=== PATIENT | female | born 1985 | race African-American/Black ===

== ENCOUNTER 2020-04-27 14:25 | Outpatient (REF) | payer OTHER, SELFPAY ==
--- NOTE | 2020-04-27 | US_ITS ---
EXAMINATION: OBSTETRICAL ULTRASOUND, FIRST TRIMESTER HISTORY: 35-year-old with secondary menorrhea Viability LMP: Unknown COMPARISON: None TECHNIQUE: Real time transabdominal imaging with color and M-mode Doppler. FINDINGS: A single, live IUP CRL of 9.5 mm c/w 7.0wks is noted. Heart Rate: 142 beats per minute. Retroverted uterus Both maternal ovaries are seen and appear normal. GESTATIONAL AGE: 1. GA from LMP: N/A wks 2. GA from AUA: 7.0 wks ESTIMATED DATE OF DELIVERY: 1. IFRAH from LMP: N/A 2. IFRAH from AUA: 12/14/2020 US/US OB <= 14 weeks fetus IMPRESSION: 1. Single live IUP 2. CRL consistent with 7.0 weeks. Best IFRAH 12/14/2020 3. Normal ovaries Follow-up in approximately 5 weeks for NT evaluation (not scheduled). Thank you very much for this referral.
== END 2020-04-27 14:26 | disposition home or self-care (01) ==
LOC: HO.US 14:25
PROVIDERS: PCP Nurse Practitioner Family; Visit Provider Family Medicine
DX: O20.9 Hemorrhage in early pregnancy, unspecified (principal); Z3A.14 14 weeks gestation of pregnancy
CPT/HCPCS: 76801

== ENCOUNTER 2021-03-31 11:14 | Emergency (ER) | payer OTHER, SELFPAY ==
--- NOTE | ~2021-03-31 | XR_ITS ---
EXAMINATION: XR CHEST CLINICAL INFORMATION: Back and chest pain. COMPARISON: 01/25/2019 portable chest. TECHNIQUE: 2 views of the chest were obtained. FINDINGS: No significant abnormality is noted involving the heart, lungs, mediastinum, bony thorax or soft tissues. XR/XR chest 2V IMPRESSION: No acute cardiopulmonary process.
--- NOTE | ~2021-03-31 | XR_ITS ---
EXAMINATION: XR LUMBOSACRAL SPINE CLINICAL INFORMATION: Low back pain. COMPARISON: None TECHNIQUE: Three views of the lumbosacral spine. FINDINGS: The vertebral bodies and posterior elements are normal. The disc spaces are preserved and the vertebral alignment is normal. The paraspinal soft tissues are normal. XR/XR lumbar spine 2-3V IMPRESSION: Unremarkable lumbar spine.
[2021-03-31 11:26] VITALS: BP 100/57; PULSE 83; RESP 18; TEMP 36.5; O2SAT 98; BMI 24.3
--- NOTE | 2021-03-31 11:30 | ECG_ITS ---
Test Reason : CHEST PAIN Blood Pressure : / mmHG Vent. Rate : 063 BPM Atrial Rate : 063 BPM P-R Int : 158 ms QRS Dur : 076 ms QT Int : 366 ms P-R-T Axes : 073 059 051 degrees QTc Int : 374 ms Normal sinus rhythm Normal ECG Heart rate has increased Referred By: Malika Marie Electronically Signed By:CHANDNI GREENE MD
--- NOTE | 2021-03-31 11:39 | ED.CHESTPAIN ---
HPI - Chest Pain General Chief Complaint: Back Pain/Injury Stated Complaint: back pain Time Seen by Provider: 03/31/21 11:30 Source: patient Mode of arrival: ambulatory Limitations: no limitations History of Present Illness MD complaint: chest pain (since early this AM feels heavy hurts to move and move her arms, low back pain for 1 month - hx of scoliosis) Onset (ago): month(s) (1 month of low back pain, chest pain since early this AM) Timing of current episode: constant Prior episodes: No Onset: during rest Pain location: substernal Pain radiation: none Severity: moderate Quality: aching and heaviness Relieving factors: nothing Exacerbating factors: palpation and movement Context: other (hx of scoliosis, no recent illnesses, travel, procedures or OCPs) Associated symptoms: dyspnea (hurts to take a deep breath) Treatment prior to arrival: none Related Data Previous Rx's Medication Instructions Recorded cyclobenzaprine 10 mg tablet 10 mg PO TID PRN #14 tab 03/31/21 ibuprofen 600 mg tablet 600 mg PO Q6H PRN #30 tab 03/31/21 lidocaine 4 % topical patch 1 patch TOPICAL DAILY PRN #10 ea 03/31/21 Allergies Allergy/AdvReac Type Severity Reaction Status Date / Time SOAP POWDER Allergy Unknown HIVES Uncoded 02/09/20 15:41 Review of Systems Review of Systems: Constitutional : No Weight loss, No Fever, No Chills, ENT/Mouth : No Hearing loss, No Ear Pain, No Nasal Congestion, No Sinus Pain, No Hoarseness, No sore throat, No Rhinorrhea, No Swallowing Difficulty Cardiovascular : pos Chest Pain, No SOB Respiratory : No Cough, No Dyspnea Gastrointestinal : No Nausea, No Vomiting, No Diarrhea, No abdominal Pain, No Hematochezia, No Melena Genitourinary : No Dysuria, No Urinary Frequency, No Hematuria, No Urinary Incontinence, Musculoskeletal : positive back pain Skin : No Skin Lesions, No rash Neuro : No Weakness, No Numbness, No Paresthesias, no loss of bowel or bladder incontinence, no saddle anesthesia All other systems reviewed and are negative [facility] Past Medical History Attestation statement: The following information was validated with the patient. Medical History No known health problems Scoliosis Social History Social History (Updated 03/31/21 @ 11:42 by Malika Marie DO) Patient Tobacco Use Status: Current someday Tobacco user Advance Directives: No Physical Exam Vital Signs: Vital Signs: Last Vital Signs Temp 97.7 F 03/31/21 11:26 Pulse 83 03/31/21 11:26 Resp 18 03/31/21 11:26 BP 100/57 L 03/31/21 11:26 Pulse Ox 98 03/31/21 11:26 Body Mass Index 24.3 Appearance: Alert. Oriented X3. No acute distress. Eyes: Pupils equal, round and reactive to light. ENT: Pharynx normal. Neck: Normal inspection. Neck supple. CVS: Normal heart rate and rhythm. Pulses normal. Chest: ttp along costochondral border Respiratory: No respiratory distress. Breath sounds normal. Abdomen: Soft and nontender. Back: ttp along lower lumbar area no midline ttp or step offs Skin: Skin warm and dry. Normal skin color. Normal skin turgor. Extremities: No lower extremity edema. No calf ttp Neuro: Oriented X 3. No motor deficit. No sensory deficit. 5/5 strength, 2+ patella reflexes Course Course Course Narrative: negative workup MDM - Chest Pain MDM Narrative Medical decision making narrative: 36 yo female with hx of scoliosis reports low back pain x 1 month - no AC therapy, no IVDA< no b/b incontinence no saddle anesthesia - suspect scoliosis. Also reports chest pain that seems MSK in nature no sig ACS risk factors PERC negative, distal pulses intact appears comfortable doubt dissection - will obtain CXR, EKG, troponin x 1 - pain for the last few hours Lab Data Result diagrams: 03/31/21 12:17 03/31/21 12:17 Labs: Lab Results 03/31/21 03/31/21 03/31/21 Range/Units 12:17 12:17 12:17 WBC 5.2 (4.8-10.8) X10*3/uL RBC 4.11 L (4.20-5.50) X10*6/uL Hgb 11.3 L (12.0-16.0) g/dl Hct 34.6 L (37.0-47.0) % MCV 84.2 (80.0-98.0) fL MCH 27.5 (27.0-33.0) pg MCHC 32.7 (31.0-35.0) g/dl RDW 13.1 (11.0-16.0) % Plt Count 232 (160-400) X10*3/uL MPV 8.6 L (9.4-12.3) fL Immature Gran % (Auto) 0.2 (0.0-0.4) % Neut % (Auto) 56.6 (45-73) % Lymph % (Auto) 32.6 (20-40) % [place] % (Auto) 8.7 (2-11) % Eos % (Auto) 1.7 (0-4) % Baso % (Auto) 0.2 (0-2) % Lymph # (Auto) 1.7 (1.2-4.9) X10*3/uL [place] # (Auto) 0.5 (0.1-1.2) X10*3/uL Eos # (Auto) 0.1 (0.0-0.4) X10*3/uL Baso # (Auto) 0.0 (0.0-0.2) X10*3/uL Abs Immat Gran (auto) 0.01 (0.00-0.03) X10*3/uL Absolute Neuts (auto) 2.9 (2.0-8.3) x10*3/uL Absolute Nucleated RBC 0.000 (0.0-0.012) X10*3/uL Nucleated RBC % (auto) 0.0 (0.0-0.2) /100WBC Sodium 138 (135-145) mmol/L Potassium 4.1 (3.3-5.1) mmol/L Chloride 108 (96-108) mmol/L Carbon Dioxide 24 (22-29) mmol/L Anion Gap 10 L (12-20) BUN 13 (9-16) mg/dL Creatinine 0.84 (0.5-1.4) mg/dL Estim Creat Clear Calc 91.7 Estimated GFR > 60 Random Glucose 91 (60-115) mg/dL Calcium 9.1 (8.4-10.2) mg/dL Troponin I High Sens < 3.5 (<3.5-17.0) ng/L COVID-19 ([place]) (Negative) COVID-19 Clin Com 03/31/21 Range/Units 12:17 WBC (4.8-10.8) X10*3/uL RBC (4.20-5.50) X10*6/uL Hgb (12.0-16.0) g/dl Hct (37.0-47.0) % MCV (80.0-98.0) fL MCH (27.0-33.0) pg MCHC (31.0-35.0) g/dl RDW (11.0-16.0) % Plt Count (160-400) X10*3/uL MPV (9.4-12.3) fL Immature Gran % (Auto) (0.0-0.4) % Neut % (Auto) (45-73) % Lymph % (Auto) (20-40) % [place] % (Auto) (2-11) % Eos % (Auto) (0-4) % Baso % (Auto) (0-2) % Lymph # (Auto) (1.2-4.9) X10*3/uL [place] # (Auto) (0.1-1.2) X10*3/uL Eos # (Auto) (0.0-0.4) X10*3/uL Baso # (Auto) (0.0-0.2) X10*3/uL Abs Immat Gran (auto) (0.00-0.03) X10*3/uL Absolute Neuts (auto) (2.0-8.3) x10*3/uL Absolute Nucleated RBC (0.0-0.012) X10*3/uL Nucleated RBC % (auto) (0.0-0.2) /100WBC Sodium (135-145) mmol/L Potassium (3.3-5.1) mmol/L Chloride (96-108) mmol/L Carbon Dioxide (22-29) mmol/L Anion Gap (12-20) BUN (9-16) mg/dL Creatinine (0.5-1.4) mg/dL Estim Creat Clear Calc Estimated GFR Random Glucose (60-115) mg/dL Calcium (8.4-10.2) mg/dL Troponin I High Sens (<3.5-17.0) ng/L COVID-19 ([place]) Negative (Negative) COVID-19 Clin Com See Note ECG Data ECG #1: Attestation: I personally reviewed and interpreted this ECG as follows: ECG interpretation date: 03/31/21 ECG interpretation time: 12:03 Interpretation: Rate: 63 Rhythm: NSR [place]: normal Normal P waves. Normal LUIS ALBERTO. Normal QRS complex. ST T wave : normal no [place]HE[place] qTC: normal prior studies: no acute ischemia The study has been interpreted contemporaneously by me. . Discharge Plan Discharge Clinical Impression: Lumbar back pain, Chest wall pain Patient Disposition: Home, Self-Care Instructions: Acute Low Back Pain (ED), Chest Wall Pain (ED) Additional Instructions: return to ED for any worsening symptoms or concerns NEGATIVE FOR COVID XRAYS NEGATIVE Prescriptions: New cyclobenzaprine 10 mg tablet 10 mg PO TID PRN (Reason: muscle spasm) Qty: 14 RF: 0 lidocaine 4 % adhesive patch,medicated 1 patch topical DAILY PRN (Reason: pain) Qty: 10 RF: 0 ibuprofen 600 mg tablet 600 mg PO Q6H PRN (Reason: pain) Qty: 30 RF: 0 Referrals: Mali Su NP [Primary Care Provider] - 1 week (for physical therapy)
[2021-03-31 12:23] LABS: MANUAL DIFF FLAG NO
[2021-03-31 12:25] LABS: Basophils Percent Auto 0.2 % (0-2); Eosinophils Absolute Auto 0.1 X10*3/uL (0.0-0.4); Eosinophils Percent Auto 1.7 % (0-4); Hematocrit 34.6 % (37.0-47.0); Hemoglobin 11.3 g/dl (12.0-16.0); Imm Gran Abs Auto 0.01 X10*3/uL (0.00-0.03); Imm Gran Pct Auto 0.2 % (0.0-0.4); Lymphocytes Absolute Auto 1.7 X10*3/uL (1.2-4.9); Lymphocytes Percent Auto 32.6 % (20-40); Mean Corpuscular HGB Conc 32.7 g/dl (31.0-35.0); Mean Corpuscular Hemoglobin 27.5 pg (27.0-33.0); Mean Corpuscular Volume 84.2 fL (80.0-98.0); Mean Platelet Volume 8.6 fL (9.4-12.3); Monocytes Absolute Auto 0.5 X10*3/uL (0.1-1.2); Monocytes Percent Auto 8.7 % (2-11); Neutrophils Absolute Auto 2.9 x10*3/uL (2.0-8.3); Neutrophils Percent Auto 56.6 % (45-73); Platelet Count 232 X10*3/uL (160-400); Red Blood Count 4.11 X10*6/uL (4.20-5.50); Red Cell Distribution Width 13.1 % (11.0-16.0); White Blood Count 5.2 X10*3/uL (4.8-10.8)
[2021-03-31 12:38] LABS: Anion Gap 10 (12-20); Blood Urea Nitrogen 13 mg/dL (9-16); Calcium 9.1 mg/dL (8.4-10.2); Carbon Dioxide 24 mmol/L (22-29); Chloride 108 mmol/L (96-108); Creatinine Clr Calc Pharmacy 91.7; Estimated Glomerular Filt Rate > 60; Glucose Random 91 mg/dL (60-115); Potassium 4.1 mmol/L (3.3-5.1); Sodium 138 mmol/L (135-145)
[2021-03-31 12:42] LABS: COVID-19 Test Negative (Negative)
[2021-03-31 12:46] LABS: Troponin-I High Sensitivity < 3.5 ng/L (<3.5-17.0)
== END 2021-03-31 13:17 | disposition home or self-care (01) ==
PROVIDERS: Emergency Provider Emergency Medicine; PCP Nurse Practitioner Family
DX: M54.50 Low back pain, unspecified (principal); R07.89 Other chest pain; M41.9 Scoliosis, unspecified; Z20.822 Contact with and (suspected) exposure to COVID-19
CPT/HCPCS: 36415; 71046; 72100; 80048; 84484; 85025; 87635; 93005; 99283; 99284

== ENCOUNTER 2021-06-09 17:17 | Emergency (ER) | payer OTHER, SELFPAY ==
[2021-06-09 18:10] VITALS: BP 136/77; PULSE 96; RESP 16; O2SAT 100; BMI 24.1
[2021-06-09 18:26] LABS: Appearance Urine HAZY; Color Urine YELLOW; Glucose Urine UA NEG (NEG); Leukocyte Esterase Urine 2+ (NEG); Nitrite Urine NEG (NEG); UACC Culture Trigger YES; Urine Blood NEG (NEG); Urine Ketones NEG (NEG); Urine Protein 1+ MG/DL (NEG-TRACE)
[2021-06-09 18:28] LABS: UPreg QC Valid YES; Urine Pregnancy POSITIVE (NEGATIVE)
[2021-06-09 18:35] LABS: Amorphous Sediment Urine 1+ /LPF; Bacteria Urine 1+ /LPF; Mucus Urine 1+ /LPF; RBC Urine 0-2 /HPF (0); Squamous Epithelial Cell Urine 2+ /LPF
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
[2021-06-09] MEDS: Nitrofurantoin Monohyd/M-Cryst 100 MG CAPSULE PO (22:21)
[2021-06-09 22:39] LABS: COVID-19 Test Negative (Negative)
[2021-06-09 22:52] LABS: HCG Quantitative 861 mIU/mL
[2021-06-09] MEDS: Acetaminophen 325 MG TABLET 650 MG PO (23:41)
== END 2021-06-09 23:48 | disposition home or self-care (01) ==
PROVIDERS: Emergency Provider Internal Medicine; PCP Nurse Practitioner Family
DX: O23.41 Unspecified infection of urinary tract in pregnancy, first trimester (principal); Z3A.01 Less than 8 weeks gestation of pregnancy; Z20.822 Contact with and (suspected) exposure to COVID-19; Z79.899 Other long term (current) drug therapy
CPT/HCPCS: 36415; 81001; 81025; 84702; 87086; 87635; 99284

== ENCOUNTER 2021-06-21 13:58 | Outpatient (REF) | payer OTHER, SELFPAY ==
--- NOTE | ~2021-06-21 | US_ITS ---
EXAMINATION: OBSTETRICAL ULTRASOUND, FIRST TRIMESTER HISTORY: 36-year-old at the 6.2 weeks of gestation Encounter for uncertain dates LMP: 05/08/2021 COMPARISON: None TECHNIQUE: Real time transabdominal imaging with color and M-mode Doppler. FINDINGS: A single, live IUP CRL of 4.6 mm c/w 6.2wks is noted. Heart Rate: 119 beats per minute. Both maternal ovaries are seen and appear normal. GESTATIONAL AGE: 1. GA from LMP: 6.2 wks 2. GA from AUA: 6.2 wks ESTIMATED DATE OF DELIVERY: 1. IFRAH from LMP: 02/12/2022 2. IFRAH from AUA: 02/12/2022 US/US OB <= 14 weeks fetus IMPRESSION: 1. A single live IUP 2. Size equals dates 3. Normal ovaries Thank you very much for this referral.
== END 2021-06-21 13:59 | disposition home or self-care (01) ==
LOC: HO.US 13:58
PROVIDERS: Visit Provider Advanced Practice Midwife
DX: Z34.91 Encounter for supervision of normal pregnancy, unspecified, first trimester (principal); Z3A.01 Less than 8 weeks gestation of pregnancy
CPT/HCPCS: 76801

== ENCOUNTER 2021-07-01 13:29 | Emergency (ER) | payer OTHER, SELFPAY ==
[2021-07-01 13:57] VITALS: BP 107/62; PULSE 90; RESP 16; TEMP 37.2; O2SAT 100; BMI 22.8
--- NOTE | 2021-07-01 14:26 | ED_ITS ---
HPI - Nausea/Vomiting/Diarrhea General Chief complaint: Nausea/Vomiting/Diarrhea Stated complaint: 8 wks preg - dehydration Time Seen by Provider: 07/01/21 14:20 Source: patient Mode of arrival: ambulatory Limitations: no limitations History of Present Illness HPI Narrative: D = US had hyperemesis with last on B6 and doxylamine but vomiting it up not taking zofran that was Rx at this time, feels very dehydrated. MD elicited complaint: nausea and vomiting Pertinent past history: other (hx of vomiting with her ) Onset (ago): week(s) Description of vomiting: food contents and watery Associated nausea: Yes Associated abdominal pain: No Severity: moderate Exacerbating factors: eating Relieving factors: none Context: other (hx of hyperemesis ) Associated symptoms: loss of appetite, malaise, nausea/vomiting and decreased urine output (has strong odor, no vaginal bleeding) Related Data Previous Rx's Medication Instructions Recorded cyclobenzaprine 10 mg tablet 10 mg PO TID PRN #14 tab 03/31/21 ibuprofen 600 mg tablet 600 mg PO Q6H PRN #30 tab 03/31/21 lidocaine 4 % topical patch 1 patch TOPICAL DAILY PRN #10 ea 03/31/21 nitrofurantoin 100 mg PO BID #20 cap 06/09/21 monohydrate/macrocrystals 100 mg capsule (Macrobid) promethazine 25 mg rectal 25 mg NE Q6H PRN #12 ea 07/01/21 suppository Allergies Allergy/AdvReac Type Severity Reaction Status Date / Time SOAP POWDER Allergy Unknown HIVES Uncoded 07/01/21 13:57 Review of Systems [place] 4l Review of Systems: Verdana 4d Verdana 4d Constitutional : No Weight loss, No Fever, No Chills ENT/Mouth : No sore throat, No Rhinorrhea Eyes: No Swelling, No Redness Cardiovascular : No Chest Pain, No SOB, NoEdema Respiratory : No Cough, No Sputum, No Wheezing Gastrointestinal :: Positive Nausea, Positive Vomiting, no Diarrhea, no abdominal Pain, No Hematochezia, No Melena Genitourinary : No Dysuria, No Urinary Frequency, No Hematuria, No Urgency , no vaginal bleeding Musculoskeletal : No joint pain, No Myalgias, No Joint Swelling Skin : No Skin Lesions, No rash Neuro : pos Weakness, No Numbness, No Dizziness, No Headache Psych : No Anxiety/Panic, No Depression Heme/Lymph: No Bruising, No Lymphadenopathy Endocrine : No Polyuria, No Polydipsia All other systems reviewed and are negative. Gastrointestinal: Gastrointestinal: Reports nausea PMFSH Past Medical History Attestation statement: The following information was validated with the patient. Medical History No known health problems Scoliosis Social History Social History Alcohol intake: former Patient Tobacco Use Status: Former Tobacco user Smoked in Last 30 Days: Yes Use of substances other than those prescribed or required for medical reasons: No Advance Directives: No Advance Directives Information Provided: No Patient : Yes Physical Exam Verdana 4l Vital Signs: Verdana 4d Verdana 4d Vital Signs: Verdana 4d Verdana 4Bd Last Vital Signs Verdana 4d [employer] New 4d [employer]or New 4d Temp 98.9 F 07/01/21 13:57 [employer] New 4d Pulse 90 07/01/21 13:57 [employer] New 4d Resp 16 07/01/21 13:57 BP 107/62 07/01/21 13:57 Pulse Ox 100 07/01/21 13:57 BMI result Body Mass Index 22.8 Appearance: Alert. Oriented X3. No acute distress. Eyes: Pupils equal, round and reactive to light. ENT: Pharynx mildlly dry MM Neck: Normal inspection. Neck supple. CVS: Normal heart rate and rhythm. Pulses normal. Respiratory: No respiratory distress. Breath sounds normal. Abdomen: Soft and non-tender. Skin: Skin warm and dry. Normal skin color. Normal skin turgor. Extremities: No lower extremity edema. No calf ttp Neuro: Oriented X 3. No motor deficit. No sensory deficit. Course Course Course Narrative: signed out to Dr. Peña pending UA and PO challenge MDM - Nausea/Vomiting/Diarrhea MDM Narrative Medical decision making narrative: 36 yo female 8 weeks D = to US here with c/o vomitig not responding to her medications but was Rx zofran did not try it yet. At this time will obtain labs, UA, IVF x 2L, reglan/benadryl. She is not endorsing abdominal pain or vaginal bleeding. Has OB follow up. Lab Data Result diagrams: 07/01/21 14:47 07/01/21 14:47 Labs: Lab Results 07/01/21 07/01/21 07/01/21 Range/Units 14:47 14:47 14:47 WBC 7.5 (4.8-10.8) X10*3/uL RBC 4.27 (4.20-5.50) X10*6/uL Hgb 11.8 L (12.0-16.0) g/dl Hct 35.5 L (37.0-47.0) % MCV 83.1 (80.0-98.0) fL MCH 27.6 (27.0-33.0) pg MCHC 33.2 (31.0-35.0) g/dl RDW 13.5 (11.0-16.0) % Plt Count 220 (160-400) X10*3/uL MPV 8.9 L (9.4-12.3) fL Immature Gran % (Auto) 0.3 (0.0-0.4) % Neut % (Auto) 67.0 (45-73) % Lymph % (Auto) 24.2 (20-40) % [place] % (Auto) 7.2 (2-11) % Eos % (Auto) 1.2 (0-4) % Baso % (Auto) 0.1 (0-2) % Lymph # (Auto) 1.8 (1.2-4.9) X10*3/uL [place] # (Auto) 0.5 (0.1-1.2) X10*3/uL Eos # (Auto) 0.1 (0.0-0.4) X10*3/uL Baso # (Auto) 0.0 (0.0-0.2) X10*3/uL Abs Immat Gran (auto) 0.02 (0.00-0.03) X10*3/uL Absolute Neuts (auto) 5.0 (2.0-8.3) x10*3/uL Absolute Nucleated RBC 0.000 (0.0-0.012) X10*3/uL Nucleated RBC % (auto) 0.0 (0.0-0.2) /100WBC Sodium 135 (135-145) mmol/L Potassium 4.1 (3.3-5.1) mmol/L Chloride 104 (96-108) mmol/L Carbon Dioxide 24 (22-29) mmol/L Anion Gap 11 L (12-20) BUN 9 (9-16) mg/dL Creatinine 0.79 (0.5-1.4) mg/dL Estim Creat Clear Calc 101.2 Estimated GFR > 60 Random Glucose 95 (60-115) mg/dL Calcium 9.9 D (8.4-10.2) mg/dL Magnesium 1.8 (1.6-2.6) mg/dL Total Bilirubin 0.5 (0.0-1.0) mg/dL Direct Bilirubin < 0.2 (0.0-0.5) mg/dL AST 23 (5-31) U/L ALT 21 (0-31) U/L Alkaline Phosphatase 50 (39-117) U/L Total Protein 7.3 (6.5-8.0) g/dL Albumin 4.4 (3.5-5.0) g/dL Lipase 11 (8-78) U/L Beta HCG, Quant 112746 mIU/mL COVID-19 ([place]) Negative (Negative) COVID-19 Clin Com See Note Discharge Plan Discharge Clinical Impression: Hyperemesis Instructions: Hyperemesis Gravidarum (ED) Additional Instructions: return to ED for any worsening symptoms or concerns you have zofran as well for nausea and vomiting please follow up with your OBGYN Prescriptions: New promethazine 25 mg suppository 25 mg NE Q6H PRN (Reason: nausea and vomiting) Qty: 12 0RF No Action cyclobenzaprine 10 mg tablet 10 mg PO TID PRN (Reason: muscle spasm) Qty: 14 0RF lidocaine 4 % adhesive patch,medicated 1 patch topical DAILY PRN (Reason: pain) Qty: 10 0RF Rx Instructions: may leave on for up to 12 hrs ibuprofen 600 mg tablet 600 mg PO Q6H PRN (Reason: pain) Qty: 30 0RF nitrofurantoin monohyd/m-cryst [Macrobid] 100 mg capsule 100 mg PO BID Qty: 20 0RF Rx Instructions: must administer with a meal/food Stand Alone Forms: Work/School Release
[2021-07-01 14:51] LABS: MANUAL DIFF FLAG NO
[2021-07-01] MEDS: 0.9 % Sodium Chloride 1,000 ML 999 ML IVCONT ×2 (14:53→16:13)
[2021-07-01] MEDS: Metoclopramide HCl 10 MG/2 ML VIAL IVPUSH (14:54)
[2021-07-01] MEDS: diphenhydrAMINE HCL 50 MG/ML VIAL 25 MG IVPUSH (14:54)
[2021-07-01 14:56] LABS: Basophils Percent Auto 0.1 % (0-2); Eosinophils Absolute Auto 0.1 X10*3/uL (0.0-0.4); Eosinophils Percent Auto 1.2 % (0-4); Hematocrit 35.5 % (37.0-47.0); Hemoglobin 11.8 g/dl (12.0-16.0); Imm Gran Abs Auto 0.02 X10*3/uL (0.00-0.03); Imm Gran Pct Auto 0.3 % (0.0-0.4); Lymphocytes Absolute Auto 1.8 X10*3/uL (1.2-4.9); Lymphocytes Percent Auto 24.2 % (20-40); Mean Corpuscular HGB Conc 33.2 g/dl (31.0-35.0); Mean Corpuscular Hemoglobin 27.6 pg (27.0-33.0); Mean Corpuscular Volume 83.1 fL (80.0-98.0); Mean Platelet Volume 8.9 fL (9.4-12.3); Monocytes Absolute Auto 0.5 X10*3/uL (0.1-1.2); Monocytes Percent Auto 7.2 % (2-11); Platelet Count 220 X10*3/uL (160-400); Red Blood Count 4.27 X10*6/uL (4.20-5.50); Red Cell Distribution Width 13.5 % (11.0-16.0); White Blood Count 7.5 X10*3/uL (4.8-10.8)
[2021-07-01 15:17] LABS: Alanine Aminotransferase 21 U/L (0-31); Albumin Level 4.4 g/dL (3.5-5.0); Alkaline Phosphatase 50 U/L (39-117); Anion Gap 11 (12-20); Aspartate Amino Transferase 23 U/L (5-31); Bilirubin Direct < 0.2 mg/dL (0.0-0.5); Bilirubin Total 0.5 mg/dL (0.0-1.0); Blood Urea Nitrogen 9 mg/dL (9-16); COVID-19 Test Negative (Negative); Calcium 9.9 mg/dL (8.4-10.2); Carbon Dioxide 24 mmol/L (22-29); Chloride 104 mmol/L (96-108); Creatinine Clr Calc Pharmacy 101.2; Estimated Glomerular Filt Rate > 60; Glucose Random 95 mg/dL (60-115); IDNOW Serial# 9DD0AD1C; Lipase 11 U/L (8-78); Magnesium 1.8 mg/dL (1.6-2.6); Potassium 4.1 mmol/L (3.3-5.1); Sodium 135 mmol/L (135-145); Total Protein 7.3 g/dL (6.5-8.0)
--- NOTE | 2021-07-01 16:14 | PC.NURSE ---
pt reports feeling better, no vomiting since pt arrived to the ed, no nausea at this time
[2021-07-01 16:28] LABS: Appearance Urine CLEAR; Color Urine YELLOW; Glucose Urine UA NEG (NEG); Leukocyte Esterase Urine NEG (NEG); Nitrite Urine NEG (NEG); Specific Gravity - Urine 1.025 (1.005-1.025); Urine Blood NEG (NEG); Urine Ketones NEG (NEG); Urine Protein TRACE MG/DL (NEG-TRACE)
[2021-07-01 17:31] VITALS: BP 95/59; PULSE 69; RESP 16; TEMP 37.1; O2SAT 100
== END 2021-07-01 17:41 | disposition home or self-care (01) ==
PROVIDERS: Emergency Medicine; Emergency Provider Internal Medicine
DX: O21.0 Mild hyperemesis gravidarum (principal); Z3A.08 8 weeks gestation of pregnancy; Z20.822 Contact with and (suspected) exposure to COVID-19
CPT/HCPCS: 80048; 80076; 81003; 83690; 83735; 84702; 85025; 87635; 96361; 96374; 96375; 99284; J1200; J2765

== ENCOUNTER → 2021-07-08 13:58 | Outpatient (BNVA) | payer OTHER, SELFPAY | PROVIDERS: Visit Provider Advanced Practice Midwife | DX: O09.529 Supervision of elderly multigravida, unspecified trimester (principal); O99.341 Other mental disorders complicating pregnancy, first trimester; F41.9 Anxiety disorder, unspecified; F32.A Depression, unspecified; Z3A.08 8 weeks gestation of pregnancy | CPT/HCPCS: 99212 ==

== ENCOUNTER 2021-07-12 13:29 | Outpatient (REF) | payer OTHER, SELFPAY ==
[2021-07-13 04:27] LABS: CT PCR NOT DETECTED (Not Detect.); NG PCR NOT DETECTED (Not Detect.)
[2021-07-13 09:32] LABS: BV Int Neg Control Negative (Negative); BV Int Pos Control Positive (Positive)
[2021-07-17 14:57] LABS: HPV mRNA E6/E7 rflx Not Detected (Not Detected)
== END 2021-07-12 13:30 | disposition home or self-care (01) ==
LOC: HO.LAB 13:29
PROVIDERS: Visit Provider Advanced Practice Midwife
DX: O09.521 Supervision of elderly multigravida, first trimester (principal); O26.891 Other specified pregnancy related conditions, first trimester; N89.8 Other specified noninflammatory disorders of vagina; F41.9 Anxiety disorder, unspecified; F32.A Depression, unspecified; Z11.51 Encounter for screening for human papillomavirus (HPV); Z3A.09 9 weeks gestation of pregnancy
CPT/HCPCS: 87480; 87491; 87510; 87591; 87624; 87660; 88142; 99212

== ENCOUNTER 2021-07-21 12:57 | Emergency (ER) | payer OTHER, SELFPAY ==
--- NOTE | ~2021-07-21 | US_ITS ---
EXAMINATION: US OBSTETRICAL ULTRASOUND CLINICAL INFORMATION: Left lower quadrant pain. 10 weeks gestation. COMPARISON: Ultrasound OB 06/13/2021 LMP: 05/08/2021. Gestational age by maternal dates is 10 weeks 4 days. Estimated date of delivery by maternal dates is 02/12/2022. TECHNIQUE: Routine transabdominal imaging of pelvis is performed. FINDINGS: There is a single intrauterine gestational sac with visible yolk sac, embryo/fetus, and cardiac activity. There is no significant subchorionic hemorrhage or hematoma. HR: 160 beats per minute. CRL (crown rump length): 4.08 cm (11 weeks and 8 days +/- 4 days). IFRAH (estimated date of delivery): 02/12/2022 +/- 4 days. MATERNAL ADNEXA: The right maternal ovary appears unremarkable The left maternal ovary appears unremarkable There is no significant maternal adnexal mass. No maternal pelvic ascites. US/US OB <= 14 weeks fetus IMPRESSION: 1. Single intrauterine gestation with ultrasound gestational age of 11 weeks and 8 days +/- 4 days. 2. Estimated date of delivery is 02/12/2022 +/- 4 days. 3. No maternal adnexal mass or pelvic ascites.
[2021-07-21 13:22] VITALS: BP 103/53; PULSE 74; RESP 18; TEMP 36.6; O2SAT 99; BMI 24.1
--- NOTE | 2021-07-21 14:01 | ED_ITS ---
HPI - Nausea/Vomiting/Diarrhea General Chief complaint: Nausea/Vomiting/Diarrhea Stated complaint: 10 wks preg, dehydrated,abd pain Time Seen by Provider: 07/21/21 13:37 Source: patient History of Present Illness HPI Narrative: 36-year-old female at 10 weeks gestation presenting to the ED complaining of lower abdominal discomfort, nausea, vomiting, inability to tolerate p.o. x4 days, generalized fatigue/weakness and dizziness. Admits to similar symptoms in the past. Reports she feels dehydrated. Denies fever, chills, CP/SOB, diarrhea, vaginal bleeding, vaginal discharge, dysuria/hematuria MD elicited complaint: nausea, vomiting and abdominal pain Onset (ago): day(s) Related Data Home Medications Medication Instructions Recorded Confirmed prenat.vits,lorelei,[id number] 1 tab PO DAILY 07/12/21 07/21/21 doxylamine succinate 25 mg tablet 1 tab PO BEDTIME 07/21/21 07/21/21 (Nighttime Sleep-Aid (doxylamine)) metronidazole 0.75 % vaginal gel 1 appful VAGINAL BEDTIME 07/21/21 07/21/21 Previous Rx's Medication Instructions Recorded ondansetron 4 mg disintegrating 4 mg PO Q6-8H PRN #20 tab 07/01/21 tablet promethazine 25 mg rectal 25 mg DC Q6H PRN #12 ea 07/01/21 suppository pyridoxine (vitamin B6) 25 mg 25 mg PO tid PRN 30 Days #90 tab 07/08/21 tablet (Vitamin B-6) metoclopramide HCl 10 mg tablet 10 mg PO Q6H PRN #10 tab 07/21/21 (Reglan) Allergies Allergy/AdvReac Type Severity Reaction Status Date / Time SOAP POWDER Allergy Unknown HIVES Uncoded 07/12/21 13:56 Review of Systems Review of Systems: Constitutional: No Fever, No Chills, + Fatigue, No Malaise ENT/Mouth: No Ear Pain, No Hoarseness, No sore throat, No Rhinorrhea, No Swallowing Difficulty Eyes: No Eye Pain, No Swelling, No Redness Cardiovascular: No Chest Pain, No SOB, No Edema, No Palpitations Respiratory: No Cough, No Sputum, No Dyspnea Gastrointestinal: + Nausea, + Vomiting, No Diarrhea, No Constipation, + Abdominal pain Genitourinary: No irregular bleeding, No vaginal bleeding or discharge, No Dysuria, No Urinary Frequency, No Hematuria, No Urgency, No Flank Pain, No Uri nary Flow Changes Musculoskeletal: No joint pain, No Myalgias, No Joint Swelling Skin: No Skin Lesions, No rash Neuro: + Weakness, No Numbness, No Loss of Consciousness, + Dizziness, No Headache Yes all other systems are reviewed and are negative FOR[facility], [facility] Past Medical History Attestation statement: The following information was validated with the patient. Medical History No known health problems Scoliosis Family History Family History Father Diabetes mellitus treated with insulin Mother Arthritis Social History Social History Household Members: Children Housing: Apartment Are you a primary career consultant to a significant other at home: No Do you presently have visiting nurse or other home services: No Alcohol intake: former Patient Tobacco Use Status: Former Tobacco user Trauma History: h/o brother being killed Agree to transfusion: Yes Advance Directives: No Advance Directives Information Provided: No Patient : Yes service: No Current occupational status: unemployed Current occupational exposures/hazards: No Cognitive needs: No Hearing needs: No Vision needs: No Physical Exam Vital Signs: Vital Signs: Last Vital Signs Temp 97.9 F 07/21/21 13:22 Pulse 73 07/21/21 14:16 Resp 16 07/21/21 14:16 BP 100/63 07/21/21 14:16 Pulse Ox 100 07/21/21 14:16 BMI result Body Mass Index 24.1 Const: General: cooperative, healthy appearing, no acute distress, alert, awake and Physically active Orientation/consciousness: patient oriented x3 Limitations: no limitations HENMT: Head: Yes normal to inspection and Yes atraumatic Ears: hearing grossly normal bilaterally General nose exam: Normal external nose present Face and sinus: Yes normal facial exam Eyes: General: appearance normal, both eyes and all related structures EOM: EOMs intact bilaterally Neck: Neck: Yes normal visual inspection and Yes no meningeal signs Resp: Effort & Inspection: normal respiratory effort and no respiratory distress Auscultation: clear to auscultation bilaterally, no rales, no rhonchi and no wheezes Cardio: Rate: regular rate Heart sounds: S1 normal heart sound present and S2 normal heart sound present GI: Inspection: Yes normal to inspection Palpation (GI): Soft to palpation, Tenderness to palpation present (GI) in the LLQ and suprapubicly, no guarding and not rigid : General: Yes no CVA tenderness Back/Spine/Pelvis: Back: no CVA tenderness Skin: Rashes: no rashes Wounds: no wounds Neuro: General: patient oriented x3, gait normal, tone normal, moves all extremities and no meningeal signs Gait exam (Neuro): Normal gait present Extrem: General: Yes normal to inspection Course Course Course Narrative: -1524--no leukocytosis. H&H stable. Labs otherwise unremarkable. UA with 15 ketones/not infected US OB <= 14 weeks fetus IMPRESSION: 1. Single intrauterine gestation with ultrasound gestational age of? 11 weeks and 8 days +/- 4 days. 2. Estimated date of delivery is 02/12/2022 +/- 4 days. 3. No maternal adnexal mass or pelvic ascites. -beta quant 254,622 >consistent with ultrasound -results discussed with patient. Reports symptomatic improvement in the ED. tolerated p.o. juice, yvan lor, and crackers without nausea or vomiting MDM - Nausea/Vomiting/Diarrhea MDM Narrative Medical decision making narrative: 36-year-old female at 10 weeks gestation presenting to the ED complaining of lower abdominal discomfort, nausea, vomiting, inability to tolerate p.o. x4 days, generalized fatigue/weakness and dizziness. On exam vital signs stable, BP always on lower side, NAD/nontoxic, abdomen soft with suprapubic/lower and LLQ tenderness, no rebound or guarding, no CVAT. Concern for hyperemesis and dehydration vs abdominal pain from retching. Lower concern for diverticulitis. Rule out UTI and metabolic abnormalities. Plan: Labs, UA, OB US, IVF, IV Benadryl/Reglan, vitamin B6, re-evaluate Medical Records Attestation: I reviewed the patient's medical records. Lab Data Attestation: I reviewed the patient's lab results. Result diagrams: 07/21/21 14:04 07/21/21 14:04 Labs: Lab Results 07/21/21 07/21/21 07/21/21 Range/Units 14:04 14:04 14:04 WBC 7.5 (4.8-10.8) X10*3/uL RBC 4.18 L (4.20-5.50) X10*6/uL Hgb 11.5 L (12.0-16.0) g/dl Hct 34.4 L (37.0-47.0) % MCV 82.3 (80.0-98.0) fL MCH 27.5 (27.0-33.0) pg MCHC 33.4 (31.0-35.0) g/dl RDW 13.7 (11.0-16.0) % Plt Count 249 (160-400) X10*3/uL MPV 8.8 L (9.4-12.3) fL Immature Gran % (Auto) 0.3 (0.0-0.4) % Neut % (Auto) 73.7 H (45-73) % Lymph % (Auto) 19.6 L (20-40) % [place] % (Auto) 5.4 (2-11) % Eos % (Auto) 0.7 (0-4) % Baso % (Auto) 0.3 (0-2) % Lymph # (Auto) 1.5 (1.2-4.9) X10*3/uL [place] # (Auto) 0.4 (0.1-1.2) X10*3/uL Eos # (Auto) 0.1 (0.0-0.4) X10*3/uL Baso # (Auto) 0.0 (0.0-0.2) X10*3/uL Abs Immat Gran (auto) 0.02 (0.00-0.03) X10*3/uL Absolute Neuts (auto) 5.6 (2.0-8.3) x10*3/uL Absolute Nucleated RBC 0.000 (0.0-0.012) X10*3/uL Nucleated RBC % (auto) 0.0 (0.0-0.2) /100WBC Sodium 134 L (135-145) mmol/L Potassium 4.5 (3.3-5.1) mmol/L Chloride 104 (96-108) mmol/L Carbon Dioxide 22 (22-29) mmol/L Anion Gap 13 (12-20) BUN 12 (9-16) mg/dL Creatinine 0.76 (0.5-1.4) mg/dL Estim Creat Clear Calc 101.4 Estimated GFR > 60 Random Glucose 92 (60-115) mg/dL Calcium 9.7 (8.4-10.2) mg/dL Magnesium 1.9 (1.6-2.6) mg/dL Total Bilirubin 0.4 (0.0-1.0) mg/dL Direct Bilirubin < 0.2 (0.0-0.5) mg/dL AST 27 (5-31) U/L ALT 19 (0-31) U/L Alkaline Phosphatase 44 (39-117) U/L Total Protein 7.2 (6.5-8.0) g/dL Albumin 4.0 (3.5-5.0) g/dL Lipase 14 (8-78) U/L Beta HCG, Quant 742008 mIU/mL Urine Color YELLOW Urine Appearance HAZY Urine pH 6.0 (5.0-8.0) Ur Specific [place] >= 1.030 H (1.005-1.025) Urine Protein TRACE (NEG-TRACE) MG/DL Urine Glucose (UA) NEG (NEG) MG/DL Urine Ketones 15 (NEG) MG/DL Urine Blood NEG (NEG) Urine Nitrite NEG (NEG) Ur Leukocyte Esterase NEG (NEG) Discharge Plan Discharge Clinical Impression: Hyperemesis gravidarum Patient Disposition: Home, Self-Care Instructions: Hyperemesis Gravidarum (ED) Additional Instructions: Your blood work was reassuring Your urine did have ketones which is signs of dehydration. It is very important that he stay hydrated at home, drink plenty of fluids. Continue taking previously prescribed medications. If Zofran is not working for you stop taking Zofran, try Reglan as an antinausea medication Please follow-up with her OBGYN. If you are unable to eat or drink, develops fever, persistent abdominal pain, inability to eat or drink please return to the ED Prescriptions: New metoclopramide HCl [Reglan] 10 mg tablet 10 mg PO Q6H PRN (Reason: nausea and vomiting) Qty: 10 0RF No Action promethazine 25 mg suppository 25 mg DC Q6H PRN (Reason: nausea and vomiting) Qty: 12 0RF ondansetron 4 mg tablet,disintegrating 4 mg PO Q6-8H PRN (Reason: nausea and vomiting) Qty: 20 0RF metronidazole 0.75 % gel 1 appful vaginal BEDTIME 0RF Nighttime Sleep-Aid (doxylamn) 25 mg tablet 1 tab PO BEDTIME 0RF pyridoxine (vitamin B6) [Vitamin B-6] 25 mg tablet 25 mg PO tid PRN (Reason: nausea) 30 Days Qty: 90 3RF Rx Instructions: may take every 6 - 8 hours for nausea prenat.vits,lorelei,[id number] Tablet 1 tab PO DAILY 0RF Referrals: Noah Aguilar MD [Physician] - 2 days
[2021-07-21 14:10] LABS: MANUAL DIFF FLAG NO
[2021-07-21] MEDS: diphenhydrAMINE HCL 50 MG/ML VIAL 25 MG IVPUSH (14:10)
[2021-07-21 14:11] LABS: Basophils Percent Auto 0.3 % (0-2); Eosinophils Absolute Auto 0.1 X10*3/uL (0.0-0.4); Eosinophils Percent Auto 0.7 % (0-4); Hematocrit 34.4 % (37.0-47.0); Hemoglobin 11.5 g/dl (12.0-16.0); Imm Gran Abs Auto 0.02 X10*3/uL (0.00-0.03); Imm Gran Pct Auto 0.3 % (0.0-0.4); Lymphocytes Absolute Auto 1.5 X10*3/uL (1.2-4.9); Lymphocytes Percent Auto 19.6 % (20-40); Mean Corpuscular HGB Conc 33.4 g/dl (31.0-35.0); Mean Corpuscular Hemoglobin 27.5 pg (27.0-33.0); Mean Corpuscular Volume 82.3 fL (80.0-98.0); Mean Platelet Volume 8.8 fL (9.4-12.3); Monocytes Absolute Auto 0.4 X10*3/uL (0.1-1.2); Monocytes Percent Auto 5.4 % (2-11); Neutrophils Absolute Auto 5.6 x10*3/uL (2.0-8.3); Neutrophils Percent Auto 73.7 % (45-73); Platelet Count 249 X10*3/uL (160-400); Red Blood Count 4.18 X10*6/uL (4.20-5.50); Red Cell Distribution Width 13.7 % (11.0-16.0); White Blood Count 7.5 X10*3/uL (4.8-10.8)
[2021-07-21 14:12] LABS: Appearance Urine HAZY; Color Urine YELLOW; Glucose Urine UA NEG (NEG); Leukocyte Esterase Urine NEG (NEG); Nitrite Urine NEG (NEG); Specific Gravity - Urine >= 1.030 (1.005-1.025); Urine Blood NEG (NEG); Urine Ketones 15 MG/DL (NEG); Urine Protein TRACE MG/DL (NEG-TRACE)
[2021-07-21] MEDS: Metoclopramide HCl 10 MG/2 ML VIAL IVPUSH (14:12)
[2021-07-21] MEDS: 0.9 % Sodium Chloride 1,000 ML 999 ML IV ×2 (14:14→15:46)
[2021-07-21 14:16] VITALS: BP 100/63; PULSE 73; RESP 16; O2SAT 100
[2021-07-21 14:49] LABS: Alanine Aminotransferase 19 U/L (0-31); Alkaline Phosphatase 44 U/L (39-117); Anion Gap 13 (12-20); Aspartate Amino Transferase 27 U/L (5-31); Bilirubin Direct < 0.2 mg/dL (0.0-0.5); Bilirubin Total 0.4 mg/dL (0.0-1.0); Blood Urea Nitrogen 12 mg/dL (9-16); Calcium 9.7 mg/dL (8.4-10.2); Carbon Dioxide 22 mmol/L (22-29); Chloride 104 mmol/L (96-108); Creatinine Clr Calc Pharmacy 101.4; Estimated Glomerular Filt Rate > 60; Glucose Random 92 mg/dL (60-115); Lipase 14 U/L (8-78); Magnesium 1.9 mg/dL (1.6-2.6); Potassium 4.5 mmol/L (3.3-5.1); Sodium 134 mmol/L (135-145); Total Protein 7.2 g/dL (6.5-8.0)
[2021-07-21] MEDS: Pyridoxine HCl (Vitamin B6) 50 MG TABLET 25 MG PO (15:46)
== END 2021-07-21 17:25 | disposition home or self-care (01) ==
PROVIDERS: Physician Assistant; Emergency Provider Emergency Medicine Emergency Medical Services
DX: O26.91 Pregnancy related conditions, unspecified, first trimester (principal); R11.2 Nausea with vomiting, unspecified; Z3A.10 10 weeks gestation of pregnancy; Z79.899 Other long term (current) drug therapy
CPT/HCPCS: 36415; 76801; 80048; 80076; 81003; 83690; 83735; 84702; 85025; 96360; 96374; 96376; 99283; J1200; J2765

== ENCOUNTER 2021-08-02 14:00 | Outpatient (REF) | payer OTHER, SELFPAY ==
--- NOTE | ~2021-08-02 | US_ITS ---
EXAMINATION: OBSTETRICAL ULTRASOUND, FIRST TRIMESTER HISTORY: 36-year-old at 12.2 weeks of gestation AMA at delivery NT screening COMPARISON: 07/21/2021 TECHNIQUE: Real time transabdominal imaging with color and M-mode Doppler. FINDINGS: A single, live IUP CRL of 64.2 mm c/w 12.6wks is noted. Heart Rate: 169 beats per minute. Normal yolk sac seen. NT was 1.1.mm. NB Present The embryo appears sonographically wnl for this GA. Both maternal ovaries are seen and appear normal. GESTATIONAL AGE: 1. Established GA: 12.2 wks 2. GA from AUA: 12.6 wks ESTIMATED DATE OF DELIVERY: 1. Established IFRAH: 02/12/2022 2. IFRAH from AUA: 02/08/2022 US/US OB 1T nuc measure IMPRESSION: 1. A single live IUP 2. Size equals dates 3. NT of 1.1 mm MFM Consultation: I reviewed the ultrasound findings along with significance of NT measurement. The NT of less than 3mm is generally reassuring. However, the sensitivity for T21 detection is only 60%. I reviewed the availability of serum aneuploidy screening which includes cell-free DNA and placental protein based tests. I discussed the sensitivity, false-positive rate, and other limitations associated with each test. I also reviewed the availability of invasive diagnostic tests that are associated small but definite risk of miscarriage. We also reviewed the differences between screening tests and diagnostic tests. After our discussion, she opted for the First trimester screening that is based on cell-free DNA or non-invasive testing (NIPT). The result will be faxed to your office in approximately 7 days. A follow up at 18 weeks for survey has been scheduled. Thank you very much for this referral. Total time 30 minutes. The time spent was devoted to counseling the patient about the disease and diagnosis, coordinating care including reviewing her records, pertinent lab data and studies, as well as discussing diagnostic evaluation and workup, plan therapeutic interventions and future disposition of care. This includes any additional research needed to obtain further information in formulating the plan of care of this patient. This note was generated with a voice recognition program. Please excuse any errors which may have been overlooked during my review of this note. Sometimes these errors may affect the content or meaning of a given sentence.
== END 2021-08-02 14:01 | disposition home or self-care (01) ==
LOC: HO.US 14:00
PROVIDERS: Visit Provider Advanced Practice Midwife
DX: Z34.91 Encounter for supervision of normal pregnancy, unspecified, first trimester (principal); Z3A.12 12 weeks gestation of pregnancy
CPT/HCPCS: 76813

== ENCOUNTER → 2021-08-20 11:46 | Outpatient (BNVA) | payer OTHER, SELFPAY | PROVIDERS: Visit Provider Advanced Practice Midwife | DX: O09.522 Supervision of elderly multigravida, second trimester (principal); Z36.3 Encounter for antenatal screening for malformations; O21.9 Vomiting of pregnancy, unspecified; Z3A.14 14 weeks gestation of pregnancy | CPT/HCPCS: 81003; 99212 ==

== ENCOUNTER 2021-09-15 12:58 | Emergency (ER) | payer OTHER, SELFPAY ==
--- NOTE | ~2021-09-15 | XR_ITS ---
EXAMINATION: XR CHEST CLINICAL INFORMATION: Cough, shortness of breath for 5 days, . COMPARISON: Chest radiograph dated from 03/31/2021. TECHNIQUE: AP view of the chest was obtained. FINDINGS: No significant abnormality is noted involving the heart, lungs, mediastinum, bony thorax or soft tissues. XR/XR chest 1V IMPRESSION: No acute cardiopulmonary findings.
[2021-09-15 13:13] VITALS: BP 114/68; PULSE 107; RESP 19; TEMP 37.2; O2SAT 99; BMI 23.6
[2021-09-15 13:35] LABS: MANUAL DIFF FLAG NO
[2021-09-15 13:36] LABS: Basophils Percent Auto 0.2 % (0-2); Eosinophils Percent Auto 0.3 % (0-4); Hemoglobin 9.5 g/dl (12.0-16.0); Imm Gran Abs Auto 0.04 X10*3/uL (0.00-0.03); Imm Gran Pct Auto 0.6 % (0.0-0.4); Lymphocytes Absolute Auto 0.7 X10*3/uL (1.2-4.9); Lymphocytes Percent Auto 11.3 % (20-40); Mean Corpuscular HGB Conc 33.9 g/dl (31.0-35.0); Mean Corpuscular Hemoglobin 28.9 pg (27.0-33.0); Mean Corpuscular Volume 85.1 fL (80.0-98.0); Monocytes Absolute Auto 0.6 X10*3/uL (0.1-1.2); Monocytes Percent Auto 9.4 % (2-11); Neutrophils Absolute Auto 4.9 x10*3/uL (2.0-8.3); Neutrophils Percent Auto 78.2 % (45-73); Platelet Count 191 X10*3/uL (160-400); Red Blood Count 3.29 X10*6/uL (4.20-5.50); Red Cell Distribution Width 15.2 % (11.0-16.0); White Blood Count 6.3 X10*3/uL (4.8-10.8)
[2021-09-15 13:49] LABS: COVID-19 Test Positive (Negative)
[2021-09-15 14:04] LABS: IDNOW Serial# 08D9AD1C; Influenza A Negative (Negative); Influenza B2 Negative (Negative)
[2021-09-15 14:07] LABS: Anion Gap 12 (12-20); Blood Urea Nitrogen 7 mg/dL (9-16); Calcium 8.8 mg/dL (8.4-10.2); Carbon Dioxide 21 mmol/L (22-29); Chloride 105 mmol/L (96-108); Creatinine Clr Calc Pharmacy 111.7; Estimated Glomerular Filt Rate > 60; Glucose Random 77 mg/dL (60-115); Potassium 4.2 mmol/L (3.3-5.1); Sodium 134 mmol/L (135-145)
[2021-09-15 16:21] VITALS: BP 105/63; PULSE 95; RESP 16; TEMP 37.3; O2SAT 100
--- NOTE | 2021-09-15 16:28 | PC.NURSE ---
pt a&ox3, vss, cafe lead applied - NSR. pt c/o nausea/vomiting, chest pain and SOB - pt speaking in full sentences, no increased respiratory effort noted. provider in room.
--- NOTE | 2021-09-15 16:54 | ED.URI ---
HPI - URI/Sore Throat General Chief Complaint: Nausea/Vomiting/Diarrhea Stated Complaint: Cough/Vomiting/Dizzy Time Seen by Provider: 09/15/21 16:16 Source: patient Mode of arrival: ambulatory Limitations: no limitations History of Present Illness HPI Narrative: [age] year old female who is 18 weeks , , due date 02/12/2022, presents for 5 days as of flu-like symptoms. Patient has had cough, weakness, fatigue, nausea vomiting, sore throat, headache No vaginal bleeding or vaginal discharge, no pelvic pain or abdominal pain. 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 Patient sees an mobile practice lead in [place].. patient has had a lot of nausea with this . Related Data Home Medications Medication Instructions Recorded Confirmed prenat.vits,lorelei,[id number] 1 tab PO DAILY 07/12/21 08/20/21 Previous Rx's Medication Instructions Recorded albuterol sulfate 90 mcg/actuation 2 puff INHALATION Q4-6H PRN #6.7 g 09/15/21 aerosol inhaler doxylamine 10 mg-pyridoxine (vit 1 tab PO DAILY #12 tab MDD 4 tabs 09/15/21 B6) 10 mg tablet,delayed release (Diclegis) Allergies Allergy/AdvReac Type Severity Reaction Status Date / Time SOAP POWDER Allergy Unknown HIVES Uncoded 08/20/21 11:47 Review of Systems Constitutional: Constitutional: Reports body ache(s), Reports chills, Reports fatigue, Denies fever(s), Reports headache(s), Reports malaise and Reports weakness Eyes: Eyes: Denies diplopia ENT: Denies vertigo, Denies dizziness, Denies otalgia, Reports headache(s), Reports nasal congestion, Reports nasal discharge, Reports post nasal drip and Reports sore throat Cardiovascular: Cardiovascular: Denies chest pain, Denies syncope, Denies leg edema, Denies lightheadedness, Denies Loss of Consciousness, Denies palpitations and Denies dyspnea Respiratory: Respiratory: Denies chest congestion, Reports cough and Denies dyspnea Gastrointestinal: Gastrointestinal: Denies abdominal pain, Denies hematochezia, Denies constipation, Denies diarrhea, Reports nausea and Reports vomiting Genitourinary: Genitourinary: Denies abnormal vaginal bleeding, Denies dysuria, Denies pelvic pain, Denies flank pain and Denies vaginal discharge Musculoskeletal: Musculoskeletal: Reports myalgias Neurologic: Denies confusion, Denies vertigo, Denies dizziness, Denies syncope, Reports headache(s) and Reports weakness Psychiatric: Psychiatric: Denies anxiety, Denies confusion and Denies depression Endocrine: Endocrine: Reports fatigue and Denies palpitations [facility] Past Medical History Medical History No known health problems Scoliosis Family History Family History Father Diabetes mellitus treated with insulin Mother Arthritis Social History Social History Household Members: Children Housing: Apartment Are you a primary day care aide to a significant other at home: No Do you presently have visiting nurse or other home services: No Alcohol intake: never Patient Tobacco Use Status: Former Tobacco user Use of substances other than those prescribed or required for medical reasons: No Trauma History: h/o brother being killed Agree to transfusion: Yes Advance Directives: No Advance Directives Information Provided: No Patient : Yes service: No Current occupational status: unemployed Current occupational exposures/hazards: No Cognitive needs: No Hearing needs: No Vision needs: No Physical Exam Vital Signs: Vital Signs: Last Vital Signs Temp 99.1 F 09/15/21 16:21 Pulse 100 09/15/21 17:28 Resp 17 09/15/21 17:28 BP 104/54 L 09/15/21 17:28 Pulse Ox 100 09/15/21 17:28 BMI result Body Mass Index 23.6 Const: General: alert, awake and ill appearing acutely; No confusion Nutritional Appearance: well nourished Orientation/consciousness: patient oriented x3 and No confusion Limitations: no limitations HEENT: Head: Yes normal to inspection, Yes normocephalic and Yes atraumatic Ears: hearing grossly normal bilaterally and external ears normal General nose exam: Normal external nose present Face and sinus: Yes normal facial exam and Yes sinuses nontender Mouth: moist mucous membranes Throat: Yes posterior oropharynx abnormal (Erythema) and Yes postnasal drainage Eyes: Conjunctivae: conjunctival abnormal (Diffuse conjunctival injection bilaterally) Pupils: Equal, round and reactive pupils present EOM: EOMs intact bilaterally Neck: Neck: Yes full ROM, Yes no lymphadenopathy and Yes supple Resp: Effort & Inspection: normal respiratory effort and able to speak in complete sentences Auscultation: clear to auscultation bilaterally, no crackles, no rales, no rhonchi and no wheezes Cardio: Rate: regular rate Rhythm: regular rhythm Heart sounds: S1 normal heart sound present and S2 normal heart sound present GI: Inspection: Yes normal to inspection Palpation (GI): Soft to palpation, nontender, no guarding and not rigid Percussion: Yes normal to percussion Auscultation: normal bowel sounds : General: Yes no CVA tenderness Back/Spine/Pelvis: Back: no CVA tenderness Skin: General skin exam: no rashes or lesions noted Neuro: General: patient oriented x3 and No confusion Cranial nerves: Yes Equal, round and reactive pupils present Extrem: General: Yes normal to inspection and Yes full ROM Psych: Appearance: grossly normal Affect: normal affect Attitude: cooperative Thought process: Normal thought process present Course Course Course Narrative: 36-year-old female who is 18 weeks , , presents for 5 days of upper respiratory symptoms. Patient tests COVID positive. She has no leukocytosis, she is mildly anemic with an H&H of 9.5 in 28. Two months ago her H&H was 11.5 in 34. Patient tells me she stopped taking her iron supplements because she is so nauseous when she takes them. Patient's hCG is 54,663. Patient is not vaccinated for COVID heart tones were obtained, 164, within normal range. No vaginal bleeding or discharge, no pelvic pain or cramping. Tylenol, fluids, Zofran, CXR [place] text with Dr. Aguilar if patient candidate for monoclonal antibodies, he suggests she does follow-up with the MAB treatment. I filled out the form for Morse, the racing secretary and handicapper fax the form, I gave a copy to the patient. Awaiting results of urine and chest x-ray. Reevaluation(s) Reevaluation #1: Urine is negative for infection, shows high specific gravity, dehydration. Chest x-ray is negative. Patient feeling better after fluids, Zofran, albuterol inhaler. We discussed methods were treating nausea in . I prescribed a 4 day course of Diclegis. Also counseled yvan tea. Return precautions of chest pain, shortness of breath, worsening fever, cough, or any other new or concerning symptoms, return to emergency room. MDM - URI/Sore Throat Lab Data Result diagrams: 09/15/21 13:29 09/15/21 13:29 Labs: Lab Results 09/15/21 09/15/21 09/15/21 Range/Units 13:29 13:29 13:29 WBC 6.3 (4.8-10.8) X10*3/uL RBC 3.29 L D (4.20-5.50) X10*6/uL Hgb 9.5 L (12.0-16.0) g/dl Hct 28.0 L (37.0-47.0) % MCV 85.1 (80.0-98.0) fL MCH 28.9 (27.0-33.0) pg MCHC 33.9 (31.0-35.0) g/dl RDW 15.2 (11.0-16.0) % Plt Count 191 (160-400) X10*3/uL MPV 9.0 L (9.4-12.3) fL Immature Gran % (Auto) 0.6 H (0.0-0.4) % Neut % (Auto) 78.2 H (45-73) % Lymph % (Auto) 11.3 L (20-40) % Heard % (Auto) 9.4 (2-11) % Eos % (Auto) 0.3 (0-4) % Baso % (Auto) 0.2 (0-2) % Lymph # (Auto) 0.7 L (1.2-4.9) X10*3/uL Heard # (Auto) 0.6 (0.1-1.2) X10*3/uL Eos # (Auto) 0.0 (0.0-0.4) X10*3/uL Baso # (Auto) 0.0 (0.0-0.2) X10*3/uL Abs Immat Gran (auto) 0.04 H (0.00-0.03) X10*3/uL Absolute Neuts (auto) 4.9 (2.0-8.3) x10*3/uL Absolute Nucleated RBC 0.000 (0.0-0.012) X10*3/uL Nucleated RBC % (auto) 0.0 (0.0-0.2) /100WBC Sodium 134 L (135-145) mmol/L Potassium 4.2 (3.3-5.1) mmol/L Chloride 105 (96-108) mmol/L Carbon Dioxide 21 L (22-29) mmol/L Anion Gap 12 (12-20) BUN 7 L (9-16) mg/dL Creatinine 0.69 (0.5-1.4) mg/dL Estim Creat Clear Calc 111.7 Estimated GFR > 60 Random Glucose 77 (60-115) mg/dL Calcium 8.8 D (8.4-10.2) mg/dL Beta HCG, Quant mIU/mL Urine Color Urine Appearance Urine pH (5.0-8.0) Ur Specific [place] (1.005-1.025) Urine Protein (NEG-TRACE) MG/DL Urine Glucose (UA) (NEG) MG/DL Urine Ketones (NEG) MG/DL Urine Blood (NEG) Urine Nitrite (NEG) Ur Leukocyte Esterase (NEG) COVID-19 ([place]) (Negative) COVID-19 Clin Com Influenza Type A (TORIE) Negative (Negative) Influenza Type B ([facility]) Negative (Negative) Influenza A & B Note See Note 09/15/21 09/15/21 09/15/21 Range/Units 13:29 13:29 17:38 WBC (4.8-10.8) X10*3/uL RBC (4.20-5.50) X10*6/uL Hgb (12.0-16.0) g/dl Hct (37.0-47.0) % MCV (80.0-98.0) fL MCH (27.0-33.0) pg MCHC (31.0-35.0) g/dl RDW (11.0-16.0) % Plt Count (160-400) X10*3/uL MPV (9.4-12.3) fL Immature Gran % (Auto) (0.0-0.4) % Neut % (Auto) (45-73) % Lymph % (Auto) (20-40) % Heard % (Auto) (2-11) % Eos % (Auto) (0-4) % Baso % (Auto) (0-2) % Lymph # (Auto) (1.2-4.9) X10*3/uL Heard # (Auto) (0.1-1.2) X10*3/uL Eos # (Auto) (0.0-0.4) X10*3/uL Baso # (Auto) (0.0-0.2) X10*3/uL Abs Immat Gran (auto) (0.00-0.03) X10*3/uL Absolute Neuts (auto) (2.0-8.3) x10*3/uL Absolute Nucleated RBC (0.0-0.012) X10*3/uL Nucleated RBC % (auto) (0.0-0.2) /100WBC Sodium (135-145) mmol/L Potassium (3.3-5.1) mmol/L Chloride (96-108) mmol/L Carbon Dioxide (22-29) mmol/L Anion Gap (12-20) BUN (9-16) mg/dL Creatinine (0.5-1.4) mg/dL Estim Creat Clear Calc Estimated GFR Random Glucose (60-115) mg/dL Calcium (8.4-10.2) mg/dL Beta HCG, Quant 31123 mIU/mL Urine Color YELLOW Urine Appearance CLEAR Urine pH 6.5 (5.0-8.0) Ur Specific [place] >= 1.030 H (1.005-1.025) Urine Protein TRACE (NEG-TRACE) MG/DL Urine Glucose (UA) NEG (NEG) MG/DL Urine Ketones >=80 (NEG) MG/DL Urine Blood NEG (NEG) Urine Nitrite NEG (NEG) Ur Leukocyte Esterase NEG (NEG) COVID-19 ([place]) Positive A (Negative) COVID-19 Clin Com See Note Influenza Type A ([facility]IE) (Negative) Influenza Type B ([facility]) (Negative) Influenza A & B Note Discharge Plan Discharge Clinical Impression: COVID-19 affecting in second trimester, Nausea without vomiting Patient Disposition: Home, Self-Care Instructions: COVID-19 (Coronavirus Disease 2019) (ED) Additional Instructions: I have prescribed Diclegis just to your pharmacy. This is a pill that works well for nausea in . I have only prescribed a 4 day course, if it works for you, please ask your OBGYN to prescribe more. Yvan tea is also useful for nausea in . Please buy a pulse oximeter and take your oxygen saturation every day. Your oxygen saturation should not go below 90%. If it does, please return to emergency room. Please return to emergency room if you have chest pain or shortness of breath. Please take Tylenol and drink plenty of fluids. Please follow-up with [employer], a private monoclonal antibody company, for monoclonal antibody treatment. We have faxed a referral form to them. Contact info is [email or web address] They should reach out to you. Please use your albuterol inhaler, 2 puffs every 4 hours while you are awake. This will help with your cough. Prescriptions: New doxylamine-pyridoxine (vit B6) [Diclegis] 10-10 mg tablet,delayed release (DR/EC) 1 tab PO DAILY MDD 4 tabs Qty: 12 0RF Rx Instructions: Two tablets at bedtime on day 1 and 2; if symptoms persist, take 1 tablet in morning and 2 tablets at bedtime on day 3; if symptoms persist, may increase to 1 tablet in morning, 1 tablet mid-afternoon, and 2 tablets at bedtime on day 4 (maximum: doxylamine 40 mg/pyridoxine 40 mg (4 tablets) per day) albuterol sulfate 90 mcg/actuation HFA aerosol inhaler 2 puff inhalation Q4-6H PRN (Reason: shortness of breath or wheezing) Qty: 6.7 0RF No Action prenat.vits,lorelei,[id number] Tablet 1 tab PO DAILY 0RF
[2021-09-15] MEDS: 0.9 % Sodium Chloride 1,000 ML 999 ML IV (17:24)
[2021-09-15] MEDS: Acetaminophen 325 MG TABLET 650 MG PO (17:24)
[2021-09-15] MEDS: ondansetron HCL 4 MG/2 ML VIAL IVPUSH (17:24)
[2021-09-15 17:28] VITALS: BP 104/54; PULSE 100; RESP 17; O2SAT 100
[2021-09-15 17:43] LABS: Appearance Urine CLEAR; Color Urine YELLOW; Glucose Urine UA NEG (NEG); Leukocyte Esterase Urine NEG (NEG); Nitrite Urine NEG (NEG); PH 6.5 (5.0-8.0); Specific Gravity - Urine >= 1.030 (1.005-1.025); Urine Blood NEG (NEG); Urine Ketones >=80 MG/DL (NEG); Urine Protein TRACE MG/DL (NEG-TRACE)
[2021-09-15 18:09] VITALS: PULSE 108; RESP 16; O2SAT 100
[2021-09-15] MEDS: Albuterol Sulfate 90 MCG 8 GM INHALER 2 PUFF INHALE (18:09)
== END 2021-09-15 19:40 | disposition home or self-care (01) ==
PROVIDERS: Emergency Provider Emergency Medicine; PCP Nurse Practitioner Family
DX: O98.512 Other viral diseases complicating pregnancy, second trimester (principal); Z3A.15 15 weeks gestation of pregnancy; U07.1 COVID-19; R05.9 Cough, unspecified; R06.02 Shortness of breath; Z79.899 Other long term (current) drug therapy; Z87.891 Personal history of nicotine dependence
CPT/HCPCS: 36415; 71045; 80048; 81003; 84702; 85025; 87502; 87635; 94640; 96361; 96374; 99284; J2405

== ENCOUNTER 2021-09-27 12:33 | Outpatient (REF) | payer OTHER, SELFPAY ==
--- NOTE | ~2021-09-27 | US_ITS ---
EXAMINATION: US OBSTETRICAL CLINICAL INFORMATION: 36-year-old at 20.2 weeks of gestation Screening for anomaly COMPARISON: 09/15/2021 TECHNIQUE: Real-time transabdominal ultrasound was performed using C1-5 megahertz transducer. FINDINGS: A single, active, fetus is seen in transverse presentation. The placenta is posterior without previa, and the amniotic fluid volume is wnl. MEASUREMENTS: 1. Biparietal Diameter: 4.6 cm; 20.0 wks 2. Occipital Frontal Diameter: 6.5 cm 3. Head Circumference: 17.9 cm; 20.3 wks 4. Abdominal Circumference: 14.1 cm; 20.1 wks 5. Femur Length: 3.3 cm; 20.2 wks 6. Humerus Length: 3.2 cm; 20.5 wks 7. Tibia Length: 2.8 cm; 20.1 wks 8. Ulna Length: 2.9 cm; 20.6 wks 9. Lateral ventricle: 0.56 cm 10. Cerebellum: 2.0 cm; 20.4 wks 11. Cisterna Magna: 0.5 cm 12. Nuchal Fold: 4.5 mm 13. Heart Rate: 152 beats per minute Rt ovary: normal Lt ovary: normal Cervical length 4.6 cm on T/A. GESTATIONAL AGE: 1. Established GA: 20.2 wks 2. GA from [facility]: 20.2 wks ESTIMATED DATE OF DELIVERY: 1. Established IFRAH: 02/12/2022 2. IFRAH from [facility]: 02/12/2022 ANATOMY: The visualized anatomy includes but not limited to: 1. Cranium: Normal 2. Intracranial anatomy: cavum septum pellucidi, lateral ventricles, choroid plexus, cerebellum, posterior fossa, third and fourth ventricles. 3. face: orbits, lip/palate, profile, nasal bone 4. Heart: four-chamber view of the heart, ventricular septum, foramen ovale, pulmonary vein, left and right outflow tracts, three-vessel view, 3 vessel trachea view, aortic and ductal arches, situs.. 5. Diaphragm: Normal 6. Abdominal wall: Normal 7. Cord Insertion: Normal 8. Spine: Cervical, thoracic, lumbar, sacral. 9. Stomach: Normal size and shape 10. Right Kidney: Normal 11. Left Kidney: Normal 12. 3 vessel cord: Normal 13. Upper extremity: Open hands, fifth digit. 14. Lower extremity: Tibia, fibula, bilateral feet. 15. Bladder: Normal 16. Genitalia: Male, patient aware US/US OB /maternal detail IMPRESSION: 1. Single, living, intrauterine with appropriate biometry. 2. Normal survey DISCUSSION: I reviewed today's ultrasound findings. We discussed the limitations of ultrasound in diagnosing aneuploidy and other congenital abnormalities. I reviewed the differences between screening test and diagnostic test. Amniocentesis was discussed and declined. She was informed that the baseline incidence of congenital abnormalities is approximately 3-5%. Not all these conditions are diagnosable in utero. RECOMMENDATIONS: 1. PRN Thank you for allowing me to participate in her care. Total time 30 minutes. The time spent was devoted to counseling the patient about the disease and diagnosis, coordinating care including reviewing her records, pertinent lab data and studies, as well as discussing diagnostic evaluation and workup, plan therapeutic interventions and future disposition of care. This includes any additional research needed to obtain further information in formulating the plan of care of this patient. This note was generated with a voice recognition program. Please excuse any errors which may have been overlooked during my review of this note. Sometimes these errors may affect the content or meaning of a given sentence.
== END 2021-09-27 12:34 | disposition home or self-care (01) ==
LOC: HO.US 12:33
PROVIDERS: Visit Provider Advanced Practice Midwife
DX: O09.522 Supervision of elderly multigravida, second trimester (principal); Z36.3 Encounter for antenatal screening for malformations; Z3A.20 20 weeks gestation of pregnancy
CPT/HCPCS: 76811

== ENCOUNTER 2021-10-16 12:26 | Outpatient (REF) | payer OTHER, SELFPAY | END 2021-10-16 12:27 | disposition home or self-care (01) | LOC: HO.MDS 12:26 | PROVIDERS: PCP Nurse Practitioner Family; Visit Provider Internal Medicine Medical Oncology | DX: O99.019 Anemia complicating pregnancy, unspecified trimester (principal); D50.9 Iron deficiency anemia, unspecified; O09.519 Supervision of elderly primigravida, unspecified trimester; Z3A.00 Weeks of gestation of pregnancy not specified | CPT/HCPCS: 96365; J1756 ==

== ENCOUNTER 2021-10-25 10:21 | Outpatient (REF) | payer OTHER, SELFPAY | END 2021-10-25 10:22 | disposition home or self-care (01) | LOC: HO.MDS 10:21 | PROVIDERS: PCP Nurse Practitioner Family; Visit Provider Internal Medicine Medical Oncology | DX: O99.019 Anemia complicating pregnancy, unspecified trimester (principal); Z3A.00 Weeks of gestation of pregnancy not specified | CPT/HCPCS: 96365; J1756 ==

== ENCOUNTER 2021-10-31 13:03 | Outpatient (REF) | payer OTHER, SELFPAY | END 2021-10-31 13:04 | disposition home or self-care (01) | LOC: HO.MDS 13:03 | PROVIDERS: PCP Nurse Practitioner Family; Visit Provider Internal Medicine Medical Oncology | DX: O99.019 Anemia complicating pregnancy, unspecified trimester (principal); D50.9 Iron deficiency anemia, unspecified; Z3A.00 Weeks of gestation of pregnancy not specified | CPT/HCPCS: 96365; J1756 ==

== ENCOUNTER 2021-11-05 11:10 | Outpatient (REF) | payer OTHER, SELFPAY ==
[2021-11-05 12:10] LABS: MANUAL DIFF FLAG NO
[2021-11-05 12:12] LABS: Basophils Percent Auto 0.1 % (0-2); Eosinophils Absolute Auto 0.1 X10*3/uL (0.0-0.4); Eosinophils Percent Auto 0.6 % (0-4); Hematocrit 27.7 % (37.0-47.0); Hemoglobin 9.2 g/dl (12.0-16.0); Imm Gran Abs Auto 0.08 X10*3/uL (0.00-0.03); Lymphocytes Absolute Auto 1.3 X10*3/uL (1.2-4.9); Lymphocytes Percent Auto 16.9 % (20-40); Mean Corpuscular HGB Conc 33.2 g/dl (31.0-35.0); Mean Corpuscular Hemoglobin 30.9 pg (27.0-33.0); Mean Platelet Volume 8.7 fL (9.4-12.3); Monocytes Absolute Auto 0.4 X10*3/uL (0.1-1.2); Monocytes Percent Auto 5.1 % (2-11); Neutrophils Percent Auto 76.3 % (45-73); Platelet Count 187 X10*3/uL (160-400); Red Blood Count 2.98 X10*6/uL (4.20-5.50); Red Cell Distribution Width 14.5 % (11.0-16.0); White Blood Count 7.8 X10*3/uL (4.8-10.8)
== END 2021-11-05 11:11 | disposition home or self-care (01) ==
LOC: HO.MDS 11:10
PROVIDERS: PCP Nurse Practitioner Family; Visit Provider Internal Medicine Medical Oncology
DX: O99.019 Anemia complicating pregnancy, unspecified trimester (principal); D50.9 Iron deficiency anemia, unspecified; O21.0 Mild hyperemesis gravidarum; Z3A.00 Weeks of gestation of pregnancy not specified
CPT/HCPCS: 36415; 85025; 96365; J1756

== ENCOUNTER 2021-11-14 11:17 | Outpatient (REF) | payer OTHER, SELFPAY | END 2021-11-14 11:18 | disposition home or self-care (01) | LOC: HO.MDS 11:17 | PROVIDERS: PCP Nurse Practitioner Family; Visit Provider Internal Medicine Medical Oncology | DX: O99.019 Anemia complicating pregnancy, unspecified trimester (principal); D50.9 Iron deficiency anemia, unspecified; Z3A.00 Weeks of gestation of pregnancy not specified | CPT/HCPCS: 96365; J1756 ==

== ENCOUNTER 2021-11-22 13:23 | Outpatient (REF) | payer OTHER, SELFPAY | END 2021-11-22 13:24 | disposition home or self-care (01) | LOC: HO.MDS 13:23 | PROVIDERS: Visit Provider Internal Medicine Medical Oncology | DX: O99.019 Anemia complicating pregnancy, unspecified trimester (principal); D50.9 Iron deficiency anemia, unspecified; O21.0 Mild hyperemesis gravidarum; Z3A.00 Weeks of gestation of pregnancy not specified | CPT/HCPCS: 96365; J1756 ==

== ENCOUNTER 2021-11-28 12:15 | Outpatient (REF) | payer OTHER, SELFPAY | END 2021-11-28 12:16 | disposition home or self-care (01) | LOC: HO.MDS 12:15 | PROVIDERS: Visit Provider Internal Medicine Medical Oncology | DX: O99.019 Anemia complicating pregnancy, unspecified trimester (principal); D50.9 Iron deficiency anemia, unspecified; Z3A.00 Weeks of gestation of pregnancy not specified | CPT/HCPCS: 96365; J1756 ==

== ENCOUNTER 2021-12-05 13:31 | Outpatient (REF) | payer OTHER, SELFPAY | END 2021-12-05 13:32 | disposition home or self-care (01) | LOC: HO.MDS 13:31 | PROVIDERS: Visit Provider Internal Medicine Medical Oncology | DX: O99.019 Anemia complicating pregnancy, unspecified trimester (principal); D50.9 Iron deficiency anemia, unspecified | CPT/HCPCS: 96365; J1756 ==

== ENCOUNTER 2022-01-21 15:59 | Emergency (ER) | payer OTHER, SELFPAY ==
[2022-01-21 16:02] VITALS: BP 100/50; PULSE 79; RESP 18; TEMP 36.6; O2SAT 98; BMI 28.1
[2022-01-21 16:20] LABS: Appearance Urine Clear; Color Urine Yellow; Glucose Urine UA Negative (Negative); Leukocyte Esterase Urine Negative (Negative); Nitrite Urine Negative (Negative); Specific Gravity - Urine <= 1.005 (1.005-1.025); Urine Blood Negative (Negative); Urine Ketones Negative (Negative); Urine Protein Negative (Neg-Trace)
--- NOTE | 2022-01-21 16:59 | ED_ITS ---
HPI - Female Genitourinary General Chief complaint: Urogenital-Female Stated complaint: severe pelvic pain Time Seen by Provider: 01/21/22 16:17 Source: patient Mode of arrival: ambulatory Limitations: no limitations History of Present Illness HPI Narrative: Patient comes to the emergency room complaining of inguinal pain. Patient is at 36 weeks of gestational age +6 days, she is a Patient states that for the last 3 days, she has had a continues pain in the left inguinal area. The pain is worse whenever she puts weight on her left leg and starts walking Patient states that she has been taking aspirin to avoid developing blood clots, since patient was diagnosed with COVID-19 in her 2nd trimester. Patient states that she has been complaining of thick whitish discharge for several days, states that she called her OBGYN/glue size machine operator and she was informed that this is normal discharge. Patient denies any fluid leakage, no blood or spotting Related Data Home Medications Medication Instructions Recorded Confirmed prenat.vits,lorelei,[id number] 1 tab PO DAILY 07/12/21 01/17/22 aspirin 81 mg capsule 81 mg PO DAILY 10/03/21 01/17/22 fluticasone propionate 50 50 spray intranasal DAILY 10/03/21 01/17/22 mcg/actuation nasal spray,suspension (Flonase Allergy Relief) ferrous sulfate 325 mg (65 mg 1 tab PO Q OTHER DAY 01/17/22 01/17/22 iron) tablet Previous Rx's Medication Instructions Recorded albuterol sulfate 90 mcg/actuation 2 puff inhalation Q4-6H PRN 09/15/21 aerosol inhaler shortness of breath or wheezing #6.7 grams doxylamine 10 mg-pyridoxine (vit 1 tab PO DAILY #12 tabs 09/15/21 B6) 10 mg tablet,delayed release (Diclegis) Allergies Allergy/AdvReac Type Severity Reaction Status Date / Time SOAP POWDER Allergy Unknown HIVES Uncoded 01/17/22 09:33 Review of Systems Review of Systems: Constitutional : No Weight loss, No Fever, No Chills, No Night Sweats, No Fatigue, No Malaise ENT/Mouth : No Hearing loss, No Ear Pain, No Nasal Congestion, No Sinus Pain, No Hoarseness, No sore throat, No Rhinorrhea, No Swallowing Difficulty Eyes: No Eye Pain, No Swelling, No Redness, No Foreign Body, No Discharge, No Vision Changes Cardiovascular : No Chest Pain, No SOB, No Dyspnea on Exertion, No Orthopnea, No Edema, No Palpitations Respiratory : No Cough, No Sputum, No Wheezing, No Smoke Exposure, No Dyspnea Gastrointestinal : No Nausea, No Vomiting, No Diarrhea, No Constipation, No abdominal Pain, No Hematochezia, No Melena Genitourinary : Complaining of thick vaginal whitish discharge and left inguinal pain with walking. No Dysuria, No Urinary Frequency, No Hematuria, No Urinary Incontinence, No Urgency, No Flank Pain, No Urinary Flow Changes, No Hesitancy Musculoskeletal : No joint pain, No Myalgias, No Joint Swelling Skin : No Skin Lesions, No rash Neuro : No Weakness, No Numbness, No Paresthesias, No Loss of Consciousness, No Dizziness, No Headache Psych : No Anxiety/Panic, No Depression, No SI/HI/AH/VH, No Social Issues, Heme/Lymph: No Bruising, No Bleeding,No Lymphadenopathy Endocrine : No Polyuria, No Polydipsia, No Temperature Intolerance [facility] Past Medical History Medical History Anxiety Chronic shortness of breath Difficulty sleeping Dyspnea on exertion Eczema Hepatitis A immune Hepatitis B immune Hyperlipidemia IBS (irritable bowel syndrome) Pleuritic chest pain Rosacea Scoliosis Weakness Family History Family History Father Diabetes mellitus treated with insulin Mother Arthritis Social History Social History Household Members: Children Housing: Apartment Are you a primary manager intensive care unit to a significant other at home: No Do you presently have visiting nurse or other home services: No Alcohol intake: never Patient Tobacco Use Status: Former Tobacco user Trauma History: h/o brother being killed Agree to transfusion: Yes Advance Directives: No Advance Directives Information Provided: No service: No Current occupational status: unemployed Current occupational exposures/hazards: No Cognitive needs: No Hearing needs: No Vision needs: No Physical Exam Vital Signs: Vital Signs: Last Vital Signs Temp 98 F 01/21/22 16:02 Pulse 79 01/21/22 16:02 Resp 18 01/21/22 16:02 BP 100/50 L 01/21/22 16:02 Pulse Ox 98 01/21/22 16:02 O2 Del Method 01/21/22 16:02 BMI result Body Mass Index 28.1 Const: Other: Appearance: Alert. Oriented X3. No acute distress. Eyes: Pupils equal, round and reactive to light. ENT: Pharynx normal. Neck: Normal inspection. Neck supple. No lymph nodes noted. No crepitus CVS: Normal heart rate and rhythm. Pulses normal. Normal S1 and S2 Respiratory: No respiratory distress. Breath sounds normal. No Wheezing. No rales Abdomen: Soft and nontender. No rigidity. No distention. heart rate on ultrasound is between 120 and 130, good movement. : Thick and copious whitish discharge, unable to visualize the cervix, it is posterior. On digital exam, seems that the patient may be approximately 2 cm dilated Skin: Skin warm and dry. Normal skin color. Normal skin turgor. Extremities: No lower extremity edema. No Lacerations. No Rash Neuro: Oriented X 3. No motor deficit. No sensory deficit. Moving all extremities. No slurred speech. CN 2 through 12 grossly intact Psych: calm, cooperative, normal affect Course Course Course Narrative: COVID test pending. I discussed the physical exam with Dr. Aguilar, who recommends to have the patient transferred for NST, since the inguinal pain may be early contractions. Patient agrees with plan. I discussed the patient with senior resident Dr. Graf from [facility], the patient has been accepted to [facility], attending physician is Dr. Garcia MDM - Female Genitourinary Lab Data Labs: Lab Results 01/21/22 01/21/22 Range/Units 16:12 17:03 Urine Color Yellow Urine Appearance Clear Urine pH 7.0 (5.0-9.0) Ur Specific [place] <= 1.005 (1.005-1.025) Urine Protein Negative (Neg-Trace) mg/dL Urine Glucose (UA) Negative (Negative) mg/dL Urine Ketones Negative (Negative) mg/dL Urine Blood Negative (Negative) Urine Nitrite Negative (Negative) Ur Leukocyte Esterase Negative (Negative) COVID-19 ([place]) Negative (Negative) COVID-19 Clin Com See Note Discharge Plan Discharge Clinical Impression: Irregular uterine contractions Patient Disposition: [facility] Transfer Details: [facility] Prescriptions: No Action doxylamine-pyridoxine (vit B6) [Diclegis] 10-10 mg tablet,delayed release (DR/EC) 1 tab PO DAILY MDD 4 tabs Qty: 12 0RF Rx Instructions: Two tablets at bedtime on day 1 and 2; if symptoms persist, take 1 tablet in morning and 2 tablets at bedtime on day 3; if symptoms persist, may increase to 1 tablet in morning, 1 tablet mid-afternoon, and 2 tablets at bedtime on day 4 (maximum: doxylamine 40 mg/pyridoxine 40 mg (4 tablets) per day) albuterol sulfate 90 mcg/actuation HFA aerosol inhaler 2 puff inhalation Q4-6H PRN (Reason: shortness of breath or wheezing) Qty: 6.7 0RF fluticasone propionate [Flonase Allergy Relief] 50 mcg/actuation spray,suspension 50 spray intranasal DAILY aspirin 81 mg Capsule 81 mg PO DAILY ferrous sulfate 325 mg (65 mg iron) tablet 1 tab PO Q OTHER DAY prenat.vits,lorelei,[id number] Tablet 1 tab PO DAILY
[2022-01-21 17:21] LABS: COVID-19 Test Negative (Negative); IDNOW Serial# 16C4AD1C
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
--- NOTE | 2022-01-21 17:53 | PC.NURSE ---
Provider spoke with me about reaching out to [facility] to transfer pt for OB services. [facility] was reached at [phone] information was given. Awaiting call back. Call back from [facility] was at [phone] Meng and pt will be going to [facility]. [facility] was called at [phone] and they told me BLS truck within 30mins.
[2022-01-21 18:24] VITALS: BP 107/62; PULSE 78; RESP 16; O2SAT 98
== END 2022-01-21 19:54 | disposition short-term general hospital (02) ==
PROVIDERS: Emergency Provider Emergency Medicine
DX: O47.03 False labor before 37 completed weeks of gestation, third trimester (principal); O26.893 Other specified pregnancy related conditions, third trimester; R10.30 Lower abdominal pain, unspecified; Z3A.36 36 weeks gestation of pregnancy; O09.523 Supervision of elderly multigravida, third trimester; Z20.822 Contact with and (suspected) exposure to COVID-19
CPT/HCPCS: 81003; 87635; 99285

== ENCOUNTER 2022-01-31 12:03 | Outpatient (REF) | payer OTHER, SELFPAY | END 2022-01-31 12:04 | disposition home or self-care (01) | LOC: HO.MDS 12:03 | PROVIDERS: Visit Provider Internal Medicine Medical Oncology | DX: O99.019 Anemia complicating pregnancy, unspecified trimester (principal); O09.529 Supervision of elderly multigravida, unspecified trimester; O21.0 Mild hyperemesis gravidarum; Z3A.00 Weeks of gestation of pregnancy not specified | CPT/HCPCS: 96365; J1756 ==

== ENCOUNTER 2022-02-04 10:42 | Outpatient (REF) | payer OTHER, SELFPAY | END 2022-02-04 10:43 | disposition home or self-care (01) | LOC: HO.MDS 10:42 | PROVIDERS: Visit Provider Internal Medicine Medical Oncology | DX: O99.019 Anemia complicating pregnancy, unspecified trimester (principal); D50.9 Iron deficiency anemia, unspecified; O09.519 Supervision of elderly primigravida, unspecified trimester; O21.0 Mild hyperemesis gravidarum; Z3A.00 Weeks of gestation of pregnancy not specified | CPT/HCPCS: 96365; J1756 ==

== ENCOUNTER 2022-02-11 10:41 | Outpatient (REF) | payer OTHER, SELFPAY | END 2022-02-11 10:42 | disposition home or self-care (01) | LOC: HO.MDS 10:41 | PROVIDERS: Visit Provider Internal Medicine Medical Oncology | DX: O99.013 Anemia complicating pregnancy, third trimester (principal); D50.9 Iron deficiency anemia, unspecified; O21.0 Mild hyperemesis gravidarum; Z3A.00 Weeks of gestation of pregnancy not specified | CPT/HCPCS: 96365; J1756 ==

== ENCOUNTER 2022-02-21 14:06 | Outpatient (REF) | payer OTHER, SELFPAY | END 2022-02-21 14:07 | disposition home or self-care (01) | LOC: HO.MDS 14:06 | PROVIDERS: Visit Provider Internal Medicine Medical Oncology | DX: D50.9 Iron deficiency anemia, unspecified (principal) | CPT/HCPCS: 96365; J1756 ==

== ENCOUNTER 2022-02-28 14:31 | Outpatient (REF) | payer OTHER, SELFPAY ==
[2022-02-28 14:59] LABS: MANUAL DIFF FLAG NO
[2022-02-28 15:09] LABS: Basophils Percent Auto 0.4 % (0-2); Eosinophils Absolute Auto 0.2 X10*3/uL (0.0-0.4); Eosinophils Percent Auto 3.3 % (0-4); Hematocrit 32.9 % (37.0-47.0); Imm Gran Abs Auto 0.02 X10*3/uL (0.00-0.03); Imm Gran Pct Auto 0.4 % (0.0-0.4); Lymphocytes Absolute Auto 1.9 X10*3/uL (1.2-4.9); Lymphocytes Percent Auto 36.1 % (20-40); Mean Corpuscular HGB Conc 33.4 g/dl (31.0-35.0); Mean Corpuscular Hemoglobin 30.2 pg (27.0-33.0); Mean Corpuscular Volume 90.4 fL (80.0-98.0); Mean Platelet Volume 8.7 fL (9.4-12.3); Monocytes Absolute Auto 0.3 X10*3/uL (0.1-1.2); Monocytes Percent Auto 4.9 % (2-11); Neutrophils Absolute Auto 2.8 x10*3/uL (2.0-8.3); Neutrophils Percent Auto 54.9 % (45-73); Platelet Count 327 X10*3/uL (160-400); Red Blood Count 3.64 X10*6/uL (4.20-5.50); Red Cell Distribution Width 13.1 % (11.0-16.0); White Blood Count 5.2 X10*3/uL (4.8-10.8)
== END 2022-02-28 14:32 | disposition home or self-care (01) ==
LOC: HO.MDS 14:31
PROVIDERS: Visit Provider Internal Medicine Medical Oncology
DX: D50.9 Iron deficiency anemia, unspecified (principal)
CPT/HCPCS: 36415; 85025; 96365; J1756

== ENCOUNTER 2022-03-24 13:36 | Outpatient (REF) | payer OTHER, SELFPAY | END 2022-03-24 13:37 | disposition home or self-care (01) | LOC: HO.MDS 13:36 | PROVIDERS: Visit Provider Internal Medicine Medical Oncology | DX: D50.9 Iron deficiency anemia, unspecified (principal) | CPT/HCPCS: 96374; J1756 ==

== ENCOUNTER 2022-03-31 11:40 | Outpatient (REF) | payer OTHER, SELFPAY | END 2022-03-31 11:41 | disposition home or self-care (01) | LOC: HO.MDS 11:40 | PROVIDERS: Visit Provider Internal Medicine Medical Oncology | DX: D50.9 Iron deficiency anemia, unspecified (principal) | CPT/HCPCS: 96365; J1756 ==

== ENCOUNTER 2022-04-09 09:05 | Outpatient (REF) | payer OTHER, SELFPAY | END 2022-04-09 09:06 | disposition home or self-care (01) | LOC: HO.MDS 09:05 | PROVIDERS: Visit Provider Internal Medicine Medical Oncology | DX: D50.9 Iron deficiency anemia, unspecified (principal) | CPT/HCPCS: 96365; J1756 ==

== ENCOUNTER 2022-04-16 11:18 | Outpatient (REF) | payer OTHER, SELFPAY | END 2022-04-16 11:19 | disposition home or self-care (01) | LOC: HO.MDS 11:18 | PROVIDERS: Visit Provider Internal Medicine Medical Oncology | DX: D50.9 Iron deficiency anemia, unspecified (principal) | CPT/HCPCS: 96365; J1756 ==

== ENCOUNTER 2022-04-24 12:24 | Outpatient (REF) | payer OTHER, SELFPAY | END 2022-04-24 12:25 | disposition home or self-care (01) | LOC: HO.MDS 12:24 | PROVIDERS: Visit Provider Internal Medicine Medical Oncology | DX: D50.9 Iron deficiency anemia, unspecified (principal) | CPT/HCPCS: 96365; J1756 ==

== ENCOUNTER 2022-05-01 10:53 | Outpatient (REF) | payer OTHER, SELFPAY | END 2022-05-01 10:54 | disposition home or self-care (01) | LOC: HO.MDS 10:53 | PROVIDERS: Visit Provider Internal Medicine Medical Oncology | DX: D50.9 Iron deficiency anemia, unspecified (principal) | CPT/HCPCS: 96365; J1756 ==

== ENCOUNTER 2023-06-05 16:09 | Outpatient (REF) | payer OTHER, SELFPAY | END 2023-06-05 16:10 | disposition home or self-care (01) | LOC: HO.HHCLNP 16:09 | PROVIDERS: Visit Provider Internal Medicine | DX: N92.1 Excessive and frequent menstruation with irregular cycle (principal); J02.9 Acute pharyngitis, unspecified; Z20.2 Contact with and (suspected) exposure to infections with a predominantly sexual mode of transmission | CPT/HCPCS: 36415; 81513; 87070 ==

== ENCOUNTER 2023-06-17 12:35 | Outpatient (REF) | payer OTHER, SELFPAY ==
--- NOTE | ~2023-06-17 | XR_ITS ---
EXAMINATION: XR LUMBOSACRAL SPINE CLINICAL INFORMATION: Chronic low back pain radiating to right leg with numbness COMPARISON: Lumbar spine x-ray on 03/31/2021 TECHNIQUE: Three views of the lumbosacral spine. FINDINGS: The visualized lumbar vertebrae are intact with normal alignment. Intervertebral disc spaces are normal. Sacrum and coccyx are intact with normal alignment. XR/XR lumbar spine 2-3V IMPRESSION: 1. Unchanged Normal lumbosacral spine x-ray. 2. No fracture or dislocation of lumbar spine is seen.
== END 2023-06-17 12:36 | disposition home or self-care (01) ==
LOC: HO.HHCX 12:35
PROVIDERS: Visit Provider Internal Medicine Geriatric Medicine
DX: M54.41 Lumbago with sciatica, right side (principal); G89.29 Other chronic pain
CPT/HCPCS: 72100

== ENCOUNTER 2023-07-09 12:27 | Outpatient (REF) | payer OTHER, SELFPAY ==
[2023-07-09 13:06] LABS: MANUAL DIFF FLAG NO
[2023-07-09 13:32] LABS: Basophils Percent Auto 0.4 % (0-2); Eosinophils Absolute Auto 0.1 X10*3/uL (0.0-0.4); Eosinophils Percent Auto 2.3 % (0-4); Hematocrit 40.8 % (37.0-47.0); Hemoglobin 13.4 g/dl (12.0-16.0); Imm Gran Abs Auto 0.01 X10*3/uL (0.00-0.03); Imm Gran Pct Auto 0.2 % (0.0-0.4); Lymphocytes Percent Auto 38.3 % (20-40); Mean Corpuscular HGB Conc 32.8 g/dl (31.0-35.0); Mean Corpuscular Hemoglobin 29.2 pg (27.0-33.0); Mean Corpuscular Volume 88.9 fL (80.0-98.0); Mean Platelet Volume 9.1 fL (9.4-12.3); Monocytes Absolute Auto 0.3 X10*3/uL (0.1-1.2); Neutrophils Absolute Auto 2.8 x10*3/uL (2.0-8.3); Neutrophils Percent Auto 52.8 % (45-73); Platelet Count 255 X10*3/uL (160-400); Red Blood Count 4.59 X10*6/uL (4.20-5.50); Red Cell Distribution Width 12.5 % (11.0-16.0); White Blood Count 5.3 X10*3/uL (4.8-10.8)
== END 2023-07-09 12:28 | disposition home or self-care (01) ==
LOC: HO.HHCL 12:27
PROVIDERS: Visit Provider Internal Medicine
DX: N92.1 Excessive and frequent menstruation with irregular cycle (principal)
CPT/HCPCS: 36415; 84443; 85025

== ENCOUNTER 2023-07-09 16:48 | Outpatient (REF) | payer OTHER, SELFPAY ==
[2023-07-14 04:24] LABS: HPV mRNA E6/E7 rflx Not Detected (Not Detected)
== END 2023-07-09 16:49 | disposition home or self-care (01) ==
LOC: HO.HHCLNP 16:48
PROVIDERS: Visit Provider Advanced Practice Midwife
DX: Z12.4 Encounter for screening for malignant neoplasm of cervix (principal); Z11.51 Encounter for screening for human papillomavirus (HPV); N93.9 Abnormal uterine and vaginal bleeding, unspecified
CPT/HCPCS: 87624; 88142

== ENCOUNTER 2023-07-15 13:00 | Outpatient (RCR) | payer OTHER, SELFPAY | END 2023-07-28 14:38 | disposition home or self-care (01) | LOC: HO.PT 13:00 | PROVIDERS: PCP General Practice; Visit Provider Internal Medicine Geriatric Medicine | DX: M54.41 Lumbago with sciatica, right side (principal); G89.29 Other chronic pain | CPT/HCPCS: 97110; 97140; 97162 ==

== ENCOUNTER 2023-07-22 14:17 | Outpatient (REF) | payer OTHER, SELFPAY ==
--- NOTE | 2023-07-22 14:19 | EMG_ITS ---
Chief complaint: Chronic midline lower back pain, right-sided sciatica, right arm numbness Reason for referral: Evaluate for radiculopathy, Carpal Tunnel Syndrome Referred by: Dr. Cortés Procedure done: Right upper extremity/right lower extremity NCS/EMG Precautions and/or limitations: None The limb temperature was monitored continuously and remained between 32-36 degrees C during the performance of the NCS. Nerve Conduction Studies Anti Sensory Summary Table ?Stim Site NR Onset (ms) Norm Onset (ms) Peak (ms) Norm Peak (ms) O-P Amp (?V) Norm O-P Amp Site1 Site2 Delta-0 (ms) Dist (cm) Jackson (m/s) Norm Jackson (m/s) Right Median Anti Sensory (2nd Digit) Wrist ? 2.1 2.8 <3.6 55.9 >10 Wrist 2nd Digit 2.1 14.0 67 Right Sural Anti Sensory (Lat Mall) Calf ? 2.5 3.3 <4.0 25.9 >5.0 Calf Lat Mall 2.5 14.0 56 Right Ulnar Anti Sensory (5th Digit) Wrist ? 2.0 2.7 <3.7 47.8 >15.0 Wrist 5th Digit 2.0 14.0 70 Motor Summary Table ?Stim Site NR Onset (ms) Norm Onset (ms) O-P Amp (mV) Norm O-P Amp iAmp (mV) Amp (1st) (%) Site1 Site2 Delta-0 (ms) Dist (cm) Jackson (m/s) Norm Jackson (m/s) Right Median Motor (Abd Poll Brev) Wrist ? 3.4 <3.9 12.6 >4.5 15.1 100.0 Elbow Wrist 4.1 25.0 61 >45 Elbow ? 7.5 12.5 15.2 99.2 Right Peroneal Motor (Ext Dig Brev) Ankle ? 3.9 <4.0 10.2 >2.5 12.6 100.0 Ankle Ext Dig Brev 3.9 0.0 B Fib ? 11.0 9.0 10.6 88.2 B Fib Ankle 7.1 36.0 51 >40 Poplt ? 11.9 8.9 10.5 87.3 Poplt B Fib 0.9 5.0 56 >40 Right Tibial Motor (Abd Horn Brev) Ankle ? 4.2 <5 5.9 >2.5 7.9 100.0 Ankle Abd Horn Brev 4.2 0.0 Knee ? 12.7 6.9 8.2 116.9 Knee Ankle 8.5 42.0 49 >40 Right Ulnar Motor (Abd Dig Minimi) Wrist ? 2.5 <3.0 7.4 >5 9.1 100.0 B Elbow Wrist 3.7 22.0 59 >45 B Elbow ? 6.2 7.3 8.8 98.6 A Elbow B Elbow 1.5 10.0 67 >45 A Elbow ? 7.7 7.0 8.8 94.6 Comparison Summary Table ?Stim Site NR Peak (ms) Norm Peak (ms) P-T Amp (?V) Site1 Site2 Delta-P (ms) Norm Delta (ms) Right Median/Radial Dig I Comparison (Digit 1 - 10cm) Median ? 2.4 <2.9 87.2 Median Radial 0.0 Radial ? 2.4 <2.8 27.2 EMG ?Side Muscle Nerve Root Ins Act Fibs Psw Amp Dur Poly Recrt Int Pat Comment Right 1stDorInt Ulnar C8-T1 Nml Nml Nml Nml Nml 0 Nml Complete Right FlexCarRad Median C6-7 Nml Nml Nml Nml Nml 0 Nml Complete Right Biceps Musculocut C5-6 Nml Nml Nml Nml Nml 0 Nml Complete Right Triceps Radial C6-7-8 Nml Nml Nml Nml Nml 0 Nml Complete Right Deltoid Axillary C5-6 Nml Nml Nml Nml Nml 0 Nml Complete Right AbdHallucis MedPlantar S1-2 Nml Nml Nml Nml Nml 0 Nml Complete Right AntTibialis Dp Br Peron L4-5 Nml Nml Nml Nml Nml 0 Nml Complete Right PostTibialis Tibial L5, S1 Nml Nml Nml Nml Nml 0 Nml Complete Right MedGastroc Tibial S1-2 Nml Nml Nml Nml Nml 0 Nml Complete Right VastusMed Femoral L2-4 Nml Nml Nml Nml Nml 0 Nml Complete FINDINGS: All motor and sensory nerves tested showed normal latencies, amplitudes and conduction velocities. Concentric needle EMG was performed in selected muscles of the right upper extremity and lower extremity. Study did not reveal signs of electric abnormalities as shown in the table below. IMPRESSION: 1. This is a normal study. 2. There is no electrodiagnostic evidence for median neuropathy, ulnar neuropathy, brachial plexopathy, or cervical radiculopathy. 3. There is no electrodiagnostic evidence for peroneal neuropathy, tibial neuropathy, lumbosacral plexopathy, lumbar radiculopathy, or distal neuropathy. Thank you for your kind referral. Rachna Potter MD, ANGY Board Certified, [place] Board of Physical Medicine and Rehabilitation (ABPMR) Board Certified, [place] Board of Electrodiagnostic Medicine (ABEM) CODIN [id number] x 2 MTDD
== END 2023-07-22 14:18 | disposition home or self-care (01) ==
LOC: HO.NEURO 14:17
PROVIDERS: PCP General Practice; Visit Provider Internal Medicine Geriatric Medicine
DX: R20.0 Anesthesia of skin (principal); M54.41 Lumbago with sciatica, right side; G89.29 Other chronic pain
CPT/HCPCS: 95886; 95910

== ENCOUNTER → 2023-07-22 14:19 | Outpatient (BNV) | payer OTHER, SELFPAY | PROVIDERS: PCP General Practice; Visit Provider Physical Medicine & Rehabilitation | DX: M79.601 Pain in right arm (principal); R20.0 Anesthesia of skin; M54.31 Sciatica, right side | CPT/HCPCS: 95886; 95910 ==

== ENCOUNTER 2023-08-10 16:13 | Outpatient (REF) | payer OTHER, SELFPAY ==
[2023-08-10 18:39] LABS: CT PCR NOT DETECTED (Not Detect.); NG PCR NOT DETECTED (Not Detect.)
[2023-08-11 12:39] LABS: BV Int Neg Control Negative (Negative); BV Int Pos Control Positive (Positive)
== END 2023-08-10 16:14 | disposition home or self-care (01) ==
LOC: HO.HHCLNP 16:13
PROVIDERS: Visit Provider General Practice
DX: N89.8 Other specified noninflammatory disorders of vagina (principal)
CPT/HCPCS: 0353U; 87480; 87510; 87660

== ENCOUNTER 2023-09-10 15:08 | Outpatient (REF) | payer OTHER, SELFPAY ==
[2023-09-10 18:15] LABS: HCG Quantitative < 2 mIU/mL
== END 2023-09-10 15:09 | disposition home or self-care (01) ==
LOC: HO.HHCL 15:08
PROVIDERS: Visit Provider Emergency Medicine
DX: Z13.89 Encounter for screening for other disorder (principal)
CPT/HCPCS: 36415; 84702

== ENCOUNTER 2023-09-10 17:44 | Outpatient (REF) | payer OTHER, SELFPAY ==
[2023-09-11 05:13] LABS: CT PCR NOT DETECTED (Not Detect.); NG PCR NOT DETECTED (Not Detect.)
[2023-09-11 12:21] LABS: BV Int Neg Control Negative (Negative); BV Int Pos Control Positive (Positive)
== END 2023-09-10 17:45 | disposition home or self-care (01) ==
LOC: HO.HHCLNP 17:44
PROVIDERS: Visit Provider Emergency Medicine
DX: N93.9 Abnormal uterine and vaginal bleeding, unspecified (principal); Z20.2 Contact with and (suspected) exposure to infections with a predominantly sexual mode of transmission
CPT/HCPCS: 0353U; 36415; 84702; 87480; 87510; 87660

== ENCOUNTER 2023-09-18 11:44 | Outpatient (REF) | payer OTHER, SELFPAY ==
[2023-09-18 13:24] LABS: MANUAL DIFF FLAG NO
[2023-09-18 13:44] LABS: Basophils Percent Auto 0.4 % (0-2); Eosinophils Absolute Auto 0.2 X10*3/uL (0.0-0.4); Eosinophils Percent Auto 2.8 % (0-4); Hematocrit 35.9 % (37.0-47.0); Hemoglobin 12.1 g/dl (12.0-16.0); Imm Gran Abs Auto 0.01 X10*3/uL (0.00-0.03); Imm Gran Pct Auto 0.2 % (0.0-0.4); Lymphocytes Absolute Auto 2.2 X10*3/uL (1.2-4.9); Lymphocytes Percent Auto 40.1 % (20-40); Mean Corpuscular HGB Conc 33.7 g/dl (31.0-35.0); Mean Corpuscular Hemoglobin 29.2 pg (27.0-33.0); Mean Corpuscular Volume 86.5 fL (80.0-98.0); Monocytes Absolute Auto 0.3 X10*3/uL (0.1-1.2); Monocytes Percent Auto 5.9 % (2-11); Neutrophils Absolute Auto 2.8 x10*3/uL (2.0-8.3); Neutrophils Percent Auto 50.6 % (45-73); Platelet Count 294 X10*3/uL (160-400); Red Blood Count 4.15 X10*6/uL (4.20-5.50); Red Cell Distribution Width 12.5 % (11.0-16.0); White Blood Count 5.4 X10*3/uL (4.8-10.8)
[2023-09-18 14:12] LABS: Anion Gap 11 (12-20); Blood Urea Nitrogen 10 mg/dL (9-16); C Reactive Protein < 0.10 mg/dL (< or = 0.50); Calcium 9.4 mg/dL (8.4-10.2); Carbon Dioxide 23 mmol/L (22-29); Chloride 110 mmol/L (96-108); Estimated Glomerular Filt Rate > 60; Glucose Random 93 mg/dL (60-115); Sodium 140 mmol/L (135-145)
[2023-09-18 14:25] LABS: Erythrocyte Sedimentation Rate 16 MM/HR (0-20)
== END 2023-09-18 11:45 | disposition home or self-care (01) ==
LOC: HO.HHCL 11:44
PROVIDERS: Visit Provider Internal Medicine
DX: R21 Rash and other nonspecific skin eruption (principal)
CPT/HCPCS: 36415; 80048; 85025; 85652; 86140

== ENCOUNTER 2023-09-28 16:42 | Outpatient (REF) | payer OTHER, SELFPAY ==
[2023-10-02 15:33] LABS: Anti Nuclear Antibody Screen NEGATIVE (NEGATIVE)
== END 2023-09-28 16:43 | disposition home or self-care (01) ==
LOC: HO.HHCL 16:42
PROVIDERS: Visit Provider General Practice
DX: L71.9 Rosacea, unspecified (principal)
CPT/HCPCS: 36415; 86038

== ENCOUNTER 2023-09-29 13:44 | Outpatient (REF) | payer OTHER, SELFPAY ==
--- NOTE | ~2023-09-29 | US_ITS ---
EXAMINATION: US PELVIS CLINICAL INFORMATION: Abnormal uterine bleeding COMPARISON: None available. TECHNIQUE: Ultrasound of the pelvis is performed using both transabdominal and transvaginal transducers along with Doppler. Transvaginal imaging is performed due to inadequate visualization transabdominally. FINDINGS: Uterus: The uterus is anteverted and measures 9.9 x 5.3 x 6.4 cm. The double wall endometrial thickness is 0.3 mm. At the fundal aspect of the endometrial canal is a focal thickening measuring 1.2 x 0.4 x 0.4 cm. The uterus is smooth in contour and has normal myometrial echogenicity. No visible fibroid. Adnexa: Both ovaries are visualized. There is normal color flow to the adnexa. There is no ovarian torsion. There is no pelvic ascites or fluid collection. Right ovary measures 3.5 x 2.0 x 1.5 cm. Left ovary measures 3.7 x 2.5 x 1.8 cm. US/US pelvic and transvaginal IMPRESSION: At the fundal aspect of the endometrial canal is a focal thickening measuring 1.2 x 0.4 x 0.4 cm. This may reflect a polyp. Recommend further evaluation with sonohysterogram.
== END 2023-09-29 13:45 | disposition home or self-care (01) ==
LOC: HO.US 13:44
PROVIDERS: PCP General Practice; Visit Provider Advanced Practice Midwife
DX: N93.9 Abnormal uterine and vaginal bleeding, unspecified (principal)
CPT/HCPCS: 76830; 76856

== ENCOUNTER 2023-10-13 15:10 | Outpatient (AMB) | payer OTHER, SELFPAY ==
[2023-10-13 15:29] VITALS: BP 116/70; BMI 25.1
--- NOTE | 2023-10-13 15:29 | A.OFFVIS_ITS ---
Vital Signs 10/13/23 15:29 Height 5 ft 7 in Weight 160 lb BMI 25.1 BP 116/70 Intake Visit Reasons: AUB/referral Intake Note: has been bleeding non stop for 3 months Residential Therapist Required: No Information Interpreted: non-clinical & clinical Transportation Maintenance Specialist: Transportation Maintenance Specialist Present (Romuloyn) Allergies SOAP POWDER Allergy (Unknown, Uncoded 10/13/23 15:31) HIVES Is last menstrual period known: No Post menopausal: No HPI Comments Details: Patient is here today referred from the [facility]. She was a year and a half ago and received Depo-Provera . She continued to have breakthrough bleeding on resolved and was given a Nexplanon device in May of this year which she used for several months and had it removed she thinks the proximally in early July, same day was restarted with Depo-Provera. Review of her labs slight anemia TSH is normal an ultrasound findings indicate a possible endometrial polyp. 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 She is interested in having a tubal ligation if she is required to have surgery to remove the possible polyp. She reports several things were attempted to stop the bleeding during the use of Depo and Nexplanon. No records currently on hand from the [facility] during the visit today. She also reports some external irritation on the right side following treatment of bacterial vaginosis, possibly after intimacy, related to dryness. She has been using pads externally is unclear what is causing the source of itching. [facility] Medical History Hepatitis B immune Hepatitis A immune Hyperlipidemia Rosacea Difficulty sleeping Anxiety Chronic shortness of breath Weakness Dyspnea on exertion Pleuritic chest pain Eczema IBS (irritable bowel syndrome) Scoliosis Family History Father Diabetes mellitus treated with insulin Mother Arthritis Social History (Updated 10/13/23 @ 15:34 by BECK Goodwin) Household Members: Children Housing: Apartment Are you a primary healthcare science specialist to a significant other at home: No Do you presently have visiting nurse or other home services: No Alcohol intake: current Alcohol intake frequency: holidays/special occasions only Patient Tobacco Use Status: Current everyday Tobacco user Tobacco use type: Cigarette Cigarettes Per Day: 3 Trauma History: h/o brother being killed Agree to transfusion: Yes service: No Current occupational status: unemployed Current occupational exposures/hazards: No Cognitive needs: No Hearing needs: No Vision needs: No Female Reproductive History Menstrual Age of Menarche: 18 Duration of menses: other control method: progesterone injection Total pregnancies: 3 Full term: 2 Number of Living Children: 2 Date of last pap smear: 07/10/23 (negative) History of abnormal pap smear: Yes (2008 [facility]) Review of Systems Const All systems reviewed & are unremarkable except as noted in HPI and below Physical Exam Vital Signs: Last Vital Signs BP 116/70 10/13/23 15:29 BMI result Body Mass Index 25.1 Const General: cooperative, healthy appearing and no acute distress Orientation/consciousness: patient oriented x3 GI Inspection: Yes normal to inspection Palpation (GI): Soft to palpation and Other GI palpation findings present (Nontender) Rectal Exam - Female: visual inspection normal General: Yes bladder normal to palpation External Female Exam: normal appearance of the urethra Speculum Exam - Vagina: normal appearance of the vagina, normal palpation, normal vaginal discharge and vaginal bleeding (Small amount brown) Speculum Exam - Cervix: normal appearance of the cervix and normal palpation Bimanual exam- vagina & uterus: normal bimanual exam, normal palpation, uterine size normal, bladder normal to palpation, normal palpation, uterine shape normal, non-tender and other (RV) Bimanual Exam- Adnexa, other: normal adnexae OB/external & speculum: vaginal bleeding (Small amount brown) Neuro General: patient oriented x3 Results AMB Test Urine AMB Test Urine Negative Last Edit by BECK Goodwin on 10/13/23 16:09 Results Reviewed Results Reviewed: [address] [address] Ultrasound Report Signed Patient: Andreina Leblanc MR#: [id number] : 1985 Acct:[id number] Age/Sex: 38 / F ADM Date: 09/29/23 Loc: HO.US Attending Dr: Valeria Guthrie CNM Ordering Physician: VALERIA GUTHRIE CNM Date of Service: 09/29/23 Procedure(s): US pelvic and transvaginal Accession Number(s): [id number] cc: Carlee Scott; VALERIA GUTHRIE CNM~ EXAMINATION: US PELVIS CLINICAL INFORMATION: Abnormal uterine bleeding COMPARISON: None available. TECHNIQUE: Ultrasound of the pelvis is performed using both transabdominal and transvaginal transducers along with Doppler. Transvaginal imaging is performed due to inadequate visualization transabdominally. FINDINGS: Uterus: The uterus is anteverted and measures 9.9 x 5.3 x 6.4 cm. The double wall endometrial thickness is 0.3 mm. At the fundal aspect of the endometrial canal is a focal thickening measuring 1.2 x 0.4 x 0.4 cm. The uterus is smooth in contour and has normal myometrial echogenicity. No visible fibroid. Adnexa: Both ovaries are visualized. There is normal color flow to the adnexa. There is no ovarian torsion. There is no pelvic ascites or fluid collection. Right ovary measures 3.5 x 2.0 x 1.5 cm. Left ovary measures 3.7 x 2.5 x 1.8 cm. US/US pelvic and transvaginal IMPRESSION: At the fundal aspect of the endometrial canal is a focal thickening measuring 1.2 x 0.4 x 0.4 cm. This may reflect a polyp. Recommend further evaluation with sonohysterogram. Dictated By: Elizabeth Byers MD Signed By: <Electronically signed by Elizabeth Byers MD in OV> 09/29/23 1907 DD/ 1405 Assessment & Plan Assessment & Plan (1) Abnormal uterine bleeding (AUB): Code(s): N93.9 - Abnormal uterine and vaginal bleeding, unspecified (2) Breakthrough bleeding on Depo-Provera: Code(s): N92.1 - Excessive and frequent menstruation with irregular cycle (3) Endometrial polyp: Code(s): N84.0 - Polyp of corpus uteri Plan Discussed: Findings of ultrasound indicating possible endometrial polyp, recommended hysteroscopy consult for removal. Plan check CBC today. Encouraged her to hydrate well. If there is any heavy or prolonged bleeding to report to the emergency room. test was negative. BV swab sent due to present external itching. No obvious findings for itching today may be related to pad use, tight clothing, some minor irritation of own known etiology, suggested trying switching her sandra pads she different brand, if there is any changes if she develops any redness, sores, swelling or increased discomfort to return to the office for sooner assessment. Abstain from intimacy if irritating. Appointment to be made for consult with Dr. Aguilar for hysteroscopy and possible tubal ligation. Informed patient due to her insurance there is a waiver of time that she needs to wait once consent forms are signed, to speak with the doctor at her visit for her concerns. All of her questions and concerns were addressed to the best of my ability and shared decision making. She is agreeable to the plan of care. This note is constructed using voice recognition software. While every effort has been made to ensure accuracy, store administrator errors may have been included. Orders: Orders Complete Blood Count no Diff Today N93.9 - Abnormal uterine and vaginal bleeding, unspecified AMB HCG Urine Test Today N93.9 - Abnormal uterine and vaginal bleeding, unspecified Bacterial Vaginosis Panel Today N93.9 - Abnormal uterine and vaginal bleeding, unspecified Coding Level of Care Code Est Pt Level 3 (19314) Diagnoses Abnormal uterine bleeding (AUB) N93.9 Breakthrough bleeding on Depo-Provera N92.1 Endometrial polyp N84.0
== END 2023-10-13 16:10 | disposition home or self-care (01) ==
PROVIDERS: PCP General Practice; Visit Provider Advanced Practice Midwife
DX: N93.9 Abnormal uterine and vaginal bleeding, unspecified (principal); N92.1 Excessive and frequent menstruation with irregular cycle; N84.0 Polyp of corpus uteri
CPT/HCPCS: 99213

== ENCOUNTER 2023-10-13 15:10 | Outpatient (REF) | payer OTHER, SELFPAY ==
[2023-10-13 16:38] LABS: Hematocrit 36.5 % (37.0-47.0); Hemoglobin 12.1 g/dl (12.0-16.0); Mean Corpuscular HGB Conc 33.2 g/dl (31.0-35.0); Mean Corpuscular Hemoglobin 28.7 pg (27.0-33.0); Mean Corpuscular Volume 86.5 fL (80.0-98.0); Mean Platelet Volume 8.8 fL (9.4-12.3); Platelet Count 256 X10*3/uL (160-400); Red Blood Count 4.22 X10*6/uL (4.20-5.50); White Blood Count 10.6 X10*3/uL (4.8-10.8)
[2023-10-14 17:44] LABS: Bacterial Vaginosis PCR NEGATIVE (Negative); Candida Group PCR NOT DETECTED (Not Detect); Candida glab krusei PCR NOT DETECTED (Not Detect); Trichomonas vaginalis PCR NOT DETECTED (Not Detect)
== END 2023-10-13 15:11 | disposition home or self-care (01) ==
LOC: HO.LAB 15:10
PROVIDERS: PCP General Practice; Visit Provider Advanced Practice Midwife
DX: N93.9 Abnormal uterine and vaginal bleeding, unspecified (principal); N92.1 Excessive and frequent menstruation with irregular cycle; N84.0 Polyp of corpus uteri; Z20.2 Contact with and (suspected) exposure to infections with a predominantly sexual mode of transmission
CPT/HCPCS: 0352U; 36415; 81025; 85027; 99212

== ENCOUNTER 2023-10-13 16:08 | Outpatient (REF) | payer OTHER, SELFPAY | END 2023-10-13 16:09 | disposition home or self-care (01) | LOC: HO.LNP 16:08 | PROVIDERS: Visit Provider Advanced Practice Midwife | DX: Z13.89 Encounter for screening for other disorder (principal) ==

== ENCOUNTER 2023-12-01 11:57 | Outpatient (AMB) | payer OTHER, SELFPAY ==
--- NOTE | 2023-12-01 12:04 | MHC.OFFVIS ---
Vital Signs 12/01/23 12:05 12/01/23 12:25 Height 5 ft 7 in 5 ft 7 in Weight 158 lb 11.725 oz 158 lb BMI 24.9 24.7 Intake Visit Reasons: consult Hysteroscopy and tubal ligation School Office Assistant: School Office Assistant Present Allergies SOAP POWDER Allergy (Unknown, Uncoded 12/01/23 12:24) HIVES Is last menstrual period known: Yes Last menstrual period: 03/22/20 Post menopausal: No Patient : No Do you need a note to return to daycare/school/sports/work: Yes (for surgery on thursday) HPI Comments Details: Presenting referred from Oralia Clarke CNM regarding abnormal endometrium by ultrasound which was done in 10/15 and showed the following: IMPRESSION: At the fundal aspect of the endometrial canal is a focal thickening measuring 1.2 x 0.4 x 0.4 cm. This may reflect a polyp. Recommend further evaluation with sonohysterogram. [facility] Medical History Hepatitis B immune Hepatitis A immune Hyperlipidemia Rosacea Difficulty sleeping Anxiety Chronic shortness of breath Weakness Dyspnea on exertion Pleuritic chest pain Eczema IBS (irritable bowel syndrome) Scoliosis Family History Father Diabetes mellitus treated with insulin Mother Arthritis Social History Household Members: Children Both parents involved: No Caregiver staying overnight: No Housing: Apartment Are you a primary foster care worker to a significant other at home: No Do you presently have visiting nurse or other home services: No 75 years or older and lives alone: No Alcohol intake: current Alcohol intake frequency: holidays/special occasions only Patient Tobacco Use Status: Current everyday Tobacco user Tobacco use type: Cigarette Cigarettes Per Day: 3 Trauma History: h/o brother being killed Agree to transfusion: Yes service: No Current occupational status: unemployed Current occupational exposures/hazards: No Cognitive needs: No Hearing needs: No Vision needs: No Female Reproductive History Menstrual Age of Menarche: 18 Date of last menstrual period: 03/22/20 Total pregnancies: 2 Full term: 2 Review of Systems Card Reports as per HPI and Reports no additional complaints Resp Reports as per HPI and Reports no additional complaints GI Reports as per HPI and Reports no additional complaints Reports as per HPI Physical Exam Vital Signs: BMI result Body Mass Index 24.7 Const General: cooperative, healthy appearing and comfortable Resp Effort & Inspection: normal respiratory effort Auscultation: clear to auscultation bilaterally Percussion: percussion normal Cardio Palpation: normal PMI Rate: regular rate Rhythm: regular rhythm Heart sounds: no murmurs and no rubs Peripheral pulses: Peripheral pulses 2+ throughout GI Inspection: Yes normal to inspection Palpation (GI): Soft to palpation, nontender, no guarding, not rigid and No hepatosplenomegaly present Percussion: Yes normal to percussion Auscultation: normal bowel sounds Rectal Exam - Female: deferred Assessment & Plan Assessment & Plan (1) Endometrial polyp: Code(s): N84.0 - Polyp of corpus uteri Category: Medical Plan: Discussed with the patient the finding on ultrasound showing a possible endometrial polyp , recommended hysteroscopy D&C possible polypectomy/myomectomy. Discussed with the patient the procedure , all benefits and risks including but not limited to inability to complete the procedure , insufficient endometrial tissue for a complete evaluation of the endometrial cavity , bleeding, infection, possible need for blood transfusion with all its risk ( HIV,syphilis, Hepatitis, anaphylaxis shock, others..), injury to bladder, rectum, possible need for laparoscopy/laparotomy or hysterectomy. The patient verbalized understanding and signed the consent. Instructions given the patient to stay NPO after midnight the day prior to the procedure and to take only the specific medication (s) discussed the morning of the surgical procedure and to schedule a 2 week postoperative appointment Coding Level of Care Code Est Pt Level 3 (12760) Diagnoses Endometrial polyp N84.0
[2023-12-01 12:05] VITALS: BMI 24.9
[2023-12-01 12:25] VITALS: BMI 24.7
== END 2023-12-01 13:14 | disposition home or self-care (01) ==
PROVIDERS: PCP General Practice; Visit Provider Obstetrics & Gynecology
DX: N84.0 Polyp of corpus uteri (principal)
CPT/HCPCS: 99213

== ENCOUNTER → 2023-12-01 11:57 | Outpatient (BNVA) | payer OTHER, SELFPAY | PROVIDERS: PCP General Practice; Visit Provider Obstetrics & Gynecology | DX: N84.0 Polyp of corpus uteri (principal) | CPT/HCPCS: 99212 ==

== ENCOUNTER 2023-12-18 10:02 | Day surgery (SDC) | payer OTHER, SELFPAY ==
[2023-12-16 14:18] VITALS: BMI 24.7
[2023-12-18] VITALS (7 sets, daily range): BP systolic 102–113; BP diastolic 64–70; PULSE 52–73; RESP 15–18; TEMP 36.4–36.7; O2SAT 100; BMI 25.7
[2023-12-18 10:37] LABS: UPreg QC Valid YES; Urine Pregnancy NEGATIVE (NEGATIVE)
[2023-12-18] MEDS: Lactated Ringers 1,000 ML 50 ML IVCONT (10:40)
--- NOTE | 2023-12-18 11:30 | MHC.SHP ---
Pre-Procedural Eval Section A - 24 Hr Update-Section A only Date of Service: 12/18/23 The patient is an INPATIENT: No Changes since office visit: No Cold of Flu in the past 2 weeks, No New Medical Problems, No Changes in Medication and No Patient answered all questions The patient has been examined within 24 hours of the surgical procedure. The History & Physical has been completed within 30 days and I have reviewed it.: Yes Section B - Complete if H&P > 30 days Chief Complaint: Polyp of corpus uteri Allergies: Allergies Allergy/AdvReac Type Severity Reaction Status Date / Time SOAP POWDER Allergy Unknown HIVES Uncoded 12/01/23 12:24 Plan Diagnosis/Plan: Unchanged I have reviewed the history and physical and performed a pertinent physical examination on my patient. No changes have occurred unless specified. Time Spent With Patient Time: Total time managing care of this patient today ____ minutes.
--- NOTE | 2023-12-18 11:35 | HO.ANESPROP2 ---
Documented by User: Montse Schuler NP 12/16/23 13:40 HPI - Anesthesia Eval Consult details Narrative: 38yo F for D&C Hysteroscopy,possible myomectomy,possible polypectomy PMFSH Active Problems Active Problems: All Active Problems Endometrial polyp (Acute) (Acute) Anxiety and depression (Acute) AMA (advanced maternal age) multigravida 35+ (Acute) Problematic vaginal discharge (Acute) Potential exposure to STD (Acute) Cervical cancer screening (Acute) Supervision of normal in second trimester (Acute) Encounter for screening for malformation using ultrasound (Acute) Nausea and vomiting in (Acute) COVID-19 affecting in second trimester (Acute) Normochromic anemia (Acute) Past Medical History Medical History (Updated 12/18/23 @ 10:21 by Bridgett Grimes, RN) Depression Anemia Low blood pressure Hepatitis B immune Hepatitis A immune Hyperlipidemia Rosacea Difficulty sleeping Anxiety Chronic shortness of breath Weakness Dyspnea on exertion Pleuritic chest pain Eczema IBS (irritable bowel syndrome) Scoliosis Family History Family History Father Diabetes mellitus treated with insulin Mother Arthritis Surgical History Surgical History (Updated 12/18/23 @ 10:16 by Bridgett Grimes RN) Hx of tooth extraction Social History Social History Household Members: Children Housing: Apartment Are you a primary plant care worker to a significant other at home: No Do you presently have visiting nurse or other home services: No Alcohol intake: current Alcohol intake frequency: holidays/special occasions only Patient Tobacco Use Status: Current everyday Tobacco user Tobacco use type: Cigarette Cigarettes Per Day: 2 Use of substances other than those prescribed or required for medical reasons: No Trauma History: h/o brother being killed Agree to transfusion: Yes Are you DNR?: No Advance Directives: No Advance Directives Information Provided: Yes service: No Current occupational status: unemployed Current occupational exposures/hazards: No Cognitive needs: No Hearing needs: No Vision needs: No Meds Allergies Allergy/AdvReac Type Severity Reaction Status Date / Time SOAP POWDER Allergy Unknown HIVES Uncoded 12/01/23 12:24 Home Medications ?Medication ?Instructions ?Recorded ?Confirmed ?Last Taken ?Type medroxyprogesterone 150 mg/mL 150 mg IM [id number] 10/13/23 12/18/23 Unknown History intramuscular suspension (Depo-Provera) Assessment and Plan Assessment Anesthesia Assessment: Chart Reviewed Documented by User: Bridgett Duarte DO 12/18/23 11:43 [facility] Past Medical History Medical History (Updated 12/18/23 @ 10:21 by Bridgett Grimes, RN) Depression Anemia Low blood pressure Hepatitis B immune Hepatitis A immune Hyperlipidemia Rosacea Difficulty sleeping Anxiety Chronic shortness of breath Weakness Dyspnea on exertion Pleuritic chest pain Eczema IBS (irritable bowel syndrome) Scoliosis Family History Family History Father Diabetes mellitus treated with insulin Mother Arthritis Family history of problems with anesthesia: No Surgical History Surgical History (Updated 12/18/23 @ 10:16 by Bridgett Grimes RN) Hx of tooth extraction History of Problems with Anesthesia: No Social History Social History Household Members: Children Housing: Apartment Are you a primary plant care worker to a significant other at home: No Do you presently have visiting nurse or other home services: No Alcohol intake: current Alcohol intake frequency: holidays/special occasions only Patient Tobacco Use Status: Current everyday Tobacco user Tobacco use type: Cigarette Cigarettes Per Day: 2 Use of substances other than those prescribed or required for medical reasons: No Trauma History: h/o brother being killed Agree to transfusion: Yes Are you DNR?: No Advance Directives: No Advance Directives Information Provided: Yes service: No Current occupational status: unemployed Current occupational exposures/hazards: No Cognitive needs: No Hearing needs: No Vision needs: No Meds Allergies Allergy/AdvReac Type Severity Reaction Status Date / Time SOAP POWDER Allergy Unknown HIVES Uncoded 12/01/23 12:24 Home Medications ?Medication ?Instructions ?Recorded ?Confirmed ?Last Taken ?Type medroxyprogesterone 150 mg/mL 150 mg IM [id number] 10/13/23 12/18/23 Unknown History intramuscular suspension (Depo-Provera) Exam Exam Date and Time: December 18, 2023 1135 Height,Weight and Vital Signs: Height 5 ft 7 in Weight 74.389 kg Vital Signs Temperature 97.5 F 12/18/23 10:22 Pulse Rate 68 12/18/23 10:22 Respiratory Rate 15 12/18/23 10:22 Blood Pressure 106/70 12/18/23 10:22 Pulse Oximetry 100 12/18/23 10:22 Oxygen Delivery Method Room Air 12/18/23 10:22 Temperature 97.5 F 12/18/23 10:22 Pulse Rate 68 12/18/23 10:22 Respiratory Rate 15 12/18/23 10:22 Blood Pressure 106/70 12/18/23 10:22 Pulse Oximetry 100 12/18/23 10:22 Oxygen Delivery Method Room Air 12/18/23 10:22 Airway Mallampati Class: I TM Dist: >3cm Neck ROM: Full Loose/Missing/Broken Teeth: Yes (patient reports a few broken molars) Heart: S1S2 Lungs: CTAB Assessment and Plan Assessment Anesthesia Assessment: Anesthesia Plan Discussed and Chart Reviewed Final Anesthetic Review Family History of Problems with Anesthesia: No History of Problems with Anesthesia: No NPO: Yes ASA Class: II Final Preanesthetic Review: No Changes in Pt Med Stat, Meds/Allgs Chart Reviewed, Consent Obtained/Reviewed and Anes Risks/Benef Reviewed Patient Risk: Low Procedure Risk: Low Anesthetic Plan Anesthetic Plan: GA and Agree w/ Assess. and Plan Disposition: Standard PACU
--- NOTE | 2023-12-18 12:41 | P.OP_ITS ---
Operative Note Operative Note Date of Service: 12/18/23 Narrative: Preop Diagnosis: Abnormal uterine bleeding, abnormal endometrium by ultrasound Operation: Diagnostic Hysteroscopy, Dilataion & Curettage Post Op Diagnosis: Normal endometrial and endocervical cavity, no evidence of pathology QBL: Minimal Anesthesia: GLMA Surgeon: Noah Aguilar MD Slitter Processed Film: None Complication: None Pathology: Endometrial Scrapings Procedure: The patient was put in the dorsal lithotomy position, scrubbed, and draped in the usual manner. A sterile speculum was inserted in the patient's vagina. The anterior lip of the cervix was grasped with a single tooth tenaculum. The cervix was dilated up to 5 mm, then the scope was inserted in the patient's uterus. Inspection revealed normal endocervical & endometrial cavity with no evidence of pathology. The scope was taken out of the uterine cavity , then sharp curetting was carried on with no complications. At the end of the procedure, all instruments were taken out of the patient uterine and vaginal cavity. The single tooth tenaculum was removed and homeostasis was assured using pressure. The patient tolerated the procedure well and was transferred to the PACU in a stable condition.
--- NOTE | 2023-12-18 12:41 | PM.OP ---
Brief Operative Note Date of Service: 12/18/23 Pre-op diagnosis: Abnormal uterine bleeding, abnormal endometrium by ultrasound Post-op diagnosis: same Procedure: Hysteroscopy D&C Surgeon: Noah Aguilar MD Anesthesia: GLMA Was an Research Attorney used for this Procedure?: No Estimated blood loss (mL): 0 Pathology: other (Endometrial Scrapping. ) Condition: stable Disposition: PACU
[2023-12-18] MEDS: Acetaminophen 325 MG TABLET 650 MG PO (13:13)
== END 2023-12-18 13:52 | disposition home or self-care (01) ==
PROVIDERS: PCP General Practice; Visit Provider Obstetrics & Gynecology
PROC: 0UDB8ZZ Extraction of Endometrium, Via Natural or Artificial Opening Endoscopic (ICD-10-PCS; CPT 58558; principal; 2023-12-18 12:30)
DX: N93.9 Abnormal uterine and vaginal bleeding, unspecified (principal); R53.1 Weakness; R07.81 Pleurodynia; R06.09 Other forms of dyspnea; M41.9 Scoliosis, unspecified; L30.9 Dermatitis, unspecified; F17.210 Nicotine dependence, cigarettes, uncomplicated; Z79.899 Other long term (current) drug therapy
CPT/HCPCS: 58558; 81025; 88305; J1100; J1885; J2250; J2405; J2704; J3010

== ENCOUNTER → 2023-12-18 10:02 | Outpatient (BNV) | payer OTHER, SELFPAY | PROVIDERS: PCP General Practice; Visit Provider Obstetrics & Gynecology | DX: N84.0 Polyp of corpus uteri (principal) | CPT/HCPCS: 58558 ==

== ENCOUNTER 2023-12-31 15:48 | Outpatient (REF) | payer OTHER, SELFPAY ==
[2024-01-01 14:47] LABS: Bacterial Vaginosis PCR POSITIVE (Negative); Candida Group PCR NOT DETECTED (Not Detect); Candida glab krusei PCR NOT DETECTED (Not Detect); Trichomonas vaginalis PCR NOT DETECTED (Not Detect)
[2024-01-01 15:10] LABS: CT PCR NOT DETECTED (Not Detect.); NG PCR NOT DETECTED (Not Detect.)
== END 2023-12-31 15:49 | disposition home or self-care (01) ==
LOC: HO.LNP 15:48
PROVIDERS: PCP General Practice; Visit Provider Obstetrics & Gynecology
DX: N76.0 Acute vaginitis (principal); B96.89 Other specified bacterial agents as the cause of diseases classified elsewhere; N84.0 Polyp of corpus uteri; N93.9 Abnormal uterine and vaginal bleeding, unspecified
CPT/HCPCS: 0352U; 87491; 87591; 99212

== ENCOUNTER 2023-12-31 15:48 | Outpatient (AMB) | payer OTHER, SELFPAY ==
--- NOTE | 2023-12-31 15:49 | A.OFFVIS_ITS ---
Vital Signs 12/31/23 15:53 Height 5 ft 7 in Weight 158 lb BMI 24.7 Intake Visit Reasons: post op Allergies SOAP POWDER Allergy (Unknown, Uncoded 12/01/23 12:24) HIVES HPI Comments Details: The patient is presenting post hysteroscopy D&C complaining of vaginal discharge associated with foul odor no itching, no feverishness chills or abdominal pain. The pathology showed the following: Endometrium, curettage: - Inactive endometrium with patchy breakdown; no atypia or hyperplasia identified. - Few fragments of endocervical tissue within normal limits PFSH Medical History Depression Anemia Low blood pressure Hepatitis B immune Hepatitis A immune Hyperlipidemia Rosacea Difficulty sleeping Anxiety Chronic shortness of breath Weakness Dyspnea on exertion Pleuritic chest pain Eczema IBS (irritable bowel syndrome) Scoliosis Surgical History Hx of tooth extraction Family History Father Diabetes mellitus treated with insulin Mother Arthritis Social History Household Members: Children Both parents involved: No Caregiver staying overnight: No Housing: Apartment Are you a primary geriatric care manager to a significant other at home: No Do you presently have visiting nurse or other home services: No 75 years or older and lives alone: No Alcohol intake: current Alcohol intake frequency: holidays/special occasions only Patient Tobacco Use Status: Current everyday Tobacco user Tobacco use type: Cigarette Cigarettes Per Day: 2 Trauma History: h/o brother being killed Agree to transfusion: Yes service: No Current occupational status: unemployed Current occupational exposures/hazards: No Cognitive needs: No Hearing needs: No Vision needs: No Female Reproductive History Menstrual Age of Menarche: 18 Review of Systems Const All systems reviewed & are unremarkable except as noted in HPI and below Reports as per HPI and Reports no additional complaints GI Reports no additional complaints Reports no additional complaints Physical Exam Vital Signs: BMI result Body Mass Index 24.7 General: Yes no CVA tenderness External Female Exam: normal external appearance and normal appearance of the urethra Speculum Exam - Vagina: normal appearance of the vagina, normal palpation, no lesions and no masses Speculum Exam - Cervix: normal appearance of the cervix, normal palpation, no lesions, no masses and nontender Bimanual exam- vagina & uterus: normal bimanual exam, normal palpation, uterine size normal, normal palpation, uterine shape normal, No Cervical tenderness present and non-tender Bimanual Exam- Adnexa, other: normal adnexae Back/Spine/Pelvis Back: no CVA tenderness Assessment & Plan Assessment & Plan (1) Endometrial polyp: Code(s): N84.0 - Polyp of corpus uteri Category: Medical Plan: Discussed with the patient the intraoperative findings showing normal endometrial cavity with no evidence of endometrial polyp and the results the pathology, the patient was reassured. All questions answered, the patient verbalized understanding (2) Abnormal uterine bleeding (AUB): Comment: On Depo-Provera Code(s): N93.9 - Abnormal uterine and vaginal bleeding, unspecified Category: Medical Plan: Discussed with the patient the results of the work up done and options of treatment including staying on with Depo-Provera switching to BCP's, Mirena IUD. All pros, cons, risks and benefits if each option was discussed with the patient and the patient decided to stay on Depo-Provera and if the bleeding persists will switch to a different type of control. Instructions given the patient to call [facility] for her next scheduled Depo-Provera. All questions answered the patient verbalized understanding. (3) Bacterial vaginal infection: Code(s): N76.0 - Acute vaginitis; B96.89 - Other specified bacterial agents as the cause of diseases classified elsewhere Category: Medical Plan: GC and chlamydia cultures with BV panel taken. Will treat with Flagyl 500 mg p.o. b.i.d. x 7 days, Instructions given to the patient to refrain from sexual activity or to use condoms consistently and correctly during the BV treatment regimen, not to douch, it might increase the risk for relapse, and to call if symptoms persist or recur. Medications: New metronidazole 500 mg PO BID 7 days 14 tabs 0RF Coding Level of Care Code Est Pt Level 3 (40791) Diagnoses Endometrial polyp N84.0 Abnormal uterine bleeding (AUB) N93.9 Bacterial vaginal infection N76.0; B96.89
[2023-12-31 15:53] VITALS: BMI 24.7
== END 2023-12-31 16:36 | disposition home or self-care (01) ==
PROVIDERS: PCP General Practice; Visit Provider Obstetrics & Gynecology
DX: N84.0 Polyp of corpus uteri (principal); N93.9 Abnormal uterine and vaginal bleeding, unspecified; N76.0 Acute vaginitis; B96.89 Other specified bacterial agents as the cause of diseases classified elsewhere
CPT/HCPCS: 99213

== ENCOUNTER 2024-03-18 16:24 | Outpatient (REF) | payer OTHER, SELFPAY | END 2024-03-18 16:25 | disposition home or self-care (01) | LOC: HO.HHCLNP 16:24 | PROVIDERS: Visit Provider General Practice | DX: Z13.89 Encounter for screening for other disorder (principal) ==

== ENCOUNTER 2024-07-01 17:13 | Emergency (ER) | payer OTHER, SELFPAY ==
--- OUTSIDE RECORDS SUMMARY | 2024-07-01 17:32 | XMS_ITS | Encounter Summary ---
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 I have cm martínez 08/10/[address] you li ve. Do you have problems with any of the following? None of the above 08/10/2023 Food Insecurity Answer Date Recorded Within the past 12 months, y ou worried that your food would run out before you got money to buy more: Never True 06/30/2024 Within the past 12 months,th e food you bought just didn't last and you didn't have enough money to get more: Never True 10/2024 Transportation Answer Date Recorded In the past 12 months, has l ack of transportation kept you from medical appts, meetings, work or from getting things needed for daily living? No 08/10/2023 Utilities Answer Date Recorded In the past 12 months, has t he electric, gas, oil or water company threatened to shut off services in your home? No 06/30/2024 Depression Answer Date Recorded Patient Health Questionnaire-2 Score 0 03/18/2024 Internet Access Answer Date Recorded Internet Access Q1 Yes 06/30/2024 Internet Access Q2 I cannot afford it 06/30/2024 Comments No Sex and Gender Information Value Date Recorded Sex Assigned at Female 03/24/2022 10:14 AM EDT Legal Sex Female 10:14 AM EDT Gender Identity Female 03/24/2022 10:14 AM EDT Sexual Orientation Straight 03/24/2022 10 :14 AM EDT documented as of this encounter Plan of Treatment Upcoming Encounters Date Type Department Care Team (Late st Contact Info) Description 07/07/2024 1:00 PM EST Office Visit [facility] [address] [place] [address] Valeria Ruff CNM [address] [place] [address] 09/20/2024 1:00 PM EDT Clinical Support [facility] [address] [place] [phone] documented as of this encounter Visit Diagnoses 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
--- OUTSIDE RECORDS SUMMARY | 2024-07-01 17:32 | XMS_ITS | Encounter Summary ---
Author Organization [employer] Address [address] [facility] [address] [place] [address] Care Team Providers Care Elocution Teacher Name Role Phone Carlee Scott MD Primary Care Provider [phone] Encounter Details Date Type Department Care Team (Late st Contact Info) Description 08/11/2023 Orders Only [facility] [address] [place], [place] [phone] Carlee Scott MD [address] [place], [place] [phone] Social History Tobacco Use Types Packs/Day Years Used Date Smoking Tobacco: Some Days Cigarettes Smokeless Tobacco: Never Comments:Smokes 3-4 cigarett es a day started 5 months ago Alcohol Use Standard Drinks/Week Comments Not Currently 0 (1 standard drink = 0.6 oz pur e alcohol) Depression Answer Date Recorded Patient Health Questionnaire-9 Score 22 07/09/2023 Patient Health Questionnaire-9 Score 22 07/09/2023 Last PHQ-9: Questionnaire Data Not on file 0 07/09/2023 Housing Stability Answer Date Recorded What is your housing situation today? I have cm martínez 08/10/[address] you li ve. Do you have problems with any of the following? None of the above 08/10/2023 Food Insecurity Answer Date Recorded Within the past 12 months, y ou worried that your food would run out before you got money to buy more: Often true 08/13/2023 Within the past 12 months,th e food you bought just didn't last and you didn't have enough money to get more: Often true Transportation Answer Date Recorded In the past 12 months, has l ack of transportation kept you from medical appts, meetings, work or from getting things needed for daily living? No 08/10/2023 Utilities Answer Date Recorded In the past 12 months, has t he electric, gas, oil or water company threatened to shut off services in your home? I am not sure 08/13/2023 Depression Answer Date Recorded Patient Health Questionnaire-2 Score 6 07/09/2023 Comments No Sex and Gender Information Value [...] Description 07/07/2024 1:00 PM EST Office Visit [facility] [address] [place] [address] Valeria Ruff CNM [address] [place] [address] 09/20/2024 1:00 PM EDT Clinical Support [facility] [address] [place] [address] documented as of this encounter Visit Diagnoses Not on filedocumented in this encounter Additional Health Concerns Assessment Noted Time PHQ-9 Depression Total Score: 22 024 12:37 PM EST documented as of this encounter Care Teams Elocution Teacher Relationship Specialty Start Date End Date Carlee Scott MD [address] [place] [address] PCP - General Family Medicine 01/20/22 documented as of this encounter
--- OUTSIDE RECORDS SUMMARY | 2024-07-01 17:32 | XMS_ITS | Encounter Summary ---
Author Organization [employer] Address [address] [facility] [address] [place] [address] Care Team Providers Care Abrasive Grinder Name Role Phone Carlee Scott MD Primary Care Provider [phone] Reason for Visit * Reason Comments Pre-visit Planning SDOH negative, Tobac co screening negative. Encounter Details Date Type Department Care Team ([facility] st Contact Info) Description 06/30/2024 Patient Outreach [facility] [address] [place], [place] [phone] Carlee Scott MD [address] [place] [address] Pre-visit Planning (SDOH negative, Tobacco screening negative. ) Social History Tobacco Use Types Packs/Day Years [...] AM EDT documented as of this encounter Progress Notes * Sara Armstrong - 06/30/2024 3:37 PM EST CC Sara Barrientos placed successful outbound call to patient for pre-visit planning. Patient name and confirmed. Patient confirms appt date and time, and has transportation arrangements. Biggest concern for appointment at this time is no concerns. Appropriate screenings completed in anticipation ofappointment. documented in this encounter Plan of Treatment Upcoming Encounters Date Type Department Care Team (Late st Contact Info) Description 07/07/2024 1:00 PM EST Office Visit [facility] [address] [place] [address] Valeria Ruff CNM [address] [place], [place] [phone] 09/20/2024 1:00 PM EDT Clinical Support [facility] [address] [place] [address] documented as of this encounter Visit Diagnoses Not on filedocumented in this encounter Additional Health Concerns Assessment Noted Time PHQ-9 Depression Total Score: 0 03/18/20 24 10:02 AM EDT documented as of this encounter Care Teams Abrasive Grinder Relationship Specialty Start Date End Date Carlee Scott MD [address] [place] [address] PCP - General Family Medicine 01/20/22 documented as of this encounter
--- OUTSIDE RECORDS SUMMARY | 2024-07-01 17:32 | XMS_ITS | Encounter Summary ---
Author Organization [employer] Address [address] [facility] [address] [place] [address] Care Team Providers Care Funeral Arranger Name Role Phone Carlee Scott MD Primary Care Provider [phone] Reason for Visit * Reason Onset Date Comments Nurse Triage 05/14/2023 Encounter Details Date Type Department Care Team ([facility] st Contact Info) Description 05/14/2023 Telephone [facility] [address] [place], [place] [phone] Carlee Scott MD [address] [place], [place] [phone] Nurse Triage Social History Tobacco Use Types Packs/Day Years Used Date Smoking Tobacco: Every Day Cigarettes Smokeless Tobacco: Never Comments:Smokes 3-4 cigarett [...] Access Answer Date Recorded Internet Access Q1 No 03/04/2024 Internet Access Q2 I cannot afford it 03/04/2024 Comments Unknown Sex and Gender Information Value Date Recorded Sex Assigned at Female 03/24/2022 10:14 AM EDT Legal Sex Female 10:14 AM EDT Gender Identity Female 03/24/2022 10:14 AM EDT Sexual Orientation Straight 03/24/2022 10 :14 AM EDT documented as of this encounter Miscellaneous Notes * Telephone Encounter - Maria Elena Beaver RN - 05/14/2023 3:41 PM EST Triage call to ALESHA Garcia for insurance exams. Pt was seen by Radha and is reported to show signs of anemia with fatigue, weakness, and heavy periods. Requesting to have Pt seen by PCP. Unable to triage Pt phone message reports Pt is not available. Protocol Used: No Protocol Available (Adult) Protocol-Based Disposition: Discuss with PCP and Callback by Nurse Today Video visit not offered Positive Triage Question: * Nursing judgment * All higher-acuity triage questions were negative Care Advice Discussed: * Reasons To Call Back - New symptoms develop - You become worse * Telephone Encounter - Sunny Fraser - 05/14/2023 3:30 PM EST Symptom: Weakness Outcome: Schedule an urgent appointment (within 1 hour) or talk to a nurse or provider soon Reason: Getting worse The caller accepted this outcome Please contact at [phone] documented in this encounter Plan of Treatment Upcoming Encounters Date Type Department Care Team (Late st Contact Info) Description 07/07/2024 1:00 PM EST Office Visit [facility] [address] [place], [place] [phone] Valeria Ruff CNM [address] [place] [address] 09/20/2024 1:00 PM EDT Clinical Support [facility] [address] [place] [address] documented as of this encounter Visit Diagnoses Not on filedocumented in this encounter Additional Health Concerns Assessment Noted Time PHQ-9 Depression Total Score: 16 023 9:32 AM EST documented as of this encounter Care Teams Funeral Arranger Relationship Specialty Start Date End Date Carlee Scott MD [address] [place] [address] PCP - General Family Medicine 01/20/22 documented as of this encounter
--- OUTSIDE RECORDS SUMMARY | 2024-07-01 17:32 | XMS_ITS | Clinical Summary ---
Author Organization [facility] Address [address] [place] [address] Care Team Providers Care Potline Monitor Name Role Phone Dana Mattson RN Primary Care Provider [phone] Surgical History Surgery Date Site/Laterality Comments OTHER SURGICAL HISTORY PROCEDURE: DENIES PREVIOUS SURGERY OTHER SURGICAL HISTORY PROCEDURE: MS INCISION & DRAINAGE PILONIDAL CYST SIMPLE; COMMENT: on tailbone @19yo WISDOM TOOTH EXTRACTION PROCEDURE: HISTORICAL WISDOM TEETH EXTRACTION; COMMENT: all 4 removed Medical History Medical History Date Comments Anxiety state DX:Anxiety state Bacterial vaginosis 02/26/2016 DX:Bacterial vaginosis Yeast infection 02/26/2016 DX:Yeast infecti on History of depression 2014 DX:History of depression History of anemia 01/23/2015 DX:History of anemia; COMMENT: H & H 10.5 31.0 HSV-2 infection DX:HSV-2 infecti on Anemia in 11/20/2021 DX:Anemia in 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 DX:HSV-2 (herpes simplex vir us 2) infection; COMMENT: Patient reports she was told she had +HSV2 in lab work, never had a cold sore and never had a genital outbreak ; [facility] labs in [facility] History of blood transfusion DX: History of blood transfusion; COMMENT: age 19 Family History Medical History Relation Name Comments No Known Problems Brother 1 Other: homicide; shot Brother 2 No Known Problems Brother 3 Diabetes Father Other: hx of drug use Father Other: left leg amputated; unsure as to cause Father Other: weeks after slip and fall Maternal Grandfa ther Other: of natural causes Maternal Grandmot her Arthritis Mother No Known Problems Sister 1 No Known Problems Sister 2 Breast cancer Neg Hx Colon cancer Neg Hx Ovarian cancer Neg Hx Prostate cancer Neg Hx Relation Name Status Comments Brother 1 Alive Brother 2 Brother 3 Alive Father Alive Maternal Grandfather Maternal Grandmother Mother Alive Paternal Grandfather Paternal Grandmother Sister 1 Alive Sister 2 Alive Social History Tobacco Use Types Packs/Day Years Used Date Smoking Tobacco: Every Day Smokeless Tobacco: Never Alcohol Use Standard Drinks/Week Comments Not Currently 5 (1 standard drink = 0.6 oz pur e alcohol) Sex and Gender Information Value Date Recorded Sex Assigned at Not on file Gender Identity Not on file Sexual Orientation Not on file Obstetrics History Last Filed Vital Signs Vital Sign Reading Time Taken Comments Blood Pressure 100/71 12/30/2022 10:21 AM EDT Pulse 80 12/30/2022 10:21 AM EDT Temperature - - Respiratory Rate - - Oxygen Saturation - - Inhaled Oxygen Concentration - - Weight 73.4 kg (161 lb 12.8 oz) 023 10:21 AM EDT Height 170.2 cm (5' 7 ) 09/29/2022 10:3 5 AM EDT Body Mass Index 25.34 09/29/2022 10:35 AM EDT Plan of Treatment Health Maintenance Due Date Last Done Comments Pneumococcal Vaccine: Pediatrics (0 to 5 Years) and At-Risk Patients (6 to 64 Years) (1 of 2 - PCV) 1993 Hepatitis B Vaccines (1 of 3 - 19+ 3-dose series) 2006 Depression Screening 04/27/2022 HIV Screening 04/27/2022 Hepatitis C Screening 04/27/2022 Social Influencers of Health Screening 04/27/2022 COVID-19 Vaccine ( - 2023-2 5 season) 2024 Influenza Vaccine (#1) 2024 Cervical Cancer Screening: P ap Smear 08/01/2024 08/01/2021, 01/27/2018, 01/27/2018 DTaP,Tdap,and Td Vaccines (3 - Td or Tdap) 11/21/2031 11/20/2021, 03/06/2015 HIB Vaccines Aged Out No longer eligi ble based on patient's age to complete this topic HPV Vaccines Aged Out No longer eligi ble based on patient's age to complete this topic Hepatitis A Vaccines Aged Out No long er eligible based on patient's age to complete this topic IPV Vaccines Aged Out No longer eligi ble based on patient's age to complete this topic MMR Vaccines Aged Out No longer eligi ble based on patient's age to complete this topic Meningococcal ACWY Vaccine Aged Out N o longer eligible based on patient's age to complete this topic RSV Immunization Patients Under 20 months Aged Out No longer eligible b ased on patient's age to complete this topic Varicella Vaccines Aged Out No longer eligible based on patient's age to complete this topic Procedures Procedure Name Priority Date/Time Associated Diagnosis Comments PAP SMEAR Routine 08/01/2021 from Last 3 Months or Most Recently Relevant to Health Maintenance Results * Pap smear (08/01/2021) 08/01/2021 Narrative HISTORICAL TESTING LAB RESULTING AGENCY - 08/14/2021 7:26 AM EDT [id number] THINPREP PAP, IMAGED: NEGATIVE FOR SQUAMOUS INTRAEITHELIAL LESION AND MALIGNANCY. NOTE: THE PAP TEST IS A SCREENING TEST WITH AN INHERENT FALSE NEGATIVE RATE. AUTOMATED PRESCREENING OF ALL LIQUID BASED SPECIMENS IS PERFORMED BY THE THINPREP IMAGING SYSTEM UNLESS OTHERWISE STATED. DEACON BIRD(ASCP) (CASE ELECTRONICALLY SIGNED 08 13 2021) RESULT OF APTIMA HIGH RISK HPV ASSAY: HIGH RISK HPV: ??NEGATIVE (SEROTYPES 16,18,31,33,35,39,45,51,52,56,58,59,66,68) COMPLETED ON 2021-08-06 ADEQUACY: SATISFACTORY ENDOCERVICAL/TRANSFORMATION ZONE COMPONENT PRESENT. SOURCE: THINPREP PAP HPV ANY DX: ??REFLEX 16 AND 18, CERVICAL, IMAGED CLINICAL INFORMATION: HPV ANY DIAGNOSIS. HORMONES, PAP HX NEGATIVE, POS HPV, LMP 05/08/2021, [Z12.4] Alicia Ryan CNM LAB CYTOLOGY ORDERAB LES HISTORICAL TESTING LAB RESULTING AGENCY from Last 3 Months or Most Recently Relevant to Health Maintenance Care Teams Potline Monitor Relationship Specialty Start Date End Date Dana Mattson RN [address] [place] [phone] PCP - General 10/16/22
--- OUTSIDE RECORDS SUMMARY | 2024-07-01 17:32 | XMS_ITS | Encounter Summary ---
Author Organization [employer] Address [address] [facility] [address] [place] [address] Care Team Providers Care Crimper Operator Name Role Phone Carlee Scott MD Primary Care Provider [phone] Encounter Details Date Type Department Care Team (Late st Contact Info) Description 09/11/2023 Orders Only [facility] [address] [place], [place] [phone] Wai Chen MD [address] [place] [address] Social History Tobacco Use Types Packs/Day Years [...] Description 07/07/2024 1:00 PM EST Office Visit [facility] [address] [place] [address] Valeria Ruff CNM [address] [place] [address] 09/20/2024 1:00 PM EDT Clinical Support [facility] [address] [place] [address] documented as of this encounter Visit Diagnoses Not on filedocumented in this encounter Additional Health Concerns Assessment Noted Time PHQ-9 Depression Total Score: 22 024 12:37 PM EST documented as of this encounter Care Teams Crimper Operator Relationship Specialty Start Date End Date Carlee Scott MD [address] [place] [address] PCP - General Family Medicine 01/20/22 documented as of this encounter
--- OUTSIDE RECORDS SUMMARY | 2024-07-01 17:32 | XMS_ITS | Encounter Summary ---
Author Organization [employer] Address [address] [facility] [address] [place] [address] Care Team Providers Care Arterial Embalmer Name Role Phone Carlee Scott MD Primary Care Provider [phone] Encounter Details Date Type Department Care Team (Latest Contact Info) Description 06/28/2024 Travel Social History Tobacco Use Types Packs/Day Years [...] Q2 I cannot afford it 03/04/2024 Comments No Sex and Gender Information Value [...] Description 07/07/2024 1:00 PM EST Office Visit [facility] [address] [place] [address] Valeria Ruff CNM [address] [place] [address] 09/20/2024 1:00 PM EDT Clinical Support [facility] [address] [place] [address] documented as of this encounter Visit Diagnoses Not on filedocumented in this encounter Additional Health Concerns Assessment Noted Time PHQ-9 Depression Total Score: 0 03/18/20 24 10:02 AM EDT documented as of this encounter Care Teams Arterial Embalmer Relationship Specialty Start Date End Date Carlee Scott MD [address] [place] [address] PCP - General Family Medicine 01/20/22 documented as of this encounter
--- OUTSIDE RECORDS SUMMARY | 2024-07-01 17:32 | XMS_ITS | Clinical Summary ---
Author Organization [employer] Address [address] [place] [address] [address] [place] [address] Care Team Providers Care Submersible Pilot Name Role Phone Carlee Scott MD Primary Care Provider [phone] Allergies Active Allergy Reactions Criticality Noted Date Comments Metronidazole Itching,Swelling 03/10/2018 Medications * This document contains information received from the source organization and may not represent a complete record from that organization. Diclofenac Sodium 1 % gelIndications :Chronic midline low back pain without sciatica Apply 1 Application topically 2 times daily. 150 g 3 4 Active azelaic acid (Azelex) 20 % cream Apply topically 2 times daily. Pt is allergic to metronidazole 50 g 1 4 08/10/19 25 Active hydrOXYzine pamoate (Vistaril) 25 MG capsule Take 1 capsule (25 mg) by mouth if needed at bedtime (sleep). 30 capsule 3 4 Active ibuprofen 400 MG tablet Take 1 tablet (400 mg) by mouth every 6 (six) hours if needed for moderate pain or fever for up to 30 doses. 30 tablet 4 Active metroNIDAZOLE (Metrogel) 0.75 % gelIndications :Rosacea Apply topically 2 times daily. 45 g 2 4 10/16/19 25 Active medroxyPROGEST ERone (Depo-Provera) 150 MG/ML injection Inject 1 mL (150 mg) into the muscle every 3 (three) months. 1 mL 3 4 Active cyclobenzaprin e (Flexeril) 5 MG tablet TAKE 1 TABLET BY MOUTH EVERY DAY AT BEDTIME 30 tablet 4 Active nicotine (Nicoderm CQ) 14 MG/24HR patch APPLY 1 PATCH TOPICALLY TO THE SKIN IN THE MORNING. DO NOT SMOKE WHILE USING PATCH 42 patch 4 Active estrogens, conjugated, (Premarin) 0.625 MG tablet TAKE 1 TABLET BY MOUTH FOR 7 DAYS MAY CONTINUE FOR 14 IF BLEEDING DOSE NOT IMPROVE 14 tablet 4 Active nicotine (Nicoderm CQ) 7 MG/24HR patch APPLY 1 PATCH TOPICALLY TO THE SKIN IN THE MORNING. DO NOT SMOKE WHILE USING PATCH. 14 patch 4 Active gabapentin (Neurontin) 300 MG capsule Take 1 capsule (300 mg) by mouth at bedtime. 90 capsule 3 4 03/18/20 Active Hospital, Clinic, or Other Facility Administered Medication Ordered Dose Route Frequency Start Date End Date Status triamcinolone acetonide (Kenalog-40) injection 40 mgIndications:Keloi d 40 mg INTRA-LESIO N Once 05/06/2024 Active medroxyPROGESTERone (Depo-Provera) injection 150 mgIndications:jail current use of hormonal contraceptive 150 mg IM Every 3 months 06/28/2024 6 Active Active Problems Problem Noted Date Diagnosed Date Other chest pain 03/18/2024 Right arm pain 03/18/2024 Chronic midline low back pain without sciatica 0 08/10/2023 Assessment & Plan (11/13/2023 1:06 PM EDT): Done with PT and chiropracter Will trial capsacin Wash hands after use, may take 2 weeks to see full effect Also order donut pillow to offload pain from sitting and when driiving Severe episode of recurrent major depressive disorder, without psychotic features 07/09/2023 Assessment & Plan (07/09/2023 1:36 PM EST): PROGRESS NOTE: ID: Andreina is a 38 y.o. Black or straight-identified cis- female with previous documented hx of Depression, Anxiety, and Alcohol Use Disorder. MH services including OP Psychotherapy psychopharmacology who presents for Anxiety and Depression. Hx of SI attempt, Hx of alcohol use, has been sober for 6 years Hx of trauma in adulthood and multiple Psychiatric hospitalization. During IBH Consult Andreina presenting with depressed mood, loss of interests/pleasure , changes in sleep difficulty staying asleep , change in appetite or weight reduce appetite, psychomotor agitation, trouble concentrating, fatigue/loss of energy, worthlessness , suicide attempt history, excessive worry/anxiety, difficulty controlling worry, restless/keyed up/On edge, easily fatigued, difficulty concentrating/Mind going blank , irritability, muscle tension, and sleep disturbance difficulty staying asleep , and Grief sxs such as consistent yearning, identity disruption, intense emotional pain, avoiding reminders, loneliness and avoidance of activities that reminded her brother. ; for a period of over 7 years, for all symptoms in the context of unexpected of her twin brother, reported sxs exacerbated upon giving her first child and struggling with brother resemblance in her son. 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 Pt denies having tongue swelling, but reports having nausea, cough, sneezing, wheezing, sore throat after the vaccine. Sx don't seem like an allergy, but pt insisted that she was told about an allergic reaction. Given uncertainty if it was an actual allergy will try to get records and also referred pt to warehouse shipper. Did annual labs today and Tb test--pt will bring form to be completed ---if not seen by warehouse shipper by then would explain in form that pt reported hx of hospitalization w vaccine -annual labs to be done in fasting and repeat anemia labs to f up -Vaccines: Tdap 2011 per pt got another dose during recent in 2021 -advised pt to f up w her PCP to f lab results and f depression Smoking 06/26/2022 Assessment & Plan (10/01/2022 7:22 PM EDT): Smokes 3-4 cigarettes a day started 5 months ago -discussed in length importance to stop smoking due to risk for her and children -pt interested in stop smoking -agreed to be referred today to smoking cessation program -I sent today request to px Assessment & Plan (07/07/2022 12:01 PM EST): Not ready to address this Assessment & Plan (06/26/2022 7:44 AM EST): Increased after of child Not ready to try quitting now Will offer cessation aids at next appt Post depression 06/23/2022 Overview (06/26/2022): Happened with her older child as well Was hospitalized at that point Assessment & Plan (10/01/2022 7:24 PM EDT): Pt w depression hx worsen with last child Denies SI,hallucinations nor goyo -referred today to -seen today in office -plan by to refer to psychopharmacology clinic -advised pt to continue sertraline but to increase sertraline to 100 mg daily from 50 mg -alarm signs and symptoms discussed in case needs to go to ED or call 911 Assessment & Plan (07/07/2022 12:01 PM EST): Tolerating Zoloft 50mg nightly Will titrate quickly, increase to 100mg at night No SI/HI/psychosis, if she starts to see these symptoms to ask for help in clinic or CRISIS/ER Had BE with N prior to leaving appointment two weeks ago, has not heard from them again Encouraged to call them again Has CRISIS number, ER followup with me in 3-4 weeks by phone Assessment & Plan (06/26/2022 7:41 AM EST): Start Zoloft 50mg nightly No SI/HI/psychosis Had BE with [facility] prior to leaving Has CRISIS number, ER followup with me in 4-6 weeks Severe anxiety 04/26/2022 Asthenia 04/26/2022 Difficulty sleeping 04/26/2022 Rosacea 08/25/2021 Hyperlipidemia 08/27/2020 Eczema 05/21/2015 Irritable bowel syndrome 05/21/2015 Resolved Problems Problem Noted Date Diagnosed Date Resolved Date Immune to hepatitis A 08/27/20202022 Hepatitis B immune 08/27/2020 3 Encounters Date Type Department Care Team Description 06/30/[address] [facility] [address] [place] [address] Carlee Scott MD Pre-visit Planning (SDOH negative, Tobacco screening negative. ) 06/28/2024 1:00 PM EST Clinical Support [address] [address] Amanda Mendez RN Encounter for surveillance of injectable contraceptive 06/28/2024 Orders Only [address] [address] Carlee Scott MD jail current use of hormonal contraceptive (Primary Dx) 06/28/2024 Travel 05/17/2024 Travel 05/06/2024 2:45 PM EST Office Visit [address] [address] Lucrecia Wong MD Keloid (Primary Dx) 05/06/2024 Travel 04/18/[address] [address] Carlee Scott MD 04/07/2024 2:00 PM EST Clinical Support [address] [address] Bridget Simeon, KIANA Encounter for surveillance of injectable contraceptive 04/07/2024 Travel from Last 3 Months Immunizations Name Administration Dates Next Due DTP 07/30/1989, 8,1987,06/01/18 88,1987 HPV, Bivalent 10/09/2009,04/03/2009 Hep A, Adult 06/17/2018,02/21/2013 Hep B, adult 02/21/2013, 1,10/28/2000,03/25/20 00 Hib (HbOC) 07/23/1989 IPV 05/25/1991, 8,1987,02/22/19 87 Influenza, Split (incl. dariela fied surface antigen) 02/21/2013,03/30/2012 MMR 03/25/2000,07/23/1989 Tdap 11/20/2021,03/06/2015,10/02/2011 Family History Medical History Relation Name Comments No Known Problems Father No Known Problems Mother Relation Name Status Comments Father Mother Social History Tobacco Use Types Packs/Day Years Used Date Smoking Tobacco: Some Days Cigarettes Smokeless Tobacco: Never Tobacco Cessation:Ready to Q uit: Not Asked; Counseling Given: Not Answered Comments:Smokes 3-4 cigarettes a day started 5 months ago Alcohol [...] Orientation Straight 03/24/2022 10 :14 AM EDT Last Filed Vital Signs Vital Sign Reading Time Taken Comments Blood Pressure 110/80 05/06/2024 3:10 PM EST Pulse 92 05/06/2024 3:10 PM EST Temperature 36.5 ??C (97.7 ??F) 05/06/2024 3:10 PM ES T Respiratory Rate 16 05/06/2024 3:10 PM EST Oxygen Saturation 99% 12/23/2023 2:17 PM EDT Inhaled Oxygen Concentration - - Weight 78.3 kg (172 lb 9.6 oz) 05/06/2024 3:10 P M EST Height 170.2 cm (5' 7 ) 05/06/2024 3:10 PM EST Body Mass Index 27.03 05/06/2024 3:10 PM EST Plan of Treatment Upcoming Encounters Date Type Department Care Team (Late st Contact Info) Description 07/07/2024 1:00 PM EST Office Visit [facility] [address] [place] [address] Monika Guthrie CNM [address] [place] [address] 09/20/2024 1:00 PM EDT Clinical Support [facility] [address] [place] [phone] Health Maintenance Due Date Last Done Comments Alcohol/Substance Use Screening 1999 Pneumococcal Vaccine: Pediatrics (0 to 5 Years) and At-Risk Patients (6 to 49) Years) (1 of 2 - PCV) 2006 HPV Vaccines (3 - 3-dose series) 01/01/2010 10/09/2009, 04/03/2009 COVID-19 Vaccine ( season) 2024 Influenza Vaccine (#1) 2024 02/21/2013, 2011 Depression Screening 03/18/2025 03/18/2024, 03/18/20 24 Tobacco Screening 03/18/2025 03/18/2024 Family Planning (PISQ) 04/07/2025 04/07/2024 SDOH Screening 06/30/2025 06/30/2024 Lipid Panel 10/03/2027 10/02/2022, 0305/2020, 04/25/2020 Cervical Cancer Screening 07/09/2028 HPV/Cotest 07/09/2028 07/09/2023, 06/25, 09/05/2020, Additional history exists Pap Smear 07/09/2028 07/09/2023, 09/05/2020 DTaP/Tdap/Td Vaccines (8 - Td or Tdap) 11/21/2031 11/20/2021, 03/06/2015, 10/02/2011, Additional history exists Zoster Vaccines (1 of 2) 2037 RSV Patients and Patients Aged 60 years or older (1 - 1-dose 75+ series) 2062 HIB Vaccines Completed 07/23/1989 IPV Vaccines Completed 05/25/1991, 090 05/1987, 1987, Additional history exists Hepatitis B Vaccines Completed 02/21/2013, 05/03/2001, 10/28/2000, Additional history exists Hepatitis A Vaccines Aged Out 06/17/2018, 02/22/20 13 No longer eligible based on patient's age to complete this topic HIV Screening Completed 10/02/2022 Hepatitis C Screening Completed 10/02/2022, 021 Meningococcal Vaccine Aged Out No juan pablo eunice eligible based on patient's age to complete this topic RSV under 20 months Aged Out No longe r eligible based on patient's age to complete this topic Rotavirus Vaccines Aged Out No longer eligible based on patient's age to complete this topic Procedures Procedure Name Priority Date/Time Associated Diagnosis Comments POCT , URINE Routine 06/28/2024 1:10 PM EST Encounter for surveillance of injectable contraceptive POCT , URINE Routine 04/07/2024 2:00 PM EST Encounter for surveillance of injectable contraceptive HPV MRNA E6/E7 REFLEX TO HPV 16, 18/45 Routine 07/09/2023 12:07 PM EST PAP SMEAR Routine 07/09/2023 12:07 PM EST Cervical high risk human papillomavirus (HPV) DNA test positive Abnormal uterine bleeding (AUB) HEPATITIS C AB W/REFL TO HCV RNA, QN, PCR Routine 10/02/2022 8:44 AM EDT Health care maintenance HIV 1/2 ANTIGEN/ANTIBODY, FOURTH GENERATION W/RFL Routine 10/02/2022 8:44 AM EDT Health care maintenance LIPID PANEL, STANDARD Routine 10/02/2022 8:44 AM EDT Health care maintenance from Last 3 Months or Most Recently Relevant to Health Maintenance Results * POCT Urine (06/28/2024 1:10 PM EST) Only the most recent of2 resultswithin the time period is included. Preg Test, Ur Negative Negative, Indeterminate, None Detected, Invalid, Specimen unsatisfactory for evaluation, Weakly Positive Urine 06/28/2024 1:10 PM EST Carlee Scott MD POINT OF CARE TEST ENTER/EDIT ORDERABLES Final Result * HPV mRNA E6/E7 w/Reflex to HPV Genotypes 16, 18/45 (07/09/2023 12:07 PM EST) HPV nRNA E6/E7 Not Detected Not Detected [facility] Comment:Methodology: Transcr iption-Mediated AmplificationThis assay detects E6/E7 viral messenger RNA (mRNA) from 14high-risk HPV types (16,18,31,33,35,39,45,51,52,56,58,59,66,68).Cervical sources are required for HPV testing.If a vaginal source from a patient who has had atotal hysterectomy with removal of cervix wassubmitted, please contact the testing laboratoryfor alternative testing options.For additional information, please refer tohttp://education.GeckoLife/faq/UOV391x8(This link if provided for information/educational purposes only.)THIS TEST WAS PERFORMED AT:[facility] [place] [phone] CARRENO MD HPV mRNA E6/E7 [facility] HPV 16 [facility] HPV 18/45 RNA [facility] 07/09/2023 12:0 7 PM EST 07/10/2023 11:00 AM EST Monika Guthrie CNM LAB CYTOLOGY ORDERABLES F inal Result Performing Organization Address City/State/[facility] Co de Phone Number [facility] [address] [place] [phone] * Pap Smear (07/09/2023 12:07 PM EST) Swab Cervix uteri structure / Unknown 07/09/2023 12:07 PM EST 07/10/2023 11:00 AM EST Narrative [facility] - 07/28/2023 2:33 PM EST ----- ------- Name: Andreina Leblanc ? Age/Sex: 38/F ? : 1985 Unit#: [id number] ?? Attend Dr: MONIKA GUTHRIE CNM ?Re07/09/23 ?Status: DEP REF ? Location: [facility] ? Disch: ? ----- ------- SPEC : [id number] ? RECD: 07/10/23-1099 ? STATUS: ??SOUT ? REQ NUM: [id number] ? ALYSSA: 07/09/23-1207 ? SUBM DR: MONIKA GUTHRIE CNM ? ENTERED: ??07/10/23114 ?SP TYPE: Pap Smr ?OTHR DR: ? ORDERED: ??Pap Smear ? Interpretation ?? Satisfactory for evaluation. ?? No endocervical cells seen. ?? Abundant blood. ?? Negative for intraepithelial lesion or malignancy. ?HPV mRNA E6/E7: ?NOT DETECTED ? This assay detects E6/E7 viral messenger RNA (mRNA) from 14 high-risk HPV types (16, 18, ?? 31, 33, 35, 39, 45, 51, 52, 56, 58, 59, 66, 68) ?? HPV testing performed by [facility], [place], [place]. ??See reference laboratory ?? portion of the EMR for entire report. ?Clinical Information LMP: 07/06/23 Previous PAP test: Unknown date, HPV+ Other history: Implantable control ? Material Received ?? ThinPrep-Cervical ----- ------- Signed (signature on file) DEACON Barone (ASCP) 07/28/23 1433 ? ----- ------- ? END OF REPORT ? us Monika Guthrie [facility] CYTOLOGY ORDERABLES F inal Result [facility] [address] [place] [address] [phone] * Hepatitis C Antibody with Reflex to HCV, RNA, Quantitative, Real-Time PCR (10/02/2022 8:44 AM EDT) Hepatitis C Antibody NON-REACT KEATON NON-REACT KEATON [facility]oupt Index 0.12 <1.00 [facility] Comment: HCV antibody was non-reactive. There is no laboratory evidence of HCV infection. In most cases, no further action is required. However, if recent HCV exposure is suspected, a test for HCV RNA (test code 52376) is suggested. For additional information please refer to http://Host Committee.GeckoLife/faq/HZI50h2 (This link is being provided for informational/ educational purposes only.) Blood Venous blood specimen / Unknown 10/02/2022 8:44 AM EDT 10/02/2022 8:44 AM EDT Narrative [facility] - 10/07/2022 3:11 PM EDT FASTING:YES FASTING: YES Laure Medina MD LAB BLOOD ORDERAB LES Final Result [facility] [address], [place] [address] [facility] [address] [place] [phone] * HIV-1/2 Antigen and Antibodies, Fourth Generation, with Reflexes (10/02/2022 8:44 AM EDT) [facility] HIV Antigen/Antibody, 4th Generation NON-REAC TIVE NON-REAC TIVE [facility] Comment: HIV-1 antigen and HIV-1/HIV-2 antibodies were not detected. There is no laboratory evidence of HIV infection. PLEASE NOTE: This information has been disclosed to you from records whose confidentiality may be protected by state law. ??If your state requires such protection, then the state law prohibits you from making any further disclosure of the information without the specific written consent of the person to whom it pertains, or as otherwise permitted by law. A general authorization for the release of medical or other information is NOT sufficient for this purpose. ?? For additional information please refer to http://Host Committee.GeckoLife/faq/HGP651 (This link is being provided for informational/ educational purposes only.) The performance of this assay has not been clinically validated in patients less than 2 years old. Blood Venous blood specimen / Unknown 10/02/2022 8:44 AM EDT 10/02/2022 8:44 AM EDT Narrative [facility] - 10/07/2022 3:11 PM EDT FASTING:YES FASTING: YES Laure Medina MD LAB BLOOD ORDERAB LES Final Result [facility] [address], [place] [address] [facility] [place] [facility] [address] [place] [phone] * (ABNORMAL) Lipid Panel, Standard (10/02/2022 8:44 AM EDT) Cholesterol, Total 200(H) <200 mg/dL [facility] HDL Cholesterol 44(L) > OR = 50 mg/dL [facility] [place] [facility] Triglycerides 105 <150 mg/dL [facility] [place] [facility] LDL Cholesterol 135(H) mg/dL (calc) [facility] [place] [facility] Comment: Reference range: <100 Desirable range <100 mg/dL for primary prevention; ?? <70 mg/dL for patients with CHD or diabetic patients with > or = 2 CHD risk factors. LDL-C is now calculated using the Kelby-Tania calculation, which is a validated novel method providing better accuracy than the Friedewald equation in the estimation of LDL-C. Kelby SS et al. ISMAEL. 2013;310(19): 5831-5644 (http://education.Fitsistant.[employer]/faq/DTH454) Chol/HDLC Ratio 4.5 <5.0 (calc) [facility] Non-HDL Cholesterol 156(H) <130 mg/dL (calc) [facility] Comment: For patients with diabetes plus 1 major ASCVD risk factor, treating to a non-HDL-C goal of <100 mg/dL (LDL-C of <70 mg/dL) is considered a therapeutic option. Blood Venous blood specimen / Unknown 10/02/2022 8:44 AM EDT 10/02/2022 8:44 AM EDT Narrative [facility] - 10/07/2022 3:11 PM EDT FASTING:YES FASTING: YES Laure Medina MD LAB BLOOD ORDERAB LES Final Result [facility] [address], [place] [address] [facility] [place] [facility] [address] [place] [phone] from Last 3 Months or Most Recently Relevant to Health Maintenance Insurance [facility] Care Teams Submersible Pilot Relationship Specialty Start Date End Date Carlee Scott MD [address] [place] [address] PCP - General Family Medicine 01/20/22
--- OUTSIDE RECORDS SUMMARY | 2024-07-01 17:32 | XMS_ITS | Encounter Summary ---
Author Organization [employer] Address [address] [facility] [address] [place] [address] Care Team Providers Care Trapeze Performer Name Role Phone Carlee Scott MD Primary Care Provider [phone] Encounter Details Date Type Department Care Team (Late st Contact Info) Description 06/10/2023 Orders Only [facility] [address] [place], [place] [phone] Laure Canada MD [address] [place], [place] [phone] Social History Tobacco Use Types Packs/Day Years Used Date Smoking Tobacco: Every Day Cigarettes Smokeless Tobacco: Never Comments:Smokes 3-4 cigarett es a day started 5 months ago Alcohol Use Standard Drinks/Week Comments Not Currently 0 (1 standard drink = 0.6 oz pur e alcohol) Depression Answer Date Recorded Patient Health Questionnaire-9 Score 16 07/07/2022 Housing Stability Answer Date Recorded What is your housing situation today? I have cm martínez 03/20/[address] you li ve. Do you have problems with any of the following? None of the above 03/20/2023 Food Insecurity Answer Date Recorded Within the past 12 months, y ou worried that your food would run out before you got money to buy more: Never True 03/20/2023 Within the past 12 months,th e food you bought just didn't last and you didn't have enough money to get more: Never True Transportation Answer Date Recorded In the past 12 months, has l ack of transportation kept you from medical appts, meetings, work or from getting things needed for daily living? Yes, it has kept me from medical appointments or getting medications. 03/02/2023 Utilities Answer Date Recorded In the past 12 months, has t he electric, gas, oil or water company threatened to shut off services in your home? No 03/20/2023 Depression Answer Date Recorded Patient Health Questionnaire-2 Score 6 07/07/2022 Comments Unknown Sex and Gender Information Value [...] Description 07/07/2024 1:00 PM EST Office Visit [facility] [address] [place] [address] Valeria Ruff CNM [address] [place] [address] 09/20/2024 1:00 PM EDT Clinical Support [facility] [address] [place] [phone] documented as of this encounter Visit Diagnoses Not on filedocumented in this encounter Additional Health Concerns Assessment Noted Time PHQ-9 Depression Total Score: 16 023 9:32 AM EST documented as of this encounter Care Teams Trapeze Performer Relationship Specialty Start Date End Date Carlee Scott MD [address] [place] [address] PCP - General Family Medicine 01/20/22 documented as of this encounter
--- OUTSIDE RECORDS SUMMARY | 2024-07-01 17:32 | XMS_ITS | Encounter Summary ---
Author Organization [employer] Address [address] [facility] 7[address] [place] [address] Care Team Providers Care Blood Bank Specialist Name Role Phone Carlee Scott MD Primary Care Provider [phone] Reason for Visit * Reason Comments Injectable Contraception Management Encounter Details Date Type Department Care Team (Latest Contact Info) Description 06/28/2024 1:00 PM EST Clinical Support [facility] [address] [place], [place] [phone] Amanda Mendez RN Encounter for surveillance of injectable contraceptive Social History Tobacco Use Types Packs/Day Years [...] as of this encounter Progress Notes * Amanda Mendez, RN - 06/28/2024 1:00 PM EST Subjective: Andreina Leblanc is a 39 y.o. female who presents for nurse visit to receive scheduled Depo-Provera injection. Patient denies any side effects from previous injections. Hx of irregular menstrual cycles for several years. She is followed by Val[facility] BLOOD, as well as [facility] MOTOR TRANSPORT INSPECTOR. Allergies confirmed - metronidazole. Smoking 2-3 cigarettes daily. Objective: HCG negative today. CT/ NG negative 12/31/2023. Depo-Provera 150 mg/mL administered IM into left deltoid muscle. Patient tolerated well. Lab Results Component Value Date PREGTESTUR Negative 06/28/2024 Lab Results Component Value Date [id number] NON-REACTIVE 10/02/2022 HEPCAB NON-REACTIVE 10/02/2022 CTPCR NOT DETECTED 12/31/2023 NGPCR NOT DETECTED 12/31/2023 Assessment: Contraceptive Management Plan: Patient would like to continue with Depo-Provera as method of contraception. Reinforced that Depo-Provera does not prevent transmission of STIs. Reinforced barrier methods/ condoms. Appointment booked for next injection 09/20/2024 at 1:00PM. Next window 09/13/2024 - 09/27/2024. Patient verbalizes understanding and agreement with plan of care at this time. Future Appointments Date Time Provider Department Center 07/07/2024 1:00 PM Valeria Ruff CNM [facility] 09/20/2024 1:[address] [facility] RED TEAM NURSE MEDICINE [facility] Amanda Mendez RN documented in this encounter Plan of Treatment Upcoming Encounters Date Type Department Care Team (Late st Contact Info) Description 07/07/2024 1:00 PM EST Office Visit [facility] [address] [place] [address] Valeria Ruff CNM [address] [place] [address] 09/20/2024 1:00 PM EDT Clinical Support [facility] [address] [place] [address] documented as of this encounter Procedures Procedure Name Priority Date/Time Associated Diagnosis Comments POCT , URINE Routine 06/28/2024 1:10 PM EST Encounter for surveillance of injectable contraceptive documented in this encounter Results * POCT Urine (06/28/2024 1:10 PM EST) Preg Test, Ur Negative Negative, Indeterminate, None Detected, Invalid, Specimen unsatisfactory for evaluation, Weakly Positive Urine 06/28/2024 1:10 PM EST Carlee Scott MD POINT OF CARE TEST ENTER/EDIT ORDERABLES Final Result documented in this encounter Visit Diagnoses Diagnosis Encounter for surveillance of injectable contraceptive documented in this encounter Administered Medications Active Administered Medications - up to 3 most recent administrations Medication Order MAR Action Action Date Dose Rate Site medroxyPROGESTERone (Depo-Provera) injection 150 mg 150 mg, Intramuscular, Every 3 months, First dose on Thu06/28/24 at 1400, For 4 dosesIndications:longterm current use of hormonal contraceptive Given 06/28/2024 2:00 PM EST 150 mg Left Deltoid documented in this encounter Additional Health Concerns Assessment Noted Time PHQ-9 Depression Total Score: 0 03/18/20 24 10:02 AM EDT documented as of this encounter Care Teams Blood Bank Specialist Relationship Specialty Start Date End Date Carlee Scott MD [address] [place] [address] PCP - General Family Medicine 01/20/22 documented as of this encounter
== END 2024-07-01 17:45 | disposition left against medical advice (07) ==
PROVIDERS: Emergency Provider Emergency Medicine Emergency Medical Services; PCP General Practice
DX: R11.2 Nausea with vomiting, unspecified (principal)

== ENCOUNTER 2024-07-04 09:35 | Outpatient (AMB) | payer OTHER, SELFPAY ==
--- NOTE | 2024-07-04 09:38 | MHC.OFFVIS ---
Vital Signs 07/04/24 09:39 Height 5 ft 7 in Weight 171 lb 15.369 oz BMI 26.9 BP 94/60 Blood Pressure Location Lt brachial Position Sitting Pulse 61 Intake Visit Reasons: BOX REPAIRER/ Carlee Casas/ chest pain Analysis Reporting Developer Required: No Accompanied by: Self / Same As Patient Allergies SOAP POWDER Allergy (Unknown, Uncoded 12/01/23 12:24) HIVES Medication List - Last Reconciled 07/04/24 by Chao Florez MD albuterol sulfate 90 mcg/actuation 2 puffs inhalation Q4-6H PRN medroxyprogesterone (Depo-Provera) 150 mg IM [id number] HPI Comments Details: Andreina is here for consultation regarding chest pains. She states that she gets pain in the center of the chest but according to PCP notes, happens on the right side. With regard to the provoking factors, nonexertional. On many occasions, she has noticed during lying down/nighttime. She also feels some shortness of breath intermittently. She also smoker for long time, till a few weeks back. Otherwise, no known cardiac issues including prior coronary disease or myocardial infarction or cardiomyopathy. [facility] Medical History (Updated 07/04/24 @ 09:57 by Chao Florez MD) Depression Anemia Low blood pressure Hepatitis B immune Hepatitis A immune Hyperlipidemia Rosacea Difficulty sleeping Anxiety Chronic shortness of breath Weakness Dyspnea on exertion Pleuritic chest pain Eczema IBS (irritable bowel syndrome) Scoliosis Surgical History (Updated 07/04/24 @ 09:44 by Kierra Whittington CMA) Status post cervical polyp removal Hx of tooth extraction Family History Father Diabetes mellitus treated with insulin Mother Arthritis Social History (Updated 07/04/24 @ 09:45 by Kierra Whittington CMA) Household Members: Children Both parents involved: No Caregiver staying overnight: No Housing: Apartment Are you a primary child daycare worker to a significant other at home: No Do you presently have visiting nurse or other home services: No 75 years or older and lives alone: No Alcohol intake: current Alcohol intake frequency: holidays/special occasions only Patient Tobacco Use Status: Former Tobacco user Tobacco use type: Cigarette Cigarettes Per Day: 2 Trauma History: h/o brother being killed Agree to transfusion: Yes service: No Current occupational status: unemployed Current occupational exposures/hazards: No Cognitive needs: No Hearing needs: No Vision needs: No Female Reproductive History Menstrual Age of Menarche: 18 Review of Systems Const Denies chills, Denies daytime sleepiness, Denies fatigue, Denies fever(s), Denies poor appetite, Denies snoring, Denies stops breathing during sleep, Denies weakness, Denies weight gain and Denies weight loss Eyes Denies loss of vision ENT Denies dizziness and Denies hearing loss Card Reports chest pain, Denies irregular heart rhythm, Denies claudication, Denies leg edema, Denies lightheadedness, Denies palpitations, Denies dyspnea on exertion and Denies orthopnea Resp Denies cough, Denies excessive phlegm production, Denies dyspnea on exertion, Denies snoring and Denies wheezing GI Denies abdominal pain, Denies hematochezia, Denies change in bowel habits, Denies nausea and Denies vomiting Denies urinary frequency and Denies dysuria Musc Denies arthralgias, Denies muscle weakness, Denies numbness and Denies other Skin/Breast Denies nail changes and Denies rash Neuro Denies Abnormal speech present, Denies dizziness, Denies loss of vision, Denies memory loss, Denies numbness and Denies weakness Psych Denies depression and Denies memory loss Endo Denies fatigue and Denies palpitations Gunner/Lymph Denies easy bruising Aller/Immun Denies wheezing Physical Exam Vital Signs: Last Vital Signs Pulse 61 07/04/24 09:39 BP 94/60 07/04/24 09:39 BMI result Body Mass Index 26.9 Const General: comfortable and no acute distress Orientation/consciousness: patient oriented x3 HEENT Other: Unremarkable Head: Yes normal to inspection Neck Neck: Yes normal visual inspection Chest Chest palpation & inspection: normal inspection of the chest Resp Auscultation: clear to auscultation bilaterally Cardio Palpation: normal PMI Heart sounds: S1 normal heart sound present, S2 normal heart sound present, no gallops, no murmurs and no rubs GI Palpation (GI): Soft to palpation Back/Spine/Pelvis Other: unremarkable Skin General skin exam: no rashes or lesions noted Neuro General: patient oriented x3 Speech: No Abnormal speech present Extrem General: Yes normal to inspection Psych Mental Status: mental status grossly normal Office Procedures EKG Details: EKG with underlying sinus rhythm at 61/Min; no significant ST-T changes and otherwise unremarkable[place] [address]-[id number], Complete Assessment & Plan Assessment & Plan (1) Precordial chest pain: Code(s): R07.2 - Precordial pain Category: Medical (2) Shortness of breath: Code(s): R06.02 - Shortness of breath Category: Medical (3) Smoker: Code(s): F17.200 - Nicotine dependence, unspecified, uncomplicated Category: Social Hx Plan Atypical chest pain in a chronic smoker. We can start with an echocardiogram/stress test and based on the findings, plan further care. Discussed with the patient and she agrees. Orders: Orders CA stress test Today R07.2 - Precordial pain CA echo transthoracic complete Today R06.02 - Shortness of breath Coding Level of Care Code New Pt Level 4 (38513) Diagnoses Precordial chest pain R07.2 Shortness of breath R06.02 Smoker F17.200 CPT Codes EKG - CPT: 17588-[id number], Complete ([id number])
[2024-07-04 09:39] VITALS: BP 94/60; PULSE 61; BMI 26.9
== END 2024-07-04 10:02 | disposition home or self-care (01) ==
PROVIDERS: PCP General Practice; Visit Provider Internal Medicine
DX: R07.2 Precordial pain (principal); R06.02 Shortness of breath; F17.200 Nicotine dependence, unspecified, uncomplicated
CPT/HCPCS: 93010; 99204

== ENCOUNTER → 2024-07-04 09:35 | Outpatient (BNVA) | payer OTHER, SELFPAY | PROVIDERS: PCP General Practice; Visit Provider Internal Medicine | DX: R07.2 Precordial pain (principal); R06.02 Shortness of breath; F17.210 Nicotine dependence, cigarettes, uncomplicated | CPT/HCPCS: 93005; 99202 ==

== ENCOUNTER → 2024-07-28 09:05 | Outpatient (REF) | payer OTHER, SELFPAY ==
--- NOTE | 2024-07-28 09:09 | CA_ITS ---
Acquisition Time: 2024-07-28 11:04:59 Total Exercise Time: 00:08:20 Test Indications: Dyspnea CP Medications: ALBUTEROL INHALER Protocol: EDWIN Max HR: 157 BPM 85% of Pred: 183 BPM Max BP: 144/62 mmHG Max Work Load: 10.1 METS Exercise Stress Test with exercise 8 mins 20 secs of Edwin Protocol, achieving 85% MPHR, with reports of mild SOB and leg discomfort, no chest discomfort, without any arrythmias, with normotensive response to exercise. Without any EKG changes meeting criteria for ischemia. Pt's breathing returned to baseline. Test reviewed with Dr. Lira. Referred By: Chao Florez Electronically Signed By: Idris Calvo
--- NOTE | 2024-07-28 09:09 | CA_ITS ---
Transthoracic Echocardiogram Patient (Last, First, Middle): Andreina Leblanc N Gender: Female Date of : 1985 Age: 39 Procedure Date: 07/28/2024 Procedure Type: Transthoracic Echocardiogram Location: OP Height: 170.18 cm Weight: 77.57 kg BSA: 1.89 m2 Heart Rate: bpm BP: 94 / 60 mmHg Rules Examiner: LEON Referring MD: Chao Florez MD Forestry Aid Technician: Elvis Lira MD Symptoms: R06.02 - Shortness of breath Study Quality: Adequate ECG Rhythm: Sinus Conclusions: - Essentially normal study Findings Left Ventricle Normal left ventricular size, thickness, and systolic function. The visually estimated ejection fraction is between 55-60%. Spectral Doppler is indicative of a normal filling pattern. Peak GLS is -20.1%, within normal limits. Right Ventricle Normal right ventricular cavity size and systolic function. Atria Both atria are normal in size. There is no evidence of interatrial shunt. Aortic Valve Normal aortic valve structure and function. There is no aortic valve stenosis. There is no aortic valve regurgitation. Mitral Valve Normal mitral valve structure and function. There is trace mitral valve regurgitation. There is no mitral valve stenosis. Pulmonic Valve The pulmonic valve is likely normal. Tricuspid Valve Normal tricuspid valve structure. There is trace tricuspid valve regurgitation. The right ventricular systolic pressure is normal. The right ventricular systolic pressure is 22 mmHg. Normal right atrial pressure. There is no evidence of pulmonary hypertension. Great Vessels All visible segments of the aorta are normal in size. The visualized portions of the pulmonary artery and branches are normal. Venous The inferior vena cava is normal in size and collapses greater than 50% with inspiration. Pericardium/Pleural There is no evidence of pericardial effusion. Prior Study Comparison No prior study available for comparison. Measurements 2D Linear Measurements IVSd: 0.60 0.6-0.9/0.6-1.0 cm LVIDd: 5.42 3.9-5.3/4.2-5.9 cm LVIDd Index: 2.87 2.4-3.2/2.2-3.1 cm/m2 LVIDs: 3.82 2.0-3.6 cm LVPWd: 0.66 0.7-1.1 cm LA Diam: 3.20 2.7-3.8/3.0-4.0 cm LAIDs Index: 1.69 1.5-2.3 cm/m2 LV Mass: 144.41 67-162/88-224 g LV Mass Index: 76.41 43-95/49-115 g/m2 LVOT Diam: 2.00 3.0+(-)1.3 cm Mitral Valve MV Pk E: 0.62 MV PK A: 0.39 MV Decel Time: 236.00 E/A: 1.60 E'Lateral: 14.00 E'Medial: 10.20 E/E' Med: 6.00 E/E' Lat: 4.40 PHT: 69.00 MVA PHT: 3.19 Decel Camas: 2.62 Aortic Valve AoV Pk Jackson: 1.19 AoV Mn Jackson: 0.84 AoV VTI: 0.27 AoV Pk Grad: 6.00 Aov Mn Grad: 3.00 JEAN CLAUDE Cont.VTI: 2.05 LVOT LVOT Pk Jackson: 0.91 LVOT Mn Jackson: 0.59 LVOT VTI: 0.18 LVOT Pk Grad: 3.00 LVOT Mn Grad: 2.00 LVOT Diam: 2.00 LVOT Area: 3.14 Diastolic Function MV Pk E: 0.62 MV Pk A: 0.39 E/A: 1.60 E'Medial: 10.20 E/E' Med: 6.00 E' Laterial: 14.00 E/E' Lat: 4.40 Right Ventricle TAPSE (mm): 20.70 TVS' Jackson: 12.30 Tricuspid Valve TR Pk Jackson: 1.89 TR Pk Grad: 14.00 RA Press: 8.00 RVSP: 22.00 Great Vessels Aorta Sinus of Valsalva: 2.63 2.0-3.5 cm Ao Asc: 2.50 2.1-3.4 cm Ao Arch: 2.40 Updated in Other Vendor System with Status of Final Elvis Lira MD electronically signed on 07/29/2024 3:22:29 PM with status of Final
--- OUTSIDE RECORDS SUMMARY | 2024-07-28 10:03 | XMS_ITS | Clinical Summary ---
Author Organization [employer] [facility] Address [address] [place] [address] Care Team Providers Care Patron Attendant Name Role Phone Dana Mattson RN Primary Care Provider [phone] Surgical History Surgery Date Site/Laterality Comments OTHER SURGICAL HISTORY PROCEDURE: DENIES PREVIOUS SURGERY OTHER SURGICAL HISTORY PROCEDURE: OK INCISION & DRAINAGE PILONIDAL CYST SIMPLE; COMMENT: [...] a genital outbreak ; no labs in [facility] for review History of blood transfusion DX: [...] drink = 0.6 oz pur e alcohol) Comments Unknown Sex and Gender Information Value Date Recorded Sex Assigned at Not on file Legal Sex Female 9:29 AM EST Gender Identity Not on file Sexual Orientation [...] Health Maintenance Due Date Last Done Comments Hepatitis B Vaccines (1 of 3 - 19+ 3-dose series) 2006 Pneumococcal Vaccine: Pediatrics (0 to 5 Years) and At-Risk Patients (6 to 64 Years) (1 of 2 - PCV) 2006 Depression Screening 04/27/2022 HIV Screening 04/27/2022 Hepatitis C Screening 04/27/2022 Social Influencers of Health Screening 04/27/2022 COVID-19 Vaccine (1 - 2023-2 5 season) 2024 Influenza Vaccine [...] patient's age to complete this topic Meningococcal B Vacine Aged Out No lo nger eligible based on patient's age to complete [...] RESULTING AGENCY - 08/14/2021 7:26 AM EDT [id number] THINPREP PAP, IMAGED: NEGATIVE FOR SQUAMOUS INTRAEITHELIAL [...] 05/08/2021, [Z12.4] Alicia Ryan CNM LAB CYTOLOGY ORDERABLES Final Result HISTORICAL TESTING LAB RESULTING AGENCY from Last 3 Months or Most Recently Relevant to Health Maintenance Care Teams Patron Attendant Relationship Specialty Start Date End Date Dana Mattson RN [address] [place] [id number] PCP - General 10/16/22
== END ==
LOC: HO.CARD 09:05
PROVIDERS: PCP General Practice; Visit Provider Internal Medicine
DX: R06.02 Shortness of breath (principal); R07.2 Precordial pain
CPT/HCPCS: 93017; 93306

== ENCOUNTER → 2024-07-28 09:09 | Outpatient (BNV) | payer OTHER, SELFPAY | PROVIDERS: PCP General Practice | DX: R06.02 Shortness of breath (principal) | CPT/HCPCS: 93016; 93018; 93320; 93325; 93350; 93356 ==

== ENCOUNTER 2024-08-30 12:39 | Outpatient (AMB) | payer OTHER, SELFPAY ==
[2024-08-30 12:46] VITALS: BP 90/60; PULSE 90; BMI 27.7
--- NOTE | 2024-08-30 12:46 | A.OFFVIS_ITS ---
Vital Signs 08/30/24 12:46 Height 5 ft 7 in Weight 176 lb 12.972 oz BMI 27.7 BP 90/60 Blood Pressure Location Lt brachial Position Sitting Pulse 90 Pulse Source Pulse Oximeter Intake Visit Reasons: f/up-testing echo/stress test Senior Program Analyst Required: No Accompanied by: Child Allergies SOAP POWDER Allergy (Unknown, Uncoded 12/01/23 12:24) HIVES Medication List - Last Reconciled 08/30/24 by Idris Calvo NP albuterol sulfate 90 mcg/actuation 2 puffs inhalation Q4-6H PRN medroxyprogesterone (Depo-Provera) 150 mg IM [id number] HPI Comments Details: This is a 39-year-old female patient presenting for a follow-up visit. Patient has a history of childhood asthma, anemia, and was previously evaluated for chest pain and shortness of breath in this office. The patient underwent an echocardiogram and stress test both of which were unremarkable. Today, the patient reports ongoing intermittent chest pain primary localized to the right side. The episodes last for approximately 5 minutes and are often accompanied by shortness of breath sometimes to a point of gasping of air. Occasionally, she experiences dizziness during these episodes though it is not consistent. Patient notes that this happens mostly at rest and has not noticed much with exertion but particularly notices it when sitting to watch television. The patient has a smoking history but has quit in May for which she was commended. She denies any other symptoms such as stress, palpitations, fatigue, orthopnea, PND, leg edema, presyncope, or syncope. Additionally, she mentions a history of severe bleeding issues during menstruation back in 2021 which led to anemia and was being followed by Hematology. During that time, patient notes that her blood pressures were low and she had some shortness of breath. Patient however denies any signs of bleeding and states that with the Depo-Provera, her menstruation has been regular. [facility] Medical History Depression Anemia Low blood pressure Hepatitis B immune Hepatitis A immune Hyperlipidemia Rosacea Difficulty sleeping Anxiety Chronic shortness of breath Weakness Dyspnea on exertion Pleuritic chest pain Eczema IBS (irritable bowel syndrome) Scoliosis Surgical History Status post cervical polyp removal Hx of tooth extraction Family History Father Diabetes mellitus treated with insulin Mother Arthritis Social History Household Members: Children Both parents involved: No Caregiver staying overnight: No Housing: Apartment Are you a primary housekeeper caregiver to a significant other at home: No Do you presently have visiting nurse or other home services: No 75 years or older and lives alone: No Alcohol intake: current Alcohol intake frequency: holidays/special occasions only Patient Tobacco Use Status: Former Tobacco user Tobacco use type: Cigarette Cigarettes Per Day: 2 Trauma History: h/o brother being killed Agree to transfusion: Yes service: No Current occupational status: unemployed Current occupational exposures/hazards: No Cognitive needs: No Hearing needs: No Vision needs: No Female Reproductive History Menstrual Age of Menarche: 18 Review of Systems Const Denies chills, Denies fatigue, Denies fever(s), Denies weight gain and Denies weight loss ENT Denies dizziness Card Reports chest pain, Denies leg edema, Denies lightheadedness, Denies palpitations, Reports dyspnea, Denies dyspnea on exertion, Denies orthopnea and Denies other Resp Denies cough, Reports dyspnea and Denies dyspnea on exertion GI Denies hematochezia and Denies change in stool character Musc Denies abnormal gait, Denies muscle weakness, Denies numbness, Denies radiating pain into limb and Denies tingling Neuro Denies abnormal gait, Denies dizziness, Denies numbness and Denies tingling Endo Denies fatigue and Denies palpitations Physical Exam Vital Signs: Last Vital Signs Pulse 90 08/30/24 12:46 BP 90/60 08/30/24 12:46 BMI result Body Mass Index 27.7 Const General: cooperative, healthy appearing, comfortable and no acute distress Orientation/consciousness: patient oriented x3 HEENT Head: Yes normal to inspection Neck Neck: Yes normal visual inspection, Yes trachea midline and Yes supple Chest Chest palpation & inspection: normal inspection of the chest Resp Effort & Inspection: normal respiratory effort Auscultation: clear to auscultation bilaterally, no crackles, no rales, no rhonchi and no wheezes Cardio Jugular venous distension: no JVD Palpation: normal PMI Rate: regular rate Rhythm: regular rhythm Heart sounds: S1 normal heart sound present, S2 normal heart sound present, no click, no gallops, no murmurs and no rubs Peripheral pulses: Peripheral pulses 2+ throughout GI Inspection: Yes normal to inspection Palpation (GI): Soft to palpation Auscultation: normal bowel sounds Skin General skin exam: no rashes or lesions noted Neuro General: patient oriented x3 Extrem General: Yes normal to inspection, No no pedal edema and No calf tenderness Psych Appearance: grossly normal Mental Status: mental status grossly normal Speech and movement: Normal speech and movement present Assessment & Plan Assessment & Plan (1) Precordial chest pain: Code(s): R07.2 - Precordial pain Category: Medical (2) Shortness of breath: Code(s): R06.02 - Shortness of breath Category: Medical Plan 07/28/2024-patient underwent stress test achieving 85% MPHR with exercise of 8 minutes 20 seconds with no EKG changes. 07/28/2024-patient's echo study was also normal with an EF between 55-60%. Patient continues to experience symptoms of chest pain, shortness of breath, occasional dizziness. She also reports a history of high cholesterol though no recent lipid panel has been performed. To further evaluate her symptoms, we wi ll proceed with a coronary CTA to assess for any coronary artery disease contributing to her symptoms. We will also get a lipid panel. Due to her childhood asthma and history of smoking, we will obtain an updated pulmonary function test to investigate potential pulmonary causes for her shortness of breath. To assess for any underlying anemia, as she has experienced similar symptoms in the past associated with anemia, we will some labs. Patient's blood pressure remains on the lower side. Advised increasing fluid intake and adding extra salt to her diet to help with this. We will follow-up in 3 months' time after the completion of test. In the interim, patient will call the office with any concerns or change in symptoms. This note was generated using voice recognition software. While every effort has been made to ensure accuracy and proper video clerk, there may be occasional errors that could affect the content or meaning of the described symptoms. Orders: Orders Lipid Panel Today R06.02 - Shortness of breath, R07.2 - Precordial pain Complete Blood Count Auto Diff Today R06.02 - Shortness of breath B Type Natriuretic Peptide Today R06.02 - Shortness of breath CT Cardiac Coronary Angio Today R06.02 - Shortness of breath, R07.2 - Precordial pain PFT pulmonary function test Today R06.02 - Shortness of breath Coding Level of Care Code Est Pt Level 4 (51450) Complex EM visit Add On G2211 Diagnoses Precordial chest pain R07.2 Shortness of breath R06.02 Time Spent (min) 34 Comment Time spent in reviewing the chart, test results, assessment, counseling and documentation.
--- OUTSIDE RECORDS SUMMARY | 2024-08-30 15:14 | XMS_ITS | Encounter Summary ---
Author Organization [employer] Address [address] [place] [address] Care Team Providers Care Process Project Engineer Name Role Phone Carlee Scott MD Primary Care Provider [phone] Encounter Details Date Type Department Care Team (Late st Contact Info) Description 06/28/2024 Orders Only [facility] [address] [place], [place] [phone] Carlee Scott MD [address] [place], [place] [phone] retirement current use of hormonal contraceptive (Primary Dx) [...] Care Team (Late st Contact Info) Description 09/20/2024 1:00 PM EDT Clinical Support [facility] [address] [place] [address] documented as of this encounter 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
--- OUTSIDE RECORDS SUMMARY | 2024-08-30 15:14 | XMS_ITS | Encounter Summary ---
Author Organization [employer] Address [address] [facility] 7t [place] [address] Care Team Providers Care Supervisor Telephone Clerks Name Role Phone Carlee Scott MD Primary Care Provider [phone] Encounter Details Date Type Department Care Team (Late st Contact Info) Description 08/11/2023 Orders Only [facility] [address] [place], [place] [phone] Carlee Scott MD [address] [place], [place] [phone] Social History Tobacco Use Types Packs/Day Years [...] Description 09/20/2024 1:00 PM EDT Clinical Support [facility] [address] [place] [address] documented as of this encounter Visit Diagnoses Not on filedocumented in this encounter Additional Health Concerns Assessment Noted Time PHQ-9 Depression Total Score: 22 024 12:37 PM EST documented as of this encounter Care Teams Supervisor Telephone Clerks Relationship Specialty Start Date End Date Carlee Scott MD [address] [place] [address] PCP - General Family Medicine 01/20/22 documented as of this encounter
--- OUTSIDE RECORDS SUMMARY | 2024-08-30 15:14 | XMS_ITS | Clinical Summary ---
Author Organization [employer] [facility] Address [address] [place] [address] Care Team Providers Care Lever Operator Name Role Phone Dana Mattson RN Primary Care Provider [phone] Surgical History Surgery Date Site/Laterality Comments OTHER SURGICAL HISTORY PROCEDURE: DENIES PREVIOUS SURGERY OTHER SURGICAL HISTORY PROCEDURE: [place] INCISION & DRAINAGE PILONIDAL CYST SIMPLE; COMMENT: [...] a genital outbreak ; no labs in [facility] for review History of blood [...] age to complete this topic Meningococcal B Vaccine Aged Out No l onger eligible based on patient's age to complete [...] RESULTING AGENCY - 08/14/2021 7:26 AM EDT [id number] THINPREP PAP, IMAGED: NEGATIVE FOR SQUAMOUS INTRAEITHELIAL [...] Recently Relevant to Health Maintenance Care Teams Lever Operator Relationship Specialty Start Date End Date Dana Mattson RN [address] [place] [phone] PCP - General 10/16/22
--- OUTSIDE RECORDS SUMMARY | 2024-08-30 15:14 | XMS_ITS | Encounter Summary ---
Author Organization [employer] Address [address] [facility] 7t [place] [address] Care Team Providers Care Water Pollution Control Inspector Name Role Phone Carlee Scott MD Primary Care Provider [phone] Encounter Details Date Type Department Care Team (Late st Contact Info) Description 09/11/2023 Orders Only [facility] [address] [place], [place] [phone] Wai Chen MD [address] [place] [address] Social History Tobacco Use Types Packs/Day Years [...] Description 09/20/2024 1:00 PM EDT Clinical Support [facility] [address] [place] [address] documented as of this encounter Visit Diagnoses Not on filedocumented in this encounter Additional Health Concerns Assessment Noted Time PHQ-9 Depression Total Score: 22 024 12:37 PM EST documented as of this encounter Care Teams Water Pollution Control Inspector Relationship Specialty Start Date End Date Carlee Scott MD [address] [place] [address] PCP - General Family Medicine 01/20/22 documented as of this encounter
--- OUTSIDE RECORDS SUMMARY | 2024-08-30 15:14 | XMS_ITS | Encounter Summary ---
Author Organization [employer] Address [address] [facility] 7t [place] [address] Care Team Providers Care Sales Team Member Name Role Phone Carlee Scott MD Primary Care Provider [phone] Encounter Details Date Type Department Care Team (Late st Contact Info) Description 06/10/2023 Orders Only [facility] [address] [place], [place] [phone] Laure Canada MD [address] [place], [place] [phone] Social History Tobacco Use Types Packs/Day Years [...] Description 09/20/2024 1:00 PM EDT Clinical Support [facility] [address] [place] [address] documented as of this encounter Visit Diagnoses Not on filedocumented in this encounter Additional Health Concerns Assessment Noted Time PHQ-9 Depression Total Score: 16 023 9:32 AM EST documented as of this encounter Care Teams Sales Team Member Relationship Specialty Start Date End Date Carlee Scott MD [address] [place] [address] PCP - General Family Medicine 01/20/22 documented as of this encounter
--- OUTSIDE RECORDS SUMMARY | 2024-08-30 15:14 | XMS_ITS | Clinical Summary ---
Author Organization [employer] Address [address] [place] [address] 7t [place] [address] Care Team Providers Care Laundry Housekeeping Aide Name Role Phone Carlee Scott MD Primary Care Provider [phone] Allergies Active Allergy Reactions Criticality Noted Date Comments Metronidazole Itching,Swelling 03/10/2018 Medications * This document contains information received from the source organization and may not represent a complete record from that organization. Diclofenac Sodium 1 % gelIndications :Chronic midline low back pain without sciatica Apply 1 Application topically 2 times daily. 150 g 3 4 Active hydrOXYzine pamoate (Vistaril) 25 MG capsule [...] 2 times daily. 45 g 2 4 025 Active medroxyPROGEST ERone (Depo-Provera) 150 MG/ML injection [...] mouth at bedtime. 90 capsule 3 4 025 Active azelaic acid (Azelex) 20 % cream Apply topically 2 times daily. Pt is allergic to metronidazole 50 g 1 4 025 Hospital, Clinic, or Other Facility Administered Medication Ordered Dose Route Frequency Start Date End Date Status triamcinolone acetonide (Kenalog-40) injection 40 mgIndications:Keloi d 40 mg INTRA-LESIO N Once 05/06/2024 Active medroxyPROGESTERone (Depo-Provera) injection 150 mgIndications:senior living current use of hormonal contraceptive 150 mg [...] intervention , [facility], and Patient to reach out to [facility] as needed Prolonged grief disorder 07/09/[address] 06/17/2023 Sore throat 06/05/2023 Metrorrhagia 06/05/2023 Health care maintenance 10/01/2022 Assessment & Plan (10/01/2022 7:56 PM EDT): -Pap smear : per pt done less than 1 year w her ULTRASOUND COORDINATOR told to have +HPV -requested already [place] to get records -Pt didn't bring form for work today but showed it to me on phone ---requesting a letter from PCP to excuse why pt is not getting Covid-19 vaccine -states she got 1 dose last year and went to the hospital w mx symptoms -states it was at [facility] x it (will try to get [...] get records and also referred pt to mammography supervisor. Did annual labs today and Tb test--pt will bring form to be completed ---if not seen by mammography supervisor by then would explain in form that [...] Encounters Date Type Department Care Team Description 07/05/2024 Telephone [facility] [address] [place] [phone] Bridget Simeon, KIANA NTTS 06/30/2024 Patient Outreach [facility] [address] [place] [address] Carlee Scott MD Pre-visit Planning (SDOH negative, Tobacco screening negative. ) 06/28/2024 1:00 PM EST Clinical Support [facility] [address] [place] [phone] Amanda Mendez RN Encounter for surveillance of injectable contraceptive 06/28/2024 Orders Only [facility] [address] [place] [phone] Carlee Scott MD superintendent marine oil [employer] current use of hormonal contraceptive (Primary Dx) 06/28/2024 Travel from Last 3 Months Immunizations Name [...] Description 09/20/2024 1:00 PM EDT Clinical Support [facility] [address] [place] [phone] Health Maintenance Due Date Last Done Comments [...] Screening 06/30/2025 06/30/2024 Lipid Panel 10/03/2027 10/02/2022, 03/05/2020, 04/25/2020 Cervical Cancer Screening 07/09/2028 HPV/Cotest 07/09/2028 07/09/2023, 06/25, 09/05/2020, Additional history exists Pap Smear 07/09/2028 07/09/2023, 09/05/2020 DTaP/Tdap/Td Vaccines (8 - Td or Tdap) 11/21/2031 11/20/2021, 03/06/2015, 10/02/2011, Additional history exists Zoster Vaccines (1 of 2) 2037 RSV Patients and Patients Aged 60 years or older (1 - 1-dose 75+ series) 2062 HIB Vaccines Completed 07/23/1989 IPV Vaccines Completed 05/25/1991, 05/1987, 1987, Additional history exists Hepatitis B [...] Genotypes 16, 18/45 (07/09/2023 12:07 PM EST) Pathologist [facility] HPV nRNA E6/E7 Not Detected Not Detected [facility] Comment:Methodology: Transcr iption-Mediated AmplificationThis assay detects E6/E7 viral messenger RNA (mRNA) from 14high-risk HPV types (16,18,31,33,35,39,45,51,52,56,58,59,66,68).Cervical sources are required for HPV testing.If a vaginal source from a patient who has had atotal hysterectomy with removal of cervix wassubmitted, please contact the testing laboratoryfor alternative testing options.For additional information, please refer tohttp://education.[employer]/faq/XGL698y0(This link if provided for information/educational purposes only.)THIS TEST WAS PERFORMED AT:[facility] [place] [phone] CARRENO MD HPV mRNA E6/E7 [facility] HPV 16 RNA [facility] HPV 18/45 RNA [facility] 07/09/2023 12:0 7 PM EST 07/10/2023 11:00 AM EST [facility] CYTOLOGY ORDERABLES F inal Result [facility] [address] [place] [phone] * Pap Smear (07/09/2023 12:07 PM EST) Swab Cervix uteri structure / Unknown 07/09/2023 12:07 PM EST 07/10/2023 11:00 AM EST Narrative [facility] - 07/28/2023 2:33 PM EST ----- ------- Name: Andreina Leblanc ? Age/Sex: 38/F ? : 1985 Unit#: [id number] ?? Attend Dr: MONIKA GUTHRIE CNM ?Re07/09/23 ?Status: DEP REF ? Location: HO.HHCLNP ? Disch: ? ----- ------- SPEC : [id number] ? RECD: 07/10/23-1100 ? STATUS: ??SOUT ? REQ NUM: [id number] ? ALYSSA: 07/09/23-1207 ? SUBM DR: MONIKA GUTHRIE CNM ? ENTERED: ??07/10/23-1149 ?SP TYPE: Pap Smr ?OTHR : ? ORDERED: ??Pap Smear ? Interpretation ?? [...] 66, 68) ?? HPV testing performed by [facility], [place], [place]. ??See reference laboratory ?? portion of the EMR for entire report. ?Clinical Information LMP: 07/06/23 Previous PAP test: Unknown date, HPV+ Other history: Implantable control ? Material Received ?? ThinPrep-Cervical ----- ------- Signed (signature on file) DEACON Barone (ASCP) 07/28/23 1433 ? ----- ------- ? END OF REPORT ? us Monika [facility] CYTOLOGY ORDERABLES F inal Result Performing Organization Address [facility] [place] [facility]/[employer] Co de Phone Number [facility] [address] [place] [phone] * Hepatitis C Antibody with Reflex to HCV, RNA, Quantitative, Real-Time PCR (10/02/2022 8:44 AM EDT) Hepatitis C Antibody NON-REACT KEATON NON-REACT KEATON [facility] Index 0.12 <1.00 [facility] Comment: HCV antibody was non-reactive. There is no laboratory evidence of HCV infection. In most cases, no further action is required. However, if recent HCV exposure is suspected, a test for HCV RNA (test code 54921) is suggested. For additional information please refer to http://education.[employer]/faq/RXE35s7 (This link is being provided for informational/ educational purposes only.) Blood Venous blood specimen / Unknown 10/02/2022 8:44 AM EDT 10/02/2022 8:44 AM EDT Narrative [facility] - 10/07/2022 3:11 PM EDT FASTING:YES FASTING: YES us Laure Medina MD LAB BLOOD ORDERAB LES Final Result Performing Organization Address [facility] [place] [facility]/ZIP Co de Phone Number [address], [place] [address] [facility] [address] [place] [address] * HIV-1/2 Antigen and Antibodies, Fourth Generation, with Reflexes (10/02/2022 8:44 AM EDT) Pathologist [facility] HIV Antigen/Antibody, 4th Generation NON-REAC TIVE NON-REAC TIVE [facility] Comment: HIV-1 antigen and HIV-1/HIV-2 antibodies were [...] ?? For additional information please refer to http://education.[employer]/faq/YZH606 (This link is being provided for informational/ educational purposes only.) The performance of this assay has not been clinically validated in patients less than 2 years old. Blood Venous blood specimen / Unknown 10/02/2022 8:44 AM EDT 10/02/2022 8:44 AM EDT Narrative [facility] - 10/07/2022 3:11 PM EDT FASTING:YES FASTING: YES Laure Medina MD LAB BLOOD ORDERAB LES Final Result [facility] [address], [place] [address] [facility] [address] [place] [phone] * (ABNORMAL) Lipid Panel, Standard (10/02/2022 8:44 AM EDT) [facility] Cholesterol, Total 200(H) <200 mg/dL [facility] HDL Cholesterol 44(L) > OR = 50 mg/dL [employer] Triglycerides 105 <150 mg/dL [facility] LDL Cholesterol 135(H) mg/dL (calc) [facility] Comment: Reference range: <100 Desirable range <100 mg/dL for primary prevention; ?? <70 mg/dL for patients with CHD or diabetic patients with > or = 2 CHD risk factors. LDL-C is now calculated using the Nikhil calculation, which is a validated novel method providing better accuracy than the Friedewald equation in the estimation of LDL-C. Kelby SS et al. ISMAEL. 2013;310(19): 3171-5907 (http://education.[employer]/faq/XXV006) Chol/HDLC Ratio 4.5 <5.0 (calc) [employer] Non-HDL Cholesterol 156(H) <130 mg/dL (calc) [facility] Comment: For patients with diabetes plus 1 major ASCVD risk factor, treating to a non-HDL-C goal of <100 mg/dL (LDL-C of <70 mg/dL) is considered a therapeutic option. Blood Venous blood specimen / Unknown 10/02/2022 8:44 AM EDT 10/02/2022 8:44 AM EDT Narrative [facility] - 10/07/2022 3:11 PM EDT FASTING:YES FASTING: YES us Laure Medina MD LAB BLOOD ORDERAB LES Final Result [facility] [address], [place] [address] [facility] [address] [place] [address] from Last 3 Months or Most Recently Relevant to Health Maintenance Insurance [facility] Care Teams Laundry Housekeeping Aide Relationship Specialty Start Date End Date Carlee Scott MD [address] [place] [phone] PCP - General Family Medicine 01/20/22
== END 2024-08-30 14:01 | disposition home or self-care (01) ==
PROVIDERS: PCP General Practice
DX: R07.2 Precordial pain (principal); R06.02 Shortness of breath
CPT/HCPCS: 99214; G2211

== ENCOUNTER → 2024-08-30 12:39 | Outpatient (BNVA) | payer OTHER, SELFPAY | PROVIDERS: PCP General Practice | DX: R07.2 Precordial pain (principal); R06.02 Shortness of breath | CPT/HCPCS: 99212 ==

== ENCOUNTER 2024-09-01 11:13 | Outpatient (REF) | payer OTHER, SELFPAY ==
[2024-09-01 11:23] LABS: MANUAL DIFF FLAG NO
[2024-09-01 11:39] LABS: Basophils Percent Auto 0.3 % (0-2); Eosinophils Absolute Auto 0.2 X10*3/uL (0.0-0.4); Eosinophils Percent Auto 2.9 % (0-4); Hematocrit 38.5 % (37.0-47.0); Hemoglobin 13.1 g/dl (12.0-16.0); Imm Gran Abs Auto 0.03 X10*3/uL (0.00-0.03); Imm Gran Pct Auto 0.5 % (0.0-0.4); Lymphocytes Absolute Auto 2.2 X10*3/uL (1.2-4.9); Lymphocytes Percent Auto 36.2 % (20-40); Mean Corpuscular Hemoglobin 28.4 pg (27.0-33.0); Mean Corpuscular Volume 83.5 fL (80.0-98.0); Mean Platelet Volume 8.5 fL (9.4-12.3); Monocytes Absolute Auto 0.4 X10*3/uL (0.1-1.2); Monocytes Percent Auto 6.4 % (2-11); Neutrophils Absolute Auto 3.3 x10*3/uL (2.0-8.3); Neutrophils Percent Auto 53.7 % (45-73); Platelet Count 271 X10*3/uL (160-400); Red Blood Count 4.61 X10*6/uL (4.20-5.50); Red Cell Distribution Width 13.2 % (11.0-16.0); White Blood Count 6.1 X10*3/uL (4.8-10.8)
[2024-09-01 12:09] LABS: Cholesterol 245 mg/dL (<200); HDL Cholesterol 45 mg/dL (>40); LDL Cholesterol Calculated 178 mg/dL (<100); Triglycerides 111 mg/dL (<150)
[2024-09-01 12:15] LABS: B Type Natriuretic Peptide < 10 pg/mL (<100)
--- OUTSIDE RECORDS SUMMARY | 2024-09-01 13:37 | XMS_ITS | Clinical Summary ---
Author Organization [employer] [facility] Address [address] [place] [address] Care Team Providers Care Trackwalker Name Role Phone Dana Mattson RN Primary Care Provider [phone] Surgical History Surgery Date Site/Laterality Comments OTHER SURGICAL HISTORY PROCEDURE: DENIES PREVIOUS SURGERY OTHER SURGICAL HISTORY PROCEDURE: [place] INCISION & DRAINAGE PILONIDAL CYST SIMPLE; COMMENT: [...] a genital outbreak ; no labs in [facility] for review History of blood [...] Vaccine (1 - 2023-2 5 season) 2024 Cervical Cancer Screening: P ap Smear 08/01/2024 08/01/2021, 01/27/2018, 01/27/2018 Influenza Vaccine (Season Ended) 2025 DTaP,Tdap,and Td Vaccines (3 - Td or [...] RESULTING AGENCY - 08/14/2021 7:26 AM EDT [id number] THINPREP PAP, IMAGED: NEGATIVE FOR SQUAMOUS INTRAEITHELIAL [...] Recently Relevant to Health Maintenance Care Teams Trackwalker Relationship Specialty Start Date End Date Dana Mattson RN [address] [place] [phone] PCP - General 10/16/22
--- OUTSIDE RECORDS SUMMARY | 2024-09-01 13:37 | XMS_ITS | Encounter Summary ---
Author Organization [employer] Address [address] [facility] 7t [place] [address] Care Team Providers Care Medical Imaging Technologist Name Role Phone Carlee Scott MD Primary Care Provider [phone] Encounter Details Date Type Department Care Team (Late st Contact Info) Description 09/01/2024 Orders Only GENERIC EXTERNAL DATA DEPARTMENT Provider, Generic External Data Social History Tobacco Use Types Packs/Day Years [...] t he electric, gas, oil or water [employer] threatened to shut off services in your [...] Care Team (Late st Contact Info) Description 09/02/2024 11:30 AM EDT Office Visit [facility] [address] [place] [phone] Carlee Scott MD [address] [place] [address] 09/20/2024 1:00 PM EDT Clinical Support [facility] [address] [place] [phone] documented as of this encounter Procedures Procedure Name Priority Date/Time Associated Diagnosis Comments CBC WITH AUTO DIFFERENTIAL Routine 09/01/2024 11:22 AM EDT B TYPE NATRIURETIC PEPTIDE (BNP) Routine 09/01/2024 11:22 AM EDT LIPID PANEL, STANDARD Routine 09/01/2024 11:22 AM EDT documented in this encounter Results * B Type Natriuretic Peptide (BNP) (09/01/2024 11:22 AM EDT) B Type Natriuretic Peptide <10 <100 pg/mL [facility] 09/01/2024 11:2 2 AM EDT 09/01/2024 11:22 AM EDT us Generic External Data Provider LAB BLOOD ORDERAB LES Final Result [facility] [address] [place] [phone] [phone] * (ABNORMAL) Lipid Panel, Standard (09/01/2024 11:22 AM EDT) Triglycerides 111 <150 mg/dL [facility] Comment:Desirable Triglyceri de: less than 150 mg/dLBorderline High Triglyceride 150-199 mg/dLHigh Triglyceride: 200-499 mg/dLVery High Triglyceride: greater than or equal to 5OO mg/dL Cholesterol 245(H) <200 mg/dL [facility] Comment:Desirable Cholestero l: less than 200 mg/dLBorderline High Cholesterol: 200-239 mg/dLHigh Cholesterol: greater than 239 mg/dL LDL Cholesterol Calculated 178(H) <100 mg/dL [facility] Comment:Desirable LDL: less than 100 mg/dLNear Optimal/Above Optimal LDL: 110- 129 mg/dLBorderline High LDL: 130-159 mg/dLHigh LDL: 160-189 mg/dLVery High LDL: greater than or equal to 190 mg/dL HDL Cholesterol 45 >40 mg/dL [facility] Comment:Desirable HDL: great er than 40 mg/dL Note: This HDL assay may give artificially low results in patients with liver disease. 09/01/2024 11:2 2 AM EDT 09/01/2024 11:22 AM EDT us Generic External Data Provider LAB BLOOD ORDERAB LES Final Result [facility] [address] [place] [phone] * (ABNORMAL) CBC auto differential (09/01/2024 11:22 AM EDT) White Blood Count 6.1 4.8 - 10.8 X10*3/uL [facility] Red Blood Count 4.61 4.20 - 5.50 X10*6/uL [facility] Hemoglobin 13.1 12.0 - 16.0 g/dl [facility] Hematocrit 38.5 37.0 - 47.0 % [facility] Mean Corpuscular Volume 83.5 80.0 - 98.0 fL [facility] Mean Corpuscular Hemoglobin 28.4 27.0 - 33.0 pg [facility] Mean Corpuscular HGB Conc 34.0 31.0 - 35.0 g/dl [facility] Red Cell Distribution Width 13.2 11.0 - 16.0 % [facility] Platelet Count 271 160 - 400 X10*3/uL [facility] Mean Platelet Volume 8.5(L) 9.4 - 12.3 fL [facility] Neutrophils Percent Auto 53.7 45 - 73 % [facility] Imm Gran Pct Auto 0.5(H) 0.0 - 0.4 % [facility] Lymphocytes Percent Auto 36.2 20 - 40 % [facility] Monocytes Percent Auto 6.4 2 - 11 % [facility] Eosinophils Percent Auto 2.9 0 - 4 % [facility] Basophils Percent Auto 0.3 0 - 2 % [facility] NRBC Pct Auto 0.0 0.0 - 0.2 /100WBC [facility] Neutrophils Absolute Auto 3.3 2.0 - 8.3 x10*3/uL [facility] Imm Gran Abs Auto 0.03 0.00 - 0.03 X10*3/uL [facility] Lymphocytes Absolute Auto 2.2 1.2 - 4.9 X10*3/uL [facility] Monocytes Absolute Auto 0.4 0.1 - 1.2 X10*3/uL [facility] Eosinophils Absolute Auto 0.2 0.0 - 0.4 X10*3/uL [facility] Basophils Absolute Auto 0.0 0.0 - 0.2 X10*3/uL [facility] NRBC Abs Auto 0.000 0.0 - 0.012 X10*3/uL [facility] 09/01/2024 11:2 2 AM EDT 09/01/2024 11:22 AM EDT us Generic External Data Provider LAB BLOOD ORDERAB LES Final Result [facility] [address] [place] [phone] documented in this encounter Visit Diagnoses Not on filedocumented in this encounter Additional Health Concerns Assessment Noted Time PHQ-9 Depression Total Score: 0 03/18/20 24 10:02 AM EDT documented as of this encounter Care Teams Medical Imaging Technologist Relationship Specialty Start Date End Date Carlee Scott MD [address] [place] [phone] PCP - General Family Medicine 01/20/22 documented as of this encounter
--- OUTSIDE RECORDS SUMMARY | 2024-09-01 13:37 | XMS_ITS | Encounter Summary ---
Author Organization [employer] Address [address] [facility] 7t [place] [address] Care Team Providers Care Parking Lot Spotter Name Role Phone Carlee Scott MD Primary Care Provider [phone] Reason for Visit * Reason Onset Date Comments Nurse Triage 08/31/2024 Encounter Details Date Type Department Care Team ([facility] st Contact Info) Description 08/31/2024 Telephone [facility] [address] [place], [place] [phone] Carlee Scott MD [address] [place], [place] [phone] Nurse Triage Social History Tobacco Use Types [...] encounter Miscellaneous Notes * Telephone Encounter - Luz Maria Stevens RN - 08/31/2024 11:26 AM EDT called pt to triage, spoke to pt. pt states persistent sob, and right sided chest pain for a while now, requesting appt with PCP. looking in the chart, pt seen by Cardiology yesterday for same and will be followed. pt denies worsening or new concerns. notes from Cardiology are already scanned into the chart for review. all previous testing has been negative for anything acute. pt reports episodesof sob that disrupt her activities. given appt with PCP Thursday at 11:30 for exam. pt understands and agrees with plan. insurance verified. Protocol Used: Breathing Difficulty (Adult) Protocol-Based Disposition: See in Office or Video Visit within 2 Weeks Video visit offer not recorded Positive Triage Question: * Mild longstanding difficulty breathing (e.g., minimal/no SOB at rest, SOB with walking, pulse < 100) and same as normal * All higher-acuity triage questions were negative Care Advice Discussed: * General Care Advice for Breathing Difficulty * Fever Medicines * Reasons To Call Back - You become worse * Telephone Encounter - Ai Cevallos - 08/31/2024 10:18 AM EDT Symptom: Breathing Trouble Outcome: Schedule an urgent appointment (within 1 hour) or talk to a nurse or provider soon Reason: Caller denied all higher acuity questions The caller accepted this outcome. [phone] documented in this encounter Plan of Treatment Upcoming Encounters Date Type Department Care Team (Late st Contact Info) Description 09/02/2024 11:30 AM EDT Office Visit [facility] [address] [place] [phone] Carlee Scott MD [address] [place] [phone] 09/20/2024 1:00 PM EDT Clinical Support [address] [phone] documented as of this encounter Visit Diagnoses Not on filedocumented in this encounter Additional Health Concerns Assessment Noted Time PHQ-9 Depression Total Score: 0 03/18/20 24 10:02 AM EDT documented as of this encounter Care Teams Parking Lot Spotter Relationship Specialty Start Date End Date Carlee Scott MD [address] [place] [phone] PCP - General Family Medicine 01/20/22 documented as of this encounter
--- OUTSIDE RECORDS SUMMARY | 2024-09-01 13:37 | XMS_ITS | Clinical Summary ---
Author Organization [employer] Address [address] [place] [address] 7t [place] [address] Care Team Providers Care Historiography Professor Name Role Phone Carlee Scott MD Primary Care Provider [phone] Allergies Active Allergy Reactions Criticality Noted Date [...] Once 05/06/2024 Active medroxyPROGESTERone (Depo-Provera) injection 150 mgIndications:residential current use of hormonal contraceptive 150 mg [...] intervention , 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 Did annual labs today and Tb test--pt will bring form to be completed ---if not seen by owner spa director by then would explain in form that [...] Encounters Date Type Department Care Team Description 09/01/2024 Orders Only GENERIC EXTERNAL DATA DEPARTMENT Provider, Generic External Data 08/31/[address] [address] Carlee Scott MD Nurse Triage 07/05/[address] [address] Bridget Simeon, KIANA NTTS 06/30/2024 Patient Outreach [facility] [address] [place], [place] [phone] Carlee Scott MD Pre-visit Planning (SDOH negative, Tobacco screening negative. ) 06/28/2024 1:00 PM EST Clinical Support [address] [address] Amanda Mendez RN Encounter for surveillance of injectable contraceptive 06/28/2024 Orders Only [address] [address] Carlee Scott MD residential current use of hormonal contraceptive (Primary Dx) [...] Description 09/02/2024 11:30 AM EDT Office Visit [address] [address] Carlee Scott MD [address] [place] [address] 09/20/2024 1:00 PM EDT Clinical Support [address] [address] Health Maintenance Due Date Last Done Comments Alcohol/Substance Use Screening 1999 Pneumococcal Vaccine: Pediatrics (0 to 5 Years) and At-Risk Patients (6 to 49) Years) (1 of 2 - PCV) 2006 HPV Vaccines (3 - 3-dose series) 01/01/2010 10/09/2009, 04/03/2009 COVID-19 Vaccine ( - season) 2024 Influenza Vaccine (#1) 2024 02/21/2013, 2011 Depression Screening 03/18/2025 03/18/2024, 03/18/20 24 Tobacco Screening 03/18/2025 03/18/2024 Family Planning (PISQ) 04/07/2025 04/07/2024 SDOH Screening 06/30/2025 06/30/2024 Cervical Cancer Screening 07/09/2028 HPV/Cotest 07/09/2028 07/09/2023, 06/25, 09/05/2020, Additional history exists Pap Smear 07/09/2028 07/09/2023, 09/05/2020 Lipid Panel 09/01/2029 09/01/2024, 09/22, 08/22/2020, Additional history exists DTaP/Tdap/Td Vaccines (8 - Td or Tdap) [...] Procedure Name Priority Date/Time Associated Diagnosis Comments B TYPE NATRIURETIC PEPTIDE (BNP) Routine 09/01/2024 11:22 AM EDT LIPID PANEL, STANDARD Routine 09/01/2024 11:22 AM EDT CBC WITH AUTO DIFFERENTIAL Routine 09/01/2024 11:22 AM EDT POCT , URINE Routine 06/28/2024 1:10 PM [...] Recently Relevant to Health Maintenance Results * (ABNORMAL) CBC auto differential (09/01/2024 11:22 AM EDT) White Blood Count 6.1 4.8 - 10.8 X10*3/uL [facility] Red Blood Count 4.61 4.20 - 5.50 X10*6/uL [facility] Hemoglobin 13.1 12.0 - 16.0 g/dl [facility] Hematocrit 38.5 37.0 - 47.0 % [facility] Mean Corpuscular Volume 83.5 80.0 - 98.0 fL [facility] Mean Corpuscular Hemoglobin 28.4 27.0 - 33.0 pg [facility] Mean Corpuscular HGB Conc 34.0 31.0 - 35.0 g/dl [facility] Red Cell Distribution Width 13.2 11.0 - 16.0 % [facility] Platelet Count 271 160 - 400 X10*3/uL [facility] Mean Platelet Volume 8.5(L) 9.4 - 12.3 fL [facility] Neutrophils Percent Auto 53.7 45 - 73 % [facility] Imm Gran Pct Auto 0.5(H) 0.0 - 0.4 % [facility] Lymphocytes Percent Auto 36.2 20 - 40 % [facility] Monocytes Percent Auto 6.4 2 - 11 % [facility] Eosinophils Percent Auto 2.9 0 - 4 % [facility] Basophils Percent Auto 0.3 0 - 2 % [facility] NRBC Pct Auto 0.0 0.0 - 0.2 /100WBC [facility] Neutrophils Absolute Auto 3.3 2.0 - 8.3 x10*3/uL [facility] Imm Gran Abs Auto 0.03 0.00 - 0.03 X10*3/uL [facility] Lymphocytes Absolute Auto 2.2 1.2 - 4.9 X10*3/uL [facility] Monocytes Absolute Auto 0.4 0.1 - 1.2 X10*3/uL [facility] Eosinophils Absolute Auto 0.2 0.0 - 0.4 X10*3/uL [facility] Basophils Absolute Auto 0.0 0.0 - 0.2 X10*3/uL [facility] NRBC Abs Auto 0.000 0.0 - 0.012 X10*3/uL [facility] 09/01/2024 11:2 2 AM EDT 09/01/2024 11:22 AM EDT us Generic External Data Provider LAB BLOOD ORDERAB LES Final Result Performing Organization Address [facility]/ZIP Co de Phone Number [facility] [address] [place] [phone] * B Type Natriuretic Peptide (BNP) (09/01/2024 11:22 AM EDT) B Type Natriuretic Peptide <10 <100 pg/mL [facility] 09/01/2024 11:2 2 AM EDT 09/01/2024 11:22 AM EDT Generic External Data Provider LAB BLOOD ORDERAB LES Final Result [facility] [address] [place] [phone] [phone] * (ABNORMAL) Lipid Panel, Standard (09/01/2024 11:22 AM EDT) Triglycerides 111 <150 mg/dL [facility] Comment:Desirable Triglyceri de: less than 150 mg/dLBorderline High Triglyceride 150-199 mg/dLHigh Triglyceride: 200-499 mg/dLVery High Triglyceride: greater than or equal to 5OO mg/dL Cholesterol 245(H) <200 mg/dL [facility] Comment:Desirable Cholestero l: less than 200 mg/dLBorderline High Cholesterol: 200-239 mg/dLHigh Cholesterol: greater than 239 mg/dL LDL Cholesterol Calculated 178(H) <100 mg/dL [facility] Comment:Desirable LDL: less than 100 mg/dLNear Optimal/Above Optimal LDL: 110- 129 mg/dLBorderline High LDL: 130-159 mg/dLHigh LDL: 160-189 mg/dLVery High LDL: greater than or equal to 190 mg/dL HDL Cholesterol 45 >40 mg/dL [facility] Comment:Desirable HDL: great er than 40 mg/dL Note: This HDL assay may give artificially low results in patients with liver disease. 09/01/2024 11:2 2 AM EDT 09/01/2024 11:22 AM EDT us Generic External Data Provider LAB BLOOD ORDERAB LES Final Result Performing Organization Address [facility] Co de Phone Number [facility] [address] [place] [address] [phone] * POCT Urine (06/28/2024 1:10 PM EST) Preg Test, Ur Negative Negative, Indeterminate, None Detected, Invalid, Specimen unsatisfactory for evaluation, Weakly Positive Urine 06/28/2024 1:10 PM EST Carlee Scott MD POINT OF CARE TEST ENTER/EDIT ORDERABLES Final Result * HPV mRNA E6/E7 w/Reflex to HPV Genotypes 16, 18/45 (07/09/2023 12:07 PM EST) HPV nRNA E6/E7 Not Detected Not Detected [facility] Comment:Methodology: Transcr iption-Mediated AmplificationThis assay detects E6/E7 viral messenger RNA (mRNA) from 14high-risk HPV types (16,18,31,33,35,39,45,51,52,56,58,59,66,68).Cervical sources are required for HPV testing.If a vaginal source from a patient who has had atotal hysterectomy with removal of cervix wassubmitted, please contact the testing laboratoryfor alternative testing options.For additional information, please refer tohttp://education.[employer]/faq/ZMS770b2(This link if provided for information/educational purposes only.)THIS TEST WAS PERFORMED AT:[facility] [place] [phone] CARRENO MD HPV mRNA E6/E7 [facility] HPV 16 RNA [facility] HPV 18/45 RNA [facility] 07/09/2023 12:0 7 PM EST 07/10/2023 11:00 AM EST us Monika Guthrie [facility] CYTOLOGY ORDERABLES F inal Result [facility] [address] [place] [phone] * Pap Smear (07/09/2023 12:07 PM EST) Swab Cervix uteri structure / Unknown 07/09/2023 12:07 PM EST 07/10/2023 11:00 AM EST Narrative [facility] - 07/28/2023 2:33 PM EST ----- ------- Name: Andreina Leblanc ? Age/Sex: 38/F ? : 1985 Unit#: [id number] ?? Attend Dr: MONIKA GUTHRIE CNM ?Re07/09/23 ?Status: DEP REF ? [facility] ? Disch: ? ----- ------- SPEC : [id number] ? RECD: 07/10/23-1099 ? STATUS: ??SOUT ? REQ NUM: [id number] ? ALYSSA: 07/09/23-1207 ? SUBM DR: MONIKA GUTHRIE CNM ? ENTERED: ??07/10/23114 ?SP TYPE: Pap Smr ?OTHR : ? [...] 66, 68) ?? HPV testing performed by [facility], [place], [place]. ??See reference laboratory ?? portion of the EMR for entire report. ?Clinical Information LMP: 07/06/23 Previous PAP test: Unknown date, HPV+ Other history: Implantable control ? Material Received ?? ThinPrep-Cervical ----- ------- Signed (signature on file) DEACON Barone (ASCP) 07/28/23 1433 ? ----- ------- ? END OF REPORT ? Monika Guthrie CN LAB CYTOLOGY ORDERABLES F inal Result Performing Organization Address City/[facility]/ZIP Co de Phone Number [facility] [address] [place] [address] [phone] * Hepatitis C Antibody with Reflex to HCV, RNA, Quantitative, Real-Time PCR (10/02/2022 8:44 AM EDT) Pathologist [facility] Hepatitis C Antibody NON-REACT KEATON NON-REACT KEATON [facility] [place] [employer] Index 0.12 <1.00 [facility] [employer] Comment: HCV antibody was non-reactive. There is no laboratory evidence of HCV infection. In most cases, no further action is required. However, if recent HCV exposure is suspected, a test for HCV RNA (test code 63734) is suggested. For additional information please refer to http://education.[employer]/faq/QEA71f7 (This link is being provided for informational/ educational purposes only.) Blood Venous blood specimen / Unknown 10/02/2022 8:44 AM EDT 10/02/2022 8:44 AM EDT Narrative [facility] - 10/07/2022 3:11 PM EDT FASTING:YES FASTING: YES us Laure Medina MD LAB BLOOD ORDERAB LES Final Result Performing Organization Address City/[facility] Co de Phone Number [facility] [address], [place] [phone] [facility] [address] [place] [phone] * HIV-1/2 Antigen and Antibodies, Fourth Generation, with Reflexes (10/02/2022 8:44 AM EDT) [facility] HIV Antigen/Antibody, 4th Generation NON-REAC TIVE NON-REAC TIVE [facility] [employer] [facility] Comment: HIV-1 antigen and HIV-1/HIV-2 antibodies were [...] ?? For additional information please refer to http://education.[employer]/faq/MMY258 (This link is being provided for informational/ educational purposes only.) The performance of this assay has not been clinically validated in patients less than 2 years old. Blood Venous blood specimen / Unknown 10/02/2022 8:44 AM EDT 10/02/2022 8:44 AM EDT Narrative [facility] - 10/07/2022 3:11 PM EDT FASTING:YES FASTING: YES Laure Medina MD LAB BLOOD ORDERAB LES Final Result [facility] [address], [place] [address] [facility] [address] [place] [phone] from Last 3 Months or Most Recently Relevant to Health Maintenance Insurance [facility] * Guarantor: Andreina Leblanc Account Type Relation to Patient Date of Phone Billing Address Personal/Family Self [address] Care Teams Historiography Professor Relationship Specialty Start Date End Date Carlee Scott MD [address] [place] [phone] PCP - General Family Medicine 01/20/22
--- OUTSIDE RECORDS SUMMARY | 2024-09-01 13:37 | XMS_ITS | Encounter Summary ---
Author Organization [employer] Address [address] [facility] 7t [place] [address] Care Team Providers Care Disbursing Officer Name Role Phone Carlee Scott MD Primary Care Provider [phone] Encounter Details Date Type Department Care Team (Late st Contact Info) Description 08/11/2023 Orders Only [facility] [address] [place], [place] [phone] Carlee Scott MD [address] [place], [place] [phone] Social History Tobacco Use Types Packs/Day Years [...] Description 09/02/2024 11:30 AM EDT Office Visit [facility] [address] [place] [phone] Carlee Scott MD [address] [place] [phone] 09/20/2024 1:00 PM EDT Clinical Support [address] [address] documented as of this encounter Visit Diagnoses Not on filedocumented in this encounter Additional Health Concerns Assessment Noted Time PHQ-9 Depression Total Score: 22 024 12:37 PM EST documented as of this encounter Care Teams Disbursing Officer Relationship Specialty Start Date End Date Carlee Scott MD [address] [place] [phone] PCP - General Family Medicine 01/20/22 documented as of this encounter
--- OUTSIDE RECORDS SUMMARY | 2024-09-01 13:37 | XMS_ITS | Encounter Summary ---
Author Organization [employer] Address [address] [facility] 7t [place] [address] Care Team Providers Care Bracelet Maker Novelty Name Role Phone Carlee Scott MD Primary Care Provider [phone] Encounter Details Date Type Department Care Team (Late st Contact Info) Description 06/10/2023 Orders Only [facility] [address] [place], [place] [phone] Laure Canada MD [address] [place], [place] [phone] Social History Tobacco Use Types Packs/Day Years [...] Description 09/02/2024 11:30 AM EDT Office Visit [address] [address] Carlee Scott MD [address] [place] [address] 09/20/2024 1:00 PM EDT Clinical Support [address] [address] documented as of this encounter Visit Diagnoses Not on filedocumented in this encounter Additional Health Concerns Assessment Noted Time PHQ-9 Depression Total Score: 16 023 9:32 AM EST documented as of this encounter Care Teams Bracelet Maker Novelty Relationship Specialty Start Date End Date Carlee Scott MD [address] [place] [phone] PCP - General Family Medicine 01/20/22 documented as of this encounter
--- OUTSIDE RECORDS SUMMARY | 2024-09-01 13:37 | XMS_ITS | Encounter Summary ---
Author Organization [employer] Address [address] [facility] 7t [place] [address] Care Team Providers Care Backend Developer Name Role Phone Carlee Scott MD Primary Care Provider [phone] Encounter Details Date Type Department Care Team (Late st Contact Info) Description 09/11/2023 Orders Only [facility] [address] [place], [place] [phone] Wai Chen MD [address] [place] [address] Social History Tobacco Use Types Packs/Day Years [...] Description 09/02/2024 11:30 AM EDT Office Visit [address] [address] Carlee Scott MD [address] [place] [address] 09/20/2024 1:00 PM EDT Clinical Support [address] [address] documented as of this encounter Visit Diagnoses Not on filedocumented in this encounter Additional Health Concerns Assessment Noted Time PHQ-9 Depression Total Score: 22 024 12:37 PM EST documented as of this encounter Care Teams Backend Developer Relationship Specialty Start Date End Date Carlee Scott MD [address] [place] [phone] PCP - General Family Medicine 01/20/22 documented as of this encounter
--- OUTSIDE RECORDS SUMMARY | 2024-09-01 13:37 | XMS_ITS | Encounter Summary ---
Author Organization [employer] Address [address] [facility] 7t [place] [address] Care Team Providers Care Outside Sales Account Executive Name Role Phone Carlee Scott MD Primary Care Provider Encounter Details Date Type Department Care Team (Late st Contact Info) Description 06/28/2024 Orders Only [facility] [address] [place], [place] [phone] Carlee Scott MD [address] [place], [place] [phone] [facility] current use of hormonal contraceptive (Primary Dx) [...] Description 09/02/2024 11:30 AM EDT Office Visit [address] [address] Carlee Scott MD [address] [place] [address] 09/20/2024 1:00 PM EDT Clinical Support [address] [address] documented as of this encounter 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
== END 2024-09-01 11:14 | disposition home or self-care (01) ==
LOC: HO.LAB 11:13
PROVIDERS: PCP General Practice
DX: R06.02 Shortness of breath (principal); R07.2 Precordial pain
CPT/HCPCS: 36415; 80061; 83880; 85025

== ENCOUNTER 2024-10-10 16:01 | Emergency (ER) | payer OTHER, SELFPAY ==
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
[2024-10-10 16:09] VITALS: BP 132/82; PULSE 84; O2SAT 99
[2024-10-10 16:17] VITALS: BP 125/81; PULSE 77; RESP 16; TEMP 37.1; O2SAT 100; BMI 27.4
--- OUTSIDE RECORDS SUMMARY | 2024-10-10 17:02 | XMS_ITS | Clinical Summary ---
Author Organization [employer] Address [address] [facility] 7t [place] [address] Care Team Providers Care Identity Management Developer Name Role Phone Carlee Scott MD Primary Care Provider Allergies Active Allergy Reactions Criticality Noted Date Comments Metronidazole Itching,Swelling 03/10/2018 Medications * This document contains information received from the source organization and may not represent a complete record from that organization. metroNIDAZOLE (Metrogel) 0.75 % gelIndications: Rosacea Apply topically 2 times daily. 45 g 2 4 10/16/19 25 Active medroxyPROGESTE Jose (Depo-Provera) 150 MG/ML injection Inject 1 mL (150 mg) into the muscle every 3 (three) months. 1 mL 3 4 Active cyclobenzaprine (Flexeril) 5 MG tablet TAKE 1 TABLET [...] at bedtime. 90 capsule 3 4 03/18/20 25 Active naproxen (Naprosyn) 375 MG tablet Take 1 tablet (375 mg) by mouth with breakfast and with evening meal. 60 tablet 5 09/03/19 Active busPIRone (Buspar) 10 MG tablet Take 1 tablet (10 mg) by mouth 2 times daily. Up o twice a day if needed 60 tablet 09/03/19 Active guaiFENesin (Mucinex) 600 MG 12 hr tablet Take 2 tablets (1,200 mg) by mouth 2 times daily. Do not crush, chew, or split. 40 tablet 5 09/03/19 26 Active atorvastatin (Lipitor) 10 MG tablet Active amoxicillin-cla vulanate (Augmentin) 875-125 MG tablet Take 1 tablet by mouth 2 times daily for 7 days. 14 tablet 5 10/04/19 25 ibuprofen 800 MG tablet Take 1 tablet (800 mg) by mouth every 8 (eight) hours if needed for mild pain for up to 10 days. 15 tablet 5 10/07/19 25 acetaminophen (Tylenol 8 Hour) 650 MG ER tablet Take 1 tablet (650 mg) by mouth every 8 (eight) hours if needed for moderate pain for up to 10 days. Do not crush, chew, or split. 15 tablet 5 10/07/19 25 Hospital, Clinic, or Other Facility Administered Medication Ordered Dose Route Frequency Start Date End Date Status triamcinolone acetonide (Kenalog-40) injection 40 mgIndications:Keloi d 40 mg INTRA-LESIO N Once 05/06/2024 Active medroxyPROGESTERone (Depo-Provera) injection 150 mgIndications:intermediate current use of hormonal contraceptive 150 mg IM Every 3 months 06/28/2024 6 Active Active Problems Problem Noted Date Diagnosed Date Other chest pain 03/18/2024 Assessment & Plan (09/04/2024 5:36 PM EDT): She is undergoing risk stratification by cardiology, thus far stress test and Echo are normal. Started on Atorvastatin 10mg for LDL > 130. Right arm pain 03/18/2024 Chronic midline low [...] intervention , [facility], and Patient to reach out to [facility] as needed Prolonged grief disorder 07/09/2023 Sore throat 06/05/2023 Metrorrhagia 06/05/2023 Health care maintenance 10/01/2022 Assessment & Plan (10/01/2022 7:56 PM EDT): -Pap smear : per pt done less than 1 year w her [employer] told to have +HPV -requested already [place] to get records -Pt didn't bring form for work today but showed it to me on phone ---requesting a letter from PCP to excuse why pt is not getting Covid-19 vaccine -states she got 1 dose last year and went to the hospital w mx symptoms -states it was at [facility] x it (will try to get records -already requested to [place]). Pt denies having tongue swelling, but reports having nausea, cough, sneezing, wheezing, sore throat after the vaccine. Sx don't seem like an allergy, but pt insisted that she was told about an allergic reaction. Given uncertainty if it was an actual allergy will try to get records and also referred pt to machine hand. Did annual labs today and Tb test--pt will bring form to be completed ---if not seen by machine hand by then would explain in form that [...] me in 4-6 weeks Severe anxiety 04/26/2022 Assessment & Plan (09/04/2024 5:36 PM EDT): Add Buspar for anxiety Asthenia 04/26/2022 Difficulty sleeping 04/26/2022 Rosacea 08/25/2021 Hyperlipidemia 08/27/2020 Eczema 05/21/2015 Irritable bowel syndrome 05/21/2015 Resolved Problems Problem Noted Date Diagnosed Date Resolved Date Nexplanon in place 06/17/2023 5 Immune to hepatitis A 08/27/20202022 Hepatitis B immune 08/27/2020 3 Encounters Date Type Department Care Team Description 09/26/2024 1:00 PM EDT Office Visit [facility] [address] [place] [address] Mabry-Coffey, Radha, DDS Dental caries (Primary Dx); Dental abscess; Acute pulpitis; Supra-eruption of tooth 09/20/2024 1:00 PM EDT Clinical Support [facility] [address] [place] [address] Bridget Simeon, KIANA Encounter for surveillance of injectable contraceptive 09/20/2024 Travel 09/02/2024 11:30 AM EDT Office Visit [facility] [address] [place] [address] Carlee Scott MD Other chest pain (Primary Dx); Severe episode of recurrent major depressive disorder, without psychotic features (CMS/HCC); Dietary counseling; Exercise counseling; Overweight; Severe anxiety 09/02/2024 Travel 09/01/2024 Orders Only GENERIC EXTERNAL DATA DEPARTMENT Provider, Generic External Data 08/31/[address] [facility] [address] [place] [phone] Carlee Scott MD Nurse Triage from Last 3 Months Immunizations Immunization Administration Dates Next Due DTP 07/30/1989, 8,1987,1987,1987 HPV, Bivalent 10/09/2009,04/03/2009 Hep A, Adult 06/17/2018,02/21/2013 Hep B, adult 02/21/2013, 1,10/28/2000,1999 Hib (HbOC) 07/23/1989 IPV 05/25/1991, 8,1987,1986 Influenza, Split (incl. dariela fied surface antigen) 02/21/2013,03/30/2012 MMR 03/25/2000,07/23/1989 Tdap 11/20/2021,03/06/2015,10/02/2011 Family History Medical History Relation Name Comments No Known Problems Father No Known Problems Mother Relation Name Status Comments Father Mother Social History Tobacco Use Types Packs/Day Years Used Date Smoking Tobacco: Former Cigarettes Passive Smoke Exposure: Past Smokeless Tobacco: Never Tobacco Cessation:Counseling Given: Not Answered Comments:Smokes 3-4 cigarettes a [...] I cannot afford it 06/30/2024 Comments No Intention Date Recorded No desire to become (finding) 0 09/20/2024 Sex and Gender Information Value Date Recorded Sex Assigned at Female 03/24/2022 10:14 AM EDT Legal Sex Female 10:14 AM EDT Gender Identity Female 03/24/2022 10:14 AM EDT Sexual Orientation Straight 03/24/2022 10 :14 AM EDT Last Filed Vital Signs Vital Sign Reading Time Taken Comments Blood Pressure 114/68 09/26/2024 1:05 PM EDT Pulse 70 09/26/2024 1:05 PM EDT Temperature 37.6 ??C (99.7 ??F) 09/02/2024 11:42 AM E DT Respiratory Rate 16 09/02/2024 11:42 AM EDT Oxygen Saturation 99% 12/23/2023 2:17 PM EDT Inhaled Oxygen Concentration - - Weight 80.1 kg (176 lb 9.6 oz) 09/02/2024 11:42 AM EDT Height 170.2 cm (5' 7 ) 09/02/2024 11:42 AM EDT Body Mass Index 27.66 09/02/2024 11:42 AM EDT Plan of Treatment Upcoming Encounters Date Type Department Care Team (Late st Contact Info) Description 11/15/2024 9:00 AM EDT Office Visit [facility] [address] [place] [address] Johnny Watkins, DDS [address], [place] [phone] 12/08/2024 10:00 AM EDT Clinical Support [facility] [address] [place], [place] [phone] Health Maintenance Due Date Last Done Comments Dental Oral Exam 1987 Dental Prophylaxis 1987 Dental X-Ray: Full Mouth 1987 Alcohol/Substance Use Screening 1999 HPV Vaccines (3 - 3-dose series) 01/01/2010 10/09/2009, 04/03/2009 COVID-19 Vaccine ( season) 2024 Influenza Vaccine (#1) 2024 02/21/2013, 2011 Depression Screening 03/18/2025 03/18/2024, 03/18/20 24 SDOH Screening 06/30/2025 06/30/2024 Family Planning (PISQ) 09/20/2025 09/20/2024 Tobacco Screening 09/26/2025 09/26/2024 Dental X-Ray: Bitewings 09/27/2025 09/26/2024 Cervical Cancer Screening 07/09/2028 HPV/Cotest 07/09/2028 07/09/2023, [...] Hepatitis C Screening Completed 10/02/2022, 021 Meningococcal B Vaccine Aged Out No l onger eligible based on patient's age to complete this topic Meningococcal Vaccine Aged Out No juan pablo eunice eligible based on patient's age to complete this topic Pneumococcal Vaccine: Pediatrics (0 to 5 Years) and At-Risk Patients (6 to 49) Years) Aged Out No longer eligible based on patient's age to complete this topic RSV under 20 months Aged Out No longe r eligible based on patient's age to complete this topic Rotavirus Vaccines Aged Out No longer eligible based on patient's age to complete this topic Procedures Procedure Name Priority Date/Time Associated Diagnosis Comments CASE PRESENTATION, DETAILED AND EXTENSIVE TREATMENT PLANNING Routine 09/26/2024 1:00 PM EDT Dental caries Dental abscess Acute pulpitis 14 PALLIATIVE (EMERGENCY) TREATMENT OF DENTAL PAIN - MINOR PROCEDURE Routine 09/26/2024 1:00 PM EDT Dental caries Dental abscess Acute pulpitis BITEWING - SINGLE RADIOGRAPHIC IMAGE Routine 09/26/2024 1:00 PM EDT Dental caries Dental abscess Acute pulpitis 14 INTRAORAL - PERIAPICAL FIRST RADIOGRAPHIC IMAGE Routine 09/26/2024 1:00 PM EDT Dental caries Dental abscess Acute pulpitis 14 LO AMALGAM FILLING Routine 09/26/2024 12:00 AM EDT 19 EXTRACTION Routine 09/26/2024 12:00 AM EDT POCT , URINE Routine 09/20/2024 2:10 PM EDT Encounter for surveillance of injectable contraceptive B TYPE NATRIURETIC PEPTIDE (BNP) Routine 09/01/2024 11:22 AM EDT LIPID PANEL, STANDARD Routine 09/01/2024 11:22 AM EDT CBC WITH AUTO DIFFERENTIAL Routine 09/01/2024 11:22 AM EDT HPV MRNA E6/E7 REFLEX TO HPV 16, [...] to Health Maintenance Results * POCT Urine (09/20/2024 2:10 PM EDT) Preg Test, Ur Negative Negative, Indeterminate, None Detected, Invalid, Specimen unsatisfactory for evaluation, Weakly Positive QC Media Lot # [id number] Lot# Expiration Date [id number] Urine 09/20/2024 2:10 PM EDT Carlee Scott MD POINT OF CARE TEST ENTER/EDIT ORDERABLES Final Result * (ABNORMAL) CBC auto differential (09/01/2024 11:22 AM EDT) White Blood Count 6.1 4.8 - 10.8 X10*3/uL [facility] Red Blood Count 4.61 4.20 - 5.50 X10*6/uL [facility] Hemoglobin 13.1 12.0 - 16.0 g/dl [facility] Hematocrit 38.5 37.0 - 47.0 % [facility] Mean Corpuscular Volume 83.5 80.0 - 98.0 fL [facility] Mean Corpuscular Hemoglobin 28.4 27.0 - 33.0 pg [facility] Mean Corpuscular HGB Conc 34.0 31.0 - 35.0 g/dl [facility] Red Cell Distribution Width 13.2 11.0 - 16.0 % [facility] Platelet Count 271 160 - 400 X10*3/uL [facility] Mean Platelet Volume 8.5(L) 9.4 - 12.3 fL [facility] Neutrophils Percent Auto 53.7 45 - 73 % [facility] Imm Gran Pct Auto 0.5(H) 0.0 - 0.4 % [facility] Lymphocytes Percent Auto 36.2 20 - 40 % [facility] Monocytes Percent Auto 6.4 2 - 11 % [facility] Eosinophils Percent Auto 2.9 0 - 4 % [facility] Basophils Percent Auto 0.3 0 - 2 % [facility] NRBC Pct Auto 0.0 0.0 - 0.2 /100WBC [facility] Neutrophils Absolute Auto 3.3 2.0 - 8.3 x10*3/uL [facility] Imm Gran Abs Auto 0.03 0.00 - 0.03 X10*3/uL [facility] Lymphocytes Absolute Auto 2.2 1.2 - 4.9 X10*3/uL [facility] Monocytes Absolute Auto 0.4 0.1 - 1.2 X10*3/uL [facility] Eosinophils Absolute Auto 0.2 0.0 - 0.4 X10*3/uL [facility] Basophils Absolute Auto 0.0 0.0 - 0.2 X10*3/uL [facility] NRBC Abs Auto 0.000 0.0 - 0.012 X10*3/uL [facility] 09/01/2024 11:2 2 AM EDT 09/01/2024 11:22 AM EDT us Generic External Data Provider LAB BLOOD ORDERAB LES Final Result [facility] [address] [place] [phone] * B Type Natriuretic Peptide (BNP) (09/01/2024 11:22 AM EDT) B Type Natriuretic Peptide <10 <100 pg/mL [facility] 09/01/2024 11:2 2 AM EDT 09/01/2024 11:22 AM EDT Generic External Data Provider LAB BLOOD ORDERAB LES Final Result Performing Organization Address [facility]/ZIP Co de Phone Number [facility] [address] [place] [phone] * (ABNORMAL) Lipid Panel, Standard (09/01/2024 11:22 AM EDT) Triglycerides 111 <150 mg/dL [facility] Comment:Desirable Triglyceri de: less than 150 mg/dLBorderline High Triglyceride 150-199 mg/dLHigh Triglyceride: 200-499 mg/dLVery High Triglyceride: greater than or equal to 5OO mg/dL Cholesterol 245(H) <200 mg/dL [facility] Comment:Desirable Cholestero l: less than 200 mg/dLBorderline High Cholesterol: 200-239 mg/dLHigh Cholesterol: greater than 239 mg/dL LDL Cholesterol Calculated 178(H) <100 mg/dL [facility] Comment:Desirable LDL: less than 100 mg/dLNear Optimal/Above Optimal LDL: 110- 129 mg/dLBorderline High LDL: 130-159 mg/dLHigh LDL: 160-189 mg/dLVery High LDL: greater than or equal to 190 mg/dL HDL Cholesterol 45 >40 mg/dL [facility] Comment:Desirable HDL: great er than 40 mg/dL Note: This HDL assay may give artificially low results in patients with liver disease. 09/01/2024 11:2 2 AM EDT 09/01/2024 11:22 AM EDT us Generic External Data Provider LAB BLOOD ORDERAB LES Final Result Performing Organization Address [facility]/ZIP Co de Phone Number [facility] [address] [place] [phone] * HPV mRNA E6/E7 w/Reflex to HPV Genotypes 16, 18/45 (07/09/2023 12:07 PM EST) HPV nRNA E6/E7 Not Detected Not Detected [facility] Comment:Methodology: Transcr iption-Mediated AmplificationThis assay detects E6/E7 viral messenger RNA (mRNA) from 14high-risk HPV types (16,18,31,33,35,39,45,51,52,56,58,59,66,68).Cervical sources are required for HPV testing.If a vaginal source from a patient who has had atotal hysterectomy with removal of cervix wassubmitted, please contact the testing laboratoryfor alternative testing options.For additional information, please refer tohttp://education.Invieo/faq/BKS585e6(This link if provided for information/educational purposes only.)THIS TEST WAS PERFORMED AT:[facility] [place] [phone] CARRENO MD HPV mRNA E6/E7 [facility] HPV 16 RNA [facility] HPV 18/45 RNA [facility] 07/09/2023 12:0 7 PM EST 07/10/2023 11:00 AM EST Monika Guthrie [facility] LAB CYTOLOGY ORDERABLES F inal Result [facility] [address] [place] [phone] * Pap Smear (07/09/2023 12:07 PM EST) Swab Cervix uteri structure / Unknown 07/09/2023 12:07 PM EST 07/10/2023 11:00 AM EST Narrative [facility] - 07/28/2023 2:33 PM EST ----- ------- Name: Andreina Leblanc ? Age/Sex: 38/F ? : 1985 Unit#: [id number] ?? Attend Dr: MONIKA GUTHRIE CNM ?Re07/09/23 ?Status: DEP REF ? Location: HO.HHCLNP ? Disch: ? ----- ------- SPEC : [id number] ? RECD: 07/10/23-1099 ? STATUS: ??SOUT ? REQ NUM: [id number] ? ALYSSA: 07/09/23-1207 ? SUBM DR: MONIKA GUTHRIE CNM ? ENTERED: ??07/10/231149 ?SP TYPE: Pap Smr ?OTHR : ? [...] 66, 68) ?? HPV testing performed by [facility], [place], [place]. ??See reference laboratory ?? portion of the EMR for entire report. ?Clinical Information LMP: 07/06/23 Previous PAP test: Unknown date, HPV+ Other history: Implantable control ? Material Received ?? ThinPrep-Cervical ----- ------- Signed (signature on file) DEACON Barone (ASCP) 07/28/23 2073 ? ----- ------- ? END OF REPORT ? Monika Guthrie CN LAB CYTOLOGY ORDERABLES F inal Result [facility] [address] [place], [place] [phone] * Hepatitis C Antibody with Reflex to HCV, RNA, Quantitative, Real-Time PCR (10/02/2022 8:44 AM EDT) Hepatitis C Antibody NON-REACT KEATON NON-REACT KEATON [facility] [place] [employer] Index 0.12 <1.00 [facility] [place] [employer] Comment: HCV antibody was non-reactive. There is no laboratory evidence of HCV infection. In most cases, no further action is required. However, if recent HCV exposure is suspected, a test for HCV RNA (test code 59916) is suggested. For additional information please refer to http://BrightFunnel.Invieo/faq/LOY70n0 (This link is being provided for informational/ educational purposes only.) Blood Venous blood specimen / Unknown 10/02/2022 8:44 AM EDT 10/02/2022 8:44 AM EDT Narrative [facility] - 10/07/2022 3:11 PM EDT FASTING:YES FASTING: YES Result [facility] Laure Medina MD LAB BLOOD ORDERAB LES Final Result [facility] [address], [place] [phone] [facility] [place] [employer] [address] [place] [phone] * HIV-1/2 Antigen and Antibodies, Fourth Generation, with Reflexes (10/02/2022 8:44 AM EDT) HIV Antigen/Antibody, 4th Generation NON-REAC TIVE NON-REAC TIVE [facility] [place] [employer] Comment: HIV-1 antigen and HIV-1/HIV-2 antibodies [...] ?? For additional information please refer to http://education.Filter Squad.SensibleSelf/faq/OUI867 (This link is being provided for informational/ educational purposes only.) The performance of this assay has not been clinically validated in patients less than 2 years old. Blood Venous blood specimen / Unknown 10/02/2022 8:44 AM EDT 10/02/2022 8:44 AM EDT Narrative [facility] - 10/07/2022 3:11 PM EDT FASTING:YES FASTING: YES Laure Medina MD LAB BLOOD ORDERAB LES Final Result [facility] [address], [place] [address] [facility] [address] [place] [phone] from Last 3 Months or Most Recently Relevant to Health Maintenance Insurance [facility] ONE CARE < 65 [place] [id number] DENTAL [facility] Care Teams Identity Management Developer Relationship Specialty Start Date End Date Carlee Scott MD [address] [place] [phone] PCP - General Family Medicine 01/20/22
--- OUTSIDE RECORDS SUMMARY | 2024-10-10 17:02 | XMS_ITS | Encounter Summary ---
Author Organization [employer] Address [address] [facility] 7t [place] [address] Care Team Providers Care Mens Locker Room Attendant Name Role Phone Carlee Scott MD Primary Care Provider [phone] Encounter Details Date Type Department Care Team ([facility] st Contact Info) Description 08/11/2023 Orders Only [facility] [address] [place], [place] [phone] Carlee Scott MD [address] [place], [place] [phone] Social History Tobacco Use Types Packs/Day Years [...] Description 11/15/2024 9:00 AM EDT Office Visit [facility]ULT [facility] [address] [place] [address] Johnny Watkins DDS [address] [place] [address] 12/08/2024 10:00 AM EDT Clinical Support [facility] [address] [place] [address] documented as of this encounter Visit Diagnoses Not on filedocumented in this encounter Additional Health Concerns Assessment Noted Time PHQ-9 Depression Total Score: 22 024 12:37 PM EST documented as of this encounter Care Teams Mens Locker Room Attendant Relationship Specialty Start Date End Date Carlee Scott MD [address] [place] [address] PCP - General Family Medicine 01/20/22 documented as of this encounter
--- OUTSIDE RECORDS SUMMARY | 2024-10-10 17:02 | XMS_ITS | Encounter Summary ---
Author Organization [employer] Address [address] [facility] 7t [place] [address] Care Team Providers Care Property Clerk Name Role Phone Carlee Scott MD Primary Care Provider [phone] Encounter Details Date Type Department Care Team ([facility] st Contact Info) Description 09/11/2023 Orders Only [facility] [address] [place] [address] Wai Chen MD [address] [place], [place] [phone] Social History Tobacco Use Types Packs/Day Years [...] Description 11/15/2024 9:00 AM EDT Office Visit [facility]ULT [facility] [address] [place] [address] Johnny Watkins DDS [address] [place] [address] 12/08/2024 10:00 AM EDT Clinical Support [facility] [address] [place] [address] documented as of this encounter Visit Diagnoses Not on filedocumented in this encounter Additional Health Concerns Assessment Noted Time PHQ-9 Depression Total Score: 22 024 12:37 PM EST documented as of this encounter Care Teams Property Clerk Relationship Specialty Start Date End Date Carlee Scott MD [address] [place] [address] PCP - General Family Medicine 01/20/22 documented as of this encounter
--- OUTSIDE RECORDS SUMMARY | 2024-10-10 17:02 | XMS_ITS | Encounter Summary ---
Author Organization [employer] Address [address] [facility] 7t [place] [address] Care Team Providers Care Communication Specialist Name Role Phone Carlee Scott MD Primary Care Provider Encounter Details Date Type Department Care Team (Late st Contact Info) Description 06/28/[address] 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 [address] [place] [address] Johnny Watkins DDS [address] [place] [address] 12/08/2024 10:00 AM EDT Clinical Support 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
--- OUTSIDE RECORDS SUMMARY | 2024-10-10 17:02 | XMS_ITS | Clinical Summary ---
Author Organization [facility] Address [address] [place] [address] Care Team Providers Care Brine Room Laborer Name Role Phone Dana Mattson RN Primary Care Provider Surgical History Surgery Date Site/Laterality Comments OTHER SURGICAL HISTORY PROCEDURE: DENIES PREVIOUS SURGERY OTHER SURGICAL HISTORY PROCEDURE: NC INCISION & DRAINAGE PILONIDAL CYST SIMPLE; COMMENT: [...] a genital outbreak ; no labs in [facility] for review History of blood transfusion [...] RESULTING AGENCY - 08/14/2021 7:26 AM EDT [id number] THINPREP PAP, IMAGED: NEGATIVE FOR SQUAMOUS INTRAEITHELIAL [...] Recently Relevant to Health Maintenance Care Teams Brine Room Laborer Relationship Specialty Start Date End Date Dana Mattson RN [address] [place] [phone] PCP - General 10/16/22
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
[2024-10-10] MEDS: Cyclobenzaprine HCl 10 MG TABLET PO (18:03)
[2024-10-10] MEDS: Acetaminophen 325 MG TABLET 650 MG PO (18:03)
--- NOTE | 2024-10-10 19:01 | PC.NURSE ---
pt to ct at this time
--- NOTE | 2024-10-10 19:08 | PC.NURSE ---
pt ambulatory to bathroom with steady gait, pending ct scans at this time
[2024-10-10 19:24] VITALS: BP 118/69; PULSE 80; RESP 18; TEMP 37.2; O2SAT 99
[2024-10-10 20:14] VITALS: BP 118/69; PULSE 80; RESP 18; TEMP 37.2; O2SAT 99
== END 2024-10-10 20:14 | disposition home or self-care (01) ==
PROVIDERS: Emergency Provider Emergency Medicine
DX: S13.4XXA Sprain of ligaments of cervical spine, initial encounter (principal); S46.912A Strain of unspecified muscle, fascia and tendon at shoulder and upper arm level, left arm, initial encounter; S20.212A Contusion of left front wall of thorax, initial encounter; M54.2 Cervicalgia; M25.512 Pain in left shoulder; X58.XXXA Exposure to other specified factors, initial encounter; V53.5XXA Driver of pick-up truck or van injured in collision with car, pick-up truck or van in traffic accident, initial encounter; Y93.9 Activity, unspecified; Y92.410 Unspecified street and highway as the place of occurrence of the external cause; Y99.8 Other external cause status; Z79.899 Other long term (current) drug therapy; Z87.891 Personal history of nicotine dependence
CPT/HCPCS: 71101; 72125; 73030; 99283; 99284

== ENCOUNTER → 2024-10-10 16:54 | Outpatient (BNV) | payer OTHER, SELFPAY | PROVIDERS: Emergency Provider Emergency Medicine; Visit Provider Radiology Diagnostic Radiology | DX: M54.2 Cervicalgia (principal); R07.81 Pleurodynia; M25.512 Pain in left shoulder; V89.2XXA Person injured in unspecified motor-vehicle accident, traffic, initial encounter | CPT/HCPCS: 71101; 72125; 73030 ==

== ENCOUNTER 2024-10-11 16:29 | Outpatient (REF) | payer OTHER, SELFPAY ==
--- OUTSIDE RECORDS SUMMARY | 2024-10-11 16:47 | XMS_ITS | Encounter Summary ---
Author Organization [employer] Address [address] [facility] [address] [place] [address] Care Team Providers Care Relocation Coordinator Name Role Phone Carlee Scott MD Primary Care Provider [phone] Encounter Details Date Type Department Care Team ([facility] st Contact Info) Description 10/11/2024 1:15 PM EDT Office Visit [facility] MEDICINE [address], [place] [phone] Iris Martines MD [address] [place], [place] [phone] Vaginal discharge (Primary Dx); Dysuria Social History Tobacco Use Types Packs/Day Years Used Date Smoking Tobacco: Former Cigarettes Passive Smoke Exposure: Past Smokeless Tobacco: Never Comments:Smokes 3-4 cigarett es [...] AM EDT documented as of this encounter Last Filed Vital Signs Vital Sign Reading Time Taken Comments Blood Pressure 114/71 10/11/2024 1:29 PM EDT Pulse 101 10/11/2024 1:29 PM EDT Temperature 36.3 ??C (97.3 ??F) 10/11/2024 1:29 PM ED T Respiratory Rate 18 10/11/2024 1:29 PM EDT Oxygen Saturation 99% 10/11/2024 1:29 PM EDT Inhaled Oxygen Concentration - - Weight 80.6 kg (177 lb 9.6 oz) 10/11/2024 1:29 P M EDT Height 170.2 cm (5' 7 ) 10/11/2024 1:29 PM EDT Body Mass Index 27.82 10/11/2024 1:29 PM EDT documented in this encounter Plan of Treatment Upcoming Encounters Date Type Department Care Team (Late st Contact Info) Description 11/15/2024 9:00 AM EDT Office Visit [facility] ADULT DENTAL [address] [place] [address] Johnny Watkins DDS [address] [place] [address] 12/08/2024 10:00 AM EDT Clinical Support [facility] MED[facility]INE [address] [place] [address] Scheduled Orders Name Type Priority Associated Diagnoses Orde r Schedule Culture, Urine, Routine Microbiology Routine Dysuria Expected: 10/11/2024 (Approximate), Expires: 10/11/2025 Bacterial Vaginosis Panel Microbiology Routine Vaginal discharge Ordered: 10/11/2024 documented as of this encounter Procedures Procedure Name Priority Date/Time Associated Diagnosis Comments POCT URINALYSIS DIPSTICK Routine 10/11/2024 2:18 PM EDT Dysuria documented in this encounter Results * POCT Urinalysis (10/11/2024 2:18 PM EDT) Glucose, UA Negative Bilirubin, UA Negative Ketones, UA Negative Spec Grav, UA 1.025 Blood, UA Comment:Trace pH, UA 6.0 Protein, UA Comment:30mg Urobilinogen, UA 0.2 Leukocytes, UA Comment:Small Nitrite, UA Negative Negative, None Detected Appearance, UA dark yellow QC Media Lot # [id number] Lot# Expiration Date Urine 10/11/2024 2:18 PM EDT Iris Martines MD POINT OF CARE TEST ENTER/EDIT OR DERABLES Final Result documented in this encounter Visit Diagnoses Diagnosis Vaginal discharge- Primary Leukorrhea, not specified as infective Dysuria documented in this encounter Additional Health Concerns Assessment Noted Time PHQ-9 Depression Total Score: 0 03/18/20 24 10:02 AM EDT documented as of this encounter Care Teams Relocation Coordinator Relationship Specialty Start Date End Date Carlee Scott MD [address] [place] [id number] PCP - General Family Medicine 01/20/22 documented as of this encounter
--- OUTSIDE RECORDS SUMMARY | 2024-10-11 16:47 | XMS_ITS | Encounter Summary ---
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 (Primary Dx) [...] Description 11/15/2024 9:00 AM EDT Office Visit [facility] ADULT DENTAL [address] [place] [address] Johnny Watkins DDS [address] [place] [address] 12/08/2024 10:00 AM EDT Clinical Support [facility] MEDICINE [address] [place] [address] documented as of this encounter Visit Diagnoses Diagnosis 

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
--- OUTSIDE RECORDS SUMMARY | 2024-10-11 16:47 | XMS_ITS | Clinical Summary ---
Author Organization [employer] Address [address] [facility] 7t [place] [address] Care Team Providers Care Yard Inspector Name Role Phone Carlee Scott MD Primary Care Provider [phone] Allergies Active Allergy Reactions Criticality Noted Date [...] with evening meal. 60 tablet 5 09/03/19 26 Active busPIRone (Buspar) 10 MG tablet Take 1 tablet (10 mg) by mouth 2 times daily. Up o twice a day if needed 60 tablet 09/03/19 26 Active guaiFENesin (Mucinex) 600 MG 12 hr tablet Take 2 tablets (1,200 mg) by mouth 2 times daily. Do not crush, chew, or split. 40 tablet 5 09/03/19 26 Active atorvastatin (Lipitor) 10 MG tablet 5 Active fluconazole (Diflucan) 150 MG tablet Take 1 tablet (150 mg) by mouth 1 (one) time per week for 14 days. 2 tablet 5 10/26/19 25 Active amoxicillin-cla vulanate (Augmentin) 875-125 MG tablet [...] of Depression, Anxiety, and Alcohol Use Disorder. 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 Pt denies having tongue swelling, but reports having nausea, cough, sneezing, wheezing, sore throat after the vaccine. Sx don't seem like an allergy, but pt insisted that she was told about an allergic reaction. Given uncertainty if it was an actual allergy will try to get records and also referred pt to enterprise project manager. Did annual labs today and Tb test--pt will bring form to be completed ---if not seen by enterprise project manager by then would explain in form that [...] in clinic or CRISIS/ER Had BE with [facility] prior to leaving appointment two weeks ago, [...] Encounters Date Type Department Care Team Description 10/11/2024 1:15 PM EDT Office Visit [address] [address] Iris Martines MD Vaginal discharge (Primary Dx); Dysuria 10/11/2024 Travel 10/11/[address] [address] Carlee Scott MD Nurse Triage 09/26/2024 1:00 PM EDT Office Visit [facility] [address] [place] [phone] Radha Arias, DDS Dental caries (Primary Dx); Dental abscess; Acute pulpitis; Supra-eruption of tooth 09/20/2024 1:00 PM EDT Clinical Support [address] [address] Bridget Simeon, KIANA Encounter for surveillance of injectable contraceptive 09/20/2024 Travel 09/02/2024 11:30 AM EDT Office Visit [address] [address] Carlee Scott MD Other chest pain (Primary Dx); Severe episode of recurrent major depressive disorder, without psychotic features (CMS/HCC); Dietary counseling; Exercise counseling; Overweight; Severe anxiety 09/02/2024 Travel 09/01/2024 Orders Only GENERIC EXTERNAL DATA DEPARTMENT Provider, Generic External Data 08/31/[address] [phone] Carlee Scott MD Nurse Triage from Last [...] Mass Index 27.82 10/11/2024 1:29 PM EDT Plan of Treatment Upcoming Encounters Date Type Department Care Team (Late st Contact Info) Description 11/15/2024 9:00 AM EDT Office Visit [facility] [address] [place], [place] [phone] Johnny Watkins DDS [address] [place], [place] [phone] 12/08/2024 10:00 AM EDT Clinical Support [facility] [address] [place], [place] [phone] Health Maintenance Due Date Last Done Comments Dental Oral Exam 1985 Dental Prophylaxis 1985 Dental X-Ray: Full Mouth 1985 HPV Vaccines (3 - 3-dose series) 01/01/2010 10/09/2009, 04/03/2009 COVID-19 Vaccine ( season) 2024 Influenza Vaccine (#1) 2024 02/21/2013, 2011 Depression Screening 03/18/2025 03/18/2024, 03/18/20 SDOH Screening 06/30/2025 06/30/2024 Disability Screening 09/02/2025 09/02/2024 Family Planning (PISQ) 09/20/2025 09/20/2024 Dental X-Ray: Bitewings 09/27/2025 09/26/2024 Alcohol/Substance Use Screening 10/11/2025 10/11/2024 Tobacco Screening 10/11/2025 10/11/2024 Cervical Cancer Screening 07/09/2028 HPV/Cotest 07/09/2028 07/09/2023, [...] DIPSTICK Routine 10/11/2024 2:18 PM EDT Dysuria CASE PRESENTATION, DETAILED AND EXTENSIVE TREATMENT PLANNING [...] Relevant to Health Maintenance Results * POCT Urinalysis (10/11/2024 2:18 PM EDT) Glucose, UA Negative Bilirubin, UA Negative Ketones, UA Negative Spec Grav, UA 1.025 Blood, UA Comment:Trace pH, UA 6.0 Protein, UA Comment:30mg Urobilinogen, UA 0.2 Leukocytes, UA Comment:Small Nitrite, UA Negative Negative, None Detected Appearance, UA dark yellow QC Media Lot # [id number] Lot# Expiration Date [id number] Urine 10/11/2024 2:18 PM EDT Iris Martines MD POINT OF CARE TEST ENTER/EDIT OR DERABLES Final Result * POCT Urine (09/20/2024 2:10 PM EDT) Preg Test, Ur Negative Negative, Indeterminate, None Detected, Invalid, Specimen unsatisfactory for evaluation, Weakly Positive QC Media Lot # [id number] Lot# Expiration Date [id number] Urine 09/20/2024 2:10 PM EDT Carlee Scott MD POINT OF CARE TEST ENTER/EDIT ORDERABLES Final Result * (ABNORMAL) CBC auto differential (09/01/2024 11:22 AM EDT) White Blood Count 6.1 4.8 - 10.8 X10*3/uL [facility] Red Blood Count 4.61 4.20 - 5.50 X10*6/uL [facility] Hemoglobin 13.1 12.0 - 16.0 g/dl [facility] Hematocrit 38.5 37.0 - 47.0 % [facility] Mean Corpuscular Volume 83.5 80.0 - 98.0 fL [facility] Mean Corpuscular Hemoglobin 28.4 27.0 - 33.0 pg [facility] Mean Corpuscular HGB Conc 34.0 31.0 - 35.0 g/dl [facility] Red Cell Distribution Width 13.2 11.0 - 16.0 % [facility] Platelet Count 271 160 - 400 X10*3/uL [facility] Mean Platelet Volume 8.5(L) 9.4 - 12.3 fL [facility] Neutrophils Percent Auto 53.7 45 - 73 % [facility] Imm Gran Pct Auto 0.5(H) 0.0 - 0.4 % [facility] Lymphocytes Percent Auto 36.2 20 - 40 % [facility] Monocytes Percent Auto 6.4 2 - 11 % [facility] Eosinophils Percent Auto 2.9 0 - 4 % [facility] Basophils Percent Auto 0.3 0 - 2 % [facility] NRBC Pct Auto 0.0 0.0 - 0.2 /100WBC [facility] Neutrophils Absolute Auto 3.3 2.0 - 8.3 x10*3/uL [facility] Imm Gran Abs Auto 0.03 0.00 - 0.03 X10*3/uL [facility] Lymphocytes Absolute Auto 2.2 1.2 - 4.9 X10*3/uL [facility] Monocytes Absolute Auto 0.4 0.1 - 1.2 X10*3/uL [facility] Eosinophils Absolute Auto 0.2 0.0 - 0.4 X10*3/uL [facility] Basophils Absolute Auto 0.0 0.0 - 0.2 X10*3/uL [facility] NRBC Abs Auto 0.000 0.0 - 0.012 X10*3/uL [facility] 09/01/2024 11:2 2 AM EDT 09/01/2024 11:22 AM EDT us Generic External Data Provider LAB BLOOD ORDERAB LES Final Result Performing Organization Address [facility] Co de Phone Number [facility] [address] [place] [phone] * B Type Natriuretic Peptide (BNP) (09/01/2024 11:22 AM EDT) B Type Natriuretic Peptide <10 <100 pg/mL [facility] 09/01/2024 11:2 2 AM EDT 09/01/2024 11:22 AM EDT Generic External Data Provider LAB BLOOD ORDERAB LES Final Result Performing Organization Address [facility] Co de Phone Number [facility] [address] [place] [phone] * (ABNORMAL) Lipid Panel, Standard (09/01/2024 11:22 AM EDT) Triglycerides 111 <150 mg/dL [facility] Comment:Desirable Triglyceri de: less than 150 mg/dLBorderline High Triglyceride 150-199 mg/dLHigh Triglyceride: 200-499 mg/dLVery High Triglyceride: greater than or equal to 5OO mg/dL Cholesterol 245(H) <200 mg/dL [facility] Comment:Desirable Cholestero l: less than 200 mg/dLBorderline High Cholesterol: 200-239 mg/dLHigh Cholesterol: greater than 239 mg/dL LDL Cholesterol Calculated 178(H) <100 mg/dL [facility] Comment:Desirable LDL: less than 100 mg/dLNear Optimal/Above Optimal LDL: 110- 129 mg/dLBorderline High LDL: 130-159 mg/dLHigh LDL: 160-189 mg/dLVery High LDL: greater than or equal to 190 mg/dL HDL Cholesterol 45 >40 mg/dL [facility] Comment:Desirable HDL: great er than 40 mg/dL Note: This HDL assay may give artificially low results in patients with liver disease. 09/01/2024 11:2 2 AM EDT 09/01/2024 11:22 AM EDT us Generic External Data Provider LAB BLOOD ORDERAB LES Final Result [facility] [address] [place] [phone] * HPV mRNA E6/E7 w/Reflex to HPV Genotypes 16, 18/45 (07/09/2023 12:07 PM EST) HPV nRNA E6/E7 Not Detected Not Detected [facility] Comment:Methodology: Transcr iption-Mediated AmplificationThis assay detects E6/E7 viral messenger RNA (mRNA) from 14high-risk HPV types (16,18,31,33,35,39,45,51,52,56,58,59,66,68).Cervical sources are required for HPV testing.If a vaginal source from a patient who has had atotal hysterectomy with removal of cervix wassubmitted, please contact the testing laboratoryfor alternative testing options.For additional information, please refer tohttp://education.[employer]/faq/LHB018d6(This link if provided for information/educational purposes only.)THIS TEST WAS PERFORMED AT:[facility] [place] [phone] CARRENO MD HPV mRNA E6/E7 TNP [facility] HPV 16 RNA TNP [facility] HPV 18/45 RNA [facility] 07/09/2023 12:0 7 PM EST 07/10/2023 11:00 AM EST Monika Guthrie CNM LAB CYTOLOGY ORDERABLES F inal Result [facility] [address] [place] [phone] * Pap Smear (07/09/2023 12:07 PM EST) Swab Cervix uteri structure / Unknown 07/09/2023 12:07 PM EST 07/10/2023 11:00 AM EST Narrative [facility] - 07/28/2023 2:33 PM EST ----- ------- Name: Andreina Leblanc ? Age/Sex: 38/F ? : 1985 Unit#: [id number] ?? Attend Dr: MONIKA GUTHRIE CNM ?Re07/09/23 ?Status: DEP REF ? Location: HO.CLNP ? Disch: ? ----- ------- SPEC : [id number] ? RECD: 07/10/23 ? STATUS: ??SOUT ? REQ NUM: [id number] ? ALYSSA: 07/09/231203 ? SUBM DR: MONIKA GUTHRIE CNM ? ENTERED: ??07/10/231146 ?SP TYPE: Pap Smr ?OTHR DR: ? [...] 66, 68) ?? HPV testing performed by [facility], [place], [place]. ??See reference laboratory ?? portion of the EMR for entire report. ?Clinical Information LMP: 07/06/23 Previous PAP test: Unknown date, HPV+ Other history: Implantable control ? Material Received ?? ThinPrep-Cervical ----- ------- Signed (signature on file) DEACON Barone (ASCP) 07/28/23 2893 ? ----- ------- ? END OF REPORT ? us Monika Guthrie [facility] LAB CYTOLOGY ORDERABLES F inal Result [facility] [address] [place] [phone] * Hepatitis C Antibody with Reflex to HCV, RNA, Quantitative, Real-Time PCR (10/02/2022 8:44 AM EDT) Hepatitis C Antibody NON-REACT KEATON NON-REACT KEATON [facility] Index 0.12 <1.00 [facility] Comment: HCV antibody was non-reactive. There is no laboratory evidence of HCV infection. In most cases, no further action is required. However, if recent HCV exposure is suspected, a test for HCV RNA (test code 94545) is suggested. For additional information please refer to http://HubChilla.[employer]/faq/YMP41q7 (This link is being provided for informational/ educational purposes only.) Blood Venous blood specimen / Unknown 10/02/2022 8:44 AM EDT 10/02/2022 8:44 AM EDT Narrative [facility] - 10/07/2022 3:11 PM EDT FASTING:YES FASTING: YES Laure Medina MD LAB BLOOD ORDERAB LES Final Result [facility] [address], [place] [address] [facility] [address] [place] [phone] * HIV-1/2 Antigen and Antibodies, Fourth Generation, with Reflexes (10/02/2022 8:44 AM EDT) HIV Antigen/Antibody, 4th Generation NON-REAC TIVE NON-REAC TIVE [facility] [place] [facility] Comment: HIV-1 antigen and HIV-1/HIV-2 antibodies were [...] ?? For additional information please refer to http://HubChilla.[employer]/faq/TND053 (This link is being provided for informational/ educational purposes only.) The performance of this assay has not been clinically validated in patients less than 2 years old. Blood Venous blood specimen / Unknown 10/02/2022 8:44 AM EDT 10/02/2022 8:44 AM EDT Narrative [facility] - 10/07/2022 3:11 PM EDT FASTING:YES FASTING: YES Laure Medina MD LAB BLOOD ORDERAB LES Final Result [facility] [address], [place] [address] [facility] [address] [place] [address] from Last 3 Months or Most Recently Relevant to Health Maintenance Insurance [facility] < [facility] Care Teams Yard Inspector Relationship Specialty Start Date End Date Carlee Scott MD [address] [place] [phone] PCP - General Family Medicine 01/20/22
--- OUTSIDE RECORDS SUMMARY | 2024-10-11 16:47 | XMS_ITS | Clinical Summary ---
Author Organization [facility] Address [address] [place] [address] Care Team Providers Care Angle Bender Name Role Phone Dana Mattson RN Primary Care Provider [phone] Surgical History Surgery Date Site/Laterality Comments OTHER SURGICAL HISTORY PROCEDURE: DENIES PREVIOUS SURGERY OTHER SURGICAL HISTORY PROCEDURE: [place] INCISION & DRAINAGE PILONIDAL CYST SIMPLE; COMMENT: [...] ; no labs in [facility] for review History of blood transfusion [...] RESULTING AGENCY - 08/14/2021 7:26 AM EDT [id number] THINPREP PAP, IMAGED: NEGATIVE FOR SQUAMOUS INTRAEITHELIAL [...] Recently Relevant to Health Maintenance Care Teams Angle Bender Relationship Specialty Start Date End Date Dana Mattson RN [address] [place] [phone] PCP - General 10/16/22
--- OUTSIDE RECORDS SUMMARY | 2024-10-11 16:47 | XMS_ITS | Encounter Summary ---
Author Organization [facility] [facility] [employer] Address [address] [facility] 7t [place] [address] Care Team Providers Care Product Safety Lead Name Role Phone Carlee Scott MD Primary Care Provider [phone] Encounter Details Date Type Department Care Team ([facility] st Contact Info) Description 08/11/2023 Orders Only [facility] [address] [place], [place] [phone] Carlee Scott MD [address] [place], [place] [phone] Social History Tobacco Use Types Packs/Day Years [...] Description 11/15/2024 9:00 AM EDT Office Visit [facility] [address] [place] [address] Johnny Watkins DDS [address] [place] [address] 12/08/2024 10:00 AM EDT Clinical Support [facility] [address] [place] [address] documented as of this encounter Visit Diagnoses Not on filedocumented in this encounter Additional Health Concerns Assessment Noted Time PHQ-9 Depression Total Score: 22 024 12:37 PM EST documented as of this encounter Care Teams Product Safety Lead Relationship Specialty Start Date End Date Carlee Scott MD [address] [place] [address] PCP - General Family Medicine 01/20/22 documented as of this encounter
--- OUTSIDE RECORDS SUMMARY | 2024-10-11 16:47 | XMS_ITS | Encounter Summary ---
Author Organization [employer] Address [address] [facility] 7t [place] [address] Care Team Providers Care Heel Wheeler Name Role Phone Carlee Scott MD Primary Care Provider [phone] Encounter Details Date Type Department Care Team ([facility] st Contact Info) Description 09/11/2023 Orders Only [facility] [address] [place], [place] [phone] Wai Chen MD [address] [place], [place] [phone] Social History Tobacco Use Types Packs/Day Years [...] 9:00 AM EDT Office Visit [facility] [address] [place] [address] Johnny Watkins DDS [address] [place] [address] 12/08/2024 10:00 AM EDT Clinical Support [facility] [address] [place] [address] documented as of this encounter Visit Diagnoses Not on filedocumented in this encounter Additional Health Concerns Assessment Noted Time PHQ-9 Depression Total Score: 22 024 12:37 PM EST documented as of this encounter Care Teams Heel Wheeler Relationship Specialty Start Date End Date Carlee Scott MD [address] [place] [address] PCP - General Family Medicine 01/20/22 documented as of this encounter
--- OUTSIDE RECORDS SUMMARY | 2024-10-11 16:47 | XMS_ITS | Encounter Summary ---
Author Organization [employer] Address [address] [facility] 7t [place] [address] Care Team Providers Care Newspaper Library Manager Name Role Phone Carlee Scott MD Primary Care Provider [phone] Encounter Details Date Type Department Care Team (Latest Contact Info) Description 10/11/2024 Travel Social History Tobacco Use Types Packs/Day [...] 9:00 AM EDT Office Visit [facility] [address] [place] [address] Johnny Watkins DDS [address] [place] [address] 12/08/2024 10:00 AM EDT Clinical Support [facility] [address] [place] [address] documented as of this encounter Visit Diagnoses Not on filedocumented in this encounter Additional Health Concerns Assessment Noted Time PHQ-9 Depression Total Score: 0 03/18/20 24 10:02 AM EDT documented as of this encounter Care Teams Newspaper Library Manager Relationship Specialty Start Date End Date Carlee Scott MD [address] [place] [address] PCP - General Family Medicine 01/20/22 documented as of this encounter
--- OUTSIDE RECORDS SUMMARY | 2024-10-11 16:47 | XMS_ITS | Encounter Summary ---
Author Organization [employer] Address 75 [facility] 7t [place] [address] Care Team Providers Care Fixed Wing Aircraft Flight Mechanic Name Role Phone Carlee Scott MD Primary Care Provider [phone] Encounter Details Date Type Department Care Team ([facility] st Contact Info) Description 06/10/2023 Orders Only [facility] [address] [place], [place] [phone] Laure Canada MD [address] [place], [place] [phone] Social History Tobacco Use Types Packs/Day Years [...] is your housing situation today? I have cmnahun martínez 03/20/[address] you [...] Description 11/15/2024 9:00 AM EDT Office Visit [facility] [address] [place] [address] Johnny Watkins DDS [address] [place] [address] 12/08/2024 10:00 AM EDT Clinical Support [facility] [address] [place] [address] documented as of this encounter Visit Diagnoses Not on filedocumented in this encounter Additional Health Concerns Assessment Noted Time PHQ-9 Depression Total Score: 16 023 9:32 AM EST documented as of this encounter Care Teams Fixed Wing Aircraft Flight Mechanic Relationship Specialty Start Date End Date Carlee Scott MD [address] [place] [address] PCP - General Family Medicine 01/20/22 documented as of this encounter
[2024-10-11 17:49] LABS: Bacterial Vaginosis PCR NEGATIVE (Negative); Candida Group PCR NOT DETECTED (Not Detect); Candida glab krusei PCR DETECTED (Not Detect); Trichomonas vaginalis PCR NOT DETECTED (Not Detect)
== END 2024-10-11 16:30 | disposition home or self-care (01) ==
LOC: HO.LNP 16:29
PROVIDERS: Visit Provider Family Medicine
DX: N89.8 Other specified noninflammatory disorders of vagina (principal); R30.0 Dysuria
CPT/HCPCS: 81515; 87086

== ENCOUNTER 2024-10-13 08:57 | Outpatient (REF) | payer OTHER, SELFPAY ==
--- NOTE | 2024-10-13 09:00 | PFT_ITS ---
Flows: FEV1: 126 % of predicted at 3.68 L FVC: 121 % of predicted at 4.29 L FEV1/FVC: 86 % Bronchodilator response: Absent Volumes: Total lung capacity: 93 % of predicted at 5.37 L Residual volume: 77 % of predicted at 1.08 L Slow vital capacity: 98 % of predicted at 4.29 L Expiratory reserve volume: 73 % of predicted at 1.04 L Diffusion capacity: Mildly decreased Impression: No obstructive or restrictive ventilatory defects. No bronchodilator response. Decreased expiratory reserve volume suggests extrathoracic restriction likely secondary to abdominal obesity. Decreased diffusion capacity suggests emphysema. MTDD
--- OUTSIDE RECORDS SUMMARY | 2024-10-13 09:07 | XMS_ITS | Encounter Summary ---
Author Organization [employer] Address 75 [facility] 7t [place] [address] Care Team Providers Care Donations Attendant Name Role Phone Carlee Scott MD Primary Care Provider [phone] Reason for Visit * Reason Onset Date Comments Nurse Triage 10/11/2024 Encounter Details Date Type Department Care Team ([facility] st Contact Info) Description 10/11/2024 Telephone [facility] [address] [place], [place] [phone] Carlee Scott MD 230 [place], [place] [phone] Nurse Triage Social History Tobacco Use Types [...] 9:00 AM EDT Office Visit [facility] [address] [place] [address] Johnny Watkins DDS [address] [place] [address] 12/08/2024 10:00 AM EDT Clinical Support [facility] [address] [place] [address] documented as of this encounter Visit Diagnoses Not on filedocumented in this encounter Additional Health Concerns Assessment Noted Time PHQ-9 Depression Total Score: 0 03/18/20 10:02 AM EDT documented as of this encounter Care Teams Donations Attendant Relationship Specialty Start Date End Date Carlee Scott MD [address] [place] [phone] PCP - General Family Medicine 01/20/22 documented as of this encounter
--- OUTSIDE RECORDS SUMMARY | 2024-10-13 09:08 | XMS_ITS | Clinical Summary ---
Author Organization [facility] [facility] Address [address] [place] [address] Care Team Providers Care Special Makeup Fx Artist Instructor Name Role Phone Dana Mattson RN Primary Care Provider [phone] Surgical History Surgery Date Site/Laterality Comments OTHER SURGICAL HISTORY PROCEDURE: DENIES PREVIOUS SURGERY OTHER SURGICAL HISTORY PROCEDURE: [place] INCISION & DRAINAGE PILONIDAL CYST SIMPLE; COMMENT: [...] ; no labs in [facility] for review History of blood transfusion [...] RESULTING AGENCY - 08/14/2021 7:26 AM EDT [id number] THINPREP PAP, IMAGED: NEGATIVE FOR SQUAMOUS INTRAEITHELIAL [...] Recently Relevant to Health Maintenance Care Teams Special Makeup Fx Artist Instructor Relationship Specialty Start Date End Date Dana Mattson RN [address] [place] [phone] PCP - General 10/16/22
--- OUTSIDE RECORDS SUMMARY | 2024-10-13 09:08 | XMS_ITS | Encounter Summary ---
Author Organization [facility] Address [address] [facility] 7t [place] [address] Care Team Providers Care Telephone Instrument Supervisor Name Role Phone Carlee Scott MD Primary Care Provider [phone] Encounter Details Date Type Department Care Team ([facility] st Contact Info) Description 06/10/2023 Orders Only [facility] [address] [place], [place] [phone] Laure Canada MD [address] [place], [place] [phone] Social History Tobacco Use Types Packs/Day Years [...] Description 11/15/2024 9:00 AM EDT Office Visit [facility] [address] [place] [address] Johnny Watkins DDS [address] [place] [address] 12/08/2024 10:00 AM EDT Clinical Support [facility] [address] [place] [address] documented as of this encounter Visit Diagnoses Not on filedocumented in this encounter Additional Health Concerns Assessment Noted Time PHQ-9 Depression Total Score: 16 023 9:32 AM EST documented as of this encounter Care Teams Telephone Instrument Supervisor Relationship Specialty Start Date End Date Carlee Scott MD [address] [place] [address] PCP - General Family Medicine 01/20/22 documented as of this encounter
--- OUTSIDE RECORDS SUMMARY | 2024-10-13 09:08 | XMS_ITS | Clinical Summary ---
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 Did annual labs today and Tb test--pt will bring form to be completed ---if not seen by oyster picker by then would explain in form that [...] Description 10/11/2024 1:15 PM EDT Office Visit [address] [address] Iris Martines MD Vaginal discharge (Primary Dx); Dysuria 10/11/2024 Travel 10/11/[address] [address] Carlee Scott MD Nurse Triage 09/26/2024 1:00 PM EDT Office Visit [facility] ADULT D[facility] [address] [place] [phone] Radha Arias, DDS Dental caries (Primary Dx); Dental abscess; Acute pulpitis; Supra-eruption of tooth 09/20/2024 1:00 PM EDT Clinical Support [address] [address] Bridget Simeon, KIANA Encounter for surveillance of injectable contraceptive 09/20/2024 Travel 09/02/2024 11:30 AM EDT Office Visit [address] [address] Carlee Scott MD Other chest pain (Primary Dx); Severe episode of recurrent major depressive disorder, without psychotic features (CMS/HCC); Dietary counseling; Exercise counseling; Overweight; Severe anxiety 09/02/2024 Travel 09/01/2024 Orders Only GENERIC EXTERNAL DATA DEPARTMENT Provider, Generic External Data 08/31/[address] [phone] Carlee Scott MD Nurse Triage from Last [...] Description 11/15/2024 9:00 AM EDT Office Visit [facility] ADULT D[facility]AL [address] [place], [place] [phone] Johnny Watkins DDS [address] [place], [place] [phone] 12/08/2024 10:00 AM EDT Clinical Support [facility] MEDICINE [address] [place], [place] [phone] Health Maintenance Due Date Last Done Comments [...] DIPSTICK Routine 10/11/2024 2:18 PM EDT Dysuria CULTURE, URINE, ROUTINE Routine 10/11/2024 12:00 AM EDT Dysuria BACTERIAL VAGINOSIS PANEL Routine 10/11/2024 12:00 AM EDT Vaginal discharge CASE PRESENTATION, DETAILED AND EXTENSIVE TREATMENT PLANNING [...] Media Lot # [id number] Lot# Expiration Date 82 Urine 10/11/2024 2:18 PM EDT Iris Martines MD POINT OF CARE TEST ENTER/EDIT OR DERABLES Final Result * (ABNORMAL) Bacterial Vaginosis Panel (10/11/2024 12:00 AM EDT) TRICHOMONAS VAGINALIS DETECTION BY PCR NOT DETECTED Not Detect [facility] BACTERIAL VAGINOSIS DETECTION BY PCR NEGATIVE Negative [facility] Comment:The BV organism targ ets of the Xpert Xpress MVP test can becommensal in women; Xpert Xpress MVP positive results forbacterial vaginosis should be considered in conjunction withother clinical and patient information to determine thedisease status. Organisms that are not detected by the XpertXpress MVP test have also been reported to be associatedwith BV and aerobic vaginitis.The Xpert Xpress MVP test performance has not been evaluatedin patients under the age of 14. [employer] DETECTION BY PCR NOT DETECTED Not Detect [facility] Rosamaria glab krusei PCR DETECTED(A) Not Detect [facility] Swab Vaginal structure / Unknown 10/11/2024 10/11/2024 Iris Martines MD LAB MICROBIOLOGY - GENERAL ORDER ALHAJI Final Result [facility] [address] [place] [phone] * POCT Urine (09/20/2024 2:10 PM EDT) Preg Test, Ur Negative Negative, Indeterminate, None Detected, Invalid, Specimen unsatisfactory for evaluation, Weakly Positive QC Media Lot # [id number] Lot# Expiration Date [id number] Urine 09/20/2024 2:10 PM EDT Carlee Scott MD POINT OF CARE TEST ENTER/EDIT ORDERABLES Final Result * (ABNORMAL) CBC auto differential (09/01/2024 11:22 AM EDT) White Blood Count 6.1 4.8 - 10.8 X10*3/uL [facility] Red Blood Count 4.61 4.20 - 5.50 X10*6/uL [facility] Hemoglobin 13.1 12.0 - 16.0 g/dl [facility] Hematocrit 38.5 37.0 - 47.0 % [facility] Mean Corpuscular Volume 83.5 80.0 - 98.0 fL [facility] Mean Corpuscular Hemoglobin 28.4 27.0 - 33.0 pg [facility] Mean Corpuscular HGB Conc 34.0 31.0 - 35.0 g/dl [facility] Red Cell Distribution Width 13.2 11.0 - 16.0 % [facility] Platelet Count 271 160 - 400 X10*3/uL [facility] Mean Platelet Volume 8.5(L) 9.4 - 12.3 fL [facility] Neutrophils Percent Auto 53.7 45 - 73 % [facility] Imm Gran Pct Auto 0.5(H) 0.0 - 0.4 % [facility] Lymphocytes Percent Auto 36.2 20 - 40 % [facility] Monocytes Percent Auto 6.4 2 - 11 % [facility] Eosinophils Percent Auto 2.9 0 - 4 % [facility] Basophils Percent Auto 0.3 0 - 2 % [facility] NRBC Pct Auto 0.0 0.0 - 0.2 /100WBC [facility] Neutrophils Absolute Auto 3.3 2.0 - 8.3 x10*3/uL [facility] Imm Gran Abs Auto 0.03 0.00 - 0.03 X10*3/uL [facility] Lymphocytes Absolute Auto 2.2 1.2 - 4.9 X10*3/uL [facility] Monocytes Absolute Auto 0.4 0.1 - 1.2 X10*3/uL [facility] Eosinophils Absolute Auto 0.2 0.0 - 0.4 X10*3/uL [facility] Basophils Absolute Auto 0.0 0.0 - 0.2 X10*3/uL [facility] NRBC Abs Auto 0.000 0.0 - 0.012 X10*3/uL [facility] 09/01/2024 11:2 2 AM EDT 09/01/2024 11:22 AM EDT us Generic External Data Provider LAB BLOOD ORDERAB LES Final Result Performing Organization Address City/[facility]/ZIP Co de Phone Number [facility] [address] [place] [phone] * B Type Natriuretic Peptide (BNP) (09/01/2024 11:22 AM EDT) B Type Natriuretic Peptide <10 <100 pg/mL [facility] 09/01/2024 11:2 2 AM EDT 09/01/2024 11:22 AM EDT Generic External Data Provider LAB BLOOD ORDERAB LES Final Result Performing Organization Address City/[facility]/ZIP Co de Phone Number [facility] [address] [place] [phone] * (ABNORMAL) Lipid Panel, Standard (09/01/2024 11:22 AM EDT) Triglycerides 111 <150 mg/dL [facility] Comment:Desirable Triglyceri de: less than 150 mg/dLBorderline High Triglyceride 150-199 mg/dLHigh Triglyceride: 200-499 mg/dLVery High Triglyceride: greater than or equal to 5OO mg/dL Cholesterol 245(H) <200 mg/dL [facility] Comment:Desirable Cholestero l: less than 200 mg/dLBorderline High Cholesterol: 200-239 mg/dLHigh Cholesterol: greater than 239 mg/dL LDL Cholesterol Calculated 178(H) <100 mg/dL [facility] Comment:Desirable LDL: less than 100 mg/dLNear Optimal/Above Optimal LDL: 110- 129 mg/dLBorderline High LDL: 130-159 mg/dLHigh LDL: 160-189 mg/dLVery High LDL: greater than or equal to 190 mg/dL HDL Cholesterol 45 >40 mg/dL [facility] Comment:Desirable HDL: great er than 40 mg/dL Note: This HDL assay may give artificially low results in patients with liver disease. 09/01/2024 11:2 2 AM EDT 09/01/2024 11:22 AM EDT us Generic External Data Provider LAB BLOOD ORDERAB LES Final Result [facility] [address] [place] [phone] * HPV mRNA E6/E7 w/Reflex to HPV Genotypes 16, 18/45 (07/09/2023 12:07 PM EST) HPV nRNA E6/E7 Not Detected Not Detected [facility] Comment:Methodology: Transcr iption-Mediated AmplificationThis assay detects E6/E7 viral messenger RNA (mRNA) from 14high-risk HPV types (16,18,31,33,35,39,45,51,52,56,58,59,66,68).Cervical sources are required for HPV testing.If a vaginal source from a patient who has had atotal hysterectomy with removal of cervix wassubmitted, please contact the testing laboratoryfor alternative testing options.For additional information, please refer tohttp://education.Planet Daily/faq/SQI977l9(This link if provided for information/educational purposes only.)THIS TEST WAS PERFORMED AT:[facility] [place] [phone] CARRENO MD HPV mRNA E6/E7 TNP [facility] HPV 16 RNA TNP [facility] HPV 18/45 RNA [facility] 07/09/2023 12:0 7 PM EST 07/10/2023 11:00 AM EST us Monika Guthrie CNM LAB CYTOLOGY ORDERABLES F inal Result [facility] [address] [place] [phone] * Pap Smear (07/09/2023 12:07 PM EST) Swab Cervix uteri structure / Unknown 07/09/2023 12:07 PM EST 07/10/2023 11:00 AM EST Narrative [facility] - 07/28/2023 2:33 PM EST ----- ------- Name: Andreina Leblanc ? Age/Sex: 38/F ? : 1985 Unit#: [id number] ?? Attend Dr: MONIKA GUTHRIE CNM ?Re07/09/23 ?Status: DEP REF ? Location: HO.HHCLNP ? Disch: ? ----- ------- SPEC : [id number] ? RECD: 07/10/23-1100 ? STATUS: ??SOUT ? REQ NUM: [id number] ? ALYSSA: 07/09/23-1207 ? SUBM DR: MONIKA GUTHRIE CNM ? ENTERED: ??07/10/23-1149 ?SP TYPE: Pap Smr ?OTHR DR: ? [...] 66, 68) ?? HPV testing performed by [facility], [place], [place]. ??See reference laboratory ?? portion of the EMR for entire report. ?Clinical Information LMP: 07/06/23 Previous PAP test: Unknown date, HPV+ Other history: Implantable control ? Material Received ?? ThinPrep-Cervical ----- ------- Signed (signature on file) DEACON Barone ([facility]) 07/28/23 1433 ? ----- ------- ? END OF REPORT ? Monika Guthrie [facility] LAB CYTOLOGY ORDERABLES F inal Result [facility] [address] [place] [phone] * Hepatitis C Antibody with Reflex to HCV, RNA, Quantitative, Real-Time PCR (10/02/2022 8:44 AM EDT) Hepatitis C Antibody NON-REACT KEATON NON-REACT KEATON [facility] [place] [employer] Index 0.12 <1.00 [facility] [place] [employer] Comment: HCV antibody was non-reactive. There is no laboratory evidence of HCV infection. In most cases, no further action is required. However, if recent HCV exposure is suspected, a test for HCV RNA (test code 58147) is suggested. For additional information please refer to http://education.Planet Daily/faq/NHM35o6 (This link is being provided for informational/ educational purposes only.) Blood Venous blood specimen / Unknown 10/02/2022 8:44 AM EDT 10/02/2022 8:44 AM EDT Narrative [facility] - 10/07/2022 3:11 PM EDT FASTING:YES FASTING: YES Laure Medina MD LAB BLOOD ORDERAB LES Final Result Performing Organization Address City/[facility]/ZIP Co de Phone Number [facility] [address], [facility] [place] [phone] [facility] [place] [facility] [address] [place] [phone] * HIV-1/2 Antigen and Antibodies, Fourth Generation, with Reflexes (10/02/2022 8:44 AM EDT) [facility] HIV Antigen/Antibody, 4th Generation NON-REAC TIVE NON-REAC TIVE [facility] [place] [employer] Comment: HIV-1 antigen and HIV-1/HIV-2 antibodies were [...] ?? For additional information please refer to http://education.[employer]Box/faq/VEK291 (This link is being provided for informational/ educational purposes only.) The performance of this assay has not been clinically validated in patients less than 2 years old. Blood Venous blood specimen / Unknown 10/02/2022 8:44 AM EDT 10/02/2022 8:44 AM EDT Narrative [facility] - 10/07/2022 3:11 PM EDT FASTING:YES FASTING: YES Laure Medina MD LAB BLOOD ORDERAB LES Final Result Performing Organization Address [facility]/ZIP Co de Phone Number [facility] [address], [facility] [place] [phone] [facility] [place] [employer] [employer] [address] [place] [phone] from Last 3 Months or Most Recently Relevant to Health Maintenance Insurance Care Teams Residential Monitor Relationship Specialty Start Date End Date Carlee Scott MD [address] [place] [phone] PCP - General Family Medicine 01/20/22
--- OUTSIDE RECORDS SUMMARY | 2024-10-13 09:08 | XMS_ITS | Encounter Summary ---
Author Organization [employer] Address 75 [facility] 7t [place] [address] Care Team Providers Care Station Master Name Role Phone Carlee Scott MD Primary Care Provider [phone] Encounter Details Date Type Department Care Team ([facility] st Contact Info) Description 08/11/2023 Orders Only [facility] MEDICINE [address] [place], [place] [phone] Carlee Scott MD [address] [place], [place] [phone] Social History Tobacco Use Types Packs/Day Years [...] Description 11/15/2024 9:00 AM EDT Office Visit [facility] ADULT DENTAL [address] [place] [address] Johnny Watkins DDS [address] [place] [address] 12/08/2024 10:00 AM EDT Clinical Support [facility] MEDICINE [address] [place] [address] documented as of this encounter Visit Diagnoses Not on filedocumented in this encounter Additional Health Concerns Assessment Noted Time PHQ-9 Depression Total Score: 22 024 12:37 PM EST documented as of this encounter Care Teams Station Master Relationship Specialty Start Date End Date Carlee Scott MD [address] [place] [address] PCP - General Family Medicine 01/20/22 documented as of this encounter
--- OUTSIDE RECORDS SUMMARY | 2024-10-13 09:08 | XMS_ITS | Encounter Summary ---
Author Organization [employer] Address 75 [facility] 7t [place] [address] Care Team Providers Care Upholstery Sewer Name Role Phone Carlee Scott MD Primary Care Provider [phone] Encounter Details Date Type Department Care Team ([facility] st Contact Info) Description 09/11/2023 Orders Only [facility] [address] [place], [place] [phone] Wai Chen MD [address] [place], [place] [phone] Social History Tobacco Use Types Packs/Day Years Used Date Smoking Tobacco: Some Days Cigarettes Smokeless Tobacco: Never Comments:Smokes 3-4 cigarett es a day started 5 months ago Alcohol Use Standard Drinks/Week Comments Not Currently 0 (1 standard drink = 0.6 oz pur e alcohol) Depression Answer Date Recorded Patient Health Questionnaire-9 Score 07/09/2023 Patient Health Questionnaire-9 Score 22 07/09/2023 [...] Description 11/15/2024 9:00 AM EDT Office Visit [facility] ADULT DENTAL [address] [place] [address] Johnny Watkins DDS [address] [place] [address] 12/08/2024 10:00 AM EDT Clinical Support [facility] MED[facility] [address] [place] [address] documented as of this encounter Visit Diagnoses Not on filedocumented in this encounter Additional Health Concerns Assessment Noted Time PHQ-9 Depression Total Score: 22 024 12:37 PM EST documented as of this encounter Care Teams Upholstery Sewer Relationship Specialty Start Date End Date Carlee Scott MD [address] [place] [address] PCP - General Family Medicine 01/20/22 documented as of this encounter
--- OUTSIDE RECORDS SUMMARY | 2024-10-13 09:08 | XMS_ITS | Encounter Summary ---
Author Organization [employer] Address 75 [facility] 7t [place] [address] Care Team Providers Care Lining Feller Blindstitch Name Role Phone Carlee Scott MD Primary Care Provider Encounter Details Date Type Department Care Team ([facility] st Contact Info) Description 10/11/2024 1:15 PM EDT Office Visit [facility] MEDICINE [address] [place], [place] [phone] Iris Martines MD [address] [place], [place] [phone] Vaginal discharge (Primary Dx); Dysuria Social History [...] Description 11/15/2024 9:00 AM EDT Office Visit [facility] ADULT DENTAL [address] [place] [address] Johnny Watkins DDS [address] [place] [address] 12/08/2024 10:00 AM EDT Clinical Support [facility] MEDICINE [address] [place] [address] Pending Results Name Type Priority Associated Diagnoses Date /Time Culture, Urine, Routine Microbiology Routine Dysuria 10/11/2024 12:00 AM EDT documented as of this encounter Procedures Procedure Name Priority Date/Time Associated Diagnosis Comments POCT URINALYSIS DIPSTICK Routine 10/11/2024 2:18 PM EDT Dysuria BACTERIAL VAGINOSIS PANEL Routine 10/11/2024 12:00 AM EDT Vaginal discharge CULTURE, URINE, ROUTINE Routine 10/11/2024 12:00 AM EDT Dysuria documented in this encounter Results [...] DETECTION BY PCR NOT DETECTED Not Detect [facility] BACTERIAL VAGINOSIS DETECTION BY PCR NEGATIVE Negative [facility] Comment:The BV organism targ ets [...] DETECTION BY PCR NOT DETECTED Not Detect [facility] Rosamaria glab krusei PCR DETECTED(A) Not Detect [facility] Swab Vaginal structure / Unknown 10/11/2024 10/11/2024 us Iris Martines MD LAB MICROBIOLOGY - GENERAL ORDER ALHAJI Final Result [facility] [address] [place] [phone] documented in this encounter Visit Diagnoses Diagnosis Vaginal discharge- Primary Leukorrhea, not specified as infective Dysuria documented in this encounter Additional Health Concerns Assessment Noted Time PHQ-9 Depression Total Score: 0 03/18/20 24 10:02 AM EDT documented as of this encounter Care Teams Lining Feller Blindstitch Relationship Specialty Start Date End Date Carlee Scott MD [address] [place] [phone] PCP - General Family Medicine 01/20/22 documented as of this encounter
--- OUTSIDE RECORDS SUMMARY | 2024-10-13 09:08 | XMS_ITS | Encounter Summary ---
Author Organization [employer] Address 75 [facility] 7t [place] [address] Care Team Providers Care Health Coach Name Role Phone Carlee Scott MD Primary Care Provider [phone] Encounter Details Date Type Department Care Team [...] Description 11/15/2024 9:00 AM EDT Office Visit [facility] ADULT DENTAL [address] [place] [address] Johnny Watkins DDS [address] [place] [address] 12/08/2024 10:00 AM EDT Clinical Support [facility] [address] [place] [address] documented as of this encounter Visit Diagnoses Not on filedocumented in this encounter Additional Health Concerns Assessment Noted Time PHQ-9 Depression Total Score: 0 03/18/20 24 10:02 AM EDT documented as of this encounter Care Teams Health Coach Relationship Specialty Start Date End Date Carlee Scott MD [address] [place] [address] PCP - General Family Medicine 01/20/22 documented as of this encounter
--- OUTSIDE RECORDS SUMMARY | 2024-10-13 09:08 | XMS_ITS | Encounter Summary ---
Author Organization [employer] Address 75 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 (Primary Dx) [...] Description 11/15/2024 9:00 AM EDT Office Visit [facility] ADULT DENTAL [address] [place] [address] Johnny Watkins DDS [address] [place] [address] 12/08/2024 10:00 AM EDT Clinical Support [facility] MEDICINE [address] [place] [address] documented as of this encounter Visit Diagnoses Diagnosis 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
[2024-10-13 09:38] VITALS: PULSE 80; O2SAT 98
== END 2024-10-13 08:58 | disposition home or self-care (01) ==
LOC: HO.RESP 08:57
PROVIDERS: Absent Provider General Practice; PCP General Practice
DX: R06.02 Shortness of breath (principal)
CPT/HCPCS: 94010; 94640; 94727; 94729

== ENCOUNTER → 2024-10-13 09:00 | Outpatient (BNV) | payer OTHER, SELFPAY | PROVIDERS: Absent Provider General Practice; PCP General Practice; Visit Provider Internal Medicine Pulmonary Disease | DX: R06.02 Shortness of breath (principal) | CPT/HCPCS: 94060; 94727; 94729 ==

== ENCOUNTER 2024-10-25 12:18 | Outpatient (REF) | payer OTHER, SELFPAY ==
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
== END 2024-10-25 12:19 | disposition home or self-care (01) ==
LOC: HO.HHCX 12:18
PROVIDERS: Visit Provider General Practice
DX: M54.50 Low back pain, unspecified (principal); G89.29 Other chronic pain
CPT/HCPCS: 72100

== ENCOUNTER → 2024-10-25 12:18 | Outpatient (BNV) | payer OTHER, SELFPAY | PROVIDERS: Visit Provider Radiology Diagnostic Radiology | DX: M54.50 Low back pain, unspecified (principal); V89.2XXA Person injured in unspecified motor-vehicle accident, traffic, initial encounter | CPT/HCPCS: 72100 ==

== ENCOUNTER 2024-12-05 10:29 | Outpatient (AMB) | payer OTHER, SELFPAY ==
--- NOTE | 2024-12-05 10:34 | A.OFFVIS_ITS ---
Vital Signs 12/05/24 10:35 Height 5 ft 7 in Weight 178 lb BMI 27.9 BP 118/60 Blood Pressure Location Lt brachial Position Sitting Respiration 18 Pulse 74 Pulse Source Pulse Oximeter Pulse Oximetry (%) 99 Oxygen Delivery Method Room Air Intake Visit Reasons: Emphysema Lighting Adviser Required: No Allergies SOAP POWDER Allergy (Unknown, Uncoded 10/10/24 16:20) HIVES HPI HPI Emphysema: Details: Andreina is a pleasant 39 year old female, former 10 pack year smoker, recently quit with underlying h/o anemia. She was referred by cardiology for ongoing dyspnea and chest tightness. Thus far cardiac evaluation with echo and stress test have been unremarkable, with plan for cardiac MRI. She also reports prior history of anemia requiring iron infusions however has not had in quite some time recent CBC within normal limits. She denies prior h/o asthma. She has previously been prescribed albuterol MDI which she has used with good effect however recent prescription has and is requesting a refill. Recent PFT revealed no obstructive or restrictive defect with no significant response to bronchodilator, however decreased DLCO 69%, suggestive of emphysema. There was mild emphysema noted on prior cervical CT, denies any further imaging of chest. She also notes ongoing pleuritic discomfort which has been present for months. Prior LAYA negative no personal or family h/o autoimmune conditions. Denies prior personal/family history of PE/DVT and denies any lower leg discomfort. She reports daughter with asthma otherwise no pertinent family history. Denies any occupational exposures. [facility] Medical History Depression Anemia Low blood pressure Hepatitis B immune Hepatitis A immune Hyperlipidemia Rosacea Difficulty sleeping Anxiety Chronic shortness of breath Weakness Dyspnea on exertion Pleuritic chest pain Eczema IBS (irritable bowel syndrome) Scoliosis Surgical History Status post cervical polyp removal Hx of tooth extraction Family History Father Diabetes mellitus treated with insulin Mother Arthritis Social History Household Members: Children Both parents involved: No Caregiver staying overnight: No Housing: Apartment Are you a primary customer care assistant to a significant other at home: No Do you presently have visiting nurse or other home services: No 75 years or older and lives alone: No Alcohol intake: current Alcohol intake frequency: holidays/special occasions only Patient Tobacco Use Status: Former Tobacco user Tobacco use type: Cigarette Cigarettes Per Day: 2 Trauma History: h/o brother being killed Agree to transfusion: Yes service: No Current occupational status: unemployed Current occupational exposures/hazards: No Cognitive needs: No Hearing needs: No Vision needs: No Female Reproductive History Menstrual Age of Menarche: 18 Review of Systems Const Denies chills, Denies excessive sweating, Denies fever(s), Denies headache(s) and Denies night sweats Eyes Denies dry eyes, Denies irritation and Denies itchy eyes ENT Reports Normal hearing present, Denies headache(s), Denies nasal congestion, Denies nasal discharge, Denies post nasal drip and Denies sore throat Card Denies claudication, Denies leg edema, Reports dyspnea on exertion, Denies orthopnea and Denies paroxysmal nocturnal dyspnea Resp Denies chest congestion, Denies cough, Denies hemoptysis, Denies excessive phlegm production, Reports pain on inspiration, Denies pain with cough, Reports dyspnea on exertion, Denies stridor and Denies wheezing Musc Denies myalgias Neuro Reports Normal hearing present and Denies headache(s) Endo Denies excessive sweating Gunner/Lymph Denies lymphadenopathy Aller/Immun Denies itchy eyes, Denies seasonal rhinorrhea and Denies wheezing Physical Exam Vital Signs: Last Vital Signs Pulse 74 12/05/24 10:35 Resp 18 12/05/24 10:35 BP 118/60 12/05/24 10:35 Pulse Ox 99 12/05/24 10:35 Oxygen Delivery Method Room Air 12/05/24 10:35 BMI result Body Mass Index 27.9 Const General: cooperative, healthy appearing, comfortable, no acute distress, well developed and alert Orientation/consciousness: patient oriented x3 Limitations: no limitations HEENT Head: Yes normal to inspection, Yes normocephalic and Yes atraumatic Ears: hearing grossly normal bilaterally and external ears normal Eyes General: appearance normal, both eyes and all related structures Eyelids: Yes eyelids normal Sclerae: sclerae normal EOM: EOMs intact bilaterally Neck Neck: Yes normal visual inspection and Yes no lymphadenopathy Lymphatic: no lymphadenopathy noted Chest Chest palpation & inspection: normal inspection of the chest Resp Effort & Inspection: normal respiratory effort, able to speak in complete sentences, no audible wheezes, no cough, no stridor, not tachypneic, no tripod positioning and no use of accessory muscles Auscultation: clear to auscultation bilaterally Cardio Jugular venous distension: no JVD Rate: regular rate Rhythm: regular rhythm Skin Other: warm, dry General skin exam: no rashes or lesions noted Neuro General: patient oriented x3 Cranial nerves: Yes Normal hearing present Cognition (Neuro): normal cognition Gait exam (Neuro): Normal gait present Extrem General: Yes normal to inspection, Yes capillary refill normal, Yes no clubbing, cyanosis or edema and Yes no pedal edema Psych Appearance: grossly normal and well kempt Speech and movement: Normal speech and movement present and Clear speech present Affect: normal affect Attitude: cooperative Thought process: Normal thought process present Thought content: Normal thought content present Insight: Good insight present (Psych) Judgement: Good judgement present (Psych) Results Reviewed Results Reviewed: [place] [address] XRay Report Signed Patient: Andreina Leblanc MR#: [id number] : 1985 Acct:[id number] Age/Sex: 36 / F ADM Date: 09/15/21 Loc: .ED Attending Dr: Ordering Physician: Magdalena Elizalde Date of Service: 09/15/21 Procedure(s): XR chest 1V Accession Number(s): [id number] cc: Magdalena Elizalde~ EXAMINATION: XR CHEST CLINICAL INFORMATION: Cough, shortness of breath for 5 days, . COMPARISON: Chest radiograph dated from 03/31/2021. TECHNIQUE: AP view of the chest was obtained. FINDINGS: No significant abnormality is noted involving the heart, lungs, mediastinum, bony thorax or soft tissues. XR/XR chest 1V IMPRESSION: No acute cardiopulmonary findings. Dictated By: Colleen Ascencio Signed By: <Electronically signed by Colleen Ascencio in OV> 09/15/211758 DD/ 44 TD/TT: Book Editor: Assessment & Plan Assessment & Plan (1) Shortness of breath: Code(s): R06.02 - Shortness of breath Category: Medical (2) Decreased diffusion capacity: Code(s): R94.2 - Abnormal results of pulmonary function studies Category: Medical (3) Pleuritic chest pain: Code(s): R07.81 - Pleurodynia Category: Medical (4) Personal history of tobacco use: Code(s): Z87.891 - Personal history of nicotine dependence Category: Social Hx Plan Andreina presents for pulmonary evaluation for ongoing dyspnea, chest tightness and pleuritic discomfort. Recent PFT revealed no obstructive or restrictive ventilatory defects. No bronchodilator response. Decreased diffusion capacity, 69%, suggests emphysema , which was minimal on prior cervical CT. Will send for dedicated chest CT to assess for any underlying parenchymal condition contributing to decreased diffusion capacity as well as pleuritic discomfort. Will empirically trial ICS/LABA as patient with known emphysema on imaging. All questions were answered and patient is in agreement of plan. Will follow-up to review results or sooner if needed. Orders: Orders CT chest wo IV con 12/05/24 R07.81 - Pleurodynia, R94.2 - Abnormal results of pulmonary function studies Medications: New albuterol sulfate 90 mcg/actuation 2 puffs inhalation Q4-6H PRN 1 ea 0RF shortness of breath or wheezing fluticasone propion-salmeterol 115-21 mcg/actuation (Advair HFA) 2 puffs inhalation Q12H 12 grams 4RF Coding Level of Care Code New Pt Level 4 (13924) Diagnoses Shortness of breath R06.02 Decreased diffusion capacity R94.2 Pleuritic chest pain R07.81 Personal history of tobacco use Z87.729
[2024-12-05 10:35] VITALS: BP 118/60; PULSE 74; RESP 18; O2SAT 99; BMI 27.9
--- OUTSIDE RECORDS SUMMARY | 2024-12-05 11:18 | XMS_ITS | Encounter Summary ---
Author Organization [employer] Address [address] [place] [address] Care Team Providers Care Director Of Front Office Name Role Phone Carlee Scott MD Primary Care Provider [phone] Encounter Details Date Type Department Care Team ([facility] st Contact Info) Description 06/10/2023 Orders Only [facility] MEDICINE [address] [place], [place] [phone] Laure Canada MD [address] [place], [place] [phone] Social History Tobacco Use Types Packs/Day Years [...] Care Team (Late st Contact Info) Description 12/08/2024 10:00 AM EDT Clinical Support [facility] MEDICINE [address] [place] [address] documented as of this encounter Visit Diagnoses Not on filedocumented in this encounter Additional Health Concerns Assessment Noted Time PHQ-9 Depression Total Score: 16 023 9:32 AM EST documented as of this encounter Care Teams Director Of Front Office Relationship Specialty Start Date End Date Carlee Scott MD [address] [place] [address] PCP - General Family Medicine 01/20/22 documented as of this encounter
--- OUTSIDE RECORDS SUMMARY | 2024-12-05 11:18 | XMS_ITS | Clinical Summary ---
Author Organization [employer] [facility] Address [address] [place] [address] Care Team Providers Care Campground Attendant Name Role Phone Dana Mattson RN Primary Care Provider [phone] Surgical History Surgery Date Site/Laterality Comments OTHER SURGICAL HISTORY PROCEDURE: DENIES PREVIOUS SURGERY OTHER SURGICAL HISTORY PROCEDURE: [place] INCISION & DRAINAGE PILONIDAL CYST SIMPLE; COMMENT: [...] a genital outbreak ; no labs in [facility] for review History of blood transfusion DX: [...] 5 Years) and At-Risk Patients (6 to 49 Years) (1 of 2 - PCV) 2006 Depression Screening 04/27/2022 HIV Screening 04/27/2022 Hepatitis C Screening 04/27/2022 Social Influencers of Health Screening 04/27/2022 COVID-19 Vaccine (1 - 2023-2 5 season) 2024 Cervical Cancer Screening: P ap Smear 08/01/2024 08/01/2021, 01/27/2018, 01/27/2018 Influenza Vaccine (#1) 2025 DTaP,Tdap,and Td Vaccines (3 - Td [...] RESULTING AGENCY - 08/14/2021 7:26 AM EDT [id number] THINPREP PAP, IMAGED: NEGATIVE FOR SQUAMOUS INTRAEITHELIAL LESION AND MALIGNANCY. NOTE: THE PAP TEST IS A SCREENING TEST WITH AN INHERENT FALSE NEGATIVE RATE. AUTOMATED PRESCREENING OF ALL LIQUID BASED SPECIMENS IS PERFORMED BY THE THINPREP IMAGING SYSTEM UNLESS OTHERWISE STATED. DEACON BIRD(ASCP) (CASE ELECTRONICALLY SIGNED 08 13 2021) RESULT OF APTIMA HIGH RISK HPV ASSAY: HIGH RISK HPV: NEGATIVE (SEROTYPES 16,18,31,33,35,39,45,51,52,56,58,59,66,68) COMPLETED ON 2021-08-06 ADEQUACY: SATISFACTORY ENDOCERVICAL/TRANSFORMATION ZONE COMPONENT PRESENT. SOURCE: THINPREP PAP HPV ANY DX: REFLEX 16 AND 18, CERVICAL, IMAGED CLINICAL INFORMATION: HPV ANY DIAGNOSIS. HORMONES, PAP HX NEGATIVE, POS HPV, LMP 05/08/2021, [Z12.4] Alicia Ryan CNM LAB CYTOLOGY ORDERABLES Final Result HISTORICAL TESTING LAB RESULTING AGENCY from Last 3 Months or Most Recently Relevant to Health Maintenance Care Teams Campground Attendant Relationship Specialty Start Date End Date Dana Mattson RN [address] [place] [phone] PCP - General 10/16/22
== END 2024-12-05 10:50 | disposition home or self-care (01) ==
LOC: HO.HPS 10:30
PROVIDERS: PCP General Practice; Visit Provider Nurse Practitioner Family
DX: R06.02 Shortness of breath (principal); R94.2 Abnormal results of pulmonary function studies; R07.81 Pleurodynia; Z87.891 Personal history of nicotine dependence
CPT/HCPCS: 99204

== ENCOUNTER → 2024-12-05 10:29 | Outpatient (BNVA) | payer OTHER, SELFPAY | PROVIDERS: PCP General Practice; Visit Provider Nurse Practitioner Family | DX: R07.81 Pleurodynia (principal); R94.2 Abnormal results of pulmonary function studies; R06.02 Shortness of breath; Z87.891 Personal history of nicotine dependence | CPT/HCPCS: 99202 ==

== ENCOUNTER 2024-12-06 14:18 | Outpatient (AMB) | payer OTHER, SELFPAY ==
--- NOTE | 2024-12-06 14:47 | A.OFFVIS_ITS ---
Vital Signs 12/06/24 14:50 Height 5 ft 7 in Weight 183 lb 6.793 oz BMI 28.7 BP 110/64 Blood Pressure Location Lt brachial Position Sitting Pulse 76 Pulse Source Pulse Oximeter Intake Visit Reasons: 3 mth f/up/PFT/CTA Intake Note: 3 mth f/up Benchroom Shop Optician Required: No Accompanied by: Self / Same As Patient Allergies SOAP POWDER Allergy (Unknown, Uncoded 10/10/24 16:20) HIVES HPI Comments Details: This is a 39-year-old female patient coming in for a follow-up visit. Patient with history of childhood asthma, emphysema, anemia, dyslipidemia, and was previously evaluated in the office for chest pain and shortness of breath. Patient underwent echocardiogram and stress test both of which were unremarkable. Due to her ongoing reports of chest pain and shortness of breath, patient underwent a pulmonary function test and was planned for a coronary CTA which was not completed. Today, patient continues to report the intermittent symptoms and was recently seen by pulmonology for the emphysema where patient is being tried on inhalers. Patient has not picked up the medications yet and therefore can not really tell if this is helping. Patient also believes that she should go back for iron infusions with Hematology as some of these symptoms she believes were similar to when she had them in the past prior to iron infusions. [facility] Medical History Depression Anemia Low blood pressure Hepatitis B immune Hepatitis A immune Hyperlipidemia Rosacea Difficulty sleeping Anxiety Chronic shortness of breath Weakness Dyspnea on exertion Pleuritic chest pain Eczema IBS (irritable bowel syndrome) Scoliosis Surgical History Status post cervical polyp removal Hx of tooth extraction Family History Father Diabetes mellitus treated with insulin Mother Arthritis Social History Household Members: Children Both parents involved: No Caregiver staying overnight: No Housing: Apartment Are you a primary cardiac care nurse to a significant other at home: No Do you presently have visiting nurse or other home services: No 75 years or older and lives alone: No Alcohol intake: current Alcohol intake frequency: holidays/special occasions only Patient Tobacco Use Status: Former Tobacco user Tobacco use type: Cigarette Cigarettes Per Day: 2 Trauma History: h/o brother being killed Agree to transfusion: Yes service: No Current occupational status: unemployed Current occupational exposures/hazards: No Cognitive needs: No Hearing needs: No Vision needs: No Female Reproductive History Menstrual Age of Menarche: 18 Review of Systems Const Denies chills, Denies fatigue, Denies fever(s), Denies frequent falls, Denies weakness, Denies weight gain and Denies weight loss ENT Denies dizziness Card Denies chest pain, Denies leg edema, Denies lightheadedness, Denies palpitations, Denies dyspnea and Denies dyspnea on exertion Resp Denies cough, Denies dyspnea and Denies dyspnea on exertion GI Denies hematochezia Musc Denies abnormal gait, Denies muscle weakness, Denies numbness, Denies radiating pain into limb and Denies tingling Neuro Denies abnormal gait, Denies dizziness, Denies frequent falls, Denies numbness, Denies tingling and Denies weakness Endo Denies fatigue and Denies palpitations Physical Exam Vital Signs: Last Vital Signs Pulse 76 12/06/24 14:50 BP 110/64 12/06/24 14:50 BMI result Body Mass Index 28.7 Const General: cooperative, healthy appearing, comfortable and no acute distress Orientation/consciousness: patient oriented x3 HEENT Head: Yes normal to inspection Neck Neck: Yes normal visual inspection, Yes trachea midline and Yes supple Chest Chest palpation & inspection: normal inspection of the chest Resp Effort & Inspection: normal respiratory effort Auscultation: clear to auscultation bilaterally, no crackles, no rales, no rhonchi and no wheezes Cardio Jugular venous distension: no JVD Palpation: normal PMI Rate: regular rate Rhythm: regular rhythm Heart sounds: S1 normal heart sound present, S2 normal heart sound present, no click, no gallops, no murmurs and no rubs Peripheral pulses: Peripheral pulses 2+ throughout GI Inspection: Yes normal to inspection Palpation (GI): Soft to palpation Auscultation: normal bowel sounds Skin General skin exam: no rashes or lesions noted Neuro General: patient oriented x3 Extrem General: Yes normal to inspection, No no pedal edema and No calf tenderness Psych Appearance: grossly normal Mental Status: mental status grossly normal Speech and movement: Normal speech and movement present Assessment & Plan Assessment & Plan (1) Precordial chest pain: Code(s): R07.2 - Precordial pain Category: Medical (2) Shortness of breath: Code(s): R06.02 - Shortness of breath Category: Medical (3) Hyperlipidemia: Code(s): E78.5 - Hyperlipidemia, unspecified Category: Medical Plan 07/28/2024-patient underwent stress test achieving 85% MPHR with exercise of 8 minutes 20 seconds with no EKG changes. 07/28/2024-patient's echo study was also normal with an EF between 55-60%. Patient underwent a pulmonary function test that showed emphysema and therefore is being trialed on inhalers by pulmonology. Patient has not picked up the medications yet and therefore can not really tell if it is helping. Patient was scheduled for coronary CTA but was never completed as patient states that she never got phone calls from [facility]. Patient will try calling [facility] to schedule the coronary CTA to rule out any ischemic changes. On recent lipid profile, patient had elevated LDL in the 170s and therefore was started on atorvastatin. Continue statin therapy. Ideally, LDL goal closer to 70s. Blood pressure within normal limits. Advised switching out to hematology in regards to her iron infusion. Advised heart healthy diet, regular exercise, adequate hydration, med compliance, and management of vascular risk factors. We will follow-up via phone call once coronary CTA is complete. In the interim, patient will call the office with any concerns or change in symptoms. This note was generated using voice recognition software. While every effort has been made to ensure accuracy and proper credit union manager, there may be occasional errors that could affect the content or meaning of the described symptoms. Coding Level of Care Code Est Pt Level 4 (97603) Complex EM visit Add On G2211 Diagnoses Precordial chest pain R07.2 Shortness of breath R06.02 Hyperlipidemia E78.5 Time Spent (min) 32 Comment Time spent in reviewing the chart, test results, assessment, counseling and documentation.
[2024-12-06 14:50] VITALS: BP 110/64; PULSE 76; BMI 28.7
--- OUTSIDE RECORDS SUMMARY | 2024-12-06 15:33 | XMS_ITS | Clinical Summary ---
Author Organization [employer] [facility] Address [address] [place] [address] Care Team Providers Care Quirk Sander Name Role Phone Dana Mattson RN Primary Care Provider [phone] Surgical History Surgery Date Site/Laterality Comments OTHER SURGICAL HISTORY PROCEDURE: DENIES PREVIOUS SURGERY OTHER SURGICAL HISTORY PROCEDURE: [place] INCISION & DRAINAGE PILONIDAL CYST SIMPLE; COMMENT: [...] a genital outbreak ; no labs in [facility] for review History of blood transfusion [...] RESULTING AGENCY - 08/14/2021 7:26 AM EDT [id number] THINPREP PAP, IMAGED: NEGATIVE FOR SQUAMOUS INTRAEITHELIAL [...] Recently Relevant to Health Maintenance Care Teams Quirk Sander Relationship Specialty Start Date End Date Dana Mattson RN [address] [place] [phone] PCP - General 10/16/22
--- OUTSIDE RECORDS SUMMARY | 2024-12-06 15:33 | XMS_ITS | Encounter Summary ---
Author Organization [employer] Address [address] [facility] [address] [facility] [address] [place] [address] Care Team Providers Care Ticket Puller Name Role Phone Carlee Scott MD Primary Care Provider [phone] Encounter Details Date Type Department Care Team ([facility] st Contact Info) Description 06/10/2023 Orders Only [facility] MEDICINE [address] [place], [place] [phone] Laure Canada MD [address] [place], [place] [phone] Social History Tobacco Use Types Packs/Day Years [...] Description 12/08/2024 10:00 AM EDT Clinical Support [facility] MEDICINE [address] [place] [address] documented as of this encounter Visit Diagnoses Not on filedocumented in this encounter Additional Health Concerns Assessment Noted Time PHQ-9 Depression Total Score: 16 023 9:32 AM EST documented as of this encounter Care Teams Ticket Puller Relationship Specialty Start Date End Date Carlee Scott MD [address] [place] [address] PCP - General Family Medicine 01/20/22 documented as of this encounter
== END 2024-12-06 15:14 | disposition home or self-care (01) ==
LOC: HO.HCS 14:19
PROVIDERS: PCP General Practice
DX: R07.2 Precordial pain (principal); R06.02 Shortness of breath; E78.5 Hyperlipidemia, unspecified
CPT/HCPCS: 99214; G2211

== ENCOUNTER → 2024-12-06 14:18 | Outpatient (BNVA) | payer OTHER, SELFPAY | PROVIDERS: PCP General Practice | DX: R07.2 Precordial pain (principal); R06.02 Shortness of breath; E78.5 Hyperlipidemia, unspecified | CPT/HCPCS: 99212 ==

== ENCOUNTER 2024-12-22 17:49 | Outpatient (REF) | payer OTHER, SELFPAY ==
[2024-12-23 04:32] LABS: Bacterial Vaginosis PCR POSITIVE (Negative); Candida Group PCR NOT DETECTED (Not Detect); Candida glab krusei PCR NOT DETECTED (Not Detect); Trichomonas vaginalis PCR NOT DETECTED (Not Detect)
[2024-12-23 05:03] LABS: CT PCR NOT DETECTED (Not Detect.); NG PCR NOT DETECTED (Not Detect.)
== END 2024-12-22 17:50 | disposition home or self-care (01) ==
LOC: HO.HHCLNP 17:49
PROVIDERS: Visit Provider Advanced Practice Midwife
DX: Z11.3 Encounter for screening for infections with a predominantly sexual mode of transmission (principal); Z11.2 Encounter for screening for other bacterial diseases; Z11.8 Encounter for screening for other infectious and parasitic diseases; N93.9 Abnormal uterine and vaginal bleeding, unspecified
CPT/HCPCS: 81515; 87491; 87591; 87626; 88175

== ENCOUNTER 2025-01-30 11:18 | Outpatient (AMB) | payer OTHER, SELFPAY ==
--- OUTSIDE RECORDS SUMMARY | 2025-01-27 13:30 | XMS_ITS | Encounter Summary ---
Author Organization [employer] Address [address] [facility] 7t [place] [address] Care Team Providers Care Theatrical Performer Name Role Phone Carlee Scott MD Primary Care Provider [phone] Encounter Details Date Type Department Care Team (Late st Contact Info) Description 01/27/2025 1:30 PM EDT Office Visit [facility] MEDICINE [address] [place], [place] [phone] Judy Wong MD 230 [place], [place] [phone] Augie (Primary Dx); Rosacea Social History Tobacco Use Types Packs/Day Years [...] Sign Reading Time Taken Comments Blood Pressure 120/80 01/27/2025 1:34 PM EDT Pulse 89 01/27/2025 1:34 PM EDT Temperature 36 C (96.8 F) 01/27/2025 1:34 PM EDT Respiratory Rate 14 01/27/2025 1:34 PM EDT Oxygen Saturation 100% 01/27/2025 1:34 PM EDT Inhaled Oxygen Concentration - - Weight 82.6 kg (182 lb) 01/27/2025 1:34 PM EDT Height 170.2 cm (5' 7 ) 01/27/2025 1:34 PM EDT Body Mass Index 28.51 01/27/2025 1:34 PM EDT documented in this encounter Progress Notes * Judy Wong MD - 01/27/2025 1:30 PM EDT Subjective Patient ID: Andreina Leblanc is a 40 y.o. female who presents for No chief complaint on file.. HPI 40 yr old womanhere today for keloid on chest. Previously treated with lkenalog shots and improved. Also she has rosacea, no pimples. Review of Systems Constitutional: Negative for diaphoresis, fatigue and fever. HENT: Negative for ear discharge, ear pain, facial swelling and hearing loss. Respiratory: Negative for cough, choking, chest tightness and shortness of breath. Cardiovascular: Negative for chest pain and leg swelling. Gastrointestinal: Negative for abdominal distention, abdominal pain and anal bleeding. Endocrine: Negative for cold intolerance and heat intolerance. Genitourinary: Negative for enuresis, flank pain and frequency. Musculoskeletal: Negative for arthralgias, back pain and gait problem. Skin: Positive for rash. Neurological: Negative for dizziness, facial asymmetry and headaches. Psychiatric/Behavioral: Negative for agitation, behavioral problems and confusion. Objective Physical Exam Constitutional: Appearance: Normal appearance. HENT: Head: Normocephalic and atraumatic. Nose: Nose normal. Eyes: Pupils: Pupils are equal, round, and reactive to light. Pulmonary: Effort: Pulmonary effort is normal. Musculoskeletal: General: Normal range of motion. Cervical back: Normal range of motion. Skin: Comments: Keloid scar on chest Neurological: General: No focal deficit present. Mental Status: She is alert. Assessment/Plan Diagnoses and all orders for this visit: Keloid Consent obtained Alcohol for disinfection Kenalog 40mg/ml injected intralesional total of 0.2 ml Tolerated procedure well If persists after 2 months come back for more tx. Rosacea Type 1 Apply Afrin spray on areas as needed No inflammatory papules. documented in this encounter Miscellaneous Notes * Addendum Note - Judy Wong MD - 01/27/2025 1:30 PM EDTAddended by: JUDY MONGE on: 01/27/2025 02:20 PM Modules accepted: Orders documented in this encounter Plan of Treatment Upcoming Encounters Date Type Department Care Team (Late st Contact Info) Description 02/09/2025 9:00 AM EDT Procedure Visit [facility] MEDICINE [address] [place] [address] Valeria Ruff CNM [address] [place] [address] 03/02/2025 9:30 AM EDT Clinical Support [facility] MEDICINE [address] [place] [address] documented as of this encounter Visit Diagnoses Diagnosis Keloid- Primary Keloid scar Rosacea documented in this encounter Administered Medications Inactive Administered Medications - up to 3 most recent administrations Medication Order MAR Action Action Date Dose Rate Site triamcinolone acetonide (Kenalog-40) injection 40 mg 40 mg, Intra-articular, Once, On Thu01/27/25 at 1430, For 1 doseIndications:Keloid Given 01/27/2025 2:30 PM EDT 40 mg documented in this encounter Additional Health Concerns Assessment Noted Time PHQ-9 Depression Total Score: 0 03/18/20 24 10:02 AM EDT documented as of this encounter Care Teams Theatrical Performer Relationship Specialty Start Date End Date Carlee Scott MD [address] [place] [address] PCP - General Family Medicine 01/20/22 documented as of this encounter
[2025-01-30 11:23] VITALS: BP 100/62; PULSE 72; O2SAT 98; BMI 28.5
--- NOTE | 2025-01-30 11:23 | A.OFFVIS_ITS ---
Vital Signs 01/30/25 11:23 Height 5 ft 7 in Weight 181 lb 14.102 oz BMI 28.5 BP 100/62 Blood Pressure Location Rt brachial Position Sitting Pulse 72 Pulse Source Pulse Oximeter Pulse Oximetry (%) 98 Oxygen Delivery Method Room Air Intake Visit Reasons: Emphysema Allergies SOAP POWDER Allergy (Unknown, Uncoded 01/30/25 11:25) HIVES HPI HPI Emphysema: Details: Andreina is a pleasant 40 year old female, former 10 pack year smoker, recently quit with underlying h/o anemia. She was initially referred by cardiology for ongoing episodes associated with dyspnea and chest tightness/discomfort. Thus far cardiac evaluation with echo and stress test have been unremarkable, with plan for cardiac MRI. She also reports prior history of anemia requiring iron infusions however has not had in quite some time recent CBC within normal limits. She was previously prescribed albuterol MDI which she has used with good effect and at the last visit was started on Advair however did not find any relief with this. Since the last visit she has started using a PRN ant-ianxiety medication which has brought relief of all symptoms. At this time, she denies any symptoms other than a morning cough associated with post nasal drip. FORMERLY [facility], [facility] Medical History Depression Anemia Low blood pressure Hepatitis B immune Hepatitis A immune Hyperlipidemia Rosacea Difficulty sleeping Anxiety Chronic shortness of breath Weakness Dyspnea on exertion Pleuritic chest pain Eczema IBS (irritable bowel syndrome) Scoliosis Surgical History Status post cervical polyp removal Hx of tooth extraction Family History Father Diabetes mellitus treated with insulin Mother Arthritis Social History Household Members: Children Both parents involved: No Caregiver staying overnight: No Housing: Apartment Are you a primary health care social worker to a significant other at home: No Do you presently have visiting nurse or other home services: No 75 years or older and lives alone: No Alcohol intake: current Alcohol intake frequency: holidays/special occasions only Patient Tobacco Use Status: Former Tobacco user Tobacco use type: Cigarette Cigarettes Per Day: 2 Trauma History: h/o brother being killed Agree to transfusion: Yes service: No Current occupational status: unemployed Current occupational exposures/hazards: No Cognitive needs: No Hearing needs: No Vision needs: No Female Reproductive History Menstrual Age of Menarche: 18 Review of Systems Const Denies chills, Denies excessive sweating, Denies fever(s), Denies headache(s) and Denies night sweats Eyes Denies dry eyes, Denies irritation and Denies itchy eyes ENT Reports Normal hearing present, Denies headache(s), Denies nasal congestion, Denies nasal discharge, Denies post nasal drip and Denies sore throat Card Denies chest pain, Denies chest pain at rest, Denies chest pain with activity, Denies claudication, Denies leg edema, Denies dyspnea, Denies dyspnea on exertion, Denies orthopnea and Denies paroxysmal nocturnal dyspnea Resp Denies chest congestion, Denies cough, Denies excessive phlegm production, Denies pain on inspiration, Denies pain with cough, Denies dyspnea, Denies dyspnea on exertion, Denies stridor and Denies wheezing Musc Denies myalgias Neuro Reports Normal hearing present and Denies headache(s) Endo Denies excessive sweating Gunner/Lymph Denies lymphadenopathy Aller/Immun Denies itchy eyes, Denies seasonal rhinorrhea and Denies wheezing Physical Exam Vital Signs: Last Vital Signs Pulse 72 01/30/25 11:23 BP 100/62 01/30/25 11:23 Pulse Ox 98 01/30/25 11:23 Oxygen Delivery Method Room Air 01/30/25 11:23 BMI result Body Mass Index 28.5 Const General: cooperative, healthy appearing, comfortable, no acute distress, well developed and alert Orientation/consciousness: patient oriented x3 Limitations: no limitations HEENT Head: Yes normal to inspection, Yes normocephalic and Yes atraumatic Ears: hearing grossly normal bilaterally and external ears normal Eyes General: appearance normal, both eyes and all related structures Eyelids: Yes eyelids normal Sclerae: sclerae normal EOM: EOMs intact bilaterally Neck Neck: Yes normal visual inspection and Yes no lymphadenopathy Lymphatic: no lymphadenopathy noted Chest Chest palpation & inspection: normal inspection of the chest Resp Effort & Inspection: normal respiratory effort, able to speak in complete sentences, no audible wheezes, no cough, no stridor, not tachypneic, no tripod positioning and no use of accessory muscles Auscultation: clear to auscultation bilaterally Cardio Jugular venous distension: no JVD Rate: regular rate Rhythm: regular rhythm Skin Other: warm, dry General skin exam: no rashes or lesions noted Neuro General: patient oriented x3 Cranial nerves: Yes Normal hearing present Cognition (Neuro): normal cognition Gait exam (Neuro): Normal gait present Extrem General: Yes normal to inspection, Yes capillary refill normal, Yes no clubbing, cyanosis or edema and Yes no pedal edema Psych Appearance: grossly normal and well kempt Speech and movement: Normal speech and movement present and Clear speech present Affect: normal affect Attitude: cooperative Thought process: Normal thought process present Thought content: Normal thought content present Insight: Good insight present (Psych) Judgement: Good judgement present (Psych) Assessment & Plan Assessment & Plan (1) Shortness of breath: Code(s): R06.02 - Shortness of breath Category: Medical (2) Decreased diffusion capacity: Code(s): R94.2 - Abnormal results of pulmonary function studies Category: Medical (3) Personal history of tobacco use: Code(s): Z87.891 - Personal history of nicotine dependence Category: Social Hx Plan At this time Andreina reports resolution of respiratory symptoms with PRN anti- anxiety medications and will be following with PCP for further management. She currently reports morning cough associated with post nasal drip, advised to trial Flonase vs antihistamine. If no changes will follow up to discuss. All questions were answered and patient is in agreement of plan. Will follow-up PRN. Medications: New cetirizine (Zyrtec) 10 mg PO DAILY PRN 30 tabs 3RF allergy symptoms Discontinued fluticasone propion-salmeterol 115-21 mcg/actuation (Advair HFA) Discontinued Reason: Patient Completed Course 2 puffs inhalation Q12H 12 grams 4RF Coding Level of Care Code Est Pt Level 3 (81972) Diagnoses Shortness of breath R06.02 Decreased diffusion capacity R94.2 Personal history of tobacco use Z87.898
--- OUTSIDE RECORDS SUMMARY | 2025-01-30 14:03 | XMS_ITS | Encounter Summary ---
Author Organization [employer] Address [address] [facility] 7t [place] [address] Care Team Providers Care Joint Cutter Name Role Phone Carlee Scott MD Primary Care Provider [phone] Encounter Details Date Type Department Care Team ([facility] st Contact Info) Description 12/22/2024 Orders Only [facility] MEDICINE [address] [place], [place] [phone] Valeria Ruff CN [address] [place], [place] [phone] Social History Tobacco Use Types Packs/Day Years [...] Upcoming Encounters Date Type Department Care Team ([facility] st Contact Info) Description 02/09/2025 9:00 AM EDT Procedure Visit [facility] MEDICINE [address] [place] [address] Valeria Ruff, CN [address] [place] [address] 03/02/2025 9:30 AM EDT Clinical Support [address] [address] documented as of this encounter Procedures Procedure Name Priority Date/Time Associated Diagnosis Comments BACTERIAL VAGINOSIS PANEL Routine 12/22/2024 12:15 PM EDT HPV DNA, LOW/HIGH RISK Routine 12/22/2024 12:12 PM EDT documented in this encounter Results * (ABNORMAL) Bacterial Vaginosis (12/22/2024 12:15 PM EDT) TRICHOMONAS VAGINALIS DETECTION BY PCR NOT DETECTED Not Detect [facility] BACTERIAL VAGINOSIS DETECTION BY PCR POSITIVE(A) Negative [facility] Comment:The BV organism targ ets of [...] DETECTION BY PCR NOT DETECTED Not Detect [facility] Rosamaria glab krusei PCR NOT DETECTED Not Detect [facility] 12/22/2024 12:1 5 PM EDT 12/22/2024 5:50 PM EDT [facility] MICROBIOLOGY - GENERA L ORDERABLES Final Result [facility] [address] [place] [phone] * HPV DNA, Low/High Risk (12/22/2024 12:12 PM EDT) HPV High Risk Negative Negative [facility] HPV Genotype 16 Negative Negative [facility] HPV Genotype 18 Negative Negative [facility] Comment:HPV testing performe d at [facility] (CLIA#[id number]), [address] [place] [address].Testing for HPV was performed using the [employer] JUAN CARLOS 6800system. The presence of HPV in the female genital tract isassociated with a number of diseases, including cervicalcarcinoma. The HPV DNA high risk pool tests for HPV 31, 33,35, 39, 45, 51, 52, 56, 58, 59, 66 and 68. The testing forHPV 16 and 18 genotypes has also been performed. A positiveresult indicates detection of nucleic acid sequences fromone or more subtypes, whereas a negative result indicatessuch sequences were not detected. 12/22/2024 12:1 2 PM EDT 12/23/2024 7:40 AM EDT [facility] BLOOD ORDERABLES Rosio l Result [facility] [address] [place] [address] [phone] documented in this encounter Visit Diagnoses Not on filedocumented in this encounter Additional Health Concerns Assessment Noted Time PHQ-9 Depression Total Score: 0 03/18/20 24 10:02 AM EDT documented as of this encounter Care Teams Joint Cutter Relationship Specialty Start Date End Date Carlee Scott MD [address] [place] [address] PCP - General Family Medicine 01/20/22 documented as of this encounter
--- OUTSIDE RECORDS SUMMARY | 2025-01-30 14:03 | XMS_ITS | Clinical Summary ---
Author Organization [employer] [facility] Address [address] [place] [address] Care Team Providers Care Abrasive Mixer Name Role Phone Dana Mattson RN Primary Care Provider [phone] Surgical History Surgery Date Site/Laterality Comments OTHER SURGICAL HISTORY PROCEDURE: DENIES PREVIOUS SURGERY OTHER SURGICAL HISTORY PROCEDURE: AK INCISION & DRAINAGE PILONIDAL CYST SIMPLE; COMMENT: [...] a genital outbreak ; no labs in [facility] for review History of blood transfusion [...] Years) (1 of 2 - PCV) 2006 HIV Screening 04/27/2022 Hepatitis C Screening 04/27/2022 Social Influencers of Health Screening 04/27/2022 Depression Screening 05/25/2024 Cervical Cancer Screening: P ap Smear 08/01/2024 08/01/2021, 01/27/2018, 01/27/2018 COVID-19 Vaccine (2023-2 5 season) 2025 Influenza Vaccine (#1) 2025 DTaP,Tdap,and Td Vaccines [...] RESULTING AGENCY - 08/14/2021 7:26 AM EDT [id number] THINPREP PAP, IMAGED: NEGATIVE FOR SQUAMOUS INTRAEITHELIAL [...] Recently Relevant to Health Maintenance Care Teams Abrasive Mixer Relationship Specialty Start Date End Date Dana Mattson RN [address] [place] [phone] PCP - General 10/16/22
--- OUTSIDE RECORDS SUMMARY | 2025-01-30 14:03 | XMS_ITS | Encounter Summary ---
Author Organization [email or web address] Address [address] [facility] 7t [place] [address] Care Team Providers Care Contamination Consultant Name Role Phone Carlee Scott MD Primary Care Provider Reason for Visit * Reason Comments Med Change Request Encounter Details Date Type Department Care Team ([facility] Contact Info) Description 12/22/2024 Refill [facility] MEDICINE [address] [place], [place] [phone] Valeria Ruff, CARLOS EDUARDO [address] [place] [address] Social History Tobacco Use Types Packs/Day Years [...] encounter Miscellaneous Notes * Telephone Encounter - Garret Rosenberg MA - 12/23/2024 10:26 AM EDT T/c to pt schedule a fu 01/27/2025 ericka 1:30 pm appt mail. * Telephone Encounter - Valeria Ruff CNM - 12/22/2024 2:20 PM EDT I will send a different rx documented in this encounter Plan of Treatment Upcoming Encounters Date Type Department Care Team (Late st Contact Info) Description 02/09/2025 9:00 AM EDT Procedure Visit [facility] MEDICINE [address] [place] [address] Valeria Ruff CNM [address] [place] [address] 03/02/2025 9:30 AM EDT Clinical Support [facility] MEDICINE [address] [place] [address] documented as of this encounter Visit Diagnoses Not on filedocumented in this encounter Additional Health Concerns Assessment Noted Time PHQ-9 Depression Total Score: 0 03/18/20 24 10:02 AM EDT documented as of this encounter Care Teams Contamination Consultant Relationship Specialty Start Date End Date Carlee Scott MD [address] [place] [address] PCP - General Family Medicine 01/20/22 documented as of this encounter
--- OUTSIDE RECORDS SUMMARY | 2025-01-30 14:03 | XMS_ITS | Encounter Summary ---
Author Organization [employer] Address [address] [facility] 7t [place] [address] Care Team Providers Care Barrel Straightener Name Role Phone Carlee Scott MD Primary Care Provider [phone] Encounter Details Date Type Department Care Team (Latest Contact Info) Description 01/27/2025 Travel Social History Tobacco Use Types Packs/Day [...] Description 02/09/2025 9:00 AM EDT Procedure Visit [facility] MEDICINE [address] [place] [address] Valeria Ruff CNM [address] [place] [address] 03/02/2025 9:30 AM EDT Clinical Support [address] [address] documented as of this encounter Visit Diagnoses Not on filedocumented in this encounter Additional Health Concerns Assessment Noted Time PHQ-9 Depression Total Score: 0 03/18/20 24 10:02 AM EDT documented as of this encounter Care Teams Barrel Straightener Relationship Specialty Start Date End Date Carlee Scott MD [address] [place] [address] PCP - General Family Medicine 01/20/22 documented as of this encounter
--- OUTSIDE RECORDS SUMMARY | 2025-01-30 14:03 | XMS_ITS | Encounter Summary ---
Author Organization [employer] Address [address] [facility] 7t [place] [address] Care Team Providers Care Garbage Pick Up Worker Name Role Phone Carlee Scott MD Primary Care Provider [phone] Encounter Details Date Type Department Care Team (Late st Contact Info) Description 06/28/2024 Orders Only [facility] MEDICINE [address] [place], [place] [phone] Carlee Scott MD 230 [place], [place] [phone] custodial current use of hormonal contraceptive (Primary Dx) [...] Description 02/09/2025 9:00 AM EDT Procedure Visit [facility] MEDICINE [address] [place] [address] Valeria Ruff CNM [address] [place] [address] 03/02/2025 9:30 AM EDT Clinical Support [address] [address] documented as of this encounter Visit Diagnoses Diagnosis rat exterminator current use of hormonal contraceptive- Primary documented in this encounter Additional Health Concerns Assessment Noted Time PHQ-9 Depression Total Score: 0 03/18/20 24 10:02 AM EDT documented as of this encounter Care Teams Garbage Pick Up Worker Relationship Specialty Start Date End Date Carlee Scott MD [address] [place] [address] PCP - General Family Medicine 01/20/22 documented as of this encounter
--- OUTSIDE RECORDS SUMMARY | 2025-01-30 14:03 | XMS_ITS | Encounter Summary ---
Author Organization [employer] Address [address] [facility] 7t [place] [address] Care Team Providers Care Learning Coordinator Name Role Phone Carlee Scott MD Primary Care Provider Encounter Details Date Type Department Care Team ([facility] st Contact Info) Description 08/11/2023 Orders Only [facility] MEDICINE 230 [place], [place] [phone] Carlee Scott MD 230 [place], [place] [phone] Social History Tobacco Use Types Packs/Day Years [...] Description 02/09/2025 9:00 AM EDT Procedure Visit [address] [address] Valeria Ruff CNM [address] [place] [address] 03/02/2025 9:30 AM EDT Clinical Support [address] [address] documented as of this encounter Visit Diagnoses Not on filedocumented in this encounter Additional Health Concerns Assessment Noted Time PHQ-9 Depression Total Score: 22 024 12:37 PM EST documented as of this encounter Care Teams Learning Coordinator Relationship Specialty Start Date End Date Carlee Scott MD [address] [place] [address] PCP - General Family Medicine 01/20/22 documented as of this encounter
--- OUTSIDE RECORDS SUMMARY | 2025-01-30 14:03 | XMS_ITS | Encounter Summary ---
Author Organization [employer] Address [address] [facility] 7t [place] [address] Care Team Providers Care Chief Chemist Name Role Phone Carlee Scott MD Primary Care Provider [phone] Encounter Details Date Type Department Care Team ([facility] st Contact Info) Description 06/10/2023 Orders Only [facility] MEDICINE 230 [place], [place] [phone] Laure Canada MD 230 [place], [place] [phone] Social History Tobacco Use Types Packs/Day Years [...] Description 02/09/2025 9:00 AM EDT Procedure Visit [address] [address] Valeria Ruff CNM [address] [place] [address] 03/02/2025 9:30 AM EDT Clinical Support [address] [address] documented as of this encounter Visit Diagnoses Not on filedocumented in this encounter Additional Health Concerns Assessment Noted Time PHQ-9 Depression Total Score: 16 023 9:32 AM EST documented as of this encounter Care Teams Chief Chemist Relationship Specialty Start Date End Date Carlee Scott MD [address] [place] [address] PCP - General Family Medicine 01/20/22 documented as of this encounter
--- OUTSIDE RECORDS SUMMARY | 2025-01-30 14:03 | XMS_ITS | Encounter Summary ---
Author Organization [employer] Address [address] [facility] 7 [place] [address] Care Team Providers Care Referral Rn Name Role Phone Carlee Scott MD Primary Care Provider [phone] Reason for Visit * Reason Onset Date Comments Appointment Request 12/21/2024 Encounter Details Date Type Department Care Team ([facility] st Contact Info) Description 12/21/2024 Telephone [facility] MEDICINE 230 [place], [place] [phone] Carlee Scott MD 230 [place], [place] [phone] Appointment Request Social History Tobacco Use Types Packs/Day Years [...] encounter Miscellaneous Notes * Telephone Encounter - Christie Stearns - 12/21/2024 9:03 AM EDT Tc from pt requesting an appt with dermatology. No further details giving. Contact pt at [phone] documented in this encounter Plan of Treatment Upcoming Encounters Date Type Department Care Team (Late st Contact Info) Description 02/09/2025 9:00 AM EDT Procedure Visit [address] [address] Valeria Ruff CNM [address] [place] [address] 03/02/2025 9:30 AM EDT Clinical Support [address] [address] documented as of this encounter Visit Diagnoses Not on filedocumented in this encounter Additional Health Concerns Assessment Noted Time PHQ-9 Depression Total Score: 0 03/18/20 24 10:02 AM EDT documented as of this encounter Care Teams Referral Rn Relationship Specialty Start Date End Date Carlee Scott MD [address] [place] [address] PCP - General Family Medicine 01/20/22 documented as of this encounter
--- OUTSIDE RECORDS SUMMARY | 2025-01-30 14:03 | XMS_ITS | Encounter Summary ---
Author Organization [employer] Address [address] [facility] 7t [place] [address] Care Team Providers Care Home Demonstrator Name Role Phone Carlee Scott MD Primary Care Provider Encounter Details Date Type Department Care Team ([facility] st Contact Info) Description 09/11/2023 Orders Only [facility] [address] [place], [place] [phone] Wai Chen MD [address] [place], [place] [phone] Social History Tobacco Use Types Packs/Day Years [...] Description 02/09/2025 9:00 AM EDT Procedure Visit [address] [address] Valeria Ruff CNM [address] [place] [address] 03/02/2025 9:30 AM EDT Clinical Support [address] [address] documented as of this encounter Visit Diagnoses Not on filedocumented in this encounter Additional Health Concerns Assessment Noted Time PHQ-9 Depression Total Score: 22 024 12:37 PM EST documented as of this encounter Care Teams Home Demonstrator Relationship Specialty Start Date End Date Carlee Scott MD [address] [place] [phone] PCP - General Family Medicine 01/20/22 documented as of this encounter
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
--- OUTSIDE RECORDS SUMMARY | 2025-01-30 14:04 | XMS_ITS | Encounter Summary ---
Author Organization [employer] Address [address] [facility] 7t [place] [address] Care Team Providers Care Air Filler Name Role Phone Carlee Scott MD Primary Care Provider [phone] Reason for Visit * Reason Onset Date Comments Nurse Triage 12/21/2024 Encounter Details Date Type Department Care Team ([facility] st Contact Info) Description 12/21/2024 Telephone [facility] [address] [place], [place] [phone] Carlee Scott MD [address] [place], [place] [phone] Nurse Triage Social History Tobacco Use Types [...] Encounter - Maria Elena Beaver RN - 12/21/2024 9:27 AM EDT Triage call Pt received depo injection 12/08/24 and has continued to have vag spotting with 3pads changed per day and now with odor present. Pt reports some cramping also and reports it has been over a month with these symptoms. Pt will become more regular in cycle and then revert back to spotting and crampint. Review of depo side effects but, odor is significant and concerning. ASK apt with JEREMI Ruff 12/22/24 @ 1130am. Pt agrees with disposition and insurance is verified as active prior to booking. Protocol Used: Contraception - Control Shot Symptoms and Questions (Adult) Protocol-Based Disposition: See in Office or Video Visit within 3 Days Video visit not offered Positive Triage Question: * Patient wants to be seen * All higher-acuity triage questions were negative Care Advice Discussed: * Reassurance and Education - Control Shot (Depo-Provera) * Control Shot - FAQs * Control Shot - Benefits * Control Shot - Risks * Control Shot - Side Effects * Reasons To Call Back - You have more questions * Telephone Encounter - Christie Stearns - 12/21/2024 9:02 AM EDT Symptom: Vaginal Bleeding - Not Outcome: Schedule an appointment to be seen within 24 hours Reason: Caller denied all higher acuity questions The caller accepted this outcome. Contact pt at [phone] documented in this encounter Plan of Treatment Upcoming Encounters Date Type Department Care Team ([facility] st Contact Info) Description 02/09/2025 9:00 AM EDT Procedure Visit [address] [address] Valeria Ruff CNM [address] [place] [address] 03/02/2025 9:30 AM EDT Clinical Support [address] [address] documented as of this encounter Visit Diagnoses Not on filedocumented in this encounter Additional Health Concerns Assessment Noted Time PHQ-9 Depression Total Score: 0 03/18/20 24 10:02 AM EDT documented as of this encounter Care Teams Air Filler Relationship Specialty Start Date End Date Carlee Scott MD [address] [place] [phone] PCP - General Family Medicine 01/20/22 documented as of this encounter
== END 2025-01-30 11:37 | disposition home or self-care (01) ==
LOC: HO.HPS 11:19
PROVIDERS: PCP General Practice; Visit Provider Nurse Practitioner Family
DX: R06.02 Shortness of breath (principal); R94.2 Abnormal results of pulmonary function studies; Z87.891 Personal history of nicotine dependence
CPT/HCPCS: 99213

== ENCOUNTER → 2025-01-30 11:18 | Outpatient (BNVA) | payer OTHER, SELFPAY | PROVIDERS: PCP General Practice; Visit Provider Nurse Practitioner Family | DX: R06.02 Shortness of breath (principal); R94.2 Abnormal results of pulmonary function studies; R07.81 Pleurodynia; Z87.891 Personal history of nicotine dependence | CPT/HCPCS: 99212 ==

== ENCOUNTER 2025-02-09 16:11 | Outpatient (REF) | payer OTHER, SELFPAY ==
--- OUTSIDE RECORDS SUMMARY | 2025-02-09 09:00 | XMS_ITS | Encounter Summary ---
Author Organization [employer] Address [address] [place] [address] [address] [place] [address] Care Team Providers Care Salt Machine Operator Name Role Phone Carlee Scott MD Primary Care Provider [phone] Reason for Referral * Imaging (Urgent) - Authorized Specialty Diagnoses / Procedures Referred By Contac t Referred To Contact Radiology Diagnoses Abnormal uterine bleeding (AUB) Procedures Us Pelvis complete Valeria Ruff CNM [address] [place] [address] Phone: tel: fax: [address] Phone: tel: fax: Referral ID Status Reason Start Date Expiration Date V isits Requested Visits Authorized [id number] Authorized 02/09/2025 02/09/2026 1 1 * Imaging (STAT) - Authorized Specialty Diagnoses / Procedures Referred By Contac t Referred To Contact Radiology Diagnoses Abnormal uterine bleeding (AUB) Procedures US Pelvis Transvaginal Valeria Ruff CNM [address] [place] [address] Phone: tel: fax: [address] Phone: tel: fax: Referral ID Status Reason Start Date Expiration Date V isits Requested Visits Authorized [id number] Authorized 02/09/2025 02/09/2026 1 1 Reason for Visit * Reason Comments pelvic Encounter Details Date Type Department Care Team (Latest Contact Info) Description 02/09/2025 9:00 AM EDT Procedure Visit [facility] [place] [facility] MED[facility]INE [address] [place] [address] Valeria Ruff CNM [address] [place] [address] Cervicitis (Primary Dx); Abnormal uterine bleeding (AUB) Social History Tobacco Use Types Packs/Day Years [...] your housing situation today? I have cm mauricio 08/10/[address] you li [...] Recorded No desire to become (finding) 0 02/09/2025 Sex and Gender Information Value Date Recorded Sex Assigned at Female 03/24/2022 10:14 AM EDT Legal Sex Female 10:14 AM EDT Gender Identity Female 03/24/2022 10:14 AM EDT Sexual Orientation Straight 03/24/2022 10 :14 AM EDT documented as of this encounter Last Filed Vital Signs Vital Sign Reading Time Taken Comments Blood Pressure 96/70 02/09/2025 9:25 AM EDT Pulse 85 02/09/2025 9:25 AM EDT Temperature 36.8 C (98.2 F) 02/09/2025 9:25 AM EDT Respiratory Rate 14 02/09/2025 9:25 AM EDT Oxygen Saturation 100% 02/09/2025 9:25 AM EDT Inhaled Oxygen Concentration - - Weight 82.3 kg (181 lb 6.4 oz) 02/09/2025 9:25 A M EDT Height - - Body Mass Index 28.41 01/27/2025 1:34 PM EDT documented in this encounter Progress Notes * Valeria Ruff CNM - 02/09/2025 9:00 AM EDT Subjective Patient ID: Andreina Leblanc is a 40 y.o. female who presents for followup Here for repeat speculum exam to re-evaluate cervical erosion noted at last visit. Notes new onset copious vaginal discharge after sex, as well as odor and irritation. Doesn't seem like typical bacterial vaginosis. Notes some bleeding after sex as well. No change in partner. Pap NIL/HPV neg 11/2024. Gonorrhea/Chlamydia/trichomonas neg, treated for bacterial vaginosis 11/2024. Last Depo 12/08, reviewed window if she would like to continue with injections. Largely amenorrheic recently other than bleeding after sex. Review of Systems Genitourinary: Positive for menstrual problem, pelvic pain, vaginal bleeding and vaginal discharge.Negative for dyspareunia and vaginal pain. Objective BP 96/70 (BP Location: Left arm, Patient Position: Sitting, BP Cuff Size: Adult) Pulse 85 Temp 98.2 ??F (36.8 ??C) (Oral) Resp 14 Wt 181 lb 6.4 oz (82.3 kg) SpO2 100% BMI 28.41 kg/m?? Physical Exam Bridge Instructor present: Bridge Instructor declines. Constitutional: Appearance: Normal appearance. Genitourinary: Labia: Right: No rash, tenderness, lesion or injury. Left: No rash, tenderness, lesion or injury. Vagina: No signs of injury and foreign body. Vaginal discharge and erythema present. No tenderness,bleeding, lesions or prolapsed vaginal moreno. Cervix: Discharge, friability, lesion, erythema and cervical bleeding present. No cervical motion tenderness. Uterus: Normal. Not enlarged and not tender. Adnexa: Right adnexa normal and left adnexa normal. Right: No mass, tenderness or fullness. Left: No mass, tenderness or fullness. Comments: Copious white-yellow discharge, area of erosion on cervix persists. Friable cervix Neurological: Mental Status: She is alert. Psychiatric: Mood and Affect: Mood normal. Behavior: Behavior normal. Assessment/Plan Diagnoses and all orders for this visit: Cervicitis - Chlamydia/N. Gonorrhoeae RNA, TMA, Vagina - Trichomonas RNA (Urine/Vaginal) - POCT fern test, vaginal fluid manually resulted Wet mount not consistent with trichomonas. For doxycyline now. Will send Gonorrhea/Chlamydia/trichomonas and contact with results. Seek care urgently if worsening symptoms. If all testing negative, will order mycoplasma. Abnormal uterine bleeding (AUB) - US Pelvis Transvaginal; Future - Us Pelvis complete; Future Pap NIL/HPV neg 11/2024. STI testing pending from today. Will order ultrasound as per previous visitplan. Other orders - doxycycline (Monodox) 100 MG capsule; One twice a day for 7 days. Take with at least 8 ounces (large glass) of water, do not lie down for 30 minutes after May schedule next Depo at the desk. Let me know if interested in other options. documented in this encounter Plan of Treatment Upcoming Encounters Date Type Department Care Team ([facility] st Contact Info) Description 03/02/2025 9:30 AM EDT Clinical Support [address] [address] Scheduled Orders Name Type Priority Associated Diagnoses Orde r Schedule Chlamydia/N. Gonorrhoeae RNA, TMA, Vagina Microbiology Routine Cervicitis Ordered: 02/09/2025 Trichomonas RNA (Urine/Vaginal) Lab Routine Cervicitis Ordered: 02/09/2025 US Pelvis Transvaginal Imaging STAT Abnormal uterine bleeding (AUB) Expected: 02/09/2025, Expires: 02/09/2026 Us Pelvis complete Imaging Urgent Abnormal uterine bleeding (AUB) Expected: 02/09/2025, Expires: 02/09/2026 documented as of this encounter Procedures Procedure Name Priority Date/Time Associated Diagnosis Comments POCT WET MOUNT/GLEN Routine 02/09/2025 10 :16 AM EDT Cervicitis documented in this encounter Results * POCT fern test, vaginal fluid manually resulted (02/09/2025 10:16 AM EDT) GLEN Prep Positive Comment:pH 5.5, neg whiff, n eg trich, pos wbc, few clue, neg yeast Vaginal Fluid Vaginal structure / Unknown 02/09/2025 10:16 AM EDT Valeria THIBODEAUX POINT OF CARE TEST ENTER/ EDIT ORDERABLES Final Result documented in this encounter Visit Diagnoses Diagnosis Cervicitis- Primary Cervicitis and endocervicitis Abnormal uterine bleeding (AUB) documented in this encounter Additional Health Concerns Assessment Noted Time PHQ-9 Depression Total Score: 0 03/18/20 10:02 AM EDT documented as of this encounter Care Teams Salt Machine Operator Relationship Specialty Start Date End Date Carlee Scott MD [address] [place] [address] PCP - General Family Medicine 01/20/22 documented as of this encounter
--- OUTSIDE RECORDS SUMMARY | 2025-02-09 17:15 | XMS_ITS | Encounter Summary ---
Author Organization [employer] Address [address] [facility] [address] [place] [address] Care Team Providers Care Roving Hand Name Role Phone Carlee Scott MD Primary Care Provider [phone] Reason for Visit * Reason Onset Date Comments chart prep 02/08/2025 Encounter Details Date Type Department Care Team ([facility] st Contact Info) Description 02/08/2025 Telephone [facility] MEDICINE [address] [place], [place] [phone] Valeria Ruff CN [address] [place] [address] chart prep Social History Tobacco Use Types Packs/Day Years [...] encounter Miscellaneous Notes * Telephone Encounter - Amber Raphael MA - 02/08/2025 10:17 AM EDT Chart Prep Labs: done Images: not applicable Referrals: not applicable Vaccines due: Covid, Flu, and HPV Screenings: pap smear Overdue care gaps: PHQ-9 documented in this encounter Plan of Treatment Upcoming Encounters Date Type Department Care Team (Late st Contact Info) Description 03/02/2025 9:30 AM EDT Clinical Support [facility] MEDICINE [address] [place] [address] documented as of this encounter Visit Diagnoses Not on filedocumented in this encounter Additional Health Concerns Assessment Noted Time PHQ-9 Depression Total Score: 0 03/18/20 10:02 AM EDT documented as of this encounter Care Teams Roving Hand Relationship Specialty Start Date End Date Carlee Scott MD [address] [place] [address] PCP - General Family Medicine 01/20/22 documented as of this encounter
--- OUTSIDE RECORDS SUMMARY | 2025-02-09 17:15 | XMS_ITS | Clinical Summary ---
Author Organization [employer] [facility] Address [address] [place] [address] Care Team Providers Care Chief Clinical Dietitian Name Role Phone Dana Mattson RN Primary Care Provider [phone] Surgical History Surgery Date Site/Laterality Comments OTHER SURGICAL HISTORY PROCEDURE: DENIES PREVIOUS SURGERY OTHER SURGICAL HISTORY PROCEDURE: [place] INCISION & DRAINAGE PILONIDAL CYST SIMPLE; COMMENT: [...] a genital outbreak ; no labs in [facility] for review History of blood [...] Smear 08/01/2024 08/01/2021, 01/27/2018, 01/27/2018 COVID-19 Vaccine ( - 2023-2 5 season) 2025 Influenza Vaccine (#1) 2025 DTaP,Tdap,and Td Vaccines (3 - Td or Tdap) 11/21/2031 11/20/2021, 03/06/2015 RSV Immunization Adult Patients (1 - 1-dose 75+ series) 2062 HIB Vaccines Aged Out No longer eligi [...] RESULTING AGENCY - 08/14/2021 7:26 AM EDT [id number] THINPREP PAP, IMAGED: NEGATIVE FOR SQUAMOUS INTRAEITHELIAL [...] Recently Relevant to Health Maintenance Care Teams Chief Clinical Dietitian Relationship Specialty Start Date End Date Dana Mattson RN [address] [place] [phone] PCP - General 10/16/22
--- OUTSIDE RECORDS SUMMARY | 2025-02-09 17:15 | XMS_ITS | Encounter Summary ---
Author Organization [employer] Address [address] [facility] [address]t [place] [address] Care Team Providers Care Tile Classifier Name Role Phone Carlee Scott MD Primary Care Provider [phone] Encounter Details Date Type Department Care Team ([facility] st Contact Info) Description 09/11/2023 Orders Only [facility] [address] [place], [place] [phone] Wai Chen MD [address] [place], [place] [phone] Social History Tobacco Use Types Packs/Day Years [...] Description 03/02/2025 9:30 AM EDT Clinical Support [facility] MEDICINE [address] [place] [address] documented as of this encounter Visit Diagnoses Not on filedocumented in this encounter Additional Health Concerns Assessment Noted Time PHQ-9 Depression Total Score: 22 024 12:37 PM EST documented as of this encounter Care Teams Tile Classifier Relationship Specialty Start Date End Date Carlee Scott MD [address] [place] [address] PCP - General Family Medicine 01/20/22 documented as of this encounter
--- OUTSIDE RECORDS SUMMARY | 2025-02-09 17:15 | XMS_ITS | Encounter Summary ---
Author Organization [employer] Address [address] [facility] 7t [place] [address] Care Team Providers Care Inbound Sales Advisor Name Role Phone Carlee Scott MD Primary Care Provider [phone] Encounter Details Date Type Department Care Team (Late st Contact Info) Description 06/28/2024 Orders Only [facility] MEDICINE [address] [place], [place] [phone] Carlee Scott MD [address] [place], [place] [phone] intermediate card tender current use of hormonal contraceptive (Primary Dx) [...] Description 03/02/2025 9:30 AM EDT Clinical Support [facility] MEDICINE [address] [place] [address] documented as of this encounter Visit Diagnoses Diagnosis intermediate card tender current use of hormonal contraceptive- Primary documented in this encounter Additional Health Concerns Assessment Noted Time PHQ-9 Depression Total Score: 0 03/18/20 24 10:02 AM EDT documented as of this encounter Care Teams Inbound Sales Advisor Relationship Specialty Start Date End Date Carlee Scott MD [address] [place] [address] PCP - General Family Medicine 01/20/22 documented as of this encounter
--- OUTSIDE RECORDS SUMMARY | 2025-02-09 17:15 | XMS_ITS | Encounter Summary ---
Author Organization [employer] Address [address] [facility] 7t [place] [address] Care Team Providers Care Blister Packing Machine Tender Name Role Phone Carlee Scott MD Primary Care Provider Reason for Visit * Reason Comments Med Change Request Encounter Details Date Type Department Care Team ([facility] [address] Contact Info) Description 12/22/2024 Refill [facility] MEDICINE [address] [place], [place] [phone] Valeria Ruff, CARLOS EDUARDO [address] [place] [address] Social History Tobacco Use Types Packs/Day Years [...] Description 03/02/2025 9:30 AM EDT Clinical Support [facility] MEDIC[facility] [address] [place] [address] documented as of this encounter Visit Diagnoses Not on filedocumented in this encounter Additional Health Concerns Assessment Noted Time PHQ-9 Depression Total Score: 0 03/18/20 10:02 AM EDT documented as of this encounter Care Teams Blister Packing Machine Tender Relationship Specialty Start Date End Date Carlee Scott MD [address] [place] [address] PCP - General Family Medicine 01/20/22 documented as of this encounter
--- OUTSIDE RECORDS SUMMARY | 2025-02-09 17:15 | XMS_ITS | Encounter Summary ---
Author Organization [employer] Address [address] [facility] 7t [place] [address] Care Team Providers Care Director Of Field Service Name Role Phone Carlee Scott MD Primary Care Provider [phone] Encounter Details Date Type Department Care Team ([facility] st Contact Info) Description 08/11/2023 Orders Only [facility] MEDICINE [address] [place], [place] [phone] Carlee Scott MD [address] [place], [place] [phone] Social History Tobacco Use Types Packs/Day Years [...] Description 03/02/2025 9:30 AM EDT Clinical Support [facility] MEDICINE [address] [place] [address] documented as of this encounter Visit Diagnoses Not on filedocumented in this encounter Additional Health Concerns Assessment Noted Time PHQ-9 Depression Total Score: 22 024 12:37 PM EST documented as of this encounter Care Teams Director Of Field Service Relationship Specialty Start Date End Date Carlee Scott MD [address] [place] [address] PCP - General Family Medicine 01/20/22 documented as of this encounter
--- OUTSIDE RECORDS SUMMARY | 2025-02-09 17:15 | XMS_ITS | Clinical Summary ---
Author Organization [employer] Address [address] [facility] 7t [place] [address] Care Team Providers Care Dump Grader Name Role Phone Carlee Scott MD Primary Care Provider [phone] Allergies Active Allergy Reactions Criticality Noted Date [...] EVERY DAY 84 tablet 01/13/20 25 Active doxycycline (Monodox) 100 MG capsule One twice a day for 7 days. Take with at least 8 ounces (large glass) of water, do not lie down for 30 minutes after 14 capsule 02/10/20 25 Active levonorgestre l-ethinyl estradiol (Aviane, Alesse, Lessina) 0.1-20 MG-MCG tablet Take 1 tablet by mouth Once per day. 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 150 mg IM Every 3 months 06/28/2024 06/23/19 26 Active triamcinolone acetonide (Kenalog-40) injection 40 mgIndications:Kelo id 40 mg INTRA-LESI ON Once 05/06/2024 01/28/20 25 Discontinued triamcinolone acetonide (Kenalog-40) injection 40 mgIndications:Kelo id 40 mg IX Once 01/27/2025 01/28/20 25 Ended Active Problems Problem Noted Date Diagnosed Date Degenerative disc disease, 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 Other chest pain 03/18/2024 Assessment & Plan [...] intervention , [facility], and Patient to reach out to [facility] as needed Prolonged grief disorder 07/09/2023 Sore throat 06/05/2023 Metrorrhagia 06/05/2023 Health care maintenance 10/01/2022 Assessment & Plan (10/01/2022 7:56 PM EDT): -Pap smear : 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 x it (will try to get [...] get records and also referred pt to preanalytics team lead. Did annual labs today and Tb test--pt will bring form to be completed ---if not seen by preanalytics team lead by then would explain in form that [...] Encounters Date Type Department Care Team Description 02/09/2025 9:00 AM EDT Procedure Visit [facility] [address] [place] [phone] Monika Guthrie CNM Cervicitis (Primary Dx); Abnormal uterine bleeding (AUB) 02/09/2025 Travel 02/08/[address] [address] Monika Guthrie CNM chart prep 01/31/[address] [address] Carlee Scott MD Durable Medical Equipment ([facility]: DME Request) 01/27/2025 1:30 PM EDT Office Visit [address] [address] Lucrecia Wong MD Keloid (Primary Dx); Rosacea 01/27/2025 Travel 01/12/[address] [address] Monika Guthrie CNM 01/03/2025 Results Follow-Up [address] [address] Monika Guthrie CNM Bacterial Vaginosis, HPV DNA, Low/High Risk 12/22/2024 11:30 AM EDT Office Visit [address] [address] Monika Guthrie CNM Abnormal uterine bleeding (Primary Dx); BV (bacterial vaginosis); Screening examination for venereal disease 12/22/2024 Telephone [facility] [address] [place] [address] Amy Wallis RN Medication 12/22/2024 Orders Only [facility] [address] [place] [address] Monika Guthrie CNM 12/22/[address] [address] Monika Guthrie CNM 12/22/2024 Travel 12/21/[address] [address] Monika Guthrie CNM chart prep 12/21/[address] [address] Carlee Scott MD Appointment Request 12/21/[address] [address] Carlee Scott MD Nurse Triage 12/08/2024 10:00 AM EDT Clinical Support [facility] [address] [place] [address] Bridget Simeon, RN Encounter for surveillance of injectable contraceptive 12/08/2024 Travel 12/06/2024 Refill [facility] [address] [place] [address] Carlee Scott MD from Last 3 Months Immunizations Immunization Administration [...] oz) 02/09/2025 9:25 A M EDT Height 170.2 cm (5' 7 ) 01/27/2025 1:34 PM EDT Body Mass Index 28.41 01/27/2025 1:34 PM EDT Plan of Treatment Upcoming Encounters Date Type Department Care Team (Late st Contact Info) Description 03/02/2025 9:30 AM EDT Clinical Support [facility] [address] [place], [place] [phone] Health Maintenance Due Date Last Done Comments [...] Use Screening 10/11/2025 10/11/2024 Family Planning (PISQ) 02/09/2026 02/09/2025 Tobacco Screening 02/09/2026 02/09/2025 Cervical Cancer Screening 12/22/2029 HPV/Cotest 12/22/2029 12/22/2024, [...] Routine 02/09/2025 10 :16 AM EDT Cervicitis BACTERIAL VAGINOSIS PANEL Routine 12/22/2024 12:15 PM [...] Relevant to Health Maintenance Results * POCT fern test, vaginal fluid manually resulted (02/09/2025 10:16 AM EDT) Only the most recent of2 resultswithin the time period is included. [facility] Prep Positive Comment:pH 5.5, neg whiff, n eg trich, pos wbc, few clue, neg yeast Vaginal Fluid Vaginal structure / Unknown 02/09/2025 10:16 AM EDT Monika Guthrie CNM POINT OF CARE TEST ENTER/ EDIT ORDERABLES Final Result * (ABNORMAL) Bacterial Vaginosis (12/22/2024 12:15 PM EDT) TRICHOMONAS VAGINALIS DETECTION BY PCR NOT DETECTED Not Detect [facility] BACTERIAL VAGINOSIS DETECTION BY PCR POSITIVE(A) Negative [facility] Comment:The BV organism targ [...] DETECTION BY PCR NOT DETECTED Not Detect [facility] Rosamaria glab krusei PCR NOT DETECTED Not Detect [facility] 12/22/2024 12:1 5 PM EDT 12/22/2024 5:50 PM EDT Monika Guthrie CNM LAB MICROBIOLOGY - GENERA L ORDERABLES Final Result [facility] [address] [place] [phone] * Chlamydia/N. Gonorrhoeae RNA, TMA, Vagina (12/22/2024 12:15 PM EDT) CT PCR NOT DETECTED Not Detect. [facility] Comment:A not detected test result [...] psychologicalconsequences. NG PCR NOT DETECTED Not Detect. [facility] Comment:A not detected test result [...] 12:15 PM EDT 12/22/2024 5:51 PM EDT us Monika Guthrie CNM LAB MICROBIOLOGY - GENERA L ORDERABLES Final Result [facility] [address] [place] [phone] * HPV DNA, Low/High Risk (12/22/2024 12:12 PM EDT) HPV High Risk Negative Negative [facility] HPV Genotype 16 Negative Negative [facility] HPV Genotype 18 Negative Negative [facility] Comment:HPV testing performe d at [facility] (CLIA#[id number]), [address] [place] [address].Testing for HPV was performed using the [employer]system. The presence of HPV in the female [...] 12/23/2024 7:40 AM EDT us Monika Guthrie [facility] BLOOD ORDERABLES Rosio adhikari Result [facility] [address] [place] [phone] * Pap Smear (12/22/2024 12:12 PM EDT) Swab 12/22/2024 12:1 2 PM EDT 12/23/2024 7:40 AM EDT Narrative [facility] - 01/02/2025 2:55 PM EDT ----- ------- Name: Andreina Leblanc Age/Sex: 39/F : 1985 Unit#: [id number] Attend Dr: MONIKA GUTHRIE CNM Re12/22/24 Status: DEP REF Location[facility] Disch: ----- ------- SPEC : [id number] RECD: 12/23/24 STATUS: JUVENAL DEAL NUM: [id number] ALYSSA: 12/22/24-[address]: MONIKA GUTHRIE CNM ENTERED: 12/23/24 SP TYPE: Pap Smr OTHR DR: ORDERED: Pap Smear, PAP path review [...] and HPV testing will be performed at [facility] (CLIA #[id number]), [address] [place] [address]. Testing for HPV was performed using the [employer] 6800 system. The presence of HPV in [...] detected. All professional services are performed by [facility] ([address] [place], [place] [phone]; ; CLIA #[id number]). The PAP Test is a screening procedure with the inherent possibility of both false negative and false positive results. Results should be interpreted in the context of historic and current clinical findings. Reliability of the PAP Test is enhanced by performing the test on a regular repetitive basis. CONTINUED ON NEXT PAGE ----- ------- Name: Andreina Leblanc Age/Sex: 39/F : 1985 Unit#: [id number] Attend Dr: MONIKA GUTHRIE CNM Re12/22/24 Status: [facility] REF Location: [facility] Disch: ----- ------- SPEC : [id number] RECD: 12/23/24 STATUS: JUVENAL DEAL NUM: [id number] ALYSSA: 12/22/24-[address]: MONIKA GUTHRIE CNM ENTERED: 12/23/24 SP TYPE: Pap [facility] DR: ORDERED: Pap Smear, PAP path review ----- ------- Signed (signature on file) Cherie Saba 01/02/25 1455 ----- ------- END OF REPORT Monika Guthrie [facility] CYTOLOGY ORDERABLES F inal Result [facility] [address] [place] [phone] * (ABNORMAL) POCT Hemoglobin (12/22/2024 12:03 PM EDT) [facility] Hemoglobin 11.8(A) 12.0 - 15.0 QC Media Lot # [id number] Lot# Expiration Date ,026 Blood 12/22/2024 12:0 3 PM EDT [facility] POINT OF CARE TEST ENTER/ EDIT ORDERABLES Final Result * POCT Urine (12/22/2024 11:59 AM EDT) Only the most recent of2 resultswithin the time period is included. [facility] Preg Test, Ur Negative Negative, Indeterminate, None Detected, Invalid, Specimen unsatisfactory for evaluation, Weakly Positive, 2+ QC Media Lot # [id number] Lot# Expiration Date ,026 Urine 12/22/2024 11:5 9 AM EDT Monikatammie Guthrie CN POINT OF CARE TEST ENTER/ EDIT ORDERABLES Final Result * Hepatitis C Antibody with Reflex to HCV, RNA, Quantitative, Real-Time PCR (10/02/2022 8:44 AM EDT) Hepatitis C Antibody NON-REACT KEATON NON-REACT KEATON [facility] Index 0.12 <1.00 [facility] Comment: HCV antibody was non-reactive. There is no laboratory evidence of HCV infection. In most cases, no further action is required. However, if recent HCV exposure is suspected, a test for HCV RNA (test code 80343) is suggested. For additional information please refer to http://education.Doculogy/faq/DKJ29f3 (This link is being provided for informational/ educational purposes only.) Blood Venous blood specimen / Unknown 10/02/2022 8:44 AM EDT 10/02/2022 8:44 AM EDT Narrative [facility] - 10/07/2022 3:11 PM EDT FASTING:YES FASTING: YES Laure Medina MD LAB BLOOD ORDERAB LES Final Result [facility] [address], [place] [address] [facility] [place] [employer] [place] [address] * HIV-1/2 Antigen and Antibodies, Fourth Generation, with Reflexes (10/02/2022 8:44 AM EDT) HIV Antigen/Antibody, 4th Generation NON-REAC TIVE NON-REAC TIVE [facility] Comment: HIV-1 antigen and HIV-1/HIV-2 antibodies were [...] purpose. For additional information please refer to http://education.Doculogy/faq/XRJ792 (This link is being provided for informational/ educational purposes only.) The performance of this assay has not been clinically validated in patients less than 2 years old. Blood Venous blood specimen / Unknown 10/02/2022 8:44 AM EDT 10/02/2022 8:44 AM EDT Narrative [facility] - 10/07/2022 3:11 PM EDT FASTING:YES FASTING: YES Laure Medina MD LAB BLOOD ORDERAB LES Final Result [facility] [address], [place] [address] [facility] [address] [place] [address] from Last 3 Months or Most Recently Relevant to Health Maintenance Insurance [facility] ONE CARE < 65 [place] [id number] DENTAL [facility] Care Teams Dump Grader Relationship Specialty Start Date End Date Carlee Scott MD [address] [place] [phone] PCP - General Family Medicine 01/20/22
--- OUTSIDE RECORDS SUMMARY | 2025-02-09 17:15 | XMS_ITS | Encounter Summary ---
Author Organization [employer] Address [address] [facility] 7t [place] [address] Care Team Providers Care Steel Layer Name Role Phone Carlee Scott MD Primary Care Provider [phone] Encounter Details Date Type Department Care Team (Latest Contact Info) Description 02/09/2025 Travel Social History Tobacco Use Types Packs/Day [...] Description 03/02/2025 9:30 AM EDT Clinical Support [facility] [address] [place] [address] documented as of this encounter Visit Diagnoses Not on filedocumented in this encounter Additional Health Concerns Assessment Noted Time PHQ-9 Depression Total Score: 0 03/18/20 24 10:02 AM EDT documented as of this encounter Care Teams Steel Layer Relationship Specialty Start Date End Date Carlee Scott MD [address] [place] [address] PCP - General Family Medicine 01/20/22 documented as of this encounter
--- OUTSIDE RECORDS SUMMARY | 2025-02-09 17:15 | XMS_ITS | Encounter Summary ---
Author Organization [employer] Address [address] [facility] 7t [place] [address] Care Team Providers Care Detective Youth Bureau Name Role Phone Carlee Scott MD Primary Care Provider [phone] Encounter Details Date Type Department Care Team ([facility] st Contact Info) Description 12/22/2024 Orders Only [facility] [address] [place], [place] [phone] Valeria Ruff CN [address] [place], [place] [phone] Social History Tobacco Use Types Packs/Day Years [...] Description 03/02/2025 9:30 AM EDT Clinical Support [address] [address] documented as of this encounter Procedures Procedure Name Priority Date/Time Associated Diagnosis Comments BACTERIAL VAGINOSIS PANEL Routine 12/22/2024 12:15 PM EDT HPV DNA, LOW/HIGH RISK Routine 12/22/2024 12:12 PM EDT documented in this encounter Results * (ABNORMAL) Bacterial Vaginosis (12/22/2024 12:15 PM EDT) TRICHOMONAS VAGINALIS DETECTION BY PCR NOT DETECTED Not Detect [facility] BACTERIAL VAGINOSIS DETECTION BY PCR POSITIVE(A) Negative [facility] Comment:The BV organism targ ets of [...] BY PCR NOT DETECTED Not Detect [facility] Rosamaria glab krusei PCR NOT DETECTED Not Detect [facility] 12/22/2024 12:1 5 PM EDT 12/22/2024 5:50 PM EDT Valeria THIBODEAUX LAB MICROBIOLOGY - GENERA L ORDERABLES Final Result Performing Organization Address [facility] Co de Phone Number [facility] [address] [place] [phone] * HPV DNA, Low/High Risk (12/22/2024 12:12 PM EDT) HPV High Risk Negative Negative [facility] HPV Genotype 16 Negative Negative [facility] HPV Genotype 18 Negative Negative [facility] Comment:HPV testing performe d at [facility] (CLIA#[id number]), [address] [place] [address].Testing for HPV was performed using the [employer] [...] [facility] LAB BLOOD ORDERABLES Rosio l Result Performing Organization Address [facility] Co de Phone Number [facility] [address] [place] [phone] documented in this encounter Visit Diagnoses Not on filedocumented in this encounter Additional Health Concerns Assessment Noted Time PHQ-9 Depression Total Score: 0 10/25/20 24 10:02 AM EDT documented as of this encounter Care Teams Detective Youth Bureau Relationship Specialty Start Date End Date Carlee Scott MD [address] [place] [address] PCP - General Family Medicine 01/20/22 documented as of this encounter
--- OUTSIDE RECORDS SUMMARY | 2025-02-09 17:15 | XMS_ITS | Encounter Summary ---
Author Organization [employer] Address [address] [facility] 7t [place] [address] Care Team Providers Care Pond Worker Name Role Phone Carlee Scott MD Primary Care Provider [phone] Encounter Details Date Type Department Care Team ([facility] st Contact Info) Description 06/10/2023 Orders Only [facility] [address] [place], [place] [phone] Laure Canada MD [address] [place], [place] [phone] Social History Tobacco Use Types Packs/Day Years [...] Description 03/02/2025 9:30 AM EDT Clinical Support [facility] [address] [place] [address] documented as of this encounter Visit Diagnoses Not on filedocumented in this encounter Additional Health Concerns Assessment Noted Time PHQ-9 Depression Total Score: 16 023 9:32 AM EST documented as of this encounter Care Teams Pond Worker Relationship Specialty Start Date End Date Carlee Scott MD [address] [place] [address] PCP - General Family Medicine 01/20/22 documented as of this encounter
[2025-02-09 23:07] LABS: CT PCR NOT DETECTED (Not Detect.); NG PCR NOT DETECTED (Not Detect.)
== END 2025-02-09 16:12 | disposition home or self-care (01) ==
LOC: HO.HHCLNP 16:11
PROVIDERS: Visit Provider Advanced Practice Midwife
DX: N72 Inflammatory disease of cervix uteri (principal)
CPT/HCPCS: 87491; 87591; 87661

== ENCOUNTER 2025-02-14 15:57 | Outpatient (REF) | payer OTHER, SELFPAY ==
--- OUTSIDE RECORDS SUMMARY | 2025-02-09 09:00 | XMS_ITS | Encounter Summary ---
Author Organization [employer] Address [address] [place] [address] [address] [place] [address] Care Team Providers Care Molded Goods Embossing Press Operator Name Role Phone Carlee Scott MD Primary Care Provider [phone] Reason for Referral * Imaging (Urgent) - Authorized Specialty Diagnoses / Procedures Referred By Contac t Referred To Contact Radiology Diagnoses Abnormal uterine bleeding (AUB) Procedures Us Pelvis complete Valeria Ruff CNM [address] [place] [address] Phone: tel: fax: [address] Phone: tel: fax: Referral ID Status Reason Start Date Expiration Date V isits Requested Visits Authorized [id number] Authorized 02/09/2025 02/09/2026 1 1 * Imaging (STAT) - Authorized Specialty Diagnoses / Procedures Referred By Contac t Referred To Contact Radiology Diagnoses Abnormal uterine bleeding (AUB) Procedures US Pelvis Transvaginal Valeria Ruff CNM [address] [place] [address] Phone: tel: fax: [address] Phone: tel: fax: Referral ID Status Reason Start Date Expiration Date V isits Requested Visits Authorized [id number] Authorized 02/09/2025 02/09/2026 1 1 Reason for Visit * Reason Comments pelvic Encounter Details Date Type Department Care Team (Latest Contact Info) Description 02/09/2025 9:00 AM EDT Procedure Visit [facility] MEDICINE [address] [place] [address] Valeria Ruff CNM [address] [place] [address] Cervicitis (Primary Dx); Abnormal uterine bleeding (AUB) [...] SpO2 100% BMI 28.41 kg/m?? Physical Exam Bite Block Maker present: Bite Block Maker declines. Constitutional: Appearance: Normal appearance. Genitourinary: Labia: [...] Upcoming Encounters Date Type Department Care Team ([facility] st Contact Info) Description 03/02/2025 9:30 AM EDT Clinical Support [address] [address] Scheduled Orders Name Type Priority Associated Diagnoses Orde r Schedule US Pelvis Transvaginal Imaging STAT Abnormal uterine bleeding (AUB) Expected: 02/09/2025, Expires: 02/09/2026 Us Pelvis complete Imaging Urgent Abnormal uterine bleeding (AUB) Expected: 02/09/2025, Expires: 02/09/2026 documented as of this encounter Procedures Procedure Name Priority Date/Time Associated Diagnosis Comments POCT WET MOUNT/GLEN Routine 02/09/2025 10 :16 AM EDT Cervicitis TRICHOMONAS VAGINALIS RNA, QUALITATIVE, TMA Routine 02/09/2025 9:50 AM EDT Cervicitis CHLAMYDIA/N. GONORRHOEAE RNA, TMA, UROGENITAL Routine 02/09/2025 9:50 AM EDT Cervicitis documented in this encounter Results * POCT fern test, vaginal fluid manually resulted (02/09/2025 10:16 AM EDT) GLEN Prep Positive Comment:pH 5.5, neg whiff, n eg trich, pos wbc, few clue, neg yeast Vaginal Fluid Vaginal structure / Unknown 02/09/2025 10:16 AM EDT Valeria THIBODEAUX POINT OF CARE TEST ENTER/ EDIT ORDERABLES Final Result * Trichomonas RNA (Urine/Vaginal) (02/09/2025 9:50 AM EDT) Trichomas vaginalis RNA, QL, TMA NOT DETECTED NOT DETECTED [facility] Comment:For additional infor melissa, please refer [email or web address].[email or web address]/faq/Trichomonastma(This link is being provided for informational/educational purposes only.)THIS TEST WAS PERFORMED AT:[facility] [place] [id number] CARRENO MD Swab 02/09/2025 9:50 AM EDT 02/09/2025 4:11 PM EDT Valeria Speedy [facility] BODY FLUIDS AND STOOL S ORDERABLES Final Result [facility] [address] [place] [address] [phone] * Chlamydia/N. Gonorrhoeae RNA, TMA, Vagina (02/09/2025 9:50 AM EDT) CT PCR NOT DETECTED Not Detect. [facility] Comment:A not detected test result does [...] psychologicalconsequences. NG PCR NOT DETECTED Not Detect. [facility] Comment:A not detected test result does [...] or psychologicalconsequences. Swab Vaginal structure / Unknown 02/09/2025 9:50 AM EDT 02/09/2025 4:11 PM EDT us Valeria Ruff CNM LAB MICROBIOLOGY - GENERA L ORDERABLES Final Result [facility] [address] [place] [address] [phone] documented in this encounter Visit Diagnoses Diagnosis Cervicitis- Primary Cervicitis and endocervicitis Abnormal uterine bleeding (AUB) documented in this encounter Additional Health Concerns Assessment Noted Time PHQ-9 Depression Total Score: 0 03/18/20 24 10:02 AM EDT documented as of this encounter Care Teams Molded Goods Embossing Press Operator Relationship Specialty Start Date End Date Carlee Scott MD [address] [place] [address] PCP - General Family Medicine 01/20/22 documented as of this encounter
--- NOTE | ~2025-02-14 | CT_ITS ---
EXAMINATION: CT CHEST WITHOUT CONTRAST CLINICAL INFORMATION: R94.2 - Abnormal results of pulmonary function studies COMPARISON: Chest x-ray September 15, 2021 and October 10, 2024 TECHNIQUE: Multidetector volumetric CT imaging of the chest was done. Axial MIP volume rendering provided. Sagittal and coronal reformatted images were obtained. This CT examination was performed using dose optimization techniques as appropriate, variously including the following: *Automated exposure control *Adjustment of mA and/or kV according to patient size (this includes techniques or standardized protocols for targeted exams where dose is matched to indication/reason for exam; i.e. extremities or head) *Use of iterative reconstruction technique FINDINGS: LUNGS: The lungs are clear with no evidence of inflammation or nodules. There is a tubular structure in the medial basal right lower lobe possibly arising from the aorta. MEDIASTINUM: The mediastinum is normal. CORONARY ARTERY CALCIFICATION: Present PLEURA: There is no pleural effusion. No pleural mass or thickening. AXILLA: No lymphadenopathy. UPPER ABDOMEN: Unremarkable. OSSEOUS STRUCTURES: There is mild wedging of T12 vertebral body without visible fracture line, likely physiologic in nature. CT/CT chest wo IV con IMPRESSION: There is a tubular structure in the medial basal right lower lobe that could represent anomalous systemic arterial supply possibly from the aorta to the right lower lobe. There are no other changes that suggest a true sequestration. Consider CT angiogram to confirm. Fleischner guidelines were followed. Electronically signed by: Eric Christine MD 02/14/2025 04:47 PM EDT
--- OUTSIDE RECORDS SUMMARY | 2025-02-14 18:31 | XMS_ITS | Encounter Summary ---
Author Organization [employer] Address [address] [facility] 7t [place] [address] Care Team Providers Care Director Radio News Name Role Phone Carlee Scott MD Primary Care Provider [phone] Encounter Details Date Type Department Care Team [...] Description 03/02/2025 9:30 AM EDT Clinical Support [facility] [address] [place] [address] documented as of this encounter Visit Diagnoses Not on filedocumented in this encounter Additional Health Concerns Assessment Noted Time PHQ-9 Depression Total Score: 0 03/18/20 24 10:02 AM EDT documented as of this encounter Care Teams Director Radio News Relationship Specialty Start Date End Date Carlee Scott MD [address] [place] [address] PCP - General Family Medicine 01/20/22 documented as of this encounter
--- OUTSIDE RECORDS SUMMARY | 2025-02-14 18:31 | XMS_ITS | Encounter Summary ---
Author Organization [employer] Address 75 [facility] 7t [place] [address] Care Team Providers Care Transmission And Coordination Engineer Name Role Phone Carlee Scott MD Primary Care Provider [phone] Encounter Details Date Type Department Care Team ([facility] st Contact Info) Description 06/10/2023 Orders Only [facility] [address] [place], [place] [phone] Laure Canada MD [address] [place], [place] [phone] Social History Tobacco Use Types Packs/Day Years [...] Description 03/02/2025 9:30 AM EDT Clinical Support [facility] [address] [place] [address] documented as of this encounter Visit Diagnoses Not on filedocumented in this encounter Additional Health Concerns Assessment Noted Time PHQ-9 Depression Total Score: 16 023 9:32 AM EST documented as of this encounter Care Teams Transmission And Coordination Engineer Relationship Specialty Start Date End Date Carlee Scott MD [address] [place] [address] PCP - General Family Medicine 01/20/22 documented as of this encounter
--- OUTSIDE RECORDS SUMMARY | 2025-02-14 18:31 | XMS_ITS | Encounter Summary ---
Author Organization [employer] Address 75 [facility] 7t [place] [address] Care Team Providers Care Legal Process Specialist Name Role Phone Carlee Scott MD Primary Care Provider [phone] Encounter Details Date Type Department Care Team ([facility] st Contact Info) Description 09/11/2023 Orders Only [facility] [address] [place], [place] [phone] Wai Chen MD [address] [place], [place] [phone] Social History Tobacco Use Types Packs/Day Years [...] Description 03/02/2025 9:30 AM EDT Clinical Support [facility] [address] [place] [address] documented as of this encounter Visit Diagnoses Not on filedocumented in this encounter Additional Health Concerns Assessment Noted Time PHQ-9 Depression Total Score: 22 024 12:37 PM EST documented as of this encounter Care Teams Legal Process Specialist Relationship Specialty Start Date End Date Carlee Scott MD [address] [place] [address] PCP - General Family Medicine 01/20/22 documented as of this encounter
--- OUTSIDE RECORDS SUMMARY | 2025-02-14 18:31 | XMS_ITS | Encounter Summary ---
Author Organization [employer] Address 75 [facility] 7t [place] [address] Care Team Providers Care Cracking Machine Operator Name Role Phone Carlee Scott MD Primary Care Provider [phone] Reason for Visit * Reason Onset Date Comments Results 02/13/2025 Encounter Details Date Type Department Care Team ([facility] st Contact Info) Description 02/13/2025 Results Follow-Up [facility] [address] [place] [address] Valeria Ruff CNM [address] [place] [address] Chlamydia/N. Gonorrhoeae RNA, TMA, Vagina, Trichomonas RNA (Urine/Vaginal) Social History Tobacco Use Types Packs/Day Years [...] encounter Miscellaneous Notes * Telephone Encounter - Kylee Ortiz RN - 02/13/2025 1:59 PM EDT Telephone call to pt, advised STI testing neg for NG, CT, trichomonas. Advised her provider would like to test for 1 additional infection called mycoplasma, advised her to come to green team front anytime to do self swab, pt to come Thursday AM. Reviewed to continue antibiotics, pt states she has not picked them up yet but will today. Ultrasound scheduled for 02.17.25. No further questions. * Telephone Encounter - Kylee Ortiz RN - 02/13/2025 1:48 PM EDT ----- Message from Valeria Ruff sent at 02/13/2025 12:09 PM EDT ----- Please let Andreina know vaginal testing negative for Gonorrhea/Chlamydia and trichomonas. I am going to order testing for another vaginal infection. Please continue antibiotics at this time. She can come in and self collect vaginal swab for mycoplasma ([facility]). Orders placed. We'll be in touch with those results when available as well as ultrasound. Does she have appointment for ultrasound yet? Thanks! ----- Message ----- From: Interface, Lab Results In Sent: 02/09/2025 11:08 PM EDT To: Valeria Ruff CNM * Result Encounter Note - Valeria Ruff CNM - 02/13/2025 12:09 PM EDT Please let Andreina know vaginal testing negative for Gonorrhea/Chlamydia and trichomonas. I am going to order testing for another vaginal infection. Please continue antibiotics at this time. She can come in and self collect vaginal swab for mycoplasma ([facility]). Orders placed. We'll be in touch with those results when available as well as ultrasound. Does she have appointment for ultrasoundyet? Thanks! documented in this encounter Plan of Treatment Upcoming Encounters Date Type Department Care Team (Late st Contact Info) Description 03/02/2025 9:30 AM EDT Clinical Support [facility] [address] [place] [address] documented as of this encounter Visit Diagnoses Not on filedocumented in this encounter Additional Health Concerns Assessment Noted Time PHQ-9 Depression Total Score: 0 03/18/20 24 10:02 AM EDT documented as of this encounter Care Teams Cracking Machine Operator Relationship Specialty Start Date End Date Carlee Scott MD [address] [place] [address] PCP - General Family Medicine 01/20/22 documented as of this encounter
--- OUTSIDE RECORDS SUMMARY | 2025-02-14 18:31 | XMS_ITS | Encounter Summary ---
Author Organization [employer] Address [address] [facility] 7t [place] [address] Care Team Providers Care Retail Center Receptionist Name Role Phone Carlee Scott MD Primary Care Provider [phone] Reason for Visit * Reason Comments Med Change Request Encounter Details Date Type Department Care Team ([facility] Contact Info) Description 12/22/2024 Refill [facility] [address] [place], [place] [phone] Valeria Ruff, CARLOS EDUARDO [address] [place] [address] Social History Tobacco Use Types Packs/Day Years [...] [facility] [address] [place] [address] documented as of this encounter Visit Diagnoses Not on filedocumented in this encounter Additional Health Concerns Assessment Noted Time PHQ-9 Depression Total Score: 0 03/18/20 10:02 AM EDT documented as of this encounter Care Teams Retail Center Receptionist Relationship Specialty Start Date End Date Carlee Scott MD [address] [place] [address] PCP - General Family Medicine 01/20/22 documented as of this encounter
--- OUTSIDE RECORDS SUMMARY | 2025-02-14 18:31 | XMS_ITS | Encounter Summary ---
Author Organization [employer] Address [address] [facility] 7t [place] [address] Care Team Providers Care Hydrologist Name Role Phone Carlee Scott MD Primary Care Provider [phone] Encounter Details Date Type Department Care Team ([facility] st Contact Info) Description 08/11/2023 Orders Only [facility] MEDICINE [address] [place], [place] [phone] Carlee Scott MD [address] [place], [place] [phone] Social History Tobacco Use Types Packs/Day Years [...] Description 03/02/2025 9:30 AM EDT Clinical Support [facility] [address] [place] [address] documented as of this encounter Visit Diagnoses Not on filedocumented in this encounter Additional Health Concerns Assessment Noted Time PHQ-9 Depression Total Score: 22 024 12:37 PM EST documented as of this encounter Care Teams Hydrologist Relationship Specialty Start Date End Date Carlee Scott MD [address] [place] [address] PCP - General Family Medicine 01/20/22 documented as of this encounter
--- OUTSIDE RECORDS SUMMARY | 2025-02-14 18:31 | XMS_ITS | Encounter Summary ---
Author Organization [employer] Address [address] [facility] 7t [place] [address] Care Team Providers Care Conductor Symphonic Orchestra Name Role Phone Carlee Scott MD Primary Care Provider [phone] Encounter Details Date Type Department Care Team ([facility] st Contact Info) Description 02/13/2025 Orders Only [facility] MEDICINE [address] [place], [place] [phone] Valeria Ruff CN [address] [place], [place] [phone] Cervicitis (Primary Dx) Social History Tobacco Use Types [...] 03/02/2025 9:30 AM EDT Clinical Support [facility] MEDICINE [address] [place] [phone] Scheduled Orders Name Type Priority Associated Diagnoses Orde r Schedule Mycoplasma/Ureaplas ma Panel Microbiology Routine Cervicitis Expected: 02/13/2025 (Approximate), Expires: 02/13/2026 documented as of this encounter Procedures Procedure Name Priority Date/Time Associated Diagnosis Comments CT CHEST WO CONTRAST Routine 02/14/2025 4:05 PM EDT documented in this encounter Results * CT Chest w/o Contrast (02/14/2025 4:05 PM EDT) Anatomical Region Laterality Modality Body, Chest Computed Tomogra phy 02/14/2025 4:05 PM EDT Narrative 02/14/2025 4:50 PM EDT [address] [address] [address] Scan Report Signed Patient: Andreina Leblanc MR#: [id number] : 1985 Acct:[id number] Age/Sex: 40 / F ADM Date: 02/14/25 Loc: HO.CT Attending Dr: Sarah Nava [employer] Ordering Physician: Sarah Nava NP Date of Service: 02/14/25 Procedure(s): CT chest wo IV con Accession Number(s): [id number] cc: Carlee Scott; Sarah Nava [employer] Report Number: [id number]: Total DLP = 161.00 mGy-cm Reason for Exam: R94.2 - Abnormal results of pulmonary function studies EXAMINATION: CT CHEST WITHOUT CONTRAST CLINICAL INFORMATION: R94.2 - Abnormal results of pulmonary function studies COMPARISON: Chest x-ray September 15, 2021 and October 10, 2024 TECHNIQUE: Multidetector volumetric CT imaging of the chest was done. Axial MIP volume rendering provided. Sagittal and coronal reformatted images were obtained. This CT examination was performed using dose optimization techniques as appropriate, variously including the following: *Automated exposure control *Adjustment of mA and/or kV according to patient size (this includes techniques or standardized protocols for targeted exams where dose is matched to indication/reason for exam; i.e. extremities or head) *Use of iterative reconstruction technique FINDINGS: LUNGS: The lungs are clear with no evidence of inflammation or nodules. There is a tubular structure in the medial basal right lower lobe possibly arising from the aorta. MEDIASTINUM: The mediastinum is normal. CORONARY ARTERY CALCIFICATION: Present PLEURA: There is no pleural effusion. No pleural mass or thickening. AXILLA: No lymphadenopathy. UPPER ABDOMEN: Unremarkable. OSSEOUS STRUCTURES: There is mild wedging of T12 vertebral body without visible fracture line, likely physiologic in nature. CT/CT chest wo IV con IMPRESSION: There is a tubular structure in the medial basal right lower lobe that could represent anomalous systemic arterial supply possibly from the aorta to the right lower lobe. There are no other changes that suggest a true sequestration. Consider CT angiogram to confirm. Fleischner guidelines were followed. Electronically signed by: Eric Christine MD 02/14/2025 04:47 PM EDT Dictated By: Eric Christine MD Signed By: <Electronically signed by Eric Christine MD in OV> 02/14/25 1647 DD/ 1605 TD/TT: 02/14/25 1630 Lead Android Developer: Procedure Note Donotuseinterpreter, Image - 02/14/[address] [address] [address] Scan Report Signed Patient: Andreina Leblanc [facility]#: [id number] : 1985Acct:[id number] Age/Sex: 40 / FADM Date: 02/14/25 Loc: HO.CT Attending Dr: Sarah Nava NP Ordering Physician: Sarah Nava NP Date of Service: 02/14/25 Procedure(s): CT chest wo IV con Accession Number(s): [id number] cc: Carlee Scott; Sarah Nava NP Report Number: [id number]: Total DLP = 161.00 mGy-cm Reason for Exam: R94.2 - Abnormal results of pulmonary function studies EXAMINATION: CT CHEST WITHOUT CONTRAST CLINICAL INFORMATION: R94.2 - Abnormal results of pulmonary function studies COMPARISON: Chest x-ray September 15, 2021 and October 10, 2024 TECHNIQUE: Multidetector volumetric CT imaging of the chest was done. Axial MIP volume rendering provided. Sagittal and coronal reformatted images were obtained. This CT examination was performed using dose optimization techniques as appropriate, variously including the following: *Automated exposure control *Adjustment of mA and/or kV according to patient size (this includes techniques or standardized protocols for targeted exams where dose is matched to indication/reason for exam; i.e. extremities or head) *Use of iterative reconstruction technique FINDINGS: LUNGS: The lungs are clear with no evidence of inflammation or nodules. There is a tubular structure in the medial basal right lower lobe possibly arising from the aorta. MEDIASTINUM: The mediastinum is normal. CORONARY ARTERY CALCIFICATION: Present PLEURA: There is no pleural effusion. No pleural mass or thickening. AXILLA: No lymphadenopathy. UPPER ABDOMEN: Unremarkable. OSSEOUS STRUCTURES: There is mild wedging of T12 vertebral body without visible fracture line, likely physiologic in nature. CT/CT chest wo IV con IMPRESSION: There is a tubular structure in the medial basal right lower lobe that could represent anomalous systemic arterial supply possibly from the aorta to the right lower lobe. There are no other changes that suggest a true sequestration. Consider CT angiogram to confirm. Fleischner guidelines were followed. Electronically signed by: Eric Christine MD 02/14/2025 04:47 PM EDT RP Dictated By: Eric Christine MD Signed By: <Electronically signed by Eric Christine MD in OV> 02/14/25 1647 DD/ 1605 TD/TT: 02/14/25 1630 Lead Android Developer: [facility] External Provider IMG CT PROCEDURES Final Result documented in this encounter Visit Diagnoses Diagnosis Cervicitis- Primary Cervicitis and endocervicitis documented in this encounter Additional Health Concerns Assessment Noted Time PHQ-9 Depression Total Score: 0 03/18/20 24 10:02 AM EDT documented as of this encounter Care Teams Conductor Symphonic Orchestra Relationship Specialty Start Date End Date Carlee Scott MD [address] [place] [address] PCP - General Family Medicine 01/20/22 documented as of this encounter
--- OUTSIDE RECORDS SUMMARY | 2025-02-14 18:31 | XMS_ITS | Clinical Summary ---
Author Organization [facility] Address [address] [place] [address] Care Team Providers Care Licensed Embalmer Name Role Phone Dana Mattson RN Primary Care Provider [phone] Surgical History Surgery Date Site/Laterality Comments OTHER SURGICAL HISTORY PROCEDURE: DENIES PREVIOUS SURGERY OTHER SURGICAL HISTORY PROCEDURE: MD INCISION & DRAINAGE PILONIDAL CYST SIMPLE; COMMENT: [...] a genital outbreak ; no labs in [facility] for review History of blood [...] RESULTING AGENCY - 08/14/2021 7:26 AM EDT [id number] THINPREP PAP, IMAGED: NEGATIVE FOR SQUAMOUS INTRAEITHELIAL [...] Recently Relevant to Health Maintenance Care Teams Licensed Embalmer Relationship Specialty Start Date End Date Dana Mattson RN [address] [place] [phone] PCP - General 10/16/22
--- OUTSIDE RECORDS SUMMARY | 2025-02-14 18:31 | XMS_ITS | Encounter Summary ---
Author Organization [employer] Address [address] [facility] 7t [place] [address] Care Team Providers Care Rivet Hammer Machine Operator Name Role Phone Carlee Scott MD Primary Care Provider [phone] Encounter Details Date Type Department Care Team ([facility] st Contact Info) Description 12/22/2024 Orders Only [facility] MEDICINE [address] [place], [place] [phone] Valeria Ruff CN [address] [place], [place] [phone] Social History Tobacco Use Types Packs/Day Years [...] Description 03/02/2025 9:30 AM EDT Clinical Support [address] [address] documented as of this encounter Procedures Procedure Name Priority Date/Time Associated Diagnosis Comments BACTERIAL VAGINOSIS PANEL Routine 12/22/2024 12:15 PM EDT HPV DNA, LOW/HIGH RISK Routine 12/22/2024 12:12 PM EDT documented in this encounter Results * (ABNORMAL) Bacterial Vaginosis (12/22/2024 12:15 PM EDT) TRICHOMONAS VAGINALIS DETECTION BY PCR NOT DETECTED Not Detect [facility] BACTERIAL VAGINOSIS DETECTION BY PCR POSITIVE(A) Negative [facility] Comment:The BV organism targ ets [...] DETECTION BY PCR NOT DETECTED Not Detect [facility] Rosamaria glab krusei PCR NOT DETECTED Not Detect [facility] 12/22/2024 12:1 5 PM EDT 12/22/2024 5:50 PM EDT Valeria [facility] MICROBIOLOGY - GENERA L ORDERABLES Final Result Performing Organization Address [facility] Co de Phone Number [facility] [address] [place] [phone] * HPV DNA, Low/High Risk (12/22/2024 12:12 PM EDT) HPV High Risk Negative Negative [facility] HPV Genotype 16 Negative Negative [facility] HPV Genotype 18 Negative Negative [facility] Comment:HPV testing performe d at [facility] (CLIA#[id number]), [address] [place] [address].Testing for HPV was performed using the [employer]en [...] l Result Performing Organization Address [facility] Co de Phone Number [facility] [address] [place] [phone] documented in this encounter Visit Diagnoses Not on filedocumented in this encounter Additional Health Concerns Assessment Noted Time PHQ-9 Depression Total Score: 0 10/25/20 24 10:02 AM EDT documented as of this encounter Care Teams Rivet Hammer Machine Operator Relationship Specialty Start Date End Date Carlee Scott MD [address] [place] [address] PCP - General Family Medicine 01/20/22 documented as of this encounter
--- OUTSIDE RECORDS SUMMARY | 2025-02-14 18:31 | XMS_ITS | Clinical Summary ---
Author Organization [employer] Address [address] [facility] 7t [place] [address] Care Team Providers Care Chemical Research Worker Name Role Phone Carlee Scott MD Primary Care Provider [phone] Allergies Active Allergy Reactions Criticality Noted Date Comments Metronidazole Itching,Swelling 03/10/2018 Medications * This document contains information received from the source organization and may not represent a complete record from that organization. nicotine (Nicoderm CQ) 14 MG/24HR patch APPLY 1 PATCH TOPICALLY TO THE SKIN IN THE MORNING. DO NOT SMOKE WHILE USING PATCH 42 patch 4 Active nicotine (Nicoderm CQ) 7 MG/24HR patch APPLY 1 PATCH TOPICALLY TO THE SKIN IN THE MORNING. DO NOT SMOKE WHILE USING PATCH. 14 patch 4 Active guaiFENesin (Mucinex) 600 MG 12 hr tablet Take 2 tablets (1,200 mg) by mouth 2 times daily. Do not crush, chew, or split. 40 tablet 5 026 Active atorvastatin (Lipitor) 10 MG tablet 5 Active Diclofenac Sodium 1 % gelIndications :Chronic midline low back pain without sciatica Apply thin layer by topical route (quantity as directed on package insert) to affected area of pain 3 times daily as needed. 50 g 3 5 Active citalopram (CeleXA) 10 MG tabletIndicati ons:Severe anxiety Take 1 tablet (10 mg) by mouth Once per day. For anixety 30 tablet 5 5 025 Active cyclobenzaprin e (Flexeril) 10 MG tabletIndicati ons:Chronic midline low back pain without sciatica take 1 tablet by mouth 3 times a day as needed for muscle spasm 5 Active medroxyPROGEST ERone (Depo-Provera) 150 MG/ML injection TAKE TO DOCTOR'S OFFICE FOR ADMINISTRATION EVERY 3 MONTHS 1 mL 3 5 Active levonorgestrel -ethinyl estradiol (Vienva) 0.1-20 MG-MCG tablet TAKE 1 TABLET BY MOUTH EVERY DAY 84 tablet 5 Active doxycycline (Monodox) 100 MG capsule One twice a day for 7 days. 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 Pt denies having tongue swelling, but reports having nausea, cough, sneezing, wheezing, sore throat after the vaccine. Sx don't seem like an allergy, but pt insisted that she was told about an allergic reaction. Given uncertainty if it was an actual allergy will try to get records and also referred pt to e tailer. Did annual labs today and Tb test--pt will bring form to be completed ---if not seen by e tailer by then would explain in form that [...] Encounters Date Type Department Care Team Description 02/13/2025 Orders Only [facility] [address] [place] [phone] Monika Guthrie CNM Cervicitis (Primary Dx) 02/13/2025 Results Follow-Up [facility] [address] [place] [phone] Monika Guthrie CNM Chlamydia/N. Gonorrhoeae RNA, TMA, Vagina, Trichomonas RNA (Urine/Vaginal) 02/09/2025 9:00 AM EDT Procedure Visit [facility] [address] [place] [address] Monika Guthrie CNM Cervicitis (Primary Dx); Abnormal uterine bleeding (AUB) 02/09/2025 Travel 02/08/[address] [address] Monika Guthrie CNM chart prep 01/31/[address] [address] Carlee Scott MD Durable Medical Equipment ([facility]: DME Request) 01/27/2025 1:30 PM EDT Office Visit [address] [address] Lucrecia Wong MD Keloid (Primary Dx); Rosacea 01/27/2025 Travel 01/12/[address] [address] Monika Guthrie CNM 01/03/2025 Results Follow-Up [address] [address] Monika Guthrie CNM Bacterial Vaginosis, HPV DNA, Low/High Risk 12/22/2024 11:30 AM EDT Office Visit [address] [address] Monika Guthrie CNM Abnormal uterine bleeding (Primary Dx); BV (bacterial vaginosis); Screening examination for venereal disease 12/22/2024 Telephone [facility] [address] [place] [address] Amy Wallis RN Medication 12/22/2024 Orders Only [address] [address] Monika Guthrie CNM 12/22/[address] [address] Monika Guthrie CNM 12/22/2024 Travel 12/21/[address] [address] Monika Guthrie CNM chart prep 12/21/2024 Telephone [facility] [address] [place] [address] Carlee Scott MD Appointment Request 12/21/[address] [address] Carlee Scott MD Nurse Triage 12/08/2024 10:00 AM EDT Clinical Support [address] [address] Bridget Simeon, KIANA Encounter for surveillance of injectable contraceptive 12/08/2024 Travel 12/06/2024 Refill [facility] [address] [place] [address] Carlee Scott MD from Last 3 Months [...] your housing situation today? I have cm sing 08/10/[address] you li [...] Description 03/02/2025 9:30 AM EDT Clinical Support [address] [phone] Health Maintenance Due Date Last Done Comments [...] WO CONTRAST Routine 02/14/2025 4:05 PM EDT POCT WET [place]/GLEN Routine 02/09/2025 10 :16 AM EDT Cervicitis TRICHOMONAS VAGINALIS RNA, QUALITATIVE, TMA Routine 02/09/2025 9:50 AM EDT Cervicitis CHLAMYDIA/N. GONORRHOEAE RNA, TMA, UROGENITAL Routine 02/09/2025 9:50 AM EDT Cervicitis BACTERIAL VAGINOSIS PANEL Routine [...] Recently Relevant to Health Maintenance Results * CT Chest w/o Contrast (02/14/2025 4:05 PM EDT) Anatomical Region Laterality Modality Body, Chest Computed Tomogra phy 02/14/2025 4:05 PM EDT Narrative 02/14/2025 4:50 PM EDT [place] [address] [address] Scan Report Signed Patient: Andreina Leblanc MR#: [id number] : 1985 Acct:[id number] Age/Sex: 40 / F ADM Date: 02/14/25 Loc: HO.CT Attending Dr: Sarah Nava ESTIMATE CLERK Ordering Physician: Sarah Nava NP Date of Service: 02/14/25 Procedure(s): CT chest wo IV con Accession Number(s): [id number] cc: Carlee Scott; Sarah Nava NP Report Number: [id number]: Total DLP = 161.00 mGy-cm Reason for [...] 02/14/25 1647 DD/ 1605 TD/TT: 02/14/25 1630 Player Services Representative: Procedure Note Donotuseinterpreter, Image - 02/14/[address] [address] [address] Scan Report Signed Patient: Andreina Leblanc [facility]#: [id number] : 1985Acct:[id number] Age/Sex: 40 / FADM Date: 02/14/25 Loc: HO.CT Attending Dr: Sarah Nava NP Ordering Physician: Sarah Nava NP Date of Service: 02/14/25 Procedure(s): CT chest wo IV con Accession Number(s): [id number] cc: Carlee Scott; Sarah Nava ESTIMATE CLERK Report Number: [id number]: Total DLP = 161.00 mGy-cm Reason for [...] 02/14/25 1647 DD/ 1605 TD/TT: 02/14/25 1630 Player Services Representative: [facility] External Provider IM CT PROCEDURES Final Result * POCT fern test, vaginal fluid manually resulted (02/09/2025 10:16 AM EDT) Only the most recent of2 resultswithin the time period is included. Pathologist [facility] GLEN Prep Positive Comment:pH 5.5, neg whiff, n eg trich, pos wbc, few clue, neg yeast Vaginal Fluid Vaginal structure / Unknown 02/09/2025 10:16 AM EDT [facility] POINT OF CARE TEST ENTER/ EDIT ORDERABLES Final Result * Trichomonas RNA (Urine/Vaginal) (02/09/2025 9:50 AM EDT) [facility] Trichomas vaginalis RNA, QL, TMA NOT DETECTED NOT DETECTED [facility] Comment:For additional infor melissa, please refer tohttp://education.TourRadar/faq/Trichomonastma(This link is being provided for informational/educational purposes only.)THIS TEST WAS PERFORMED AT:[employer] [place] [id number] CARRENO MD Swab 02/09/2025 9:50 AM EDT 02/09/2025 4:11 PM EDT [facility] BODY FLUIDS AND STOOL S ORDERABLES Final Result [facility] [address] [place] [address] [phone] * Chlamydia/N. Gonorrhoeae RNA, TMA, Vagina (02/09/2025 9:50 AM EDT) Only the most recent of2 resultswithin the time period is included. [facility] CT PCR NOT DETECTED Not Detect. [facility] Comment:A not detected test result [...] psychologicalconsequences. NG PCR NOT DETECTED Not Detect. [facility] Comment:A not detected test result [...] 9:50 AM EDT 02/09/2025 4:11 PM EDT Monika [facility] MICROBIOLOGY - GENERA L ORDERABLES Final Result [facility] [address] [place] [phone] * (ABNORMAL) Bacterial Vaginosis (12/22/2024 12:15 PM EDT) TRICHOMONAS VAGINALIS DETECTION BY PCR NOT DETECTED Not Detect [facility] BACTERIAL VAGINOSIS DETECTION BY PCR POSITIVE(A) Negative [facility] Comment:The BV organism targ ets [...] DETECTION BY PCR NOT DETECTED Not Detect [facility] Rosamaria glab krusei PCR NOT DETECTED Not Detect [facility] 12/22/2024 12:1 5 PM EDT 12/22/2024 5:50 PM EDT Monika Guthrie [facility] MICROBIOLOGY - GENERA L ORDERABLES Final Result Performing Organization Address City/[facility]/ZIP Co de Phone Number [facility] [address] [place] [phone] * HPV DNA, Low/High Risk (12/22/2024 12:12 PM EDT) HPV High Risk Negative Negative [facility] HPV Genotype 16 Negative Negative [facility] HPV Genotype 18 Negative Negative [facility] Comment:HPV testing performe d at [facility] (CLIA#[id number]), [address] [place] [address].Testing for HPV was performed using the Bowen [...] 2 PM EDT 12/23/2024 7:40 AM EDT Monika Guthrie [facility] BLOOD ORDERABLES Rosio l Result [facility] [address] [place] [address] [phone] * Pap Smear (12/22/2024 12:12 PM EDT) Swab 12/22/2024 12:1 2 PM EDT 12/23/2024 7:40 AM EDT Narrative [facility] - 01/02/2025 2:55 PM EDT ----- ------- Name: Andreina Leblanc Age/Sex: 39/F : 1985 Unit#: [id number] Attend Dr: MONIKA GUTHRIE CNM Re12/22/24 Status: [facility] Disch: ----- ------- SPEC : [id number] RECD: 12/23/24 STATUS: JUVENAL DEAL NUM: [id number] ALYSSA: 12/22/24-1212 [facility] DR: MONIKA GUTHRIE CNM ENTERED: 12/23/241 SP TYPE: Pap Smr OT DR: ORDERED: [...] and HPV testing will be performed at [facility] (CLIA #[id number]), [address] [place] [address]. Testing for HPV was performed using the [employer] system. The presence of HPV in the [...] detected. All professional services are performed by [facility] ([address] [place] [address]; ; CLIA #[id number]). The PAP Test is a screening procedure with the inherent possibility of both false negative and false positive results. Results should be interpreted in the context of historic and current clinical findings. Reliability of the PAP Test is enhanced by performing the test on a regular repetitive basis. CONTINUED ON NEXT PAGE ----- ------- Name: Andreina Leblanc Karen Age/Sex: 39/F : 1985 Unit#: [id number] Attend Dr: MONIKA GUTHRIE CNM Re12/22/24 Status: DEP REF Location: [facility] Disch: ----- ------- SPEC : [id number] RECD: 12/23/24 STATUS: JUVENAL DEAL NUM: [id number] ALYSSA: 12/22/24-1212 [facility] DR: MONIKA GUTHRIE CNM ENTERED: 12/23/24 SP TYPE: Pap Lynne HARRIS DR: ORDERED: Pap Smear, PAP path review ----- ------- Signed (signature on file) Cherie Saba 01/02/25 [id number] ----- ------- END OF REPORT us Monika Guthrie CNM LAB CYTOLOGY ORDERABLES F inal Result [facility] [address] [place] [phone] * (ABNORMAL) POCT Hemoglobin (12/22/2024 12:03 PM EDT) Hemoglobin 11.8(A) 12.0 - 15.0 QC Media Lot # [id number] Lot# Expiration Date Blood 12/22/2024 12:0 3 PM EDT Result [facility] POINT OF CARE TEST ENTER/ EDIT ORDERABLES Final Result * POCT Urine (12/22/2024 11:59 AM EDT) Only the most recent of2 resultswithin the time period is included. Preg Test, Ur Negative Negative, Indeterminate, None Detected, Invalid, Specimen unsatisfactory for evaluation, Weakly Positive, 2+ QC Media Lot # [id number] Lot# Expiration Date Urine 12/22/2024 11:5 9 AM EDT Result [facility] POINT OF CARE TEST ENTER/ EDIT ORDERABLES Final Result * Hepatitis C Antibody with Reflex to HCV, RNA, Quantitative, Real-Time PCR (10/02/2022 8:44 AM EDT) Hepatitis C Antibody NON-REACT KEATON NON-REACT KEATON [facility] [place] [employer] Index 0.12 <1.00 [facility] [place] [employer] Comment: HCV antibody was non-reactive. There is no laboratory evidence of HCV infection. In most cases, no further action is required. However, if recent HCV exposure is suspected, a test for HCV RNA (test code 06422) is suggested. For additional information please refer to http://education.Kimeltu.Palkion/faq/HTO41h1 (This link is being provided for informational/ educational purposes only.) Blood Venous blood specimen / Unknown 10/02/2022 8:44 AM EDT 10/02/2022 8:44 AM EDT Narrative [facility] - 10/07/2022 3:11 PM EDT FASTING:YES FASTING: YES Laure Medina MD LAB BLOOD ORDERAB LES Final Result [facility] [address], [place] [address] [facility] [place] [employer] [address] [place] [phone] * HIV-1/2 Antigen and Antibodies, Fourth Generation, with Reflexes (10/02/2022 8:44 AM EDT) HIV Antigen/Antibody, 4th Generation NON-REAC TIVE NON-REAC TIVE [facility] [place] [facility] Comment: HIV-1 antigen and HIV-1/HIV-2 antibodies were [...] purpose. For additional information please refer to http://education.TourRadar/faq/PTS707 (This link is being provided for informational/ educational purposes only.) The performance of this assay has not been clinically validated in patients less than 2 years old. Blood Venous blood specimen / Unknown 10/02/2022 8:44 AM EDT 10/02/2022 8:44 AM EDT Narrative [facility] - 10/07/2022 3:11 PM EDT FASTING:YES FASTING: YES Laure Medina MD LAB BLOOD ORDERAB LES Final Result [facility] [address], [place] [address] [facility] [place] [employer] [address] [place] [phone] from Last 3 Months or Most Recently Relevant to Health Maintenance Insurance [id number] ONE CARE < 65 DENTAL - [facility] Care Teams Chemical Research Worker Relationship Specialty Start Date End Date Carlee Scott MD [address] [place] [address] PCP - General Family Medicine 01/20/22
--- OUTSIDE RECORDS SUMMARY | 2025-02-14 18:31 | XMS_ITS | Encounter Summary ---
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 Dx) [...] Description 03/02/2025 9:30 AM EDT Clinical Support [facility] [address] [place] [address] documented as of this encounter Visit Diagnoses Diagnosis intermodal customer service current use of hormonal contraceptive- Primary documented in this encounter Additional Health Concerns Assessment Noted Time PHQ-9 Depression Total Score: 0 03/18/20 24 10:02 AM EDT documented as of this encounter Care Teams Wood Heel Finisher Relationship Specialty Start Date End Date Carlee Scott MD [address] [place] [address] PCP - General Family Medicine 01/20/22 documented as of this encounter
== END 2025-02-14 15:58 | disposition home or self-care (01) ==
LOC: HO.CT 15:57
PROVIDERS: PCP General Practice; Visit Provider Nurse Practitioner Family
DX: R07.81 Pleurodynia (principal); R94.2 Abnormal results of pulmonary function studies
CPT/HCPCS: 71250

== ENCOUNTER → 2025-02-14 16:00 | Outpatient (BNV) | payer OTHER, SELFPAY | PROVIDERS: PCP General Practice; Visit Provider Radiology Diagnostic Radiology | DX: R94.2 Abnormal results of pulmonary function studies (principal) | CPT/HCPCS: 71250 ==

== ENCOUNTER 2025-02-17 15:48 | Outpatient (REF) | payer OTHER, SELFPAY ==
--- NOTE | ~2025-02-17 | US_ITS ---
EXAMINATION: US PELVIS CLINICAL INFORMATION: History of polyp, abnormal uterine bleeding. COMPARISON: 09/2023 TECHNIQUE: Ultrasound of the pelvis is performed using both transabdominal and transvaginal transducers along with Doppler. Transvaginal imaging is performed due to inadequate visualization transabdominally. FINDINGS: Uterus: The uterus is anteverted, retroflexed, and measures 7.3 x 4.7 x 5.5 cm. The cervix appears normal. The double wall endometrial thickness is 2 mm. It is uniform without irregularity. The uterus is smooth in contour and has mildly heterogeneous myometrial echogenicity. No visible fibroid. Adnexa: Both ovaries are visualized. There is normal color flow to the adnexa. There is no ovarian torsion. There is no significant free pelvic fluid. Trace anechoic fluid is seen abutting the left ovary, likely physiologic. There are no adnexal masses. Right ovary measures 3.7 x 1.7 x 1.9 cm. Volume = 6.4 mL. Normal sonographic appearance. Left ovary measures 3.3 x 1.6 x 2.3 cm. Volume = 6.3 mL. Normal sonographic appearance. US/US pelvic and transvaginal IMPRESSION: 1. Normal and uniform endometrium measuring 2 mm. 2. Grossly normal uterus without discrete fibroids seen. 3. Normal ovaries bilaterally. Electronically signed by: Corky Raymond MD 02/17/2025 04:28 PM EDT
--- OUTSIDE RECORDS SUMMARY | 2025-02-17 16:06 | XMS_ITS | Encounter Summary ---
Author Organization [employer] Address [address] [facility] 7t [place] [address] Care Team Providers Care Filter Plant Supervisor Name Role Phone Carlee Scott MD Primary Care Provider [phone] Encounter Details Date Type Department Care Team ([facility] st Contact Info) Description 08/11/2023 Orders Only [facility] [address] [place], [place] [phone] Carlee Scott MD [address] [place], [place] [phone] Social History Tobacco Use Types Packs/Day Years [...] Description 03/02/2025 9:30 AM EDT Clinical Support [facility] [address] [place] [address] documented as of this encounter Visit Diagnoses Not on filedocumented in this encounter Additional Health Concerns Assessment Noted Time PHQ-9 Depression Total Score: 22 024 12:37 PM EST documented as of this encounter Care Teams Filter Plant Supervisor Relationship Specialty Start Date End Date Carlee Scott MD [address] [place] [address] PCP - General Family Medicine 01/20/22 documented as of this encounter
--- OUTSIDE RECORDS SUMMARY | 2025-02-17 16:06 | XMS_ITS | Encounter Summary ---
Author Organization [employer] Address [address] [facility] 7t [place] [address] Care Team Providers Care B2B Outside Sales Representative Name Role Phone Carlee Scott MD Primary Care Provider [phone] Reason for Visit * Reason Onset Date Comments Results 02/13/2025 Encounter Details Date Type Department Care Team ([facility] st Contact Info) Description 02/13/2025 Results Follow-Up [facility] [address] [place] [address] Valeria Ruff CNM [address] [place] [address] Chlamydia/N. Gonorrhoeae RNA, TMA, Vagina, Trichomonas RNA [...] and self collect vaginal swab for mycoplasma ([facility] [facility]). Orders placed. We'll be in touch [...] and self collect vaginal swab for mycoplasma ([place] [facility]). Orders placed. We'll be in touch with those results when available as well as ultrasound. Does she have appointment for ultrasoundyet? Thanks! documented in this encounter Plan of Treatment Upcoming Encounters Date Type Department Care Team (Late st Contact Info) Description 03/02/2025 9:30 AM EDT Clinical Support [facility] [address] [place] [address] documented as of this encounter Visit Diagnoses Not on filedocumented in this encounter Additional Health Concerns Assessment Noted Time PHQ-9 Depression Total Score: 0 03/18/20 24 10:02 AM EDT documented as of this encounter Care Teams B2B Outside Sales Representative Relationship Specialty Start Date End Date Carlee Scott MD [address] [place] [address] PCP - General Family Medicine 01/20/22 documented as of this encounter
--- OUTSIDE RECORDS SUMMARY | 2025-02-17 16:06 | XMS_ITS | Encounter Summary ---
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) [...] Description 03/02/2025 9:30 AM EDT Clinical Support [facility] [address] [place] [address] documented as of this encounter 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
--- OUTSIDE RECORDS SUMMARY | 2025-02-17 16:06 | XMS_ITS | Encounter Summary ---
Author Organization [employer] Address [address] [facility] 7t [place] [address] Care Team Providers Care Home Health Aide Name Role Phone Carlee Scott MD Primary Care Provider [phone] Encounter Details Date Type Department Care Team ([facility] st Contact Info) Description 12/22/2024 Orders Only [facility] [address] [place], [place] [phone] Valeria Ruff CN [address] [place], [place] [phone] Social History Tobacco Use Types Packs/Day Years [...] Description 03/02/2025 9:30 AM EDT Clinical Support [address] [address] documented as of this encounter Procedures Procedure Name Priority Date/Time Associated Diagnosis Comments BACTERIAL VAGINOSIS PANEL Routine 12/22/2024 12:15 PM EDT HPV DNA, LOW/HIGH RISK Routine 12/22/2024 12:12 PM EDT documented in this encounter Results * (ABNORMAL) Bacterial Vaginosis (12/22/2024 12:15 PM EDT) TRICHOMONAS VAGINALIS DETECTION BY PCR NOT DETECTED Not Detect [facility] BACTERIAL VAGINOSIS DETECTION BY PCR POSITIVE(A) Negative [facility] Comment:The BV organism targ [...] DETECTION BY PCR NOT DETECTED Not Detect [facility] Rosamaria glab krusei PCR NOT DETECTED Not Detect [facility] 12/22/2024 12:1 5 PM EDT 12/22/2024 5:50 PM EDT Valeria [facility] MICROBIOLOGY - GENERA L ORDERABLES Final Result Performing Organization Address [facility] Co de Phone Number [facility] [address] [place] [phone] * HPV DNA, Low/High Risk (12/22/2024 12:12 PM EDT) HPV High Risk Negative Negative [facility] HPV Genotype 16 Negative Negative [facility] HPV Genotype 18 Negative Negative [facility] Comment:HPV testing performe d at [facility] (CLIA#[id number]), [address] [place] [address].Testing for HPV was performed using the Bowen JUAN CRALOS 6800system. The presence of HPV in the [...] ORDERABLES Rosio l Result Performing Organization Address [facility] Co de Phone Number [facility] [address] [place] [phone] documented in this encounter Visit Diagnoses Not on filedocumented in this encounter Additional Health Concerns Assessment Noted Time PHQ-9 Depression Total Score: 0 10/25/20 24 10:02 AM EDT documented as of this encounter Care Teams Home Health Aide Relationship Specialty Start Date End Date Carlee Scott MD [address] [place] [address] PCP - General Family Medicine 01/20/22 documented as of this encounter
--- OUTSIDE RECORDS SUMMARY | 2025-02-17 16:06 | XMS_ITS | Encounter Summary ---
Author Organization [employer] Address [address] [facility] 7t [place] [address] Care Team Providers Care Junior Underwriter Name Role Phone Carlee Scott MD Primary Care Provider [phone] Encounter Details Date Type Department Care Team ([facility] st Contact Info) Description 09/11/2023 Orders Only [facility] [address] [place], [place] [phone] Wai Chen MD [address] [place], [place] [phone] Social History Tobacco Use Types Packs/Day Years [...] 9:30 AM EDT Clinical Support [facility] [address] [place] [address] documented as of this encounter Visit Diagnoses Not on filedocumented in this encounter Additional Health Concerns Assessment Noted Time PHQ-9 Depression Total Score: 22 024 12:37 PM EST documented as of this encounter Care Teams Junior Underwriter Relationship Specialty Start Date End Date Carlee Scott MD [address] [place] [address] PCP - General Family Medicine 01/20/22 documented as of this encounter
--- OUTSIDE RECORDS SUMMARY | 2025-02-17 16:06 | XMS_ITS | Encounter Summary ---
Author Organization [employer] Address [address] [facility] 7t [place] [address] Care Team Providers Care Architectural Technologist Name Role Phone Carlee Scott MD Primary Care Provider [phone] Reason for Visit * Reason Comments Med Change Request Encounter Details Date Type Department Care Team ([facility] Contact Info) Description 12/22/2024 Refill [facility] [address] [place], [place] [phone] Valeria Ruff, CARLOS EDUARDO [address] [place] [address] Social History Tobacco Use Types Packs/Day Years [...] Description 03/02/2025 9:30 AM EDT Clinical Support [facility] [address] [place] [address] documented as of this encounter Visit Diagnoses Not on filedocumented in this encounter Additional Health Concerns Assessment Noted Time PHQ-9 Depression Total Score: 0 03/18/20 10:02 AM EDT documented as of this encounter Care Teams Architectural Technologist Relationship Specialty Start Date End Date Carlee Scott MD [address] [place] [address] PCP - General Family Medicine 01/20/22 documented as of this encounter
--- OUTSIDE RECORDS SUMMARY | 2025-02-17 16:06 | XMS_ITS | Encounter Summary ---
Author Organization [employer] Address [address] [facility] 7t [place] [address] Care Team Providers Care Warehouse Representative Name Role Phone Carlee Scott MD Primary Care Provider [phone] Encounter Details Date Type Department Care Team ([facility] st Contact Info) Description 06/10/2023 Orders Only [facility] [address] [place], [place] [phone] Laure Canada MD [address] [place], [place] [phone] Social History Tobacco Use Types Packs/Day Years [...] is your housing situation today? I have mcnahun martínez 03/20/[address] you [...] Description 03/02/2025 9:30 AM EDT Clinical Support [facility] [address] [place] [address] documented as of this encounter Visit Diagnoses Not on filedocumented in this encounter Additional Health Concerns Assessment Noted Time PHQ-9 Depression Total Score: 16 023 9:32 AM EST documented as of this encounter Care Teams Warehouse Representative Relationship Specialty Start Date End Date Carlee Sctot MD [address] [place] [address] PCP - General Family Medicine 01/20/22 documented as of this encounter
--- OUTSIDE RECORDS SUMMARY | 2025-02-17 16:06 | XMS_ITS | Clinical Summary ---
Author Organization [employer] [facility] Address [address] [place] [address] Care Team Providers Care Rail Assembler Name Role Phone Dana Mattson RN Primary Care Provider [phone] Surgical History Surgery Date Site/Laterality Comments OTHER SURGICAL HISTORY PROCEDURE: DENIES PREVIOUS SURGERY OTHER SURGICAL HISTORY PROCEDURE: SC INCISION & DRAINAGE PILONIDAL CYST SIMPLE; COMMENT: [...] a genital outbreak ; no labs in [facility] for review History of blood transfusion [...] RESULTING AGENCY - 08/14/2021 7:26 AM EDT [id number] THINPREP PAP, IMAGED: NEGATIVE FOR SQUAMOUS INTRAEITHELIAL [...] Recently Relevant to Health Maintenance Care Teams Rail Assembler Relationship Specialty Start Date End Date Dana Mattson RN [address] [place] [phone] PCP - General 10/16/22
--- OUTSIDE RECORDS SUMMARY | 2025-02-17 16:07 | XMS_ITS | Encounter Summary ---
Author Organization [employer] Address [address] [facility] 7t [place] [address] Care Team Providers Care Slag Expander Name Role Phone Carlee Scott MD Primary Care Provider [phone] Encounter Details Date Type Department Care Team ([facility] st Contact Info) Description 02/13/2025 Orders Only [facility] [address] [place], [place] [phone] Valeria Ruff CN [address] [place], [place] [phone] Cervicitis (Primary Dx) Social History Tobacco Use [...] Description 03/02/2025 9:30 AM EDT Clinical Support [facility] [address] [place] [phone] Scheduled Orders Name Type Priority Associated Diagnoses [...] PM EDT Narrative 02/14/2025 4:50 PM EDT [address] [address] [address] Scan Report Signed Patient: Andreina Leblanc MR#: [id number] : 1985 Acct:[id number] Age/Sex: 40 / F ADM Date: 02/14/25 Loc: HO.CT Attending Dr: Sarah Nava LIGHTING TECHNICIAN Ordering Physician: Sarah Nava NP Date of Service: 02/14/25 Procedure(s): CT chest wo IV con Accession Number(s): [id number] cc: Carlee Scott; Sarah Nava LIGHTING TECHNICIAN Report Number: [id number]: Total DLP = 161.00 mGy-cm Reason for [...] 02/14/25 1647 DD/ 1605 TD/TT: 02/14/25 1630 Instructor Technical Training: Procedure Note Donotuseinterpreter, Image - 02/14/[address] [address] [address] Scan Report Signed Patient: Andreina Leblanc [facility]#: [id number] : 1985Acct:[id number] Age/Sex: 40 / FADM Date: 02/14/25 Loc: HO.CT Attending Dr: Sarah Nava NP Ordering Physician: Sarah Nava NP Date of Service: 02/14/25 Procedure(s): CT chest wo IV con Accession Number(s): [id number] cc: Carlee Scott; Sarah Nava NP Report Number: [id number]: Total DLP = 161.00 mGy-cm Reason for [...] 02/14/25 1647 DD/ 1605 TD/TT: 02/14/25 1630 Instructor Technical Training: [facility] External Provider IMG CT PROCEDURES Final Result documented in this encounter Visit Diagnoses Diagnosis Cervicitis- Primary Cervicitis and endocervicitis documented in this encounter Additional Health Concerns Assessment Noted Time PHQ-9 Depression Total Score: 0 03/18/20 24 10:02 AM EDT documented as of this encounter Care Teams Slag Expander Relationship Specialty Start Date End Date Carlee Scott MD [address] [place] [address] PCP - General Family Medicine 01/20/22 documented as of this encounter
--- OUTSIDE RECORDS SUMMARY | 2025-02-17 16:07 | XMS_ITS | Clinical Summary ---
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 Sore throat 06/05/2023 Metrorrhagia 06/05/2023 Health care maintenance 10/01/2022 Assessment & Plan (10/01/2022 7:56 PM EDT): -Pap smear : per pt done less than 1 year w her PUBLIC AFFAIRS SPECIALIST told to have +HPV -requested already [place] to get records -Pt didn't bring form for work today but showed it to me on phone ---requesting a letter from PCP to excuse why pt is not getting Covid-19 vaccine -states she got 1 dose last year and went to the hospital w mx symptoms -states it was at [facility] x it (will try to get [...] get records and also referred pt to day care home mother. Did annual labs today and Tb test--pt will bring form to be completed ---if not seen by day care home mother by then would explain in form that [...] Department Care Team Description 02/13/2025 Orders Only [facility] [address] [place] [address] Monika Guthrie CNM Cervicitis (Primary Dx) 02/13/2025 Results Follow-Up [facility] [address] [place] [address] Monika Guthrie CNM Chlamydia/N. Gonorrhoeae RNA, TMA, Vagina, Trichomonas RNA (Urine/Vaginal) 02/09/2025 9:00 AM EDT Procedure Visit [facility] [address] [place] [address] Monika Guthrie CNM Cervicitis (Primary Dx); Abnormal uterine bleeding (AUB) 02/09/2025 Travel 02/08/[address] [address] Monika Guthrie CNM chart prep 01/31/[address] [address] Carlee Scott MD Durable Medical Equipment ([facility]: DME Request) 01/27/2025 1:30 PM EDT Office Visit [address] [address] Lucrecia Wong MD Keloid (Primary Dx); Rosacea 01/27/2025 Travel 01/12/[address] [address] Monika Guthrie CNM 01/03/2025 Results Follow-Up [address] [address] Monika Guthrie CNM Bacterial Vaginosis, HPV DNA, Low/High Risk 12/22/2024 11:30 AM EDT Office Visit [address] [address] Monika Guthrie CNM Abnormal uterine bleeding (Primary Dx); BV (bacterial vaginosis); Screening examination for venereal disease 12/22/2024 Telephone [facility] [address] [place] [address] Amy Wallis RN Medication 12/22/2024 Orders Only [address] [address] Monika Guthrie CNM 12/22/[address] [address] Monika Guthrie CNM 12/22/2024 Travel 12/21/[address] [address] Monika Guthrie CNM chart prep 12/21/2024 Telephone [facility] [address] [place] [address] Carlee Scott MD Appointment Request 12/21/[address] [address] Carlee Scott MD Nurse Triage 12/08/2024 10:00 AM EDT Clinical Support [address] [address] Bridget Simeon, KIANA Encounter for surveillance of injectable contraceptive 12/08/2024 Travel 12/06/2024 Refill [facility] [address] [place] [address] Carlee Scott MD from Last 3 Months [...] Description 03/02/2025 9:30 AM EDT Clinical Support [address] [phone] Health Maintenance Due Date Last Done Comments [...] PM EDT Narrative 02/14/2025 4:50 PM EDT [place] [address] [address] Scan Report Signed Patient: Andreina Leblanc MR#: [id number] : 1985 Acct:[id number] Age/Sex: 40 / F ADM Date: 02/14/25 Loc: HO.CT Attending Dr: Sarah Nava MACHINE SEWER Ordering Physician: Sarah Nava NP Date of Service: 02/14/25 Procedure(s): CT chest wo IV con Accession Number(s): [id number] cc: Carlee Scott; Sarah Nava NP Report Number: [id number]: Total DLP = 161.00 mGy-cm Reason for [...] 02/14/25 1647 DD/ 1605 TD/TT: 02/14/25 1630 Turn Sewer: Procedure Note Donotuseinterpreter, Image - 02/14/[address] [address] [address] Scan Report Signed Patient: Andreina Leblanc [facility]#: [id number] : 1985Acct:[id number] Age/Sex: 40 / FADM Date: 02/14/25 Loc: HO.CT Attending Dr: Sarah Nava NP Ordering Physician: Sarah Nava NP Date of Service: 02/14/25 Procedure(s): CT chest wo IV con Accession Number(s): [id number] cc: Carlee Scott; Sarah Nava MACHINE SEWER Report Number: [id number]: Total DLP = 161.00 mGy-cm Reason for [...] 02/14/25 1647 DD/ 1605 TD/TT: 02/14/25 1630 Turn Sewer: [facility] External Provider IM CT PROCEDURES Final Result * POCT fern test, vaginal fluid manually resulted (02/09/2025 10:16 AM EDT) Only the most recent of2 resultswithin the time period is included. Pathologist [facility] GLEN Prep Positive Comment:pH 5.5, neg whiff, n eg trich, pos wbc, few clue, neg yeast Vaginal Fluid Vaginal structure / Unknown 02/09/2025 10:16 AM EDT [facility] POINT OF CARE TEST ENTER/ EDIT ORDERABLES Final Result * Trichomonas RNA (Urine/Vaginal) (02/09/2025 9:50 AM EDT) [facility] Trichomas vaginalis RNA, QL, TMA NOT DETECTED NOT DETECTED [facility] Comment:For additional infor melissa, please refer tohttp://education.Planet OS/faq/Trichomonastma(This link is being provided for informational/educational purposes only.)THIS TEST WAS PERFORMED AT:[employer] [place] [phone] CARRENO MD Swab 02/09/2025 9:50 AM EDT 02/09/2025 4:11 PM EDT [facility] Hospital[facility] Guthrie [facility] BODY FLUIDS AND STOOL S ORDERABLES Final Result [facility] [address] [place] [address] [phone] * Chlamydia/N. Gonorrhoeae RNA, TMA, Vagina (02/09/2025 9:50 AM EDT) Only the most recent of2 resultswithin the time period is included. [facility] CT PCR NOT DETECTED Not Detect. [facility] Comment:A not detected test result [...] psychologicalconsequences. NG PCR NOT DETECTED Not Detect. [facility] Comment:A not detected test result [...] MICROBIOLOGY - GENERA L ORDERABLES Final Result [facility] [address] [place] [phone] * (ABNORMAL) Bacterial Vaginosis (12/22/2024 12:15 PM EDT) TRICHOMONAS VAGINALIS DETECTION BY PCR NOT DETECTED Not Detect [facility] BACTERIAL VAGINOSIS DETECTION BY PCR POSITIVE(A) Negative [facility] Comment:The BV organism targ ets [...] DETECTION BY PCR NOT DETECTED Not Detect [facility] Rosamaria glab krusei PCR NOT DETECTED Not Detect [facility] 12/22/2024 12:1 5 PM EDT 12/22/2024 5:50 PM EDT Monika Guthrie [facility] MICROBIOLOGY - GENERA L ORDERABLES Final Result Performing Organization Address City/[facility]/ZIP Co de Phone Number [facility] [address] [place] [phone] * HPV DNA, Low/High Risk (12/22/2024 12:12 PM EDT) HPV High Risk Negative Negative [facility] HPV Genotype 16 Negative Negative [facility] HPV Genotype 18 Negative Negative [facility] Comment:HPV testing performe d at [facility] (CLIA#[id number]), [address] [place] [address].Testing for HPV was performed using the Bowen [...] EDT 12/23/2024 7:40 AM EDT Monika Guthrie [facility] BLOOD ORDERABLES Rosio l Result [facility] [address] [place] [address] [phone] * Pap Smear (12/22/2024 12:12 PM EDT) Swab 12/22/2024 12:1 2 PM EDT 12/23/2024 7:40 AM EDT Narrative [facility] - 01/02/2025 2:55 PM EDT ----- ------- Name: Andreina Leblanc Age/Sex: 39/F : 1985 Unit#: [id number] Attend Dr: MONIKA GUTHRIE CNM Re12/22/24 Status: [facility] Disch: ----- ------- SPEC : [id number] RECD: 12/23/24 STATUS: JUVENAL DEAL NUM: [id number] ALYSSA: 12/22/24-[address] [facility] [address]: MONIKA GUTHRIE CNM ENTERED: 12/23/241 SP [...] and HPV testing will be performed at [facility] (CLIA #[id number]), [address] [place] [address]. Testing for HPV was performed using the [employer] system. The presence of HPV in the [...] detected. All professional services are performed by [facility] ([address] [place] [address]; ; CLIA #[id number]). The PAP Test is a screening procedure with the inherent possibility of both false negative and false positive results. Results should be interpreted in the context of historic and current clinical findings. Reliability of the PAP Test is enhanced by performing the test on a regular repetitive basis. CONTINUED ON NEXT PAGE ----- ------- Name: Andreina Leblanc Karen Age/Sex: 39/F : 1985 Unit#: [id number] Attend Dr: MONIKA GUTHRIE CNM Re12/22/24 Status: DEP REF Location: [facility] Disch: ----- ------- SPEC : [id number] RECD: 12/23/24 STATUS: JUVENAL DEAL NUM: [id number] ALYSSA: 12/22/24-[address] [facility] [address]: MONIKA GUTHRIE CNM ENTERED: 12/23/24 SP TYPE: Pap Lynne HARRIS DR: ORDERED: Pap Smear, PAP path review ----- ------- Signed (signature on file) Cherie Saba 01/02/25 [id number] ----- ------- END OF REPORT us Monika Guthrie CNM LAB CYTOLOGY ORDERABLES F inal Result [facility] [address] [place] [phone] * (ABNORMAL) POCT Hemoglobin (12/22/2024 12:03 PM EDT) Hemoglobin 11.8(A) 12.0 - 15.0 QC Media Lot # [id number] Lot# Expiration Date Blood 12/22/2024 12:0 3 PM EDT Result [facility] POINT OF CARE TEST ENTER/ EDIT ORDERABLES Final Result * POCT Urine (12/22/2024 11:59 AM EDT) Only the most recent of2 resultswithin the time period is included. Preg Test, Ur Negative Negative, Indeterminate, None Detected, Invalid, Specimen unsatisfactory for evaluation, Weakly Positive, 2+ QC Media Lot # [id number] Lot# Expiration Date Urine 12/22/2024 11:5 9 AM EDT Result [facility] POINT OF CARE TEST ENTER/ EDIT ORDERABLES Final Result * Hepatitis C Antibody with Reflex to HCV, RNA, Quantitative, Real-Time PCR (10/02/2022 8:44 AM EDT) Hepatitis C Antibody NON-REACT KEATON NON-REACT KEATON [facility] [employer] Index 0.12 <1.00 [facility] [place] [facility] Comment: HCV antibody was non-reactive. There is no laboratory evidence of HCV infection. In most cases, no further action is required. However, if recent HCV exposure is suspected, a test for HCV RNA (test code 67475) is suggested. For additional information please refer to http://education.[employer]/faq/UXK75g9 (This link is being provided for informational/ educational purposes only.) Blood Venous blood specimen / Unknown 10/02/2022 8:44 AM EDT 10/02/2022 8:44 AM EDT Narrative [facility] - 10/07/2022 3:11 PM EDT FASTING:YES FASTING: YES Laure Medina MD LAB BLOOD ORDERAB LES Final Result [facility] [address], [place] [phone] [facility] [place] [facility] [address] [place] [address] * HIV-1/2 Antigen and Antibodies, Fourth Generation, with Reflexes (10/02/2022 8:44 AM EDT) HIV Antigen/Antibody, 4th Generation NON-REAC TIVE NON-REAC TIVE [facility] [place] [facility] Comment: HIV-1 antigen and HIV-1/HIV-2 antibodies were [...] purpose. For additional information please refer to http://education.Planet OS/faq/XQT606 (This link is being provided for informational/ educational purposes only.) The performance of this assay has not been clinically validated in patients less than 2 years old. Blood Venous blood specimen / Unknown 10/02/2022 8:44 AM EDT 10/02/2022 8:44 AM EDT Narrative [facility] - 10/07/2022 3:11 PM EDT FASTING:YES FASTING: YES Laure Medina MD LAB BLOOD ORDERAB LES Final Result [facility] [address], [place] [address] [facility] [place] [facility] [address] [place] [address] from Last 3 Months or Most Recently Relevant to Health Maintenance Insurance [id number] ONE CARE < 65 DENTAL - [facility] Care Teams Court Operations Clerk Relationship Specialty Start Date End Date Carlee Scott MD [address] [place] [address] PCP - General Family Medicine 01/20/22
== END 2025-02-17 15:49 | disposition home or self-care (01) ==
LOC: HO.HMGCX 15:48
PROVIDERS: PCP General Practice; Visit Provider Advanced Practice Midwife
DX: N93.9 Abnormal uterine and vaginal bleeding, unspecified (principal)
CPT/HCPCS: 76830; 76856

== ENCOUNTER → 2025-02-17 15:54 | Outpatient (BNV) | payer OTHER, SELFPAY | PROVIDERS: PCP General Practice; Visit Provider Radiology Diagnostic Radiology | DX: N93.9 Abnormal uterine and vaginal bleeding, unspecified (principal) | CPT/HCPCS: 76830; 76856 ==

== ENCOUNTER 2025-02-21 13:15 | Outpatient (REF) | payer OTHER, SELFPAY ==
--- OUTSIDE RECORDS SUMMARY | 2025-02-21 17:12 | XMS_ITS | Encounter Summary ---
Author Organization [employer] Address [address] [facility] 7t [place] [address] Care Team Providers Care Motor Equipment Sergeant Name Role Phone Carlee Scott MD Primary Care Provider [phone] Encounter Details Date Type Department Care Team ([facility] st Contact Info) Description 09/11/2023 Orders Only [facility] PEDIATRICS [address] [place], [place] [phone] Wai Chen MD [address] [place], [place] [phone] Social History Tobacco Use Types Packs/Day Years [...] 03/02/2025 9:30 AM EDT Clinical Support [facility] MEDICINE [address] [place] [address] documented as of this encounter Visit Diagnoses Not on filedocumented in this encounter Additional Health Concerns Assessment Noted Time PHQ-9 Depression Total Score: 22 024 12:37 PM EST documented as of this encounter Care Teams Motor Equipment Sergeant Relationship Specialty Start Date End Date Carlee Soctt MD [address] [place] [address] PCP - General Family Medicine 01/20/22 documented as of this encounter
--- OUTSIDE RECORDS SUMMARY | 2025-02-21 17:12 | XMS_ITS | Encounter Summary ---
Author Organization [employer] Address [address] [facility] 7t [place] [address] Care Team Providers Care Csr Retail Name Role Phone Carlee Scott MD Primary Care Provider [phone] Encounter Details Date Type Department Care Team ([facility] st Contact Info) Description 08/11/2023 Orders Only [facility] MEDICINE [address] [place], [place] [phone] Carlee Scott MD [address] [place], [place] [phone] Social History Tobacco Use Types Packs/Day Years [...] Description 03/02/2025 9:30 AM EDT Clinical Support [facility] MEDICINE [address] [place] [address] documented as of this encounter Visit Diagnoses Not on filedocumented in this encounter Additional Health Concerns Assessment Noted Time PHQ-9 Depression Total Score: 22 024 12:37 PM EST documented as of this encounter Care Teams Csr Retail Relationship Specialty Start Date End Date Carlee Scott MD [address] [place] [address] PCP - General Family Medicine 01/20/22 documented as of this encounter
--- OUTSIDE RECORDS SUMMARY | 2025-02-21 17:12 | XMS_ITS | Encounter Summary ---
Author Organization [employer] Address [address] [facility] 7t [place] [address] Care Team Providers Care Field Manager Name Role Phone Carlee Scott MD Primary Care Provider [phone] Encounter Details Date Type Department Care Team ([facility] st Contact Info) Description 06/10/2023 Orders Only [facility] MEDICINE [address] [place], [place] [phone] Laure Canada MD [address] [place], [place] [phone] Social History Tobacco Use Types Packs/Day Years [...] Description 03/02/2025 9:30 AM EDT Clinical Support [facility] MEDICINE [address] [place] [address] documented as of this encounter Visit Diagnoses Not on filedocumented in this encounter Additional Health Concerns Assessment Noted Time PHQ-9 Depression Total Score: 16 023 9:32 AM EST documented as of this encounter Care Teams Field Manager Relationship Specialty Start Date End Date Carlee Scott MD [address] [place] [address] PCP - General Family Medicine 01/20/22 documented as of this encounter
--- OUTSIDE RECORDS SUMMARY | 2025-02-21 17:13 | XMS_ITS | Encounter Summary ---
Author Organization [employer] Address [address] [facility] 7t [place] [address] Care Team Providers Care Main Line Assembler Name Role Phone Carlee Scott MD Primary Care Provider [phone] Encounter Details Date Type Department Care Team ([facility] st Contact Info) Description 12/22/2024 Orders Only [facility] MEDICINE [address] [place], [place] [phone] Valeria Ruff CN [address] [place], [place] [phone] Social History Tobacco Use Types Packs/Day Years [...] Description 03/02/2025 9:30 AM EDT Clinical Support [address] [address] documented as of this encounter Procedures Procedure Name Priority Date/Time Associated Diagnosis Comments BACTERIAL VAGINOSIS PANEL Routine 12/22/2024 12:15 PM EDT HPV DNA, LOW/HIGH RISK Routine 12/22/2024 12:12 PM EDT documented in this encounter Results * (ABNORMAL) Bacterial Vaginosis (12/22/2024 12:15 PM EDT) TRICHOMONAS VAGINALIS DETECTION BY PCR NOT DETECTED Not Detect [facility] BACTERIAL VAGINOSIS DETECTION BY PCR POSITIVE(A) Negative [facility] Comment:The BV organism targ ets [...] DETECTION BY PCR NOT DETECTED Not Detect [facility] Rosamaria glab krusei PCR NOT DETECTED Not Detect [facility] 12/22/2024 12:1 5 PM EDT 12/22/2024 5:50 PM EDT Valeria THIBODEAUX LAB MICROBIOLOGY - GENERA L ORDERABLES Final Result Performing Organization Address [facility] Co de Phone Number [facility] [address] [place] [phone] * HPV DNA, Low/High Risk (12/22/2024 12:12 PM EDT) HPV High Risk Negative Negative [facility] HPV Genotype 16 Negative Negative [facility] HPV Genotype 18 Negative Negative [facility] Comment:HPV testing performe d at [facility] (CLIA#[id number]), [address] [place] [address].Testing for HPV was performed using the [employer] JUAN CARLOS 6800system. The presence of HPV [...] ORDERABLES Rosio l Result Performing Organization Address [facility] [address]/[facility] Co de Phone Number [facility] [address] [place] [phone] documented in this encounter Visit Diagnoses Not on filedocumented in this encounter Additional Health Concerns Assessment Noted Time PHQ-9 Depression Total Score: 0 10/25/20 24 10:02 AM EDT documented as of this encounter Care Teams Main Line Assembler Relationship Specialty Start Date End Date Carlee Scott MD [address] [place] [address] PCP - General Family Medicine 01/20/22 documented as of this encounter
--- OUTSIDE RECORDS SUMMARY | 2025-02-21 17:13 | XMS_ITS | Clinical Summary ---
Author Organization [employer] Address [address] [facility] 7t [place] [address] Care Team Providers Care Biller Name Role Phone Carlee Scott MD Primary Care Provider [phone] Allergies Active Allergy Reactions Criticality Noted Date [...] Date Status medroxyPROGESTERon e (Depo-Provera) injection 150 mgIndications:USP current use of hormonal contraceptive 150 mg [...] recurrent major depressive disorder, without psychotic features ([facility]) 07/09/2023 Assessment & Plan (07/09/2023 1:36 PM [...] intervention , [facility], and Patient to reach out to [facility] as needed 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 Pt denies having tongue swelling, but reports having nausea, cough, sneezing, wheezing, sore throat after the vaccine. Sx don't seem like an allergy, but pt insisted that she was told about an allergic reaction. Given uncertainty if it was an actual allergy will try to get records and also referred pt to medical lab scientist. Did annual labs today and Tb test--pt will bring form to be completed ---if not seen by medical lab scientist by then would explain in form that [...] Department Care Team Description 02/13/2025 Orders Only [address] [address] Monika Guthrie CNM Cervicitis (Primary Dx) 02/13/2025 Results Follow-Up [address] [address] Monika Guthrie CNM Chlamydia/N. Gonorrhoeae RNA, TMA, Vagina, Trichomonas RNA (Urine/Vaginal), US Pelvis Transvaginal 02/09/2025 9:00 AM EDT Procedure Visit [address] [address] Monika Guthrie CNM Cervicitis (Primary Dx); Abnormal uterine bleeding (AUB) 02/09/2025 Travel 02/08/[address] [address] Monika Guthrie CNM chart prep 01/31/[address] [address] Carlee Scott MD Durable Medical Equipment ([facility]: DME Request) 01/27/2025 1:30 PM EDT Office Visit [address] [address] Lucrecia Wong MD Keloid (Primary Dx); Rosacea 01/27/2025 Travel 01/12/[address] [address] Monika Guthrie CNM 01/03/2025 Results Follow-Up [address] [address] Monika Guthrie CNM Bacterial Vaginosis, HPV DNA, Low/High Risk 12/22/2024 11:30 AM EDT Office Visit [address] [address] Monika Guthrie CNM Abnormal uterine bleeding (Primary Dx); BV (bacterial vaginosis); Screening examination for venereal disease 12/22/2024 Telephone [facility] [address] [place] [address] Amy Wallis RN Medication 12/22/2024 Orders Only [address] [address] Monika Guthrie CNM 12/22/[address] [address] Monika Guthrie CNM 12/22/2024 Travel 12/21/[address] [address] Monika Guthrie CNM chart prep 12/21/[address] [address] Carlee Scott MD Appointment Request 12/21/[address] [address] Carlee Scott MD Nurse Triage 12/08/2024 10:00 AM EDT Clinical Support [address] [phone] Bridget Simeon, [place] Encounter for surveillance of injectable contraceptive 12/08/2024 Travel 12/06/[address] [phone] Carlee Scott MD from Last 3 Months [...] Description 03/02/2025 9:30 AM EDT Clinical Support [address] [address] Health Maintenance Due Date Last Done Comments [...] Vaccines Completed 07/23/1989 IPV Vaccines Completed 05/25/1991, 09/0 05/1987, 1985, Additional history exists Hepatitis B [...] Procedure Name Priority Date/Time Associated Diagnosis Comments US PELVIS TRANSVAGINAL STAT 02/17/2025 3:56 PM EDT Abnormal uterine bleeding (AUB) CT CHEST WO CONTRAST Routine 02/14/2025 4:05 [...] Recently Relevant to Health Maintenance Results * US Pelvis Transvaginal (02/17/2025 3:56 PM EDT) Anatomical Region Laterality Modality Pelvis Ultrasound 02/17/2025 3:56 PM EDT Narrative 02/17/2025 4:30 PM EDT [facility] Adult Primary Care [facility] [place] [address] Ultrasound Report Signed Patient: Andreina Leblanc MR#: [id number] : 1985 Acct:[id number] Age/Sex: 40 / F ADM Date: 02/17/25 Loc: HO.HMGCX Attending Dr: Monika Guthrie CNM Ordering Physician: MONIKA GUTHRIE CNM Date of Service: 02/17/25 Procedure(s): US pelvic and transvaginal Accession Number(s): [id number] cc: Carlee Scott; MONKIA GUTHRIE CNM Reason for Exam: AUB, hx polyp EXAMINATION: US PELVIS CLINICAL INFORMATION: History of polyp, abnormal uterine bleeding. COMPARISON: 09/2023 TECHNIQUE: Ultrasound of the pelvis is performed using both transabdominal and transvaginal transducers along with Doppler. Transvaginal imaging is performed due to inadequate visualization transabdominally. FINDINGS: Uterus: The uterus is anteverted, retroflexed, and measures 7.3 x 4.7 x 5.5 cm. The cervix appears normal. The double wall endometrial thickness is 2 mm. It is uniform without irregularity. The uterus is smooth in contour and has mildly heterogeneous myometrial echogenicity. No visible fibroid. Adnexa: Both ovaries are visualized. There is normal color flow to the adnexa. There is no ovarian torsion. There is no significant free pelvic fluid. Trace anechoic fluid is seen abutting the left ovary, likely physiologic. There are no adnexal masses. Right ovary measures 3.7 x 1.7 x 1.9 cm. Volume = 6.4 mL. Normal sonographic appearance. Left ovary measures 3.3 x 1.6 x 2.3 cm. Volume = 6.3 mL. Normal sonographic appearance. US/US pelvic and transvaginal IMPRESSION: 1. Normal and uniform endometrium measuring 2 mm. 2. Grossly normal uterus without discrete fibroids seen. 3. Normal ovaries bilaterally. Electronically signed by: Corky Raymond MD 02/17/2025 04:28 PM EDT Dictated By: Corky Raymond MD Signed By: <Electronically signed by Corky Raymond MD in OV> 02/17/25 1628 DD/ 1556 TD/TT: 02/17/25 1613 Auto Porter: Procedure Note Donotuseinterpreter, Image - 02/17/2025 [facility] Adult Primary Care [facility] [place] [address] Ultrasound Report Signed Patient: Andreina Leblanc [facility]#: [id number] : 1985Acct:[id number] Age/Sex: 40 / FADM Date: 02/17/25 Loc: HO.HMGCX Attending Dr: Monika THIBODEAUX Ordering Physician: MONIKA GUTHRIE CNM Date of Service: 02/17/25 Procedure(s): US pelvic and transvaginal Accession Number(s): [id number] cc: Carlee Scott; MONIKA GUTHRIE CNM Reason for Exam: AUB, hx polyp EXAMINATION: US PELVIS CLINICAL INFORMATION: History of polyp, abnormal uterine bleeding. COMPARISON: 09/2023 TECHNIQUE: Ultrasound of the pelvis is performed using both transabdominal and transvaginal transducers along with Doppler. Transvaginal imaging is performed due to inadequate visualization transabdominally. FINDINGS: Uterus: The uterus is anteverted, retroflexed, and measures 7.3 x 4.7 x 5.5 cm. The cervix appears normal. The double wall endometrial thickness is 2 mm. It is uniform without irregularity. The uterus is smooth in contour and has mildly heterogeneous myometrial echogenicity. No visible fibroid. Adnexa: Both ovaries are visualized. There is normal color flow to the adnexa. There is no ovarian torsion. There is no significant free pelvic fluid. Trace anechoic fluid is seen abutting the left ovary, likely physiologic. There are no adnexal masses. Right ovary measures 3.7 x 1.7 x 1.9 cm. Volume = 6.4 mL. Normal sonographic appearance. Left ovary measures 3.3 x 1.6 x 2.3 cm. Volume = 6.3 mL. Normal sonographic appearance. US/US pelvic and transvaginal IMPRESSION: 1. Normal and uniform endometrium measuring 2 mm. 2. Grossly normal uterus without discrete fibroids seen. 3. Normal ovaries bilaterally. Electronically signed by: Corky Raymond MD 02/17/2025 04:28 PM EDT Dictated By: Corky Raymond MD Signed By: <Electronically signed by Corky Raymond MD in OV> 02/17/25 1628 DD/ 1556 TD/TT: 02/17/25 1613 Auto Porter: us Monika Guthrie CNM IMG US PROCEDURES Final R esult * CT Chest w/o Contrast (02/14/2025 4:05 PM EDT) Anatomical Region Laterality Modality Body, Chest Computed Tomogra phy 02/14/2025 4:05 PM EDT Narrative 02/14/2025 4:50 PM EDT [address] [address] [address] Scan Report Signed Patient: Andreina Leblanc MR#: [id number] : 1985 Acct:[id number] Age/Sex: 40 / F ADM Date: 02/14/25 Loc: HO.CT Attending Dr: Sarah Nava NP Ordering Physician: Sarah Nava NP Date of Service: 02/14/25 Procedure(s): CT chest wo IV con Accession Number(s): [id number] cc: Carlee Scott; Sarah Nava NP Report Number: [id number]: Total DLP = 161.00 mGy-cm Reason for [...] 02/14/25 1647 DD/ 1605 TD/TT: 02/14/25 1630 Auto Porter: Procedure Note Donotuseinterpreter, Image - 02/14/[address] [address] [address] Scan Report Signed Patient: Andreina Leblanc [facility]#: [id number] : 1985Acct:[id number] Age/Sex: 40 / FADM Date: 02/14/25 Loc: HO.CT Attending Dr: Sarah Nava NP Ordering Physician: Sarah Nava NP Date of Service: 02/14/25 Procedure(s): CT chest wo IV con Accession Number(s): [id number] cc: Carlee Scott; Sarah Nava NP Report Number: [id number]: Total DLP = 161.00 mGy-cm Reason for [...] 02/14/25 1647 DD/ 1605 TD/TT: 02/14/25 1630 Auto Porter: [facility] External Provider IMG CT PROCEDURES Final Result * POCT fern test, vaginal fluid manually resulted (02/09/2025 10:16 AM EDT) Only the most recent of2 resultswithin the time period is included. [facility] Prep Positive Comment:pH 5.5, neg whiff, n eg trich, pos wbc, few clue, neg yeast Vaginal Fluid Vaginal structure / Unknown 02/09/2025 10:16 AM EDT Monika THIBODEAUX POINT OF CARE TEST ENTER/ EDIT ORDERABLES Final Result * Trichomonas RNA (Urine/Vaginal) (02/09/2025 9:50 AM EDT) Trichomas vaginalis RNA, QL, TMA NOT DETECTED NOT DETECTED [facility] Comment:For additional infor melissa, please refer tohttp://education.Venturocket/faq/Trichomonastma(This link is being provided for informational/educational purposes only.)THIS TEST WAS PERFORMED AT:[facility] [place] [phone] CARRENO MD Swab 02/09/2025 9:50 AM EDT 02/09/2025 4:11 PM EDT Monika Speedy BLOOD LAB BODY FLUIDS AND STOOL S ORDERABLES Final Result [facility] [address] [place] [phone] * Chlamydia/N. Gonorrhoeae RNA, TMA, Vagina (02/09/2025 9:50 AM EDT) Only the most recent of2 resultswithin the time period is included. CT PCR NOT DETECTED Not Detect. [facility] Comment:A not detected test result does [...] psychologicalconsequences. NG PCR NOT DETECTED Not Detect. [facility] Comment:A not detected test result does [...] L ORDERABLES Final Result Performing Organization Address City/[facility]/ZIP Co de Phone Number [facility] [address] [place] [phone] * (ABNORMAL) Bacterial Vaginosis (12/22/2024 12:15 PM EDT) TRICHOMONAS VAGINALIS DETECTION BY PCR NOT DETECTED Not Detect [facility] BACTERIAL VAGINOSIS DETECTION BY PCR POSITIVE(A) Negative [facility] Comment:The BV organism targ ets [...] DETECTION BY PCR NOT DETECTED Not Detect [facility] Rosamaria glab krusei PCR NOT DETECTED Not Detect [facility] 12/22/2024 12:1 5 PM EDT 12/22/2024 5:50 PM EDT Monika Guthrie [facility] MICROBIOLOGY - GENERA L ORDERABLES Final Result Performing Organization Address City/[facility]/ZIP Co de Phone Number [facility] [address] [place] [phone] * HPV DNA, Low/High Risk (12/22/2024 12:12 PM EDT) HPV High Risk Negative Negative [facility] HPV Genotype 16 Negative Negative [facility] HPV Genotype 18 Negative Negative [facility] Comment:HPV testing performe d at [facility] (CLIA#[id number]), [address] [place] [address].Testing for HPV was performed using the Bowen [...] EDT 12/23/2024 7:40 AM EDT Monika Guthrie CNM LAB BLOOD ORDERABLES Rosio l Result [facility] [address] [place] [phone] * Pap Smear (12/22/2024 12:12 PM EDT) Swab 12/22/2024 12:1 2 PM EDT 12/23/2024 7:40 AM EDT [facility] - 01/02/2025 2:55 PM EDT ----- ------- Name: Andreina Leblanc Age/Sex: 39/F : 1985 Unit#: [id number] Attend Dr: MONIKA GUTHRIE CNM Re12/22/24 Status: DEP REF Location: JuanHHCLNP Disch: ----- ------- SPEC : [id number] RECD: 12/23/24 STATUS: JUVENAL DEAL NUM: [id number] ALYSSA: 12/22/24-[address]: MONIKA GUTHRIE CNM [...] and HPV testing will be performed at [facility] (CLIA #[id number]), [address] [place] [address]. Testing for HPV was performed using the [...] detected. All professional services are performed by [facility] ([address] [place] [address], [place] [address]; ; CLIA #[id number]). The PAP Test is a screening procedure with the inherent possibility of both false negative and false positive results. Results should be interpreted in the context of historic and current clinical findings. Reliability of the PAP Test is enhanced by performing the test on a regular repetitive basis. CONTINUED ON NEXT PAGE ----- ------- Name: Andreina Leblanc Age/Sex: 39/F : 1985 Unit#: [id number] Attend Dr: MONIKA GUTHRIE CNM Re12/22/24 Status: [facility] Disch: ----- ------- SPEC : [id number] RECD: 12/23/2429 STATUS: JUVENAL DEAL NUM: [id number] ALYSSA: 12/22/24-[address] [facility] DR: MONIKA GUTHRIE CNM ENTERED: 12/23/24-0751 SP TYPE: Pap Lynne HARRIS DR: ORDERED: Pap Smear, PAP path review ----- ------- Signed (signature on file) Cherie Saba 01/02/25 1455 ----- ------- END OF REPORT [facility] CYTOLOGY ORDERABLES F inal Result [facility] [address] [place] [phone] * (ABNORMAL) POCT Hemoglobin (12/22/2024 12:03 PM EDT) [facility] Hemoglobin 11.8(A) 12.0 - 15.0 QC Media Lot # [id number] Lot# Expiration Date 026 Blood 12/22/2024 12:0 3 PM EDT [facility] POINT OF CARE TEST ENTER/ EDIT ORDERABLES Final Result * POCT Urine (12/22/2024 11:59 AM EDT) Only the most recent of2 resultswithin the time period is included. [facility] Preg Test, Ur Negative Negative, Indeterminate, None Detected, Invalid, Specimen unsatisfactory for evaluation, Weakly Positive, 2+ QC Media Lot # [id number] Lot# Expiration Date 026 Urine 12/22/2024 11:5 9 AM EDT [facility] POINT OF CARE TEST ENTER/ EDIT ORDERABLES Final Result * Hepatitis C Antibody with Reflex to HCV, RNA, Quantitative, Real-Time PCR (10/02/2022 8:44 AM EDT) Hepatitis C Antibody NON-REACT KEATON NON-REACT KEATON [facility] Index 0.12 <1.00 [facility] Comment: HCV antibody was non-reactive. There is no laboratory evidence of HCV infection. In most cases, no further action is required. However, if recent HCV exposure is suspected, a test for HCV RNA (test code 62516) is suggested. For additional information please refer to http://[employer]ioscan[employer], INC.Venturocket/faq/YPB84k6 (This link is being provided for informational/ educational purposes only.) Blood Venous blood specimen / Unknown 10/02/2022 8:44 AM EDT 10/02/2022 8:44 AM EDT Narrative [facility] - 10/07/2022 3:11 PM EDT FASTING:YES FASTING: YES Laure Medina MD LAB BLOOD ORDERAB LES Final Result [facility] [address], [place] [phone] [facility] [address] [place] [phone] * HIV-1/2 Antigen and Antibodies, Fourth Generation, with Reflexes (10/02/2022 8:44 AM EDT) Pathologist [facility] HIV Antigen/Antibody, 4th Generation NON-REAC TIVE NON-REAC TIVE [facility] Comment: HIV-1 antigen and HIV-1/HIV-2 antibodies were [...] purpose. For additional information please refer to http://BioscanR[employer].Venturocket/faq/FSV456 (This link is being provided for informational/ educational purposes only.) The performance of this assay has not been clinically validated in patients less than 2 years old. Blood Venous blood specimen / Unknown 10/02/2022 8:44 AM EDT 10/02/2022 8:44 AM EDT Narrative [facility] - 10/07/2022 3:11 PM EDT FASTING:YES FASTING: YES Laure Medina MD LAB BLOOD ORDERAB LES Final Result [facility] [address], [place] [address] [facility] [address] [place] [phone] from Last 3 Months or Most Recently Relevant to Health Maintenance Insurance [facility] < 65 [facility] Care Teams Biller Relationship Specialty Start Date End Date Carlee Scott MD [address] [place] [phone] PCP - General Family Medicine 01/20/22
--- OUTSIDE RECORDS SUMMARY | 2025-02-21 17:13 | XMS_ITS | Clinical Summary ---
Author Organization [employer] [facility] Address [address] [place] [address] Care Team Providers Care Garnett Machine Operator Name Role Phone Dana Mattson RN Primary Care Provider [phone] Surgical History Surgery Date Site/Laterality Comments OTHER SURGICAL HISTORY PROCEDURE: DENIES PREVIOUS SURGERY OTHER SURGICAL HISTORY PROCEDURE: NV INCISION & DRAINAGE PILONIDAL CYST SIMPLE; COMMENT: [...] a genital outbreak ; no labs in [facility] for review History of blood transfusion [...] RESULTING AGENCY - 08/14/2021 7:26 AM EDT [id number] THINPREP PAP, IMAGED: NEGATIVE FOR SQUAMOUS INTRAEITHELIAL [...] Recently Relevant to Health Maintenance Care Teams Garnett Machine Operator Relationship Specialty Start Date End Date Dana Mattson RN [address] [place] [phone] PCP - General 10/16/22
--- OUTSIDE RECORDS SUMMARY | 2025-02-21 17:13 | XMS_ITS | Encounter Summary ---
Author Organization [employer] Address [address] [facility] 7[address] [place] [address] Care Team Providers Care Temporary Data Entry Clerk Name Role Phone Carlee Scott MD Primary Care Provider [phone] Reason for Visit * Reason Onset Date Comments Results 02/13/2025 Encounter Details Date Type Department Care Team (Latest Contact Info) Description 02/13/2025 Results Follow-Up [facility] [address] [place] [address] Valeria Ruff CNM [address] [place] [address] Chlamydia/N. Gonorrhoeae RNA, TMA, Vagina, Trichomonas RNA (Urine/Vaginal), US Pelvis Transvaginal Social History Tobacco Use Types Packs/Day Years [...] as of this encounter Miscellaneous Notes * Result Encounter Note - Valeria Ruff CNM - 02/21/2025 1:28 PM EDT Thank you! * Telephone Encounter - Nena Blas RN - 02/21/2025 1:18 PM EDT Pt came to green team to complete self swab for mycoplasma/ureaplasma panel. Self swab completed, specimen processed and sent to the lab to be ran. * Telephone Encounter - Nena Blas RN - 02/20/2025 2:01 PM EDT Telephone call placed to pt who states forgot she was supposed ot come in to self swab and thanked me for reminding her. She states will come in this week. * Telephone Encounter - Nena Blas RN - 02/20/2025 1:59 PM EDT ----- Message from Valeria Ruff sent at 02/20/2025 12:43 PM EDT ----- Please let Andreina know her ultrasound was normal. Awaiting mycoplasma testing. Did she come in andself collect? ----- Message ----- From: Telma Clay Results In Sent: 02/17/2025 4:31 PM EDT To: Valeria Ruff CNM * Result Encounter Note - Valeria Ruff CNM - 02/20/2025 12:43 PM EDT Please let Andreina know her ultrasound was normal. Awaiting mycoplasma testing. Did she come in andself collect? * Telephone Encounter - Kylee Ortiz RN [...] and self collect vaginal swab for mycoplasma ([facility]). Orders placed. We'll be in touch [...] and self collect vaginal swab for mycoplasma ([facility]). Orders placed. We'll be in touch with those results when available as well as ultrasound. Does she have appointment for ultrasoundyet? Thanks! documented in this encounter Plan of Treatment Upcoming Encounters Date Type Department Care Team (Late st Contact Info) Description 03/02/2025 9:30 AM EDT Clinical Support [facility] [address] [place] [address] documented as of this encounter Visit Diagnoses Not on filedocumented in this encounter Additional Health Concerns Assessment Noted Time PHQ-9 Depression Total Score: 0 03/18/20 24 10:02 AM EDT documented as of this encounter Care Teams Temporary Data Entry Clerk Relationship Specialty Start Date End Date Carlee Scott MD [address] [place] [address] PCP - General Family Medicine 01/20/22 documented as of this encounter
--- OUTSIDE RECORDS SUMMARY | 2025-02-21 17:13 | XMS_ITS | Encounter Summary ---
Author Organization [employer] Address [address] [facility] 7t [place] [address] Care Team Providers Care Neighborhood Coordinator Name Role Phone Carlee Scott MD Primary Care Provider [phone] Reason for Visit * Reason Comments Med Change Request Encounter Details Date Type Department Care Team ([facility] Contact Info) Description 12/22/2024 Refill [facility] [address] [place], [place] [phone] Valeria Ruff, CARLOS EDUARDO [address] [place] [address] Social History Tobacco Use Types Packs/Day Years [...] Description 03/02/2025 9:30 AM EDT Clinical Support [facility] [address] [place] [address] documented as of this encounter Visit Diagnoses Not on filedocumented in this encounter Additional Health Concerns Assessment Noted Time PHQ-9 Depression Total Score: 0 03/18/20 10:02 AM EDT documented as of this encounter Care Teams Neighborhood Coordinator Relationship Specialty Start Date End Date Carlee Scott MD [address] [place] [address] PCP - General Family Medicine 01/20/22 documented as of this encounter
--- OUTSIDE RECORDS SUMMARY | 2025-02-21 17:13 | XMS_ITS | Encounter Summary ---
Author Organization [employer] Address [address] [facility] 7[address] [place] [address] Care Team Providers Care Health Counselor Name Role Phone Carlee Scott MD Primary Care Provider [phone] Encounter Details Date Type Department Care Team (Late st Contact Info) Description 06/28/2024 Orders Only [facility] [address] [place], [place] [phone] Carlee Scott MD [address] [place], [place] [phone] buttermilk drier operator current use of hormonal contraceptive (Primary Dx) [...] 03/02/2025 9:30 AM EDT Clinical Support [facility] [address] [place] [address] documented as of this encounter Visit Diagnoses Diagnosis 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
[2025-02-23 22:29] LABS: Mycoplasma hominis PCR Not Detected (Not Detected)
== END 2025-02-21 13:16 | disposition home or self-care (01) ==
LOC: HO.HHCLNP 13:15
PROVIDERS: Visit Provider Advanced Practice Midwife
DX: N72 Inflammatory disease of cervix uteri (principal)
CPT/HCPCS: 87563; 87798

== ENCOUNTER 2025-03-08 10:12 | Outpatient (REF) | payer OTHER, SELFPAY ==
--- OUTSIDE RECORDS SUMMARY | 2025-03-08 18:58 | XMS_ITS | Clinical Summary ---
Author Organization [employer] [facility] Address [address] [place] [address] Care Team Providers Care Line Prep Cook Name Role Phone Dana Mattson RN Primary Care Provider [phone] Surgical History Surgery Date Site/Laterality Comments OTHER [...] a genital outbreak ; no labs in [facility] for review History of blood transfusion DX: [...] of 2 - PCV) 2006 HPV Vaccines (1 - 3-dose SCD M series) 2014 HIV Screening 04/27/2022 Hepatitis C Screening 04/27/2022 [...] RESULTING AGENCY - 08/14/2021 7:26 AM EDT [id number] THINPREP PAP, IMAGED: NEGATIVE FOR SQUAMOUS INTRAEITHELIAL [...] Recently Relevant to Health Maintenance Care Teams Line Prep Cook Relationship Specialty Start Date End Date Dana Mattson RN [address] [place] [id number] PCP - General 10/16/22
--- OUTSIDE RECORDS SUMMARY | 2025-03-08 18:58 | XMS_ITS | Encounter Summary ---
Author Organization [employer] Address [address] [facility] 7t [place] [address] Care Team Providers Care Sap Bi Developer Name Role Phone Carlee Scott MD Primary Care Provider [phone] Encounter Details Date Type Department Care Team (Late st Contact Info) Description 06/28/2024 Orders Only [facility] [address] [place], [place] [phone] Carlee Scott MD [address] [place], [place] [phone] assistant terminal manager current use of hormonal contraceptive [...] Care Team (Late st Contact Info) Description 05/22/2025 10:00 AM EST Clinical Support [facility] [address] [place] [address] documented as of this encounter Visit Diagnoses Diagnosis group home current use of hormonal contraceptive- Primary documented in this encounter Additional Health Concerns Assessment Noted Time PHQ-9 Depression Total Score: 0 03/18/20 24 10:02 AM EDT documented as of this encounter Care Teams Sap Bi Developer Relationship Specialty Start Date End Date Carlee Scott MD [address] [place] [address] PCP - General Family Medicine 01/20/22 documented as of this encounter
--- OUTSIDE RECORDS SUMMARY | 2025-03-08 18:58 | XMS_ITS | Encounter Summary ---
Author Organization [employer] Address 75 [facility] 7t [place] [address] Care Team Providers Care Sociocultural Anthropology Professor Name Role Phone Carlee Scott MD Primary Care Provider [phone] Encounter Details Date Type Department Care Team ([facility] st Contact Info) Description 09/11/2023 Orders Only [facility] [address] [place], [place] [phone] Wai Chen MD [address] [place], [place] [phone] Social History Tobacco Use Types Packs/Day Years [...] Description 05/22/2025 10:00 AM EST Clinical Support [facility] [address] [place] [address] documented as of this encounter Visit Diagnoses Not on filedocumented in this encounter Additional Health Concerns Assessment Noted Time PHQ-9 Depression Total Score: 22 024 12:37 PM EST documented as of this encounter Care Teams Sociocultural Anthropology Professor Relationship Specialty Start Date End Date Carlee Scott MD [address] [place] [address] PCP - General Family Medicine 01/20/22 documented as of this encounter
--- OUTSIDE RECORDS SUMMARY | 2025-03-08 18:58 | XMS_ITS | Clinical Summary ---
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 150 mg IM Every 3 months 06/28/2024 5 Ended Active Problems Problem Noted Date Diagnosed [...] recurrent major depressive disorder, without psychotic features (CMS/HCC) 07/09/2023 Assessment & Plan (07/09/2023 1:36 PM [...] intervention , [facility], and Patient to reach out to HC as needed 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 Did annual labs today and Tb test--pt will bring form to be completed ---if not seen by dough raiser by then would explain in form that [...] Encounters Date Type Department Care Team Description 03/02/2025 9:30 AM EDT Clinical Support [address] [address] Bridget Simeon, RN Encounter for surveillance of injectable contraceptive 03/02/2025 Travel 02/24/2025 Orders Only [address] [address] Monika Guthrie CNM Abnormal uterine bleeding (AUB) (Primary Dx); PCB (post coital bleeding) 02/24/2025 Results Follow-Up [address] [address] Monika Guthrie CNM Mycoplasma/Ureaplasma Panel 02/23/[address] [address] Carlee Scott MD Durable Medical Equipment ([facility]: Orthopedic Pillow) 02/21/2025 Orders Only [address] [address] Monika Guthrie CNM 02/13/2025 Orders Only [address] [address] Monika Guthrie CNM Cervicitis (Primary Dx) 02/13/2025 Results Follow-Up [address] [address] Monika Guthrie CNM Chlamydia/N. Gonorrhoeae RNA, TMA, Vagina, Trichomonas RNA (Urine/Vaginal), US Pelvis Transvaginal 02/09/2025 9:00 AM EDT Procedure Visit [address] [address] Monika Guthrie CNM Cervicitis (Primary Dx); Abnormal uterine bleeding (AUB) 02/09/2025 Travel 02/08/[address] [address] Monika Guthrie CNM chart prep 01/31/[address] [address] Carlee Scott MD Durable Medical Equipment ([facility]: DME Request) 01/27/2025 1:30 PM EDT Office Visit [address] [address] Lucrecia Wong MD Keloid (Primary Dx); Rosacea 01/27/2025 Travel 01/12/[address] [address] Monika Guthrie CNM 01/03/2025 Results Follow-Up [address] [address] Monika Guthrie CNM Bacterial Vaginosis, HPV DNA, Low/High Risk 12/22/2024 11:30 AM EDT Office Visit [address] [address] Monika Guthrie CNM Abnormal uterine bleeding (Primary Dx); BV (bacterial vaginosis); Screening examination for venereal disease 12/22/2024 Telephone [facility] [address] [place] [phone] Amy Wallis RN Medication 12/22/2024 Orders Only [address] [address] Monika Guthrie CN 12/22/[address] [address] Monika Guthrie CN 12/22/2024 Travel 12/21/[address] [address] Monika Guthrie [facility] chart prep 12/21/[address] [address] Carlee Scott MD Appointment Request 12/21/[address] [address] Carlee Scott MD Nurse Triage 12/08/2024 10:00 AM EDT Clinical Support [address] [address] Bridget Simeon, [place] Encounter for surveillance of injectable contraceptive 12/08/2024 Travel 12/06/[address] [address] Carlee Scott MD from Last 3 Months [...] Answer Date Recorded Internet Access Q1 Yes 03/08/2025 Internet Access Q2 Not on file 03/08/2025 Comments No Intention Date Recorded No desire to become (finding) 1 Sex and Gender Information Value Date Recorded [...] Description 05/22/2025 10:00 AM EST Clinical Support [address] [phone] Health Maintenance Due Date Last Done Comments [...] Alcohol/Substance Use Screening 10/11/2025 10/11/2024 Tobacco Screening 02/09/2026 02/09/2025 Family Planning (PISQ) 03/02/2026 03/02/2025 Cervical Cancer Screening 12/22/2029 HPV/Cotest 12/22/2029 12/22/2024, [...] Associated Diagnosis Comments POCT , URINE Routine 03/02/2025 10:09 AM EDT Encounter for surveillance of injectable contraceptive MYCOPLASMA/UREAPLASM A PANEL Routine 02/21/2025 1:15 PM EDT US PELVIS TRANSVAGINAL STAT 02/17/2025 3:56 PM [...] to Health Maintenance Results * POCT Urine (03/02/2025 10:09 AM EDT) Only the most recent of3 resultswithin the time period is included. Preg Test, Ur Negative Negative, Indeterminate, None Detected, Invalid, Specimen unsatisfactory for evaluation, Weakly Positive, 2+ QC Media Lot # [id number] Lot# Expiration Date [id number] Urine 03/02/2025 10:0 9 AM EDT Shelia Delmi DO POINT OF CARE TEST ENTER/TITO T ORDERABLES Final Result * Mycoplasma/Ureaplasma??Panel (02/21/2025 1:15 PM EDT) Sureswab(R), Mycoplasma Hominis, Real-Time Pcr Not Detected Not Detected [facility] Comment:THIS TEST WAS PERFOR MED AT:[facility] [id number] [address]EQOFIODTAMMY BINGHAM MD,PHD Mycoplasma Genitalium, rRNA,TMA Not Detected Not Detected [facility] Comment:THIS TEST WAS PERFOR MED AT:[employer] [id number] [place] [address]NNBDNZWTAMMY BINGHAM MD,PHD U. Parvum DNA Not Detected Not Detected [facility] U. Urealyticum DNA Not Detected Not Detected [facility] Comment:This test was develo ped and its analyticalperformance characteristics have been determinedby [facility] [place], [place].It has not been cleared or approved by the FDA. Thisassay has been validated pursuant to the CLIAregulations and is used for clinical purposes.THIS TEST WAS PERFORMED AT:[facility] [place] [address]DKSAVNOTAMMY BINGHAM MD,PHD 02/21/2025 1:15 PM EDT 02/21/2025 4:21 PM EDT Monika THIBODEAUX [facility] MICROBIOLOGY - GENERA L ORDERABLES Final Result [facility] [address] [place] [address] [phone] * US Pelvis Transvaginal (02/17/2025 3:56 PM EDT) Anatomical Region Laterality Modality Pelvis Ultrasound 02/17/2025 3:56 PM EDT Narrative 02/17/2025 4:30 PM EDT [facility] [address] [place] [address] [place] [address] Ultrasound Report Signed Patient: Andreina Leblanc MR#: [id number] : 1985 Acct:[id number] Age/Sex: 40 / F ADM Date: 02/17/25 Loc: HO.HMGCX Attending Dr: Monika Guthrie CNM Ordering Physician: MONIKA GUTHRIE CNM Date of Service: 02/17/25 Procedure(s): US pelvic and transvaginal Accession Number(s): [id number] cc: Carlee Scott; MONIKA GUTHRIE CNM Reason [...] 02/17/25 1628 DD/ 1556 TD/TT: 02/17/25 1613 Flower Stripper: Procedure Note Donotuseinterpreter, Image - 02/17/2025 [facility] [address] [place] [address] [place] [address] Ultrasound Report Signed Patient: Andreina Leblanc [facility]#: [id number] : 1985Acct:[id number] Age/Sex: 40 / FADM Date: 02/17/25 Loc: HO.HMGCX Attending Dr: Monika Guthrie CNM Ordering Physician: MONIKA GUTHRIE CNM Date of Service: 02/17/25 Procedure(s): US pelvic and transvaginal Accession Number(s): [id number] cc: Carlee Scott; MONIKA GUTHRIE CNM Reason [...] 02/17/25 1628 DD/ 1556 TD/TT: 02/17/25 1613 Flower Stripper: us Monika Guthrie CN IMG US PROCEDURES Final R esult * CT Chest w/o Contrast (02/14/2025 4:05 PM EDT) Anatomical Region Laterality Modality Body, Chest Computed Tomogra phy 02/14/2025 4:05 PM EDT Narrative 02/14/2025 4:50 PM EDT [place] [address] [address] Scan Report Signed Patient: Andreina Leblanc MR#: [id number] : 1985 Acct:[id number] Age/Sex: 40 / F ADM Date: 02/14/25 Loc: HO.CT Attending Dr: Sarah Nava [employer] Ordering Physician: Sarah Nava NP Date of Service: 02/14/25 Procedure(s): CT chest wo IV con Accession Number(s): [id number] cc: Carlee Scott; Sarah Nava NP Report Number: [id number]: Total DLP = 161.00 mGy-cm Reason for [...] 02/14/25 1647 DD/ 1605 TD/TT: 02/14/25 1630 Flower Stripper: Procedure Note Donotuseinterpreter, Image - 02/14/[address] [address] [address] Scan Report Signed Patient: Andreina Leblanc [facility]#: [id number] : 1985Acct:[id number] Age/Sex: 40 / FADM Date: 02/14/25 Loc: HO.CT Attending Dr: Sarah Nava [employer] Ordering Physician: Sarah Nava NP Date of Service: 02/14/25 Procedure(s): CT chest wo IV con Accession Number(s): [id number] cc: Carlee Scott; Sarah Nava [employer]PER[employer] Report Number: [id number]: Total DLP = 161.00 mGy-cm Reason for [...] 02/14/25 1647 DD/ 1605 TD/TT: 02/14/25 1630 Flower Stripper: [facility] External Provider IMG CT PROCEDURES Final Result * POCT fern test, vaginal fluid manually resulted (02/09/2025 10:16 AM EDT) Only the most recent of2 resultswithin the time period is included. Pathologist [facility] GLEN Prep Positive Comment:pH 5.5, neg whiff, n eg trich, pos wbc, few clue, neg yeast Vaginal Fluid Vaginal structure / Unknown 02/09/2025 10:16 AM EDT Monika Guthrie [facility] POINT OF CARE TEST ENTER/ EDIT ORDERABLES Final Result * Trichomonas RNA (Urine/Vaginal) (02/09/2025 9:50 AM EDT) [facility] Trichomas vaginalis RNA, QL, TMA NOT DETECTED NOT DETECTED [facility] Comment:For additional infor melissa, please refer tohttp://education.[employer]/faq/Trichomonastma(This link is being provided for informational/educational purposes only.)THIS TEST WAS PERFORMED AT:[facility] [place] [address]PYHCKKIMBERLEY CARRENO MD Swab 02/09/2025 9:50 AM EDT 02/09/2025 4:11 PM EDT [facility] BODY FLUIDS AND STOOL S ORDERABLES Final Result [facility] [address] [place] [phone] * Chlamydia/N. Gonorrhoeae RNA, TMA, Vagina (02/09/2025 9:50 AM EDT) Only the most recent of2 resultswithin the time period is included. [facility] CT PCR NOT DETECTED Not Detect. [facility] Comment:A not detected test result [...] psychologicalconsequences. NG PCR NOT DETECTED Not Detect. [facility] Comment:A not detected test result [...] MICROBIOLOGY - GENERA L ORDERABLES Final Result [facility] [address] [place] [phone] * (ABNORMAL) Bacterial Vaginosis (12/22/2024 12:15 PM EDT) TRICHOMONAS VAGINALIS DETECTION BY PCR NOT DETECTED Not Detect [facility] BACTERIAL VAGINOSIS DETECTION BY PCR POSITIVE(A) Negative [facility] Comment:The BV organism targ ets [...] DETECTION BY PCR NOT DETECTED Not Detect [facility] Rosamaria glab krusei PCR NOT DETECTED Not Detect [facility] 12/22/2024 12:1 5 PM EDT 12/22/2024 5:50 PM EDT Monika Guthrie CNM LAB MICROBIOLOGY - GENERA L ORDERABLES Final Result [facility] [address] [place] [phone] * HPV DNA, Low/High Risk (12/22/2024 12:12 PM EDT) HPV High Risk Negative Negative [facility] HPV Genotype 16 Negative Negative [facility] HPV Genotype 18 Negative Negative [facility] Comment:HPV testing performe d at [facility] (CLIA#[id number]), [address] [place] [address].Testing for HPV was performed using the Bowen [...] Monika Guthrie CNM LAB BLOOD ORDERABLES Rosio adhikari Result [facility] [address] [place] [phone] * Pap Smear (12/22/2024 12:12 PM EDT) Swab 12/22/2024 12:1 2 PM EDT 12/23/2024 7:40 AM EDT Narrative [facility] - 01/02/2025 2:55 PM EDT ----- ------- Name: Andreina Leblanc Age/Sex: 39/F : 1985 Unit#: [id number] Attend Dr: MONIKA GUTHRIE CNM Re12/22/24 Status: SNOW REF [facility] ----- ------- SPEC : [id number] RECD: 12/23/24 STATUS: JUVENAL DEAL NUM: [id number] ALYSSA: 12/22/24-[address]: MONIKA GUTHRIE CNM ENTERED: 12/23/24-0751 SP TYPE: Pap Smr OTHR DR: ORDERED: [...] and HPV testing will be performed at [facility] (CLIA #[id number]), [address] [place] [address]. Testing for HPV was performed using the Bowen JUAN CARLOS [employer] Mobile[employer] system. The presence of HPV in the [...] detected. All professional services are performed by [facility] ([address] [place] [address]; ; CLIA #[id number]). The PAP Test is a screening procedure with the inherent possibility of both false negative and false positive results. Results should be interpreted in the context of historic and current clinical findings. Reliability of the PAP Test is enhanced by performing the test on a regular repetitive basis. CONTINUED ON NEXT PAGE ----- ------- Name: Andreina Leblanc Karen Age/Sex: 39/F : 1985 Unit#: [id number] Attend Dr: MONIKA GUTHRIE CNM Re12/22/24 Status: DEP REF Location: [facility] Disch: ----- ------- SPEC : [id number] RECD: 12/23/24 STATUS: JUVENAL DEAL NUM: [id number] ALYSSA: 12/22/24-[address]: MONIKA GUTHRIE CNM ENTERED: 12/23/24 SP TYPE: Pap Lynne HARRIS DR: ORDERED: Pap Smear, PAP path review ----- ------- Signed (signature on file) Cherie Saba 01/02/25 1455 ----- ------- END OF REPORT Monika Guthrie CNM LAB CYTOLOGY ORDERABLES F inal Result [facility] [address] [place] [phone] * (ABNORMAL) POCT Hemoglobin (12/22/2024 12:03 PM EDT) Pathologist [facility] Hemoglobin 11.8(A) 12.0 - 15.0 QC Media Lot # [id number] Lot# Expiration Date Blood 12/22/2024 12:0 3 PM EDT Result [facility] Monika Guthrie CN POINT OF CARE TEST ENTER/ EDIT ORDERABLES Final Result * Hepatitis C Antibody with Reflex to HCV, RNA, Quantitative, Real-Time PCR (10/02/2022 8:44 AM EDT) [facility] Hepatitis C Antibody NON-REACT KEATON NON-REACT KEATON [facility] [place] [facility] Index 0.12 <1.00 [facility] [place] [facility] Comment: HCV antibody was non-reactive. There is no laboratory evidence of HCV infection. In most cases, no further action is required. However, if recent HCV exposure is suspected, a test for HCV RNA (test code 61897) is suggested. For additional information please refer to http://education.[employer]/faq/DOC63f9 (This link is being provided for informational/ educational purposes only.) Blood Venous blood specimen / Unknown 10/02/2022 8:44 AM EDT 10/02/2022 8:44 AM EDT Narrative [facility] - 10/07/2022 3:11 PM EDT FASTING:YES FASTING: YES Laure Medina MD LAB BLOOD ORDERAB LES Final Result [facility] [address], [place] [address] [facility] [place] [facility] [address] [place] [address] * HIV-1/2 Antigen and Antibodies, Fourth Generation, with Reflexes (10/02/2022 8:44 AM EDT) [facility] HIV Antigen/Antibody, 4th Generation NON-REAC TIVE NON-REAC TIVE [facility] [place] [facility] Comment: HIV-1 antigen and HIV-1/HIV-2 antibodies were [...] purpose. For additional information please refer to http://education.[employer]/faq/LIY317 (This link is being provided for informational/ educational purposes only.) The performance of this assay has not been clinically validated in patients less than 2 years old. Blood Venous blood specimen / Unknown 10/02/2022 8:44 AM EDT 10/02/2022 8:44 AM EDT Narrative [facility] - 10/07/2022 3:11 PM EDT FASTING:YES FASTING: YES Laure Medina MD LAB BLOOD ORDERAB LES Final Result [facility] [address], [place] [address] [facility] [address] [place] [address] from Last 3 Months or Most Recently Relevant to Health Maintenance Insurance [id number] ONE CARE < 65 LALITA SORIA [id number] DENTAL - [facility] * Guarantor: Andreina Leblanc Account Type Relation to Patient Date of Phone Billing Address Personal/Family Self [address] Care Teams Counter Installer Relationship Specialty Start Date End Date Carlee Scott MD [address] [place] [address] PCP - General Family Medicine 01/20/22
--- OUTSIDE RECORDS SUMMARY | 2025-03-08 18:58 | XMS_ITS | Encounter Summary ---
Author Organization [employer] Address 75 [facility] 7t [place] [address] Care Team Providers Care Stamps Or Coins Salesperson Name Role Phone Carlee Scott MD Primary Care Provider [phone] Reason for Visit * Reason Onset Date Comments Results 02/13/2025 Encounter Details Date Type Department Care Team (Latest Contact Info) Description 02/13/2025 Results Follow-Up [facility] [address] [place] [address] Valeria Ruff CNM [address] [place] [address] Chlamydia/N. Gonorrhoeae RNA, TMA, Vagina, Trichomonas RNA [...] and self collect vaginal swab for mycoplasma (Whitefish Aptima). Orders placed. We'll be in touch [...] and self collect vaginal swab for mycoplasma (Whitefish Aptima). Orders placed. We'll be in touch with those results when available as well as ultrasound. Does she have appointment for ultrasoundyet? Thanks! documented in this encounter Plan of Treatment Upcoming Encounters Date Type Department Care Team (Late st Contact Info) Description 05/22/2025 10:00 AM EST Clinical Support [facility] [address] [place] [address] documented as of this encounter Visit Diagnoses Not on filedocumented in this encounter Additional Health Concerns Assessment Noted Time PHQ-9 Depression Total Score: 0 03/18/20 24 10:02 AM EDT documented as of this encounter Care Teams Stamps Or Coins Salesperson Relationship Specialty Start Date End Date Carlee Scott MD [address] [place] [address] PCP - General Family Medicine 01/20/22 documented as of this encounter
--- OUTSIDE RECORDS SUMMARY | 2025-03-08 18:58 | XMS_ITS | Encounter Summary ---
Author Organization [employer] Address 75 [facility] 7t [place] [address] Care Team Providers Care Psychiatry Instructor Name Role Phone Carlee Scott MD Primary Care Provider [phone] Encounter Details Date Type Department Care Team ([facility] st Contact Info) Description 06/10/2023 Orders Only [facility] [address] [place], [place] [phone] Laure Canada MD [address] [place], [place] [phone] Social History Tobacco Use Types Packs/Day Years [...] Description 05/22/2025 10:00 AM EST Clinical Support [facility] [address] [place] [address] documented as of this encounter Visit Diagnoses Not on filedocumented in this encounter Additional Health Concerns Assessment Noted Time PHQ-9 Depression Total Score: 16 023 9:32 AM EST documented as of this encounter Care Teams Psychiatry Instructor Relationship Specialty Start Date End Date Carlee Scott MD [address] [place] [address] PCP - General Family Medicine 01/20/22 documented as of this encounter
--- OUTSIDE RECORDS SUMMARY | 2025-03-08 18:58 | XMS_ITS | Encounter Summary ---
Author Organization [employer] Address 75 [facility] 7t [place] [address] Care Team Providers Care Treater Helper Name Role Phone Carlee Scott MD Primary Care Provider [phone] Encounter Details Date Type Department Care Team ([facility] st Contact Info) Description 12/22/2024 Orders Only [facility] [address] [place], [place] [phone] Valeria Ruff CN [address] [place], [place] [phone] Social History Tobacco Use Types Packs/Day Years [...] Description 05/22/2025 10:00 AM EST Clinical Support [address] [address] documented as of this encounter Procedures Procedure Name Priority Date/Time Associated Diagnosis Comments BACTERIAL VAGINOSIS PANEL Routine 12/22/2024 12:15 PM EDT HPV DNA, LOW/HIGH RISK Routine 12/22/2024 12:12 PM EDT documented in this encounter Results * (ABNORMAL) Bacterial Vaginosis (12/22/2024 12:15 PM EDT) TRICHOMONAS VAGINALIS DETECTION BY PCR NOT DETECTED Not Detect [facility] BACTERIAL VAGINOSIS DETECTION BY PCR POSITIVE(A) Negative [facility] Comment:The BV organism targ ets [...] DETECTION BY PCR NOT DETECTED Not Detect [facility] Rosamaria glab krusei PCR NOT DETECTED Not Detect [facility] 12/22/2024 12:1 5 PM EDT 12/22/2024 5:50 PM EDT Valeria [facility] LAB MICROBIOLOGY - GENERA L ORDERABLES Final Result Performing Organization Address [facility] Co de Phone Number [facility] [address] [place] [phone] * HPV DNA, Low/High Risk (12/22/2024 12:12 PM EDT) HPV High Risk Negative Negative [facility] HPV Genotype 16 Negative Negative [facility] HPV Genotype 18 Negative Negative [facility] Comment:HPV testing performe d at [facility] (CLIA#[id number]), [address] [place] [address].Testing for HPV was performed using the Bowen [...] ORDERABLES Rosio l Result Performing Organization Address [facility] Co de Phone Number [facility] [address] [place] [phone] documented in this encounter Visit Diagnoses Not on filedocumented in this encounter Additional Health Concerns Assessment Noted Time PHQ-9 Depression Total Score: 0 10/25/20 24 10:02 AM EDT documented as of this encounter Care Teams Treater Helper Relationship Specialty Start Date End Date Carlee Scott MD [address] [place] [address] PCP - General Family Medicine 01/20/22 documented as of this encounter
--- OUTSIDE RECORDS SUMMARY | 2025-03-08 18:58 | XMS_ITS | Encounter Summary ---
Author Organization [employer] Address [address] [facility] 7t [place] [address] Care Team Providers Care 3D Modeler Name Role Phone Carlee Scott MD Primary Care Provider [phone] Reason for Visit * Reason Comments Med Change Request Encounter Details Date Type Department Care Team ([facility] Contact Info) Description 12/22/[address] [facility] [address] [place], [place] [phone] Valeria Ruff, CARLOS EDUARDO [address] [place] [address] Social History Tobacco Use Types Packs/Day Years [...] Description 05/22/2025 10:00 AM EST Clinical Support [facility] [address] [place] [address] documented as of this encounter Visit Diagnoses Not on filedocumented in this encounter Additional Health Concerns Assessment Noted Time PHQ-9 Depression Total Score: 0 03/18/20 10:02 AM EDT documented as of this encounter Care Teams 3D Modeler Relationship Specialty Start Date End Date Carlee Scott MD [address] [place] [address] PCP - General Family Medicine 8/29/22 documented as of this encounter
--- OUTSIDE RECORDS SUMMARY | 2025-03-08 18:58 | XMS_ITS | Encounter Summary ---
Author Organization [employer] Address [address] [facility] 7t [place] [address] Care Team Providers Care Top Case Assembler Name Role Phone Carlee Scott MD Primary Care Provider [phone] Encounter Details Date Type Department Care Team ([facility] st Contact Info) Description 08/11/2023 Orders Only [facility] MED[facility] [address] [place], [place] [phone] Carlee Scott MD [address] [place], [place] [phone] Social History Tobacco Use Types Packs/Day Years [...] Description 05/22/2025 10:00 AM EST Clinical Support [facility] [address] [place] [address] documented as of this encounter Visit Diagnoses Not on filedocumented in this encounter Additional Health Concerns Assessment Noted Time PHQ-9 Depression Total Score: 22 024 12:37 PM EST documented as of this encounter Care Teams Top Case Assembler Relationship Specialty Start Date End Date Carlee Scott MD [address] [place] [address] PCP - General Family Medicine 01/20/22 documented as of this encounter
[2025-03-09 04:57] LABS: Bacterial Vaginosis PCR POSITIVE (Negative); Candida Group PCR NOT DETECTED (Not Detect); Candida glab krusei PCR NOT DETECTED (Not Detect); Trichomonas vaginalis PCR NOT DETECTED (Not Detect)
[2025-03-09 05:27] LABS: CT PCR NOT DETECTED (Not Detect.); NG PCR NOT DETECTED (Not Detect.)
== END 2025-03-08 10:13 | disposition home or self-care (01) ==
LOC: HO.LNP 10:12
PROVIDERS: PCP General Practice; Visit Provider Advanced Practice Midwife
DX: N76.0 Acute vaginitis (principal); B96.89 Other specified bacterial agents as the cause of diseases classified elsewhere; Z12.4 Encounter for screening for malignant neoplasm of cervix; Z87.42 Personal history of other diseases of the female genital tract; Z79.899 Other long term (current) drug therapy; Z20.2 Contact with and (suspected) exposure to infections with a predominantly sexual mode of transmission
CPT/HCPCS: 81515; 87491; 87591; 99212

== ENCOUNTER 2025-03-08 10:12 | Outpatient (AMB) | payer OTHER, SELFPAY ==
[2025-03-08 10:12] VITALS: BP 120/68; BMI 28.8
--- NOTE | 2025-03-08 10:12 | MHC.OFFVIS ---
Vital Signs 03/08/25 10:12 Height 5 ft 7 in Weight 184 lb BMI 28.8 BP 120/68 Intake Visit Reasons: vaginal discharge Intake Note: c/o of vaginal discharge x 1 mo. Patient wants std screen today Floor Molder Required: No Information Interpreted: non-clinical & clinical Software Quality Tester: Software Quality Tester Present (Meagan Newton BECK) Accompanied by: Self / Same As Patient Allergies SOAP POWDER Allergy (Unknown, Uncoded 03/08/25 10:16) HIVES Medication List - Last Reconciled 03/08/25 by Amy Callahan CNM albuterol sulfate 90 mcg/actuation 2 puffs inhalation Q4-6H PRN albuterol sulfate 90 mcg/actuation 2 puffs inhalation Q4-6H PRN cetirizine (Zyrtec) 10 mg PO DAILY PRN ibuprofen 600 mg PO Q6H PRN medroxyprogesterone (Depo-Provera) 150 mg IM [id number] Is last menstrual period known: Yes Last menstrual period: 03/06/25 HPI HPI vaginal discharge: Details: Patient is here for visit for vaginal discharge she has a complicated history in that she had an endometrial polyp and she had surgery for that and she has been having bleeding on and off ever since and a discharge that never quite goes away she has been evaluated and treated she sees Chayo Guthrie cnm usually for her annual exams she saw Dr. Aguilar many times when she was being evaluated for the polyp in the bleeding and had surgery with him. She says she has had a discharge almost all the time and sometimes it can be quite abundant so much so that she thought that is something popped in side and that it was almost like pus. She is also getting worked up for other medical issues she said they saw blood in her lungs and so she is waiting on another CAT scan to evaluate that. Because of the discharge and the bleeding often on when she does have sex she has not wanted to have sex though she is sexually active for herself. She finds she is still has some blood in her discharge even then. She gets Depo-Provera through the [facility] she says every 3 months I asked her if she finds that she is bleeding the week before the Depo is due and she finds that she is I suggested considering getting the Depo every 12 weeks to see if that makes a difference.. I reviewed today with her her previous Paps which were all been negative endometrial biopsy were which was done part of the workup before having the surgery for the endometrial polyp and that was negative and also the ultrasound that was recently done by her other CNM at the [facility] which was completely negative.. During today's exam her discharge was noted to be creamy and homogeneous which is consistent with bacterial vaginosis though she says she took metronidazole pills about 2-3 weeks ago for this. Additionally I investigated whether not I could reproduce the discomfort to the she says she has with she has sex and her uterus was markedly retroflexed and bumping against the corpus of the uterus did reproduce the discomfort for her discussed the anatomical differences that can contribute to the for women with retroflexed retroverted uterus is and the it is not something wrong with her it is just a difference. Also discussed at length common measures that women try for dealing with bacterial vaginosis short of metronidazole or Metrogel, and various regimes for using boric acid either occasionally when needed or in her regular way and also the benefits of using condoms. Testing done during the visit today for STIs but she says everything was negative recently with the exception of the bacterial vaginosis, I expect that to be found again today. [facility] Medical History Depression Anemia Low blood pressure Hepatitis B immune Hepatitis A immune Hyperlipidemia Rosacea Difficulty sleeping Anxiety Chronic shortness of breath Weakness Dyspnea on exertion Pleuritic chest pain Eczema IBS (irritable bowel syndrome) Scoliosis Surgical History Status post cervical polyp removal Hx of tooth extraction Family History Father Diabetes mellitus treated with insulin Mother Arthritis Social History Household Members: Children Both parents involved: No Caregiver staying overnight: No Housing: Apartment Are you a primary healthcare facility administrator to a significant other at home: No Do you presently have visiting nurse or other home services: No 75 years or older and lives alone: No Alcohol intake: current Alcohol intake frequency: holidays/special occasions only Patient Tobacco Use Status: Former Tobacco user Tobacco use type: Cigarette Cigarettes Per Day: 2 Trauma History: h/o brother being killed Agree to transfusion: Yes service: No Current occupational status: unemployed Current occupational exposures/hazards: No Cognitive needs: No Hearing needs: No Vision needs: No Female Reproductive History Menstrual Age of Menarche: 18 Date of last menstrual period: 03/06/25 control method: progesterone injection Physical Exam Vital Signs: Last Vital Signs BP 120/68 03/08/25 10:12 BMI result Body Mass Index 28.8 Other: External exam completely within normal limits vagina is pink and moist but with a creamy homogeneous discharge that coats the vaginal moreno and cervix. Cervix pink multiparous slightly friable at surface. Cervix is anterior uterus is small firm mobile and markedly retroverted/retroflexed when I press against the corpus of the uterus that is reproducing the discomfort she feels with intercourse. Adnexa is not enlarged nontender. Careful evaluation of the vaginal sidewalls revealed no lesion or swelling that could represent any cyst structure that might have popped. Very good tone with Kegel Results Reviewed Results Reviewed: Name: Andreina Leblanc Age/Sex: 39/F Attending: MONIKA GUTHRIE CNM : 1985 Submitted by: MONIKA GUTHRIE CNM Copies to: MR #: [id number] Status: DEP REF Collected: 12/22/24 [facility] Received: 12/23/24 Interpretation General Category: Negative for intraepithelial lesion/malignancy. Adequacy: Endocervical component present. Satisfactory for evaluation (following reprocessing with acid wash procedure). Interpretation: Reactive cellular changes. Abundant blood and acute inflammation present HPV High Risk: Negative HPV Genotyping 16: Negative HPV Genotyping 18: Negative Clinical Information LMP: 11/21/2024 Previous PAP test: 2023, WNL Other history: Cervical erosion, abnormal uterine bleeding Material Received ThinPrep-Cervical Electronically Signed By: Cherie Saba 01/02/25 7282 As of March 16, 2024, the technical services to include automated prescreening performed by the ThinPrep Imaging System, PAP screening and HPV testing will be performed at [facility] (CLIA #[id number]), [address] [place] [address]. Testing for HPV was performed using the [employer]peak JUAN CARLOS 6800 system. The presence of HPV in the female genital tract is associated with a number of diseases, including cervical carcinoma. The HPV DNA high risk pool tests for HPV 31, 33, 35, 39, 45, 51, 52, 56, 58, 59, 66 and 68. The testing for HPV 16 and 18 genotypes has also been performed. A positive result indicates detection of nucleic acid sequences from one or more subtypes, whereas a negative result indicates such sequences were not detected. All professional services are performed by [facility] ([address] [place] [address]; ; CLIA #[id number]). The PAP Test is a screening procedure with the inherent possibility of both false negative and false positive results. Results should be interpreted in the context of historic and current clinical findings. Reliability of the PAP Test is enhanced by performing the test on a regular repetitive basis. Patient: Andreina Leblanc Age/Sex Name: Andreina Leblanc Age/Sex: 38/F Attending: Noah Aguilar MD : 1985 Submitted by: Noah Aguilar MD Copies to: TylerCarlee MR #: [id number] Status: [facility] Collected: 12/18/23 Location: [facility] Received: 12/18/23 Diagnosis Endometrium, curettage: - Inactive endometrium with patchy breakdown; no atypia or hyperplasia identified. - Few fragments of endocervical tissue within normal limits. Clinical History Pre-Op Dx: Polyp of corpus uteri Post-Op Dx: Normal endometrial cavity Microscopic Description Microscopic sections reviewed. Material Received [facility] Gross Description Received in formalin labeled ?EMC? is a 2.0 x 1.5 x 0.45 cm aggregate of multiple congested and hemorrhagic red-maroon irregular tissue fragments and blood, submitted in toto in a cassette labeled A. CEDS Copies To Carlee Scott [address] [facility] [place] [address] [facility] [address] [place] [address] Drive [address] [place] [address] NOTE: Unless otherwise stated, all tissue is formalin-fixed and paraffin-embedded. Some or all of the immunohistochemical tests reported herein may have been developed and their performance characteristics determined by [facility]. They have not been cleared or approved by the U.S. Food and Drug Administration (FDA). However, the FDA has determined that such clearance or approval is not necessary. This laboratory is certified under the Clinical Laboratory Improvement Amendments of Patient: Andreina Leblanc Age/Sex: 38/F MR#: [id number] Page 1 of 2 Surgical Pathology [id number] 1986 (CLIA) as qualified to perform high complexity clinical laboratory testing. Electronically Signed By: Bartolo Cabrales MD 12/22/23 1013 Patient: Andreina Leblanc Age/Sex: 38/F MR#: [id number] Patient: Andreina Leblanc MR#: [id number] : 1985 Acct:[id number] Age/Sex: 40 / F ADM Date: 02/17/25 Loc: [facility] Attending Dr: Monika Guthrie CNM Ordering Physician: MONIKA GUTHRIE CNM Date of Service: 02/17/25 Procedure(s): US pelvic and transvaginal Accession Number(s): [id number] cc: Carlee Scott; MONIKA GUTHRIE CNM~ Reason for Exam: AUB, hx polyp EXAMINATION: US PELVIS CLINICAL INFORMATION: History of polyp, abnormal uterine bleeding. COMPARISON: 09/2023 TECHNIQUE: Ultrasound of the pelvis is performed using both transabdominal and transvaginal transducers along with Doppler. Transvaginal imaging is performed due to inadequate visualization transabdominally. FINDINGS: Uterus: The uterus is anteverted, retroflexed, and measures 7.3 x 4.7 x 5.5 cm. The cervix appears normal. The double wall endometrial thickness is 2 mm. It is uniform without irregularity. The uterus is smooth in contour and has mildly heterogeneous myometrial echogenicity. No visible fibroid. Adnexa: Both ovaries are visualized. There is normal color flow to the adnexa. There is no ovarian torsion. There is no significant free pelvic fluid. Trace anechoic fluid is seen abutting the left ovary, likely physiologic. There are no adnexal masses. Right ovary measures 3.7 x 1.7 x 1.9 cm. Volume = 6.4 mL. Normal sonographic appearance. Left ovary measures 3.3 x 1.6 x 2.3 cm. Volume = 6.3 mL. Normal sonographic appearance. US/US pelvic and transvaginal IMPRESSION: 1. Normal and uniform endometrium measuring 2 mm. 2. Grossly normal uterus without discrete fibroids seen. 3. Normal ovaries bilaterally. Electronically signed by: Corky Raymond MD 02/17/2025 04:28 PM EDT Dictated By: Corky Raymond MD Signed By: <Electronically signed by Corky Raymond MD in OV> 02/17/25 1628 DD/ [id number] Assessment & Plan Assessment & Plan (1) Problematic vaginal discharge: Code(s): N89.8 - Other specified noninflammatory disorders of vagina Category: Medical (2) Cervical cancer screening: Comment: 07/12/2021 Pap equals negative with negative HPV. Code(s): Z12.4 - Encounter for screening for malignant neoplasm of cervix Category: Medical (3) Bacterial vaginal infection: Comment: Has recently been treated with metronidazole. Offered Metrogel with refills teaching done about condoms and possible use of boric acid sporadically. Code(s): N76.0 - Acute vaginitis; B96.89 - Other specified bacterial agents as the cause of diseases classified elsewhere Category: Medical Plan Patient is here for visit for vaginal discharge she has a complicated history in that she had an endometrial polyp and she had surgery for that and she has been having bleeding on and off ever since and a discharge that never quite goes away she has been evaluated and treated she sees Chayo Guthrie cnm usually for her annual exams she saw Dr. Aguilar many times when she was being evaluated for the polyp in the bleeding and had surgery with him. She is also getting worked up for other medical issues she said they saw blood in her lungs and so she is waiting on another CAT scan to evaluate that. Because of the discharge and the bleeding often on when she does have sex she has not wanted to have sex though she is sexually active for herself. She finds she is still has some blood in her discharge even then. She gets Depo-Provera through the [facility] she says every 3 months I asked her if she finds that she is bleeding the week before the Depo is due and she finds that she is I suggested considering getting the Depo every 12 weeks to see if that makes a difference... I reviewed today with her her previous Paps which were all been negative endometrial biopsy were which was done part of the workup before having the surgery for the endometrial polyp and that was negative and also the ultrasound that was recently done by her other CNM at the [facility] which was completely negative.. During today's exam her discharge was noted to be creamy and homogeneous which is consistent with bacterial vaginosis though she says she took metronidazole pills about 2-3 weeks ago for this. Additionally I investigated whether not I could reproduce the discomfort to the she says she has with she has sex and her uterus was markedly retroflexed and bumping against the corpus of the uterus did reproduce the discomfort for her discussed the anatomical differences that can contribute to the for women with retroflexed retroverted uterus is and the it is not something wrong with her it is just a difference. Also discussed at length common measures that women try for dealing with bacterial vaginosis short of metronidazole or Metrogel, and various regimes for using boric acid either occasionally when needed or in her regular way and also the benefits of using condoms. Testing done during the visit today for STIs but she says everything was negative recently with the exception of the bacterial vaginosis, I expect that to be found again today. Medications: New metronidazole 0.75%(37.5mg/5gram) Use when symptomatic for bacterial vaginosis 1 appful vaginal BID 70 grams 3RF 5 days Coding Level of Care Code Est Pt Level 3 (14888) Diagnoses Problematic vaginal discharge N89.8 Cervical cancer screening Z12.4 Bacterial vaginal infection N76.0; B96.89
== END 2025-03-08 11:19 | disposition home or self-care (01) ==
LOC: HO.HWSM 10:12
PROVIDERS: PCP General Practice; Visit Provider Advanced Practice Midwife
DX: N76.0 Acute vaginitis (principal); N89.8 Other specified noninflammatory disorders of vagina; B96.89 Other specified bacterial agents as the cause of diseases classified elsewhere; Z12.4 Encounter for screening for malignant neoplasm of cervix
CPT/HCPCS: 99213

== ENCOUNTER 2025-03-22 10:46 | Outpatient (REF) | payer OTHER, SELFPAY ==
--- NOTE | ~2025-03-22 | CT_ITS ---
EXAMINATION: CT CHEST ANGIOGRAPHY WITH IV CONTRAST INDICATION: R93.89 - Abnormal findings on diagnostic imaging of other specified body... COMPARISON: Comparison is made with the prior examination dated 02/14/2025. TECHNIQUE: Helical CT scan of the chest was performed following administration of intravenous contrast (65 mL Omnipaque 350). The contrast bolus was timed to optimally opacify the pulmonary arteries. Thin sections were obtained through the pulmonary arteries. Coronal and sagittal reformatted images were generated. 3D/MIP reconstructed images are also obtained and reviewed. This CT exam was performed with one or more of the following dose reduction techniques: automated exposure control, adjustment of the mA and/or kV according to patient size, use of iterative reconstruction technique. DLP: 206 mGy-cm CHEST: THYROID: The thyroid gland is unremarkable. PULMONARY ARTERIES: No intraluminal filling defects are identified within the pulmonary arteries to suggest pulmonary emboli. LUNGS: The lungs are clear. MEDIASTINUM: There is no mediastinal lymphadenopathy. LYN: There is no hilar lymphadenopathy. CARDIOVASCULATURE: The heart is normal in size. There is no pericardial effusion. The thoracic aorta is normal in caliber. 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 The lung in this region is normal in appearance. DEGREE OF CORONARY CALCIFICATION: not evaluable, due to dense contrast in the coronary arteries. PLEURA: There is no pleural effusion. No pneumothorax. MAIN AIRWAYS: The mainstem bronchi and proximal branches are patent. AXILLA: There is no axillary lymphadenopathy. UPPER ABDOMEN: The visualized portions of the liver, spleen, and adrenals are unremarkable. BONES AND SOFT TISSUES: Unremarkable. CT/CT angio chest PE protocol IMPRESSION: No evidence of pulmonary emboli. 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 Electronically signed by: Ernesto Riley MD 03/22/2025 11:31 AM EDT
[2025-03-22] MEDS: iohexoL 350 MG/ML 100 ML INFUS..BTL IV (11:13)
--- OUTSIDE RECORDS SUMMARY | 2025-03-22 13:30 | XMS_ITS | Clinical Summary ---
Author Organization [employer] [facility] Address [address] [place] [address] Care Team Providers Care Engineer Geophysical Laboratory Name Role Phone Dana Mattson RN Primary Care Provider [phone] Surgical History Surgery Date Site/Laterality Comments OTHER SURGICAL HISTORY PROCEDURE: DENIES PREVIOUS SURGERY OTHER SURGICAL HISTORY PROCEDURE: ME INCISION & DRAINAGE PILONIDAL CYST SIMPLE; COMMENT: [...] a genital outbreak ; no labs in [facility] for review History of blood transfusion [...] RESULTING AGENCY - 08/14/2021 7:26 AM EDT [id number] THINPREP PAP, IMAGED: NEGATIVE FOR SQUAMOUS INTRAEITHELIAL [...] Recently Relevant to Health Maintenance Care Teams Engineer Geophysical Laboratory Relationship Specialty Start Date End Date Dana Mattson RN [address] [place] [phone] PCP - General 10/16/22
== END 2025-03-22 10:47 | disposition home or self-care (01) ==
LOC: HO.CT 10:46
PROVIDERS: PCP General Practice; Visit Provider Nurse Practitioner Family
DX: R93.89 Abnormal findings on diagnostic imaging of other specified body structures (principal)
CPT/HCPCS: 71275; Q9967

== ENCOUNTER → 2025-03-22 10:48 | Outpatient (BNV) | payer OTHER, SELFPAY | PROVIDERS: PCP General Practice; Visit Provider Radiology Diagnostic Radiology | DX: R93.89 Abnormal findings on diagnostic imaging of other specified body structures (principal) | CPT/HCPCS: 71275 ==

== ENCOUNTER 2025-04-02 18:58 | Emergency (ER) | payer OTHER, SELFPAY ==
[2025-04-02 19:04] VITALS: BP 117/82; BP 134/86; PULSE 66; PULSE 73; RESP 16; TEMP 36.9; O2SAT 100; O2SAT 98; BMI 28.4
[2025-04-02 19:11] VITALS: BP 117/82; PULSE 73; RESP 16; TEMP 36.9; O2SAT 100
--- OUTSIDE RECORDS SUMMARY | 2025-04-02 19:27 | XMS_ITS | Encounter Summary ---
Author Organization [employer] Address 75 [facility] 7t [place] [address] Care Team Providers Care Lye Machine Operator Name Role Phone Carlee Scott MD Primary Care Provider [phone] Reason for Visit * Reason Comments Med Change Request Encounter Details Date Type Department Care Team ([facility] Contact Info) Description 12/22/2024 Refill [facility] [address] [place], [place] [phone] Valeria Ruff, CARLOS EDUARDO [address] [place] [address] Social History Tobacco Use Types Packs/Day Years [...] Description 05/22/2025 10:00 AM EST Clinical Support [facility] [address] [place] [address] 06/06/2025 10:15 AM EST Office Visit [facility] [address] [place] [address] Carlee Scott MD 230 [place] [address] documented as of this encounter Visit Diagnoses Not on filedocumented in this encounter Additional Health Concerns Assessment Noted Time PHQ-9 Depression Total Score: 0 03/18/20 10:02 AM EDT documented as of this encounter Care Teams Lye Machine Operator Relationship Specialty Start Date End Date Cralee Scott MD [address] [place] [address] PCP - General Family Medicine 01/20/22 documented as of this encounter
--- OUTSIDE RECORDS SUMMARY | 2025-04-02 19:27 | XMS_ITS | Encounter Summary ---
Author Organization [employer] Address [address] [facility] 7t [place] [address] Care Team Providers Care Grind Operator Name Role Phone Carlee Scott MD Primary Care Provider [phone] Encounter Details Date Type Department Care Team ([facility] st Contact Info) Description 09/11/2023 Orders Only [facility] [address] [place], [place] [phone] Wai Chen MD 230 [place], [place] [phone] Social History Tobacco Use Types Packs/Day Years [...] Description 05/22/2025 10:00 AM EST Clinical Support [address] [address] 06/06/2025 10:15 AM EST Office Visit [address] [address] Carlee Scott MD [address] [place] [address] documented as of this encounter Visit Diagnoses Not on filedocumented in this encounter Additional Health Concerns Assessment Noted Time PHQ-9 Depression Total Score: 22 024 12:37 PM EST documented as of this encounter Care Teams Grind Operator Relationship Specialty Start Date End Date Carlee Scott MD [address] [place] [address] PCP - General Family Medicine 01/20/22 documented as of this encounter
--- OUTSIDE RECORDS SUMMARY | 2025-04-02 19:27 | XMS_ITS | Encounter Summary ---
Author Organization [employer] Address [address] [facility] 7t [place] [address] Care Team Providers Care Optical Technician Name Role Phone Carlee Scott MD Primary Care Provider [phone] Reason for Visit * Reason Onset Date Comments Results 02/13/2025 Encounter Details Date Type Department Care Team (Latest Contact Info) Description 02/13/2025 Results Follow-Up [facility] [address] [place] [address] Valeria Ruff CNM [address] [place] [address] Chlamydia/N. Gonorrhoeae RNA, TMA, Vagina, Trichomonas RNA [...] and self collect vaginal swab for mycoplasma (Sebastian Aptima). Orders placed. We'll be in touch [...] and self collect vaginal swab for mycoplasma (Sebastian Aptima). Orders placed. We'll be in touch with those results when available as well as ultrasound. Does she have appointment for ultrasoundyet? Thanks! documented in this encounter Plan of Treatment Upcoming Encounters Date Type Department Care Team (Late st Contact Info) Description 05/22/2025 10:00 AM EST Clinical Support [address] [address] 06/06/2025 10:15 AM EST Office Visit [address] [address] Carlee Scott MD [address] [place] [address] documented as of this encounter Visit Diagnoses Not on filedocumented in this encounter Additional Health Concerns Assessment Noted Time PHQ-9 Depression Total Score: 0 03/18/20 10:02 AM EDT documented as of this encounter Care Teams Optical Technician Relationship Specialty Start Date End Date Carlee Scott MD [address] [place] [address] PCP - General Family Medicine 01/20/22 documented as of this encounter
--- OUTSIDE RECORDS SUMMARY | 2025-04-02 19:27 | XMS_ITS | Encounter Summary ---
Author Organization [employer] Address [address] [facility] 7t [place] [address] Care Team Providers Care Upstairs Maid Name Role Phone Carlee Scott MD Primary Care Provider Encounter Details Date Type Department Care Team ([facility] st Contact Info) Description 08/11/2023 Orders Only [facility] MED[facility]INE [address] [place], [place] [phone] Carlee Scott MD 230 [place], [place] [phone] Social History Tobacco Use Types Packs/Day Years [...] Description 05/22/2025 10:00 AM EST Clinical Support [address] [address] 06/06/2025 10:15 AM EST Office Visit [address] [address] Carlee Scott MD [address] [place] [address] documented as of this encounter Visit Diagnoses Not on filedocumented in this encounter Additional Health Concerns Assessment Noted Time PHQ-9 Depression Total Score: 22 024 12:37 PM EST documented as of this encounter Care Teams Upstairs Maid Relationship Specialty Start Date End Date Carlee Scott MD [address] [place] [address] PCP - General Family Medicine 01/20/22 documented as of this encounter
--- OUTSIDE RECORDS SUMMARY | 2025-04-02 19:27 | XMS_ITS | Encounter Summary ---
Author Organization [employer] Address [address] [facility] 7t [place] [address] Care Team Providers Care Jde Developer Name Role Phone Carlee Scott MD Primary Care Provider [phone] Encounter Details Date Type Department Care Team ([facility] st Contact Info) Description 06/10/2023 Orders Only [facility] MED[facility] 230 [place], [place] [phone] Laure Canada MD 230 [place], [place] [phone] Social History Tobacco Use Types Packs/Day Years [...] Description 05/22/2025 10:00 AM EST Clinical Support [address] [address] 06/06/2025 10:15 AM EST Office Visit [address] [address] Carlee Scott MD [address] [place] [address] documented as of this encounter Visit Diagnoses Not on filedocumented in this encounter Additional Health Concerns Assessment Noted Time PHQ-9 Depression Total Score: 16 023 9:32 AM EST documented as of this encounter Care Teams Jde Developer Relationship Specialty Start Date End Date Carlee Scott MD [address] [place] [address] PCP - General Family Medicine 01/20/22 documented as of this encounter
--- OUTSIDE RECORDS SUMMARY | 2025-04-02 19:27 | XMS_ITS | Encounter Summary ---
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 (Primary [...] Description 05/22/2025 10:00 AM EST Clinical Support [address] [address] 06/06/2025 10:15 AM EST Office Visit [address] [address] Carlee Scott MD [address] [place] [address] documented as of this encounter Visit Diagnoses 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
--- OUTSIDE RECORDS SUMMARY | 2025-04-02 19:27 | XMS_ITS | Encounter Summary ---
Author Organization [employer] Address [address] [facility] 7t [place] [address] Care Team Providers Care Converting Operator Name Role Phone Carlee Scott MD Primary Care Provider [phone] Encounter Details Date Type Department Care Team ([facility] st Contact Info) Description 12/22/2024 Orders Only [facility] MED[facility]INE [address] [place], [place] [phone] Valeria Ruff CN [address] [place], [place] [phone] Social History Tobacco Use Types Packs/Day Years [...] Description 05/22/2025 10:00 AM EST Clinical Support [address] [address] 06/06/2025 10:15 AM EST Office Visit [address] [address] Carlee Scott MD [address] [place] [address] documented as of this encounter Procedures Procedure Name Priority Date/Time Associated Diagnosis Comments BACTERIAL VAGINOSIS PANEL Routine 12/22/2024 12:15 PM EDT HPV DNA, LOW/HIGH RISK Routine 12/22/2024 12:12 PM EDT documented in this encounter Results * (ABNORMAL) Bacterial Vaginosis (12/22/2024 12:15 PM EDT) TRICHOMONAS VAGINALIS DETECTION BY PCR NOT DETECTED Not Detect [facility] BACTERIAL VAGINOSIS DETECTION BY PCR POSITIVE(A) Negative [facility] Comment:The BV organism targ [...] DETECTION BY PCR NOT DETECTED Not Detect [facility] Rosamaria glab krusei PCR NOT DETECTED Not Detect [facility] 12/22/2024 12:1 5 PM EDT 12/22/2024 5:50 PM EDT Valeria [facility] MICROBIOLOGY - GENERA L ORDERABLES Final Result Performing Organization Address City/[facility] Co de Phone Number [facility] [address] [place] [phone] * HPV DNA, Low/High Risk (12/22/2024 12:12 PM EDT) HPV High Risk Negative Negative [facility] HPV Genotype 16 Negative Negative [facility] HPV Genotype 18 Negative Negative [facility] Comment:HPV testing performe d at [facility] (CLIA#[id number]), [address] [place] [address].Testing for HPV was performed using the [facility] [...] [facility] BLOOD ORDERABLES Rosio l Result [facility] [address] [place] [address] [phone] documented in this encounter Visit Diagnoses Not on filedocumented in this encounter Additional Health Concerns Assessment Noted Time PHQ-9 Depression Total Score: 0 03/18/20 24 10:02 AM EDT documented as of this encounter Care Teams Converting Operator Relationship Specialty Start Date End Date Carlee Scott MD [address] [place] [address] PCP - General Family Medicine 01/20/22 documented as of this encounter
--- OUTSIDE RECORDS SUMMARY | 2025-04-02 19:27 | XMS_ITS | Clinical Summary ---
Author Organization [employer] [facility] Address [address] [place] [address] Care Team Providers Care Timber Management Assistant Name Role Phone Dana Mattson RN Primary Care Provider [phone] Surgical History Surgery Date Site/Laterality Comments OTHER SURGICAL HISTORY PROCEDURE: DENIES PREVIOUS SURGERY OTHER SURGICAL HISTORY PROCEDURE: [place] INCISION & DRAINAGE PILONIDAL CYST SIMPLE; COMMENT: [...] a genital outbreak ; no labs in [facility] for review History of blood transfusion [...] RESULTING AGENCY - 08/14/2021 7:26 AM EDT [id number] THINPREP PAP, IMAGED: NEGATIVE FOR SQUAMOUS INTRAEITHELIAL [...] Recently Relevant to Health Maintenance Care Teams Timber Management Assistant Relationship Specialty Start Date End Date Dana Mattson RN [address] [place] [phone] PCP - General 10/16/22
--- OUTSIDE RECORDS SUMMARY | 2025-04-02 19:28 | XMS_ITS | Clinical Summary ---
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 Sore throat 06/05/2023 Metrorrhagia 06/05/2023 Health care maintenance 10/01/2022 Assessment & Plan (10/01/2022 7:56 PM EDT): -Pap smear : per pt done less than 1 year w her ACTIVITY THERAPY SPECIALIST told to have +HPV -requested already [place] to get records -Pt didn't bring form for work today but showed it to me on phone ---requesting a letter from PCP to excuse why pt is not getting Covid-19 vaccine -states she got 1 dose last year and went to the hospital w mx symptoms -states it was at [facility] x it (will try to get [...] get records and also referred pt to director group sales. Did annual labs today and Tb test--pt will bring form to be completed ---if not seen by director group sales by then would explain in form that [...] Encounters Date Type Department Care Team Description 03/22/2025 Orders Only [facility] External Provider, [facility] 03/09/[address] [address] Carlee Scott MD Durable Medical Equipment ([facility] DME Request: Handheld Showerhead) 03/08/2025 Orders Only GENERIC EXTERNAL DATA DEPARTMENT Provider, Generic External Data 03/02/2025 9:30 AM EDT Clinical Support [address] [address] Bridget Simeon, RN Encounter for surveillance of injectable contraceptive 03/02/2025 Travel 02/24/2025 Orders Only [address] [address] Monika Guthrie CNM Abnormal uterine bleeding (AUB) (Primary Dx); PCB (post coital bleeding) 02/24/2025 Results Follow-Up [address] [address] Monika Guthrie CNM Mycoplasma/Ureaplasma Panel 02/23/[address] [address] Carlee Scott MD Durable Medical Equipment ([facility] DME: Orthopedic Pillow) 02/21/2025 Orders Only [address] [address] Monika Guthrie CNM 02/13/2025 Orders Only [address] [address] Monika Guthrie CNM Cervicitis (Primary Dx) 02/13/2025 Results Follow-Up [address] [address] Monika Guthrie CNM Chlamydia/N. Gonorrhoeae RNA, TMA, Vagina, Trichomonas RNA (Urine/Vaginal), US Pelvis Transvaginal 02/09/2025 9:00 AM EDT Procedure Visit [address] [address] Monika Guthrie CNM Cervicitis (Primary Dx); Abnormal uterine bleeding (AUB) 02/09/2025 Travel 02/08/[address] [address] Monika Guthrie CNM chart prep 01/31/[address] [address] Carlee Scott MD Durable Medical Equipment ([facility] One Care: DME Request) 01/27/2025 1:30 PM EDT Office Visit [address] [address] Lucrecia Wong MD Keloid (Primary Dx); Rosacea 01/27/2025 Travel 01/12/[address] [address] Monika Guthrie CNM 01/03/2025 Results Follow-Up [address] [address] Monika Guthrie CNM Bacterial Vaginosis, HPV DNA, Low/High Risk from Last 3 Months Immunizations Immunization Administration [...] Description 05/22/2025 10:00 AM EST Clinical Support [address] [address] 06/06/2025 10:15 AM EST Office Visit [address] [address] Carlee Scott MD [address] [place] [phone] Health Maintenance Due Date Last Done Comments [...] Procedure Name Priority Date/Time Associated Diagnosis Comments CTA CHEST PE PROTOCAL Routine 03/22/2025 10:53 AM EDT CHLAMYDIA/N. GONORRHOEAE RNA, TMA, UROGENITAL Routine 03/08/2025 10:00 AM EDT BACTERIAL VAGINOSIS PANEL Routine 03/08/2025 10:00 AM EDT POCT , URINE Routine 03/02/2025 10:09 AM [...] UROGENITAL Routine 02/09/2025 9:50 AM EDT Cervicitis HPV DNA, LOW/HIGH RISK Routine 12/22/2024 12:12 PM EDT PAP SMEAR Routine 12/22/2024 12:12 PM EDT Abnormal uterine bleeding BITEWING - SINGLE RADIOGRAPHIC IMAGE Routine 09/26/2024 1:00 PM EDT Dental caries Dental abscess Acute pulpitis HEPATITIS C AB W/REFL TO HCV RNA, QN, PCR Routine 10/02/2022 8:44 AM EDT Health care maintenance HIV 1/2 ANTIGEN/ANTIBODY, FOURTH GENERATION W/RFL Routine 10/02/2022 8:44 AM EDT Health care maintenance from Last 3 Months or Most Recently Relevant to Health Maintenance Results * CTA Chest PE Protocal (03/22/2025 10:53 AM EDT) Anatomical Region Laterality Modality Body, Chest Computed Tomogra phy 03/22/2025 10:5 3 AM EDT Narrative 03/22/2025 11:34 AM EDT [place] [address] [address] Scan Report Signed Patient: Andreina Leblanc MR#: [id number] : 1985 Acct:[id number] Age/Sex: 40 / F ADM Date: 03/22/25 Loc: HO.CT Attending Dr: Sarah Nava BINDERY CUTTER OPERATOR Ordering Physician: Sarah Nava NP Date of Service: 03/22/25 Procedure(s): CT angio chest PE protocol Accession Number(s): [id number] cc: Carlee Scott; Sarah Nava NP Report Number: [id number]: Total DLP = 206.00 mGy-cm Reason for Exam: R93.89 - Abnormal findings on diagnostic imaging of other specified body... EXAMINATION: CT CHEST ANGIOGRAPHY WITH IV CONTRAST INDICATION: R93.89 - Abnormal findings on diagnostic imaging of other specified body... COMPARISON: Comparison is made with the prior examination dated 02/14/2025. TECHNIQUE: Helical CT scan of the chest was performed following administration of intravenous contrast (65 mL Omnipaque 350). The contrast bolus was timed to optimally opacify the pulmonary arteries. Thin sections were obtained through the pulmonary arteries. Coronal and sagittal reformatted images were generated. 3D/MIP reconstructed images are also obtained and reviewed. This CT exam was performed with one or more of the following dose reduction techniques: automated exposure control, adjustment of the mA and/or kV according to patient size, use of iterative reconstruction technique. DLP: 206 mGy-cm CHEST: THYROID: The thyroid gland is unremarkable. PULMONARY ARTERIES: No intraluminal filling defects are identified within the pulmonary arteries to suggest pulmonary emboli. LUNGS: The lungs are clear. MEDIASTINUM: There is no mediastinal lymphadenopathy. LYN: There is no hilar lymphadenopathy. CARDIOVASCULATURE: The heart is normal in size. There is no pericardial effusion. The thoracic aorta is normal in caliber. 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 The lung in this region is normal in appearance. DEGREE OF CORONARY CALCIFICATION: not evaluable, due to dense contrast in the coronary arteries. PLEURA: There is no pleural effusion. No pneumothorax. MAIN AIRWAYS: The mainstem bronchi and proximal branches are patent. AXILLA: There is no axillary lymphadenopathy. UPPER ABDOMEN: The visualized portions of the liver, spleen, and adrenals are unremarkable. BONES AND SOFT TISSUES: Unremarkable. CT/CT angio chest PE protocol IMPRESSION: No evidence of pulmonary emboli. 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 Electronically signed by: Ernesto Riley MD 03/22/2025 11:31 AM EDT Dictated By: Ernesto Riley MD Signed By: <Electronically signed by Ernesto Riley MD in OV> 03/22/25 1131 DD/ 1053 TD/TT: 03/22/25 1113 Branch Employment Coordinator: Procedure Note Donotuseinterpreter, Image - 03/22/[address] [address] [address] Scan Report Signed Patient: Andreina Leblanc [facility]#: [id number] : 1985Acct:[id number] Age/Sex: 40 / FADM Date: 03/22/25 Loc: HO.CT Attending Dr: Sarah Nava NP Ordering Physician: Sarah Nava NP Date of Service: 03/22/25 Procedure(s): CT angio chest PE protocol Accession Number(s): [id number] cc: Carlee Scott; ElijahSarah BINDERY CUTTER OPERATOR Report Number: [id number]: Total DLP = 206.00 mGy-cm Reason for Exam: R93.89 - Abnormal findings on diagnostic imaging of otherspecified body... EXAMINATION: CT CHEST ANGIOGRAPHY WITH IV CONTRAST INDICATION: R93.89 - Abnormal findings on diagnostic imaging of other specified body... COMPARISON: Comparison is made with the prior examination dated 02/14/2025. TECHNIQUE: Helical CT scan of the chest was performed following administration of intravenous contrast (65 mL Omnipaque 350). The contrast bolus was timed to optimally opacify the pulmonary arteries. Thin sections were obtained through the pulmonary arteries. Coronal and sagittal reformatted images were generated. 3D/MIP reconstructed images are also obtained and reviewed. This CT exam was performed with one or more of the following dose reduction techniques: automated exposure control, adjustment of the mA and/or kV according to patient size, use of iterative reconstruction technique. DLP: 206 mGy-cm CHEST: THYROID: The thyroid gland is unremarkable. PULMONARY ARTERIES: No intraluminal filling defects are identified within the pulmonary arteries to suggest pulmonary emboli. LUNGS: The lungs are clear. MEDIASTINUM: There is no mediastinal lymphadenopathy. LYN: There is no hilar lymphadenopathy. CARDIOVASCULATURE: The heart is normal in size. There is no pericardial effusion. The thoracic aorta is normal in caliber. 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 The lung in this region is normal in appearance. DEGREE OF CORONARY CALCIFICATION: not evaluable, due to dense contrast in the coronary arteries. PLEURA: There is no pleural effusion. No pneumothorax. MAIN AIRWAYS: The mainstem bronchi and proximal branches are patent. AXILLA: There is no axillary lymphadenopathy. UPPER ABDOMEN: The visualized portions of the liver, spleen, and adrenals are unremarkable. BONES AND SOFT TISSUES: Unremarkable. CT/CT angio chest PE protocol IMPRESSION: No evidence of pulmonary emboli. 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 Electronically signed by: Ernesto Riley MD 03/22/2025 11:31 AM EDT RP Dictated By: Ernesto Riley MD Signed By: <Electronically signed by Ernesto Riley MD in OV> 03/22/25 1131 DD/ 1053 TD/TT: 03/22/25 1113 Branch Employment Coordinator: [facility] External Provider IMG CT PROCEDURES Final Result * (ABNORMAL) Bacterial Vaginosis (03/08/2025 10:00 AM EDT) TRICHOMONAS VAGINALIS DETECTION BY PCR NOT DETECTED Not Detect [facility] BACTERIAL VAGINOSIS DETECTION BY PCR POSITIVE(A) Negative [facility] Comment:The BV organism targ ets [...] DETECTION BY PCR NOT DETECTED Not Detect [facility] Rosamaria glab krusei PCR NOT DETECTED Not Detect [facility] 03/08/2025 10:0 0 AM EDT 03/08/2025 7:05 PM EDT Generic External Data Provider LAB MICROBIOLOGY - GENERAL ORDERABLES Final Result [facility] [address] [place] [phone] * Chlamydia/N. Gonorrhoeae RNA, TMA, Urogenitial (03/08/2025 10:00 AM EDT) Only the most recent of2 resultswithin the time period is included. CT PCR NOT DETECTED Not Detect. [facility] Comment:A not detected test result [...] psychologicalconsequences. NG PCR NOT DETECTED Not Detect. [facility] Comment:A not detected test result [...] lead to adverse medical, social or psychologicalconsequences. 03/08/2025 10:0 0 AM EDT 03/08/2025 7:05 PM EDT us Generic External Data Provider LAB MICROBIOLOGY - GENERAL ORDERABLES Final Result [facility] [address] [place] [address] [phone] * POCT Urine (03/02/2025 10:09 AM EDT) Preg Test, Ur Negative Negative, Indeterminate, None Detected, Invalid, Specimen unsatisfactory for evaluation, Weakly Positive, 2+ QC Media Lot # [id number] Lot# Expiration Date [id number] Urine 03/02/2025 10:0 9 AM EDT Shelia Awad DO POINT OF CARE TEST ENTER/TITO T ORDERABLES Final Result * Mycoplasma/Ureaplasma??Panel (02/21/2025 1:15 PM EDT) Sureswab(R), Mycoplasma Hominis, Real-Time Pcr Not Detected Not Detected [facility] Comment:THIS TEST WAS PERFOR MED AT:[employer] [id number] [place] [address]LSZARCRTAMMY BINGHAM MD,PHD Mycoplasma Genitalium, rRNA,TMA Not Detected Not Detected [facility] Comment:THIS TEST WAS PERFOR MED AT:[employer] [id number] [place] [address]GPAVLAPTAMMY BINGHAM MD,PHD U. Parvum DNA Not Detected Not Detected [facility] U. Urealyticum DNA Not Detected Not Detected [facility] Comment:This test was develo ped and its analyticalperformance characteristics have been determinedby [facility] [place], [place].It has not been cleared or approved by the FDA. Thisassay has been validated pursuant to the CLIAregulations and is used for clinical purposes.THIS TEST WAS PERFORMED AT:[employer] [id number] [place] [address]KHRKBODTAMMY BINGHAM MD,PHD 02/21/2025 1:15 PM EDT 02/21/2025 4:21 PM EDT Monika THIBODEAUX LAB MICROBIOLOGY - GENERA L ORDERABLES Final Result [facility] [address] [place] [phone] * US Pelvis Transvaginal (02/17/2025 3:56 PM EDT) Anatomical Region Laterality Modality Pelvis Ultrasound 02/17/2025 3:56 PM EDT Narrative 02/17/2025 4:30 PM EDT [facility] [address] [place] [address] [place] [address] Ultrasound Report Signed Patient: Andreina Leblanc MR#: [id number] : 1985 Acct:[id number] Age/Sex: 40 / F ADM Date: 02/17/25 Loc: HO.HMGCX Attending Dr: Monika Guthrie CNM Ordering Physician: MONIKA GUTHRIE CNM Date of Service: 02/17/25 Procedure(s): US pelvic and transvaginal Accession Number(s): [id number] cc: Carlee Scott; MONIKA GUTHRIE CNM Reason [...] 02/17/25 1628 DD/ 1556 TD/TT: 02/17/25 1613 Branch Employment Coordinator: Procedure Note Donotuseinterpreter, Image - 02/17/2025 [facility] [address] [place] [address] [place] [address] Ultrasound Report Signed Patient: Andreina Leblanc [facility]#: [id number] : 1985Acct:[id number] Age/Sex: 40 / FADM Date: 02/17/25 Loc: HO.HMGX Attending Dr: Monika Guthrie CNM Ordering Physician: MONIKA GUTHRIE CNM Date of Service: 02/17/25 Procedure(s): US pelvic and transvaginal Accession Number(s): [id number] cc: Carlee Scott; MONIKA GUTHRIE CNM Reason [...] 02/17/25 1628 DD/ 1556 TD/TT: 02/17/25 1613 Branch Employment Coordinator: us Monika Guthrie CN IMG US PROCEDURES Final R esult * CT Chest w/o Contrast (02/14/2025 4:05 PM EDT) Anatomical Region Laterality Modality Body, Chest Computed Tomogra phy 02/14/2025 4:05 PM EDT Narrative 02/14/2025 4:50 PM EDT [place] [address] CT Scan Report Signed Patient: Andreina Leblanc MR#: [id number] : 1985 Acct:[id number] Age/Sex: 40 / F ADM Date: 02/14/25 Loc: HO.CT Attending Dr: Sarah Nava BINDERY CUTTER OPERATOR Ordering Physician: Sarah Nava NP Date of Service: 02/14/25 Procedure(s): CT chest wo IV con Accession Number(s): [id number] cc: Carlee Scott; Sarah Nava NP Report Number: [id number]: Total DLP = 161.00 mGy-cm Reason for [...] 02/14/25 1647 DD/ 1605 TD/TT: 02/14/25 1630 Branch Employment Coordinator: Procedure Note Donotuseinterpreter, Image - 02/14/[address] [address] [address] Scan Report Signed Patient: Andreina Leblanc [facility]#: [id number] : 1985Acct:[id number] Age/Sex: 40 / FADM Date: 02/14/25 Loc: HO.CT Attending Dr: Sarah Nava NP Ordering Physician: Sarah Nava NP Date of Service: 02/14/25 Procedure(s): CT chest wo IV con Accession Number(s): [id number] cc: TylerCarlee; Sarah Nava BINDERY CUTTER OPERATOR Report Number: [id number]: Total DLP = 161.00 mGy-cm Reason for [...] 02/14/25 1647 DD/ 1605 TD/TT: 02/14/25 1630 Branch Employment Coordinator: [facility] External Provider IMG CT PROCEDURES Final [...] RNA, QL, TMA NOT DETECTED NOT DETECTED [facility] Comment:For additional infor melissa, please refer tohttp://education.Austral 3D/faq/Trichomonastma(This link is being provided for informational/educational purposes only.)THIS TEST WAS PERFORMED AT:[employer] [place] [id number] CARRENO MD Swab 02/09/2025 9:50 AM EDT 02/09/2025 4:11 PM EDT Monika THIBODEAUX LAB BODY FLUIDS AND STOOL S ORDERABLES Final Result [facility] [address] [place] [phone] * HPV DNA, Low/High Risk (12/22/2024 12:12 PM EDT) HPV High Risk Negative Negative [facility] HPV Genotype 16 Negative Negative [facility] HPV Genotype 18 Negative Negative [facility] Comment:HPV testing performe d at (CLIA#[id number]), [address] [place] [address].Testing for HPV was performed using the [employer]system. The presence of HPV in the female [...] 12/23/2024 7:40 AM EDT us Monika Guthrie CNM LAB BLOOD ORDERABLES Rosio l Result [facility] [address] [place] [phone] * Pap Smear (12/22/2024 12:12 PM EDT) Swab 12/22/2024 12:1 2 PM EDT 12/23/2024 7:40 AM EDT Bright [facility] - 01/02/2025 2:55 PM EDT ----- ------- Name: Andreina Leblanc Age/Sex: 39/F : 1985 Unit#: [id number] Attend Dr: MONIKA GUTHRIE CNM Re12/22/24 Status: DEP [facility] Disch: ----- ------- SPEC : [id number] RECD: 12/23/24 STATUS: JUVENAL DEAL NUM: [id number] ALYSSA: 12/22/24-1212 [facility] DR: MONIKA GUTHRIE CNM ENTERED: 12/23/24 [...] and HPV testing will be performed at (CLIA #[id number]), [address] [place] [address]. Testing for HPV was performed using the [...] detected. All professional services are performed by [facility] ([address] [place] [address], [place] [address]; ; CLIA #[id number]). The PAP Test is a screening procedure with the inherent possibility of both false negative and false positive results. Results should be interpreted in the context of historic and current clinical findings. Reliability of the PAP Test is enhanced by performing the test on a regular repetitive basis. CONTINUED ON NEXT PAGE ----- ------- Name: Andreina Leblanc Age/Sex: 39/F : 1985 Unit#: [id number] Attend Dr: MONIKA GUTHRIE [facility] Re12/22/24 Status: DEP REF Location: [facility]CLNP Disch: ----- ------- SPEC : [id number] RECD: 12/23/24 STATUS: JUVENAL DEAL NUM: [id number] ALYSSA: 12/22/24-[address]: MONIKA GUTHRIE [facility] ENTERED: 12/23/24 SP TYPE: Pap Lynne HARRIS DR: ORDERED: Pap Smear, PAP path review ----- ------- Signed (signature on file) Cherie Saba 01/02/25 1455 ----- ------- END OF REPORT Monika Speedy [facility] LAB CYTOLOGY ORDERABLES F inal Result [facility] [address] [place] [address] [phone] * Hepatitis C Antibody with Reflex to HCV, RNA, Quantitative, Real-Time PCR (10/02/2022 8:44 AM EDT) Hepatitis C Antibody NON-REACT KEATON NON-REACT KEATON [facility] [place] [facility] Index 0.12 <1.00 [facility] Comment: HCV antibody was non-reactive. There is no laboratory evidence of HCV infection. In most cases, no further action is required. However, if recent HCV exposure is suspected, a test for HCV RNA (test code 21695) is suggested. For additional information please refer to http://education.Austral 3D/faq/DCU65n2 (This link is being provided for informational/ educational purposes only.) Blood Venous blood specimen / Unknown 10/02/2022 8:44 AM EDT 10/02/2022 8:44 AM EDT Narrative [facility] - 10/07/2022 3:11 PM EDT FASTING:YES FASTING: YES Laure Medina MD LAB BLOOD ORDERAB LES Final Result Performing Organization Address City/[facility]/ZIP Co de Phone Number [facility] [address], [place] [address] [facility] [address] [place] [address] * HIV-1/2 Antigen and Antibodies, Fourth Generation, with Reflexes (10/02/2022 8:44 AM EDT) HIV Antigen/Antibody, 4th Generation NON-REAC TIVE NON-REAC TIVE [facility] Comment: HIV-1 antigen and HIV-1/HIV-2 antibodies [...] purpose. For additional information please refer to http://education.Austral 3D/faq/JYJ736 (This link is being provided for informational/ educational purposes only.) The performance of this assay has not been clinically validated in patients less than 2 years old. Blood Venous blood specimen / Unknown 10/02/2022 8:44 AM EDT 10/02/2022 8:44 AM EDT Narrative [facility] - 10/07/2022 3:11 PM EDT FASTING:YES FASTING: YES Laure Medina MD LAB BLOOD ORDERAB LES Final Result [facility] [address], [place] [phone] [facility] [address] [place] [phone] from Last 3 Months or Most Recently Relevant to Health Maintenance Insurance [facility] ONE CARE < 65 [place] [id number] D[facility]AL - [facility] Care Teams Animal Impersonator Relationship Specialty Start Date End Date Carlee Scott MD [address] [place] [address] PCP - General Family Medicine 01/20/22
[2025-04-02] MEDS: Lactated Ringers 1,000 ML 999 ML IV (21:35)
[2025-04-02 21:44] LABS: MANUAL DIFF FLAG NO
[2025-04-02 21:45] LABS: Hematocrit 39.3 % (37.0-47.0); Hemoglobin 13.5 g/dl (12.0-16.0); Imm Gran Abs Auto 0.01 X10*3/uL (0.00-0.03); Imm Gran Pct Auto 0.1 % (0.0-0.4); Lymphocytes Absolute Auto 2.4 X10*3/uL (1.2-4.9); Mean Corpuscular HGB Conc 34.4 g/dl (31.0-35.0); Mean Corpuscular Hemoglobin 28.5 pg (27.0-33.0); Mean Corpuscular Volume 83.1 fL (80.0-98.0); NRBC Abs Auto 0.000 X10*3/uL (0.0-0.012); NRBC Pct Auto 0.0 /100WBC (0.0-0.2); Platelet Count 263 X10*3/uL (160-400); Red Blood Count 4.73 X10*6/uL (4.20-5.50); White Blood Count 7.6 X10*3/uL (4.8-10.8)
[2025-04-02 21:46] LABS: Appearance Urine Clear; Glucose Urine UA Negative (Negative); PH 7.5 (5.0-9.0); Specific Gravity - Urine 1.010 (1.005-1.025)
[2025-04-02 22:04] LABS: Alanine Aminotransferase 20 U/L (0-31); Albumin Level 4.5 g/dL (3.5-5.0); Alkaline Phosphatase 56 U/L (39-117); Anion Gap 14 (12-20); Aspartate Amino Transferase 21 U/L (5-31); Blood Urea Nitrogen 8 mg/dL (9-16); Calcium 9.5 mg/dL (8.4-10.2); Carbon Dioxide 21 mmol/L (22-29); Chloride 111 mmol/L (96-108); Creatinine Clr Calc Pharmacy 114.5; Estimated Glomerular Filt Rate > 60; Potassium 3.9 mmol/L (3.3-5.1); Sodium 142 mmol/L (135-145); Total Protein 7.3 g/dL (6.5-8.0)
--- NOTE | 2025-04-02 23:15 | ED_ITS ---
HPI - Headache General Chief Complaint: Abdominal Pain Stated Complaint: Dizzy, nausea, hx lupus & blood clot in R lung Time Seen by Provider: 04/02/25 20:02 Source: patient, EMS, RN notes reviewed and old records reviewed Limitations: no limitations History of Present Illness ED Provider: Dr. Olga Lidia Najera HPI Narrative: 40-year-old female, previously healthy presenting with near syncopal episode and dizziness that occurred immediately prior to arrival. Patient states she was sitting down at the dinner table when she started to feel like she might pass out. States she felt the room was spinning and she laid down on the floor before she passed out completely. Never lost consciousness. Asked her family to call 911. Describes a migraine headache that feels similar to previous headaches. Also describes vomiting multiple times, nonbilious, nonbloody emesis. No reported diarrhea. Has been feeling well prior to this. No one else is sick at home. Denies vision changes or speech deficits. No focal limb weakness or numbness. No reported fever. Related Data Home Medications ?Medication ?Instructions ?Recorded ?Confirmed medroxyprogesterone 150 mg/mL 150 mg IM [id number] 10/1203/08/25 intramuscular suspension (Depo-Provera) Previous Rx's ?Medication ?Instructions ?Recorded albuterol sulfate 90 mcg/actuation 2 puff inhalation Q 4-6H PRN 09/15/21 aerosol inhaler shortness of breath or wheez ing #6.7 grams ibuprofen 600 mg tablet 600 mg PO Q6H PRN pain #30 t abs 10/10/24 albuterol sulfate 90 mcg/actuation 2 puff inhalation Q 4-6H PRN 12/05/24 aerosol inhaler shortness of breath or wheez ing #1 ea cetirizine 10 mg tablet (Zyrtec) 10 mg PO DAILY PRN al lergy 01/30/25 symptoms #30 tabs metronidazole 0.75 % (37.5 mg/5 1 appful vaginal BID 5 days #70 03/08/25 gram) vaginal gel grams meclizine 25 mg tablet 25 mg PO TID PRN dizziness # 30 tabs 04/02/25 ondansetron 4 mg disintegrating 4 mg PO Q8H PRN nausea and 04/02/25 tablet vomiting #10 tabs Allergies Allergy/AdvReac Type Severity Reaction Status Date / Time SOAP POWDER Allergy Unknown HIVES Uncoded 04/02/25 19:07 Review of Systems 2 Review of Systems: As per HPI, full review of systems performed and negative but for the above mentioned pertinent positives and negatives. [facility] Past Medical History Medical History Depression Anemia Low blood pressure Hepatitis B immune Hepatitis A immune Hyperlipidemia Rosacea Difficulty sleeping Anxiety Chronic shortness of breath Weakness Dyspnea on exertion Pleuritic chest pain Eczema IBS (irritable bowel syndrome) Scoliosis Surgical History Status post cervical polyp removal Hx of tooth extraction Family History Family History Father Diabetes mellitus treated with insulin Mother Arthritis Social History Social History Household Members: Children Housing: Apartment Are you a primary rn managed care to a significant other at home: No Do you presently have visiting nurse or other home services: No Unable to assess alcohol history related to: Unknown Alcohol intake: current Alcohol intake frequency: holidays/special occasions only Patient Tobacco Use Status: Former Tobacco user Tobacco use type: Cigarette Cigarettes Per Day: 2 Smoked in Last 30 Days: No Use of substances other than those prescribed or required for medical reasons: No Trauma History: h/o brother being killed Agree to transfusion: Yes Advance Directives: No Advance Directives Information Provided: Yes Do you have a plan to hurt others: No Plan service: No Current occupational status: unemployed Current occupational exposures/hazards: No Cognitive needs: No Hearing needs: No Vision needs: No Physical Exam 2 Exam: Exam: GENERAL: Ill-Appearing, appears uncomfortable. SKIN: Normal skin color for ethnicity, warm, dry, no rashes noted. HEENT: Normocephalic, atraumatic, no stridor, dry mucous membranes, dentition intact, EOMI, PERRLA, no nystagmus. NECK: Soft, supple, full ROM, midline structures nontender, no step-offs, no deformities, no lymphadenopathy. CHEST: Heart regular rhythm, no murmurs, symmetric chest rise and fall. PULMONARY: Clear to auscultation bilaterally, diminished at the bases, no labored breathing, no wheezes/rhales/rhonchi. ABDOMINAL: Soft, nondistended, nontender, positive bowel sounds in all quadrants. : Deferred. MUSCULOSKELETAL: Normal tone, full range of motion, no deformities, no peripheral edema. NEURO: Alert and oriented x3, CN II through XII intact, equal strength and sensation bilateral upper and lower extremities, no focal neurologic deficits. PSYCHIATRIC: Flat affect, fluid speech, good eye contact and appropriate demeanor. Vital Signs: Vital Signs: Last Vital Signs Temp 98.5 F 04/02/25 23:33 Pulse 70 04/02/25 23:33 Resp 16 04/02/25 23:33 BP 108/65 04/02/25 23:33 Pulse Ox 100 04/02/25 23:33 O2 Del Method Room Air 04/02/25 23:33 BMI result Body Mass Index 28.4 Medications Administered Discontinued Medications Generic Name Dose Route Start Last Admin Trade Name Freq PRN Reason Stop Dose Admin Lactated Ringer's 1,000 mls @ 999 mls/hr 04/02/25 21:15 04/02/25 23:05 Lr IV 04/02/25 22:15 Infused .Q1H1M ONE Infusion Ketorolac Tromethamine 15 mg 04/02/25 21:15 04/02/25 21:36 Ketorolac Tromethamine 15 Mg/Ml Vial IVPUSH 04/02/25 21:16 15 mg ONCE ONE Administration Metoclopramide HCl 10 mg 04/02/25 21:15 04/02/25 21:36 Metoclopramide Hcl 10 Mg/2 Ml Vial IVPUSH 04/02/25 21:16 10 mg ONCE ONE Administration Medical Decision Making Medical Decision Making [facility] Narrative: Patient presents today with a chief complaint of dizziness, near syncopal episode. Differential diagnosis is extremely broad and includes migraine headache, posterior circulation deficits causing vestibular basilar symptoms, anemia, hypovolemia, middle or inner ear problems, intracranial abnormality such as stroke bleed or tumor, electrolyte abnormalities, cardiac arrhythmia, among many others. This patient does not have any focal neurological findings at this time. Workup is reassuring. Headache is consistent with migraine, symptoms consistent with vasovagal episode. Patient is now ambulatory to the restroom without assistance. Her headache has resolved with a migraine cocktail and she is feeling significantly improved. Reports several episodes of near-syncope in the past. Has never lost consciousness completely. Suspect vasovagal near-syncope. Using shared decision making, plan for discharge home to follow-up with primary care and/or specialist.? Patient understands and agrees with plan for discharge.? Discharged home in stable condition. Differential Diagnosis Differential Diagnoses: The differential diagnosis associated with the presentation includes (As above) Admission/Observation Consideration of admission/observation: Escalation of care including admission/observation considered Lab Data MDM Lab Attestation statement: I reviewed the patient's lab results. 04/02/25 21:39 04/02/25 21:39 Labs: Lab Results 04/02/25 Range/Units 21:39 WBC 7.6 (4.8-10.8) X10*3/uL RBC 4.73 (4.20-5.50) X10*6/uL Hgb 13.5 (12.0-16.0) g/dl Hct 39.3 (37.0-47.0) % MCV 83.1 (80.0-98.0) fL MCH 28.5 (27.0-33.0) pg MCHC 34.4 (31.0-35.0) g/dl RDW 13.2 (11.0-16.0) % Plt Count 263 (160-400) X10*3/uL MPV 8.5 L (9.4-12.3) fL Immature Gran % (Auto) 0.1 (0.0-0.4) % Neut % (Auto) 60.2 (45-73) % Lymph % (Auto) 31.1 (20-40) % [place] % (Auto) 6.1 (2-11) % Eos % (Auto) 2.2 (0-4) % Baso % (Auto) 0.3 (0-2) % Lymph # (Auto) 2.4 (1.2-4.9) X10*3/uL [place] # (Auto) 0.5 (0.1-1.2) X10*3/uL Eos # (Auto) 0.2 (0.0-0.4) X10*3/uL Baso # (Auto) 0.0 (0.0-0.2) X10*3/uL Abs Immat Gran (auto) 0.01 (0.00-0.03) X10*3/uL Absolute Neuts (auto) 4.6 (2.0-8.3) x10*3/uL Absolute Nucleated RBC 0.000 (0.0-0.012) X10*3/uL Nucleated RBC % (auto) 0.0 (0.0-0.2) /100WBC Sodium 142 (135-145) mmol/L Potassium 3.9 (3.3-5.1) mmol/L Chloride 111 H (96-108) mmol/L Carbon Dioxide 21 L (22-29) mmol/L Anion Gap 14 (12-20) BUN 8 L (9-16) mg/dL Creatinine 0.76 (0.5-1.4) mg/dL Estim Creat Clear Calc 114.5 Estimated GFR > 60 Random Glucose 102 (60-115) mg/dL Calcium 9.5 (8.4-10.2) mg/dL Total Bilirubin 0.2 (0.0-1.0) mg/dL AST 21 (5-31) U/L ALT 20 (0-31) U/L Alkaline Phosphatase 56 (39-117) U/L Total Protein 7.3 (6.5-8.0) g/dL Albumin 4.5 (3.5-5.0) g/dL Beta HCG, Quant < 2 mIU/mL Urine Color Yellow Urine Appearance Clear Urine pH 7.5 (5.0-9.0) Ur Specific [place] 1.010 (1.005-1.025) Urine Protein Negative (Neg-Trace) mg/dL Urine Glucose (UA) Negative (Negative) mg/dL Urine Ketones Negative (Negative) mg/dL Urine Blood Negative (Negative) Urine Nitrite Negative (Negative) Ur Leukocyte Esterase Negative (Negative) Independent Historian Clinical information obtained from an independent historian. History obtained from or confirmed by: EMS External Record Review External record reviewed: Inpatient record Prescription Management I considered prescription management with: Pain Medication and Other (Antiemetics, meclizine) Discharge Plan Discharge Clinical Impression: Near syncope, Vertigo, Acute vomiting Patient Disposition: Home, Self-Care Instructions: Vertigo (ED), Near Syncope (ED) Additional Instructions: Return to the emergency department with any new or worsening symptoms including: Worsening headaches associated with fever or stiff neck, inability to tolerate medications, worsening dizziness despite meclizine, any new symptom that concerns you. Call 911 with any medical emergency. According to your blood work, you do not have lupus. You should continue to follow up with your primary care doctor about this issue of chronic fatigue and shortness of breath, though. Sometimes you can have what is known as LAYA negative Lupus, which is basically a false negative test. A referral to Rheumatology may be helpful. Prescriptions: New ondansetron 4 mg tablet,disintegrating 4 mg PO Q8H PRN (Reason: nausea and vomiting) Qty: 10 0RF meclizine 25 mg tablet 25 mg PO TID PRN (Reason: dizziness) Qty: 30 0RF No Action albuterol sulfate 90 mcg/actuation HFA aerosol inhaler 2 puff inhalation Q4-6H PRN (Reason: shortness of breath or wheezing) Qty: 6.7 0RF ibuprofen 600 mg tablet 600 mg PO Q6H PRN (Reason: pain) Qty: 30 0RF medroxyprogesterone [Depo-Provera] 150 mg/mL suspension 150 mg IM [id number] albuterol sulfate 90 mcg/actuation HFA aerosol inhaler 2 puff inhalation Q4-6H PRN (Reason: shortness of breath or wheezing) Qty: 1 0RF cetirizine [Zyrtec] 10 mg tablet 10 mg PO DAILY PRN (Reason: allergy symptoms) Qty: 30 3RF metronidazole 0.75 % (37.5mg/5 gram) gel 1 appful vaginal BID 5 Days Qty: 70 3RF Rx Instructions: Use when symptomatic for bacterial vaginosis Interventions: ED Discharge Assessment Last Done: 04/02/25 23:33 Discharge Date/Time: 04/02/25 23:37 Print Language: Egyptian
[2025-04-02 23:33] VITALS: BP 108/65; PULSE 70; RESP 16; TEMP 36.9; O2SAT 100
== END 2025-04-02 23:37 | disposition home or self-care (01) ==
PROVIDERS: Emergency Provider Emergency Medicine; PCP General Practice
DX: R55 Syncope and collapse (principal); R42 Dizziness and giddiness; R11.2 Nausea with vomiting, unspecified; R11.0 Nausea; R10.22 Pelvic and perineal pain left side; Z79.899 Other long term (current) drug therapy
CPT/HCPCS: 36415; 80053; 81003; 84702; 85025; 96361; 96374; 96375; 99284; 99285; J1885; J2765; J7120